=== PATIENT | female | born 1980 | race Caucasian/White ===

== ENCOUNTER 2016-12-26 11:38 | Inpatient (IN) | payer MEDICARE, OTHER, SELFPAY ==
[2016-12-26] MEDS: cefTRIAXone 2 GM Vial IVPUSH SCH (12:26)
--- NOTE | 2016-12-26 12:43 | PCM.HP ---
H&P History of Present Illness - General Date of Service: 12/26/16 Admit Problem/Dx: Admission Diagnosis/Problem Admission Diagnosis/Problem Pyelonephritis Source of Information: Patient History Limitations: Reports: No Limitations - History of Present Illness Initial Comments - Free Text/Narative: Ms. Young is a 36 yo female with PMH of chronic low back pain, hypertension, migraines, type 2 diabetes, seasonal allergies, generalized anxiety disorder, major depression, and obesity who presented to clinic today for new onset fever this morning. Her temperature measured at home was 102 and her temp was down to 101.2 in the clinic after she took Tylenol at 6 AM. Associated symptoms include dysuria, frequency, urgency, and increased back pain. She did trip over a cord and sustained a twisting injury yesterday as well so is unsure whether the back pain is related to her kidneys or to something else. She denies any new or changing lower extremity neurologic symptoms. She does have some chronic weakness and numbness/tingling but these symptoms are unchanged. She does feel generally weak and unwell. She took Tylenol as above but has not done any home cares for her symptoms. She does have a history of UTI's and has previously had to come in and get daily injections of ceftriaxone from the emergency room. She does have an allergy listed to cephalexin but has done fine with ceftriaxone in the past. She otherwise denies any symptoms of infection. - Related Data Allergies/Adverse Reactions: Allergies Allergy/AdvReac Type Severity Reaction Status Date / Time cat dander Allergy Sneezing Verified 12/26/16 12:29 duloxetine [From Cymbalta] Allergy Cannot Verified 12/26/16 12:29 Remember Sulfa (Sulfonamide Allergy Hives Verified 12/26/16 12:29 Antibiotics) celecoxib [From Celebrex] AdvReac Diarrhea Verified 12/26/16 12:29 cephalexin AdvReac Nausea and Verified 12/26/16 12:29 Vomiting topiramate [From Topamax] AdvReac Delusions Verified 12/26/16 12:29 dust mite extract Allergy Cannot Uncoded 12/26/16 12:29 Remember Home Medications: Home Meds Acyclovir [Zovirax] 400 mg PO BID 09/28/13 [History] Amitriptyline [Elavil] 25 mg PO TID 09/28/13 [History] Calcium Carbonate/Vitamin D2 [Oyster Shell Calcium-Vit D Tab] 1 tab PO BIDMEALS 09/28/13 [History] Cholecalciferol (Vitamin D3) [Vitamin D3] 10,000 unit PO DAILY 09/28/13 [History ] Cyanocobalamin (Vitamin B-12) [Vitamin B-12] 100 mcg PO DAILY 09/28/13 [History] Docusate Sodium [Colace] 100 mg PO BID 09/28/13 [History] Ferrous Sulfate 325 mg PO BID 09/28/13 [History] Gabapentin [Neurontin] 600 mg PO TID 09/28/13 [History] Magnesium Oxide 800 mg PO DAILY@1800 09/28/13 [History] Multivitamin [Multivitamins] 1 cap PO DAILY 09/28/13 [History] SUMAtriptan Succinate [Imitrex] 100 mg PO ASDIRECTED PRN MDD 2 tabs in 24 hours 09/28/13 [History] tiZANidine HCl [Zanaflex] 8 mg PO BEDTIME 09/28/13 [History] metFORMIN HCl [Metformin HCl] 500 mg PO BID 03/15/15 [History] traZODone 100 mg PO BEDTIME 03/15/15 [History] Biotin 1 tab PO DAILY 01/24/16 [History] Enalapril/Hydrochlorothiazide [Enalapril-HCTZ 5-12.5 MG] 1 tab PO DAILY [History] Omeprazole Magnesium [Prilosec Otc] 20 mg PO BIDAC 01/24/16 [History] Terbinafine [LamISIL AT 1% Crm] 1 applic TOP BID PRN 01/24/16 [History] Ethinyl Estradiol/Norgestrel [Cryselle 28-Day] 1 tab PO DAILY 12/26/16 [History] Lidocaine 2% [Xylocaine 2% Jelly] 1 applic TOP DAILY PRN 12/26/16 [History] Zonisamide 100 mg PO BID 12/26/16 [History] tiZANidine [Zanaflex] 4 mg PO DAILY PRN 12/26/16 [History] Past Medical History HEENT History: Reports: Allergic Rhinitis Cardiovascular History: Reports: Hypertension Respiratory History: Reports: None Gastrointestinal History: Reports: Other (See Below) Other Gastrointestinal History: abd abscess post hernia surgery Genitourinary History: Reports: UTI, Recurrent Musculoskeletal History: Reports: Back Pain, Chronic Neurological History: Reports: Migraines Psychiatric History: Reports: Anxiety, Depression Endocrine/Metabolic History: Reports: Diabetes, Type II, Obesity/BMI 30+ Hematologic History: Reports: Anemia Immunologic History: Reports: None Oncologic (Cancer) History: Reports: None Dermatologic History: Reports: None - Infectious Disease History Infectious Disease History: Reports: MRSA - Past Surgical History GI Surgical History: Reports: Bariatric Procedure, Cholecystectomy, Hernia Repair/Other Neurological Surgical History: Reports: Lumbar Spine Musculoskeletal Surgical History: Reports: Carpal Tunnel Social & Family History - Family History Cardiac: Reports: CAD, Hypertension : Reports: Renal Disease/Insufficiency Neurological: Reports: CVA Endocrine/Metabolic: Reports: Diabetes, type II Oncologic: Reports: Uterine - Tobacco Use Smoking Status *Q: Never Smoker - Caffeine Use Caffeine Use: Reports: Coffee, Soda - Alcohol Use Alcohol Use History: No Days Per Week of Alcohol Use: 0 Alcohol Use in Last Twelve Months: No - Recreational Drug Use Recreational Drug Use: No - Living Situation & Occupation Living situation: Reports: Single, with Family (sister) Occupation: Disabled H&P Review of Systems - Review of Systems: Review Of Systems: See Below General: Reports: Fever, Malaise, Weakness HEENT: Reports: No Symptoms Pulmonary: Reports: No Symptoms Cardiovascular: Reports: No Symptoms Gastrointestinal: Reports: Abdominal Pain, Anorexia, Diarrhea, Nausea. Denies: Vomiting Genitourinary: Reports: Dysuria, Frequency, Urgency Musculoskeletal: Reports: No Symptoms Skin: Reports: No Symptoms Psychiatric: Reports: No Symptoms Neurological: Reports: No Symptoms Hematologic/Lymphatic: Reports: No Symptoms Exam - Exam Exam: See Below - Vital Signs Vital Signs: Last Vital Signs Temp 37.8 C 12/26/16 11:49 Pulse 123 H 12/26/16 11:49 Resp 18 12/26/16 11:49 BP 117/56 L 12/26/16 11:49 Pulse Ox 97 12/26/16 11:49 Weight: 131.542 kg - Exam General: Alert, Oriented, Cooperative, Mild Distress (secondary to pain) HEENT: Conjunctiva Clear, Mucosa Moist & [place], Posterior Pharynx Clear, Pupils Equal, Pupils Reactive Neck: Supple, Trachea Midline. No: Lymphadenopathy, Thyromegaly Lungs: Clear to Auscultation, Normal Respiratory Effort Cardiovascular: Regular Rhythm, Normal S1, Normal S2, Tachycardia GI/Abdominal Exam: Normal Bowel Sounds, Soft, No Organomegaly, No Distention, No Mass, Tender (LUQ) Back Exam: Normal Inspection, CVA Tenderness (L), CVA Tenderness (R), Paraspinal Tenderness. No: Vertebral Tenderness Extremities: Normal Inspection, No Pedal Edema, Normal Capillary Refill Skin: Warm, Dry, Intact Neurological: Other (Stable lack of sensation in the left inner thigh; otherwise normal sensation. Strength normal in the LE bilaterally; reflexes equal bilaterally. Gait is normal.) *Q Meaningful Use (ADM) - VTE *Q VTE Criteria *Q: - Stroke *Q Stroke Criteria *Q: - AMI *Q AMI Criteria *Q: - Problem List (1) Sepsis SNOMED Code(s): 04221848 ICD Code: A41.9 - SEPSIS, UNSPECIFIED ORGANISM Status: Acute Current Visit: Yes Problem Details: - Patient meets sepsis criteria with tachycardia, fever, and leukocytosis. - Likely secondary to pyelonephritis. The degree of WBC elevation would be atypical for a spinal infection and it would be unlikely for this to occur without a change in her lower extremity neurologic symptoms. She has no symptoms of a pulmonary or GI infection. - Blood cultures drawn before antibiotics given and are pending. - Lactate obtained and elevated. This will need to be repeated in 6 hours. - She will be treated with ceftriaxone for her UTI at a dose of 2 grams q24 hours as recommended by pharmacy. - Will bolus 1 L of normal saline and see if we can get her heart rate down. She will then be maintained on NS @ 100 cc/hr for another liter. Qualifiers: Sepsis type: sepsis due to unspecified organism Qualified Code(s): A41.9 - Sepsis, unspecified organism (2) Pyelonephritis SNOMED Code(s): 09575728 ICD Code: N12 - TUBULO-INTERSTITIAL NEPHRITIS, NOT SPCF ACUTE OR CHRONIC Status: Acute Current Visit: Yes Problem Details: - Symptoms, exam, and labs are consistent with acute pyelonephritis. Lipase negative excluding other most common cause for LUQ pain. - No evidence of a complicated pyelonephritis at this point; therefore, no need for imaging. - If her symptoms and labs do not improve after 24-48 hours of antibiotic therapy, will do u/s if available, otherwise CT abdomen/pelvis. - Ceftriaxone 2 grams q 24 hours per guidelines. - Otherwise, see treatment as under sepsis above. (3) Diabetes SNOMED Code(s): 35579869 ICD Code: E11.9 - TYPE 2 DIABETES MELLITUS WITHOUT COMPLICATIONS Status: Chronic Current Visit: Yes Problem Details: - Hold metformin while hospitalized. - QID glucoses. Will do low dose SSI. Qualifiers: Diabetes mellitus type: type 2 Diabetes mellitus complication status: without complication Diabetes mellitus fdc insulin use: without fdc use Qualified Code(s): E11.9 - Type 2 diabetes mellitus without complications (4) Hypertension SNOMED Code(s): 62108681 ICD Code: I10 - ESSENTIAL (PRIMARY) HYPERTENSION Status: Acute Current Visit: Yes Problem Details: - BP ok on admission. - Will hold antihypertensives until patient no longer meets sepsis criteria. Qualifiers: Hypertension type: essential hypertension Qualified Code(s): I10 - Essential (primary) hypertension (5) Low back pain SNOMED Code(s): 266996040 ICD Code: M54.5 - LOW BACK PAIN Status: Acute Priority: Medium Current Visit: No Problem Details: - No changes to symptoms or exam, making an infection there much less likely. - Will monitor neuro exams and image as indicated. Qualifiers: Chronicity: chronic Back pain laterality: bilateral Sciatica presence: with sciatica Sciatica laterality: bilateral sciatica Qualified Code(s): M54.42 - Lumbago with sciatica, left side; M54.41 - Lumbago with sciatica, right side; G89.29 - Other chronic pain Problem List Initiated/Reviewed/Updated: Yes Orders Last 24hrs: Active Orders 24 hr Category Date Time Status Admission Status [Patient Status] [ADT] Routine ADT 12/26/16 11:40 Active Blood Glucose Check, Bedside [RC] QIDACANDBED Care 12/26/16 11:59 Active Notify Provider Vital Signs [RC] ASDIRECTED Care 12/26/16 11:59 Active Oxygen Therapy [RC] PRN Care 12/26/16 11:59 Active Up With Assistance [RC] ASDIRECTED Care 12/26/16 11:59 Active VTE/DVT Education [RC] PER UNIT ROUTINE Care 12/26/16 11:59 Active Vital Signs [RC] Q4H Care 12/26/16 11:59 Active [employer] Diet [DIET] Diet 12/26/16 Lunch Active BASIC METABOLIC PANEL,BMP [CHEM] AM Lab 12/27/16 05:11 Ordered CBC WITH AUTO DIFF [HEME] AM Lab 12/27/16 05:11 Ordered CULTURE BLOOD [BC] Stat Lab 12/26/16 12:07 Received CULTURE BLOOD [BC] Stat Lab 12/26/16 12:26 Received LACTIC ACID [CHEM] Routine Lab 12/26/16 12:07 Received Acetaminophen [Tylenol] Med 12/26/16 11:59 Active 650 mg PO Q4H PRN Enoxaparin [Lovenox] Med 12/27/16 08:00 Active 40 mg SUBCUT DAILY cefTRIAXone [Rocephin] Med 12/26/16 12:15 Active 2 gm IVPUSH Q24H Resuscitation Status Routine Resus Stat 12/26/16 11:59 Ordered Medication Orders Acetaminophen (Tylenol) 650 mg PO Q4H PRN PRN Reason: Pain (Mild 1-3)/fever Ceftriaxone Sodium (Rocephin) 2 gm IVPUSH Q24H [facility] Last Admin: 12/26/16 12:26 Dose: 2 gm Enoxaparin Sodium (Lovenox) 40 mg SUBCUT DAILY [facility] Assessment/Plan Comment:: 36 yo female admitted with sepsis secondary to pyelonephritis. See details under problems above. Will treat with ceftriaxone. Blood and urine cultures pending. Hold metformin and antihypertensives. Lovenox for VTE prophylaxis. Patient is full code. She is admitted under acute status - anticipate admission for 48-72 hours.
[2016-12-26] MEDS ORDERED: Sodium Chloride 0.9% 500 ML IV ONE (12:51)
[2016-12-26] MEDS ORDERED: Lidocaine 2% Jelly 5 ML Tube TOP PRN (12:52)
[2016-12-26] MEDS ORDERED: tiZANidine 4 MG Tab PO PRN (12:52)
[2016-12-26] MEDS: Gabapentin 300 MG Cap PO SCH ×2 (13:39→19:46)
[2016-12-26] MEDS ORDERED: Sodium Chloride 0.9% 1,000 ML IV SCH ×3 (13:45→19:11)
[2016-12-26] MEDS: Acetaminophen 325 MG Tab PO PRN ×2 (14:22→19:47)
[2016-12-26] MEDS: SUMAtriptan 50 MG Tab PO PRN (15:21)
[2016-12-26] MEDS: Omeprazole 20 MG Cap.CR PO SCH (16:02)
[2016-12-26] MEDS: Insulin Aspart 100 Units/ML 3 ML Pen SUBCUT SCH (17:24)
[2016-12-26] MEDS: Amitriptyline 25 MG Tab PO SCH (19:46)
[2016-12-26] MEDS: Docusate Sodium 100 MG Cap PO SCH (19:46)
[2016-12-26] MEDS: tiZANidine 4 MG Tab PO SCH (19:47)
[2016-12-26] MEDS: traZODone 50 MG Tab PO SCH (19:47)
[2016-12-26] MEDS: Acyclovir 200 MG Cap PO SCH (19:47)
[2016-12-26] MEDS ORDERED: ZONISAMIDE PO SCH (20:00)
[2016-12-27] MEDS: Acetaminophen 325 MG Tab PO PRN (06:03)
[2016-12-27] MEDS: Omeprazole 20 MG Cap.CR PO SCH ×2 (06:03→16:39)
[2016-12-27 07:16] LABS: CHLORIDE,CL 105 mmol/L (98-107); SODIUM,NA 142 mmol/L (136-145)
[2016-12-27] MEDS: Amitriptyline 25 MG Tab PO SCH ×3 (07:54→19:39)
[2016-12-27] MEDS: Gabapentin 300 MG Cap PO SCH ×3 (07:54→19:39)
[2016-12-27] MEDS: Enoxaparin 40 MG/0.4 ML Syringe SUBCUT SCH (07:55)
[2016-12-27] MEDS: Acyclovir 200 MG Cap PO SCH ×2 (07:55→19:39)
[2016-12-27] MEDS: Docusate Sodium 100 MG Cap PO SCH ×2 (07:57→19:38)
[2016-12-27] MEDS: NORGESTREL PO SCH (07:59)
[2016-12-27] MEDS: ETHINYL ESTRADIOL PO SCH (07:59)
[2016-12-27] MEDS: Insulin Aspart 100 Units/ML 3 ML Pen SUBCUT SCH ×3 (08:18→17:12)
[2016-12-27] MEDS ORDERED: Ibuprofen 200 MG Tab PO ONE (08:28)
--- NOTE | 2016-12-27 08:34 | PCM.PN ---
- General Info Date of Service: 12/27/16 Subjective Update: Feeling much better this morning in terms of malaise and weakness. Back pain is improved to baseline. Still having LUQ pain. Appetite is better, no nausea or vomiting. No dysuria. No fever or chills. - Review of Systems General: Reports: No Symptoms HEENT: Reports: No Symptoms Pulmonary: Reports: No Symptoms Cardiovascular: Reports: No Symptoms Gastrointestinal: Reports: Abdominal Pain Genitourinary: Reports: No Symptoms Musculoskeletal: Reports: Back Pain Skin: Reports: No Symptoms - Patient Data Vitals - Most Recent: Last Vital Signs Temp 37.0 C 12/27/16 06:00 Pulse 87 12/27/16 06:00 Resp 18 12/27/16 06:00 BP 112/63 12/27/16 06:00 Pulse Ox 97 12/27/16 06:00 Weight - Most Recent: 131.542 kg I&O - Last 24 Hours: Intake & Output 12/26/16 12/27/16 12/27/16 22:59 06:59 14:59 Intake Total 1387 870 Output Total 900 400 Balance 487 470 Lab Results Last 24 Hours: Laboratory Results - last 24 hr 12/26/16 12/26/16 12/26/16 Range/Units 12:07 12:39 17:10 WBC (4.0-10.0) x10^3/uL RBC (4.00-5.50) x10^6/uL Hgb (12.0-16.0) g/dL Hct (33.0-47.0) % MCV (78.0-93.0) fL MCH (26.0-32.0) pg MCHC (32.0-36.0) g/dL RDW Coeff of Juan R (10.0-15.0) % Plt Count (130-400) x10^3/uL Neut % (Auto) (50.0-80.0) % Lymph % (Auto) (25.0-50.0) % [place] % (Auto) (2.0-11.0) % Eos % (Auto) (0.0-4.0) % Baso % (Auto) (0.2-1.2) % Sodium (136-145) mmol/L Potassium (3.5-5.1) mmol/L Chloride (98-107) mmol/L Carbon Dioxide (21-32) mmol/L BUN (7-18) mg/dL Creatinine (0.55-1.02) mg/dL Est Cr Clr Drug Dosing mL/min Estimated GFR (MDRD) Glucose (74-106) mg/dL POC Glucose 181 H (74-106) mg/dL Lactic Acid 3.1 H 1.4 (0.4-2.0) mmol/L Calcium (8.5-10.1) mg/dL 12/26/16 12/26/16 12/27/16 Range/Units 17:18 19:44 06:01 WBC (4.0-10.0) x10^3/uL RBC (4.00-5.50) x10^6/uL Hgb (12.0-16.0) g/dL Hct (33.0-47.0) % MCV (78.0-93.0) fL MCH (26.0-32.0) pg MCHC (32.0-36.0) g/dL RDW Coeff of Juan R (10.0-15.0) % Plt Count (130-400) x10^3/uL Neut % (Auto) (50.0-80.0) % Lymph % (Auto) (25.0-50.0) % [place] % (Auto) (2.0-11.0) % Eos % (Auto) (0.0-4.0) % Baso % (Auto) (0.2-1.2) % Sodium (136-145) mmol/L Potassium (3.5-5.1) mmol/L Chloride (98-107) mmol/L Carbon Dioxide (21-32) mmol/L BUN (7-18) mg/dL Creatinine (0.55-1.02) mg/dL Est Cr Clr Drug Dosing mL/min Estimated GFR (MDRD) Glucose (74-106) mg/dL POC Glucose 171 H 159 H 136 H (74-106) mg/dL Lactic Acid (0.4-2.0) mmol/L Calcium (8.5-10.1) mg/dL 12/27/16 12/27/16 Range/Units 06:47 06:47 WBC 14.9 H (4.0-10.0) x10^3/uL RBC 3.79 L (4.00-5.50) x10^6/uL Hgb 9.9 L (12.0-16.0) g/dL Hct 30.8 L (33.0-47.0) % MCV 81.3 D (78.0-93.0) fL MCH 26.1 (26.0-32.0) pg MCHC 32.1 (32.0-36.0) g/dL RDW Coeff of Juan R 16.7 H (10.0-15.0) % Plt Count 249 D (130-400) x10^3/uL Neut % (Auto) 78.8 (50.0-80.0) % Lymph % (Auto) 11.1 L (25.0-50.0) % [place] % (Auto) 8.7 (2.0-11.0) % Eos % (Auto) 1.3 (0.0-4.0) % Baso % (Auto) 0.1 L (0.2-1.2) % Sodium 142 (136-145) mmol/L Potassium 3.4 L (3.5-5.1) mmol/L Chloride 105 (98-107) mmol/L Carbon Dioxide 27 (21-32) mmol/L BUN 12 (7-18) mg/dL Creatinine 0.9 (0.55-1.02) mg/dL Est Cr Clr Drug Dosing 82.42 mL/min Estimated GFR (MDRD) > 60 Glucose 136 H (74-106) mg/dL POC Glucose (74-106) mg/dL Lactic Acid (0.4-2.0) mmol/L Calcium 8.0 L (8.5-10.1) mg/dL Med Orders - Current: Current Medications Acetaminophen (Tylenol) 650 mg PO Q4H PRN PRN Reason: Pain (Mild 1-3)/fever Last Admin: 12/27/16 06:03 Dose: 650 mg Acyclovir (Zovirax) 400 mg PO BID [facility] Last Admin: 12/27/16 07:55 Dose: 400 mg Amitriptyline HCl (Elavil) 25 mg PO TID [facility] Last Admin: 12/27/16 07:54 Dose: 25 mg Ceftriaxone Sodium (Rocephin) 2 gm IVPUSH Q24H [facility] Last Admin: 12/26/16 12:26 Dose: 2 gm Docusate Sodium (Colace) 100 mg PO BID [facility] Last Admin: 12/27/16 07:57 Dose: 100 mg Enoxaparin Sodium (Lovenox) 40 mg SUBCUT DAILY [facility] Last Admin: 12/27/16 07:55 Dose: 40 mg Gabapentin (Neurontin) 600 mg PO TID [facility] Last Admin: 12/27/16 07:54 Dose: 600 mg Insulin Aspart (Novolog) 0 unit SUBCUT TIDMEALS [facility] PRN Reason: Protocol Last Admin: 12/27/16 08:18 Dose: Not Given Lidocaine HCl (Xylocaine 2% Jelly) 0 ml TOP DAILY PRN PRN Reason: Pain Ethinyl Estradiol/Norgestrel [Cryselle 28-Day] 1 tab PO DAILY [facility] Last Admin: 12/27/16 07:59 Dose: 1 tab Omeprazole (Omeprazole) 20 mg PO BIDAC [facility] Last Admin: 12/27/16 06:03 Dose: 20 mg Sumatriptan Succinate (Imitrex) 100 mg PO DAILY PRN PRN Reason: Headache Last Admin: 12/26/16 15:21 Dose: 100 mg Tizanidine HCl (Zanaflex) 8 mg PO BEDTIME [facility] Last Admin: 12/26/16 19:47 Dose: 8 mg Tizanidine HCl (Zanaflex) 4 mg PO DAILY PRN PRN Reason: Other Trazodone HCl (Trazodone) 100 mg PO BEDTIME [facility] Last Admin: 12/26/16 19:47 Dose: 100 mg Discontinued Medications Sodium Chloride (Normal Saline) 500 mls @ 1,000 mls/hr IV ONETIME ONE Stop: 12/26/16 13:20 Last Admin: 12/26/16 13:39 Dose: 1,000 mls/hr Sodium Chloride (Normal Saline) 1,000 mls @ 100 mls/hr IV ASDIRECTED [facility] Sodium Chloride (Normal Saline) 1,000 mls @ 100 mls/hr IV ASDIRECTED [facility] Last Admin: 12/26/16 14:20 Dose: 100 mls/hr Sodium Chloride (Normal Saline) 1,000 mls @ 100 mls/hr IV ASDIRECTED [facility] Stop: 12/27/16 01:16 Last Admin: 12/26/16 19:27 Dose: Not Given Zonisamide [ Zonisamide] (Own Supply) 0 mg PO BID [facility] - Exam General: Alert, Oriented, Cooperative, No Acute Distress HEENT: Mucous Membr. Moist/[place] Neck: Supple, Trachea Midline, No Thyromegaly. No: Lymphadenopathy Lungs: Clear to Auscultation, Normal Respiratory Effort Cardiovascular: Regular Rate, Regular Rhythm, No Murmurs GI/Abdominal Exam: Normal Bowel Sounds, Soft, No Organomegaly, No Distention, No Mass, Tender (LUQ without rebound, rigidity, or guarding) Back Exam: Normal Inspection, CVA Tenderness (L), CVA Tenderness (R) Extremities: Normal Inspection, No Pedal Edema, Normal Capillary Refill Skin: Warm, Dry, Intact - Problem List & Annotations (1) Sepsis SNOMED Code(s): 92493039 Code(s): A41.9 - SEPSIS, UNSPECIFIED ORGANISM Status: Resolved Current Visit: Yes Qualifiers: Sepsis type: sepsis due to unspecified organism Qualified Code(s): A41.9 - Sepsis, unspecified organism Annotation/Comment:: - Patient met sepsis criteria on admission with tachycardia , fever, and leukocytosis. This is now resolved as she no longer has any fever or tachycardia. - Secondary to pyelonephritis. - Blood cultures drawn before antibiotics given and are pending. - Lactate elevated initially and then back to normal on recheck. - She will be treated with ceftriaxone for her UTI at a dose of 2 grams q24 hours as recommended by pharmacy. - Can ad junior PO fluids today. Bolus IV PRN. (2) Pyelonephritis SNOMED Code(s): 89553667 Code(s): N12 - TUBULO-INTERSTITIAL NEPHRITIS, NOT SPCF ACUTE OR CHRONIC Status: Acute Current Visit: Yes Annotation/Comment:: - Symptoms, exam, and labs are consistent with acute pyelonephritis. Lipase negative excluding other most common cause for LUQ pain. - No evidence of a complicated pyelonephritis at this point; therefore, no need for imaging. - Symptoms and labs are improving. - Continue ceftriaxone 2 grams q 24 hours per guidelines. - Urine culture pending. Will guide PO antibiotic based on culture and susceptibilities. (3) Diabetes SNOMED Code(s): 78024274 Code(s): E11.9 - TYPE 2 DIABETES MELLITUS WITHOUT COMPLICATIONS Status: Chronic Current Visit: Yes Qualifiers: Diabetes mellitus type: type 2 Diabetes mellitus complication status: without complication Diabetes mellitus terminologist insulin use: without terminologist use Qualified Code(s): E11.9 - Type 2 diabetes mellitus without complications Annotation/Comment:: - Hold metformin while hospitalized. - QID glucoses. Will do low dose SSI. (4) Hypertension SNOMED Code(s): 39027712 Code(s): I10 - ESSENTIAL (PRIMARY) HYPERTENSION Status: Acute Current Visit: Yes Qualifiers: Hypertension type: essential hypertension Qualified Code(s): I10 - Essential (primary) hypertension Annotation/Comment:: - BP low overnight and ok this morning. - Will hold antihypertensives for now and add back as indicated if her BP increases. (5) Low back pain SNOMED Code(s): 672780839 Code(s): M54.5 - LOW BACK PAIN Status: Acute Priority: Medium Current Visit: No Qualifiers: Chronicity: chronic Back pain laterality: bilateral Sciatica presence: with sciatica Sciatica laterality: bilateral sciatica Qualified Code(s): M54.42 - Lumbago with sciatica, left side; M54.41 - Lumbago with sciatica, right side; G89.29 - Other chronic pain Annotation/Comment:: - At baseline today. - Continue to monitor. - Problem List Review Problem List Initiated/Reviewed/Updated: Yes - My Orders Last 24 Hours: My Active Orders 12/26/16 11:40 Admission Status [Patient Status] [ADT] Routine 12/26/16 11:59 Blood Glucose Check, Bedside [RC] ,,,20 Notify Provider Vital Signs [RC] 02,06,10,14,18,22 Oxygen Therapy [RC] .PRN Up With Assistance [RC] VTE/DVT Education [RC] .PRN Vital Signs [RC] 02,06,10,14,18,22 Acetaminophen [Tylenol] 650 mg PO Q4H PRN Resuscitation Status Routine 12/26/16 12:07 CULTURE BLOOD [BC] Stat 12/26/16 12:15 cefTRIAXone [Rocephin] 2 gm IVPUSH Q24H 12/26/16 12:26 CULTURE BLOOD [BC] Stat 12/26/16 12:52 Lidocaine 2% [Xylocaine 2% Jelly] 0 ml TOP DAILY PRN SUMAtriptan [Imitrex] 100 mg PO DAILY PRN tiZANidine [Zanaflex] 4 mg PO DAILY PRN 12/26/16 13:15 Gabapentin [Neurontin] 600 mg PO TID 12/26/16 17:00 Omeprazole 20 mg PO BIDAC 12/26/16 18:00 Insulin Aspart [NovoLOG] See Protocol SUBCUT TIDMEALS 12/26/16 20:00 Acyclovir [Zovirax] 400 mg PO BID Amitriptyline [Elavil] 25 mg PO TID Docusate Sodium [Colace] 100 mg PO BID tiZANidine [Zanaflex] 8 mg PO BEDTIME traZODone 100 mg PO BEDTIME 12/26/16 Lunch [employer] Diet [DIET] 12/27/16 08:00 Enoxaparin [Lovenox] 40 mg SUBCUT DAILY Ethinyl Estradiol/Norgestrel [Cryselle 28-Day] 1 tab PO DAILY 12/27/16 08:28 Ibuprofen [Motrin] 600 mg PO ONETIME PRN 12/28/16 05:11 BASIC METABOLIC PANEL,BMP [CHEM] Routine C-REACTIVE PROTEIN [CHEM] Routine CBC WITH AUTO DIFF [HEME] Routine - Assessment Assessment:: 36 yo female admitted with sepsis secondary to pyelonephritis. Patient is feeling much better this am and sepsis is resolved. - Plan Plan:: See details under problems above. Continue ceftriaxone. Blood and urine cultures pending. Hold metformin and antihypertensives. Lovenox for VTE prophylaxis. Patient is full code. She is admitted under acute status - anticipate dismissal tomorrow unless something changes in her clinical status. Awaiting urine culture and susceptibilities to guide PO therapy.
[2016-12-27] MEDS: cefTRIAXone 2 GM Vial IVPUSH SCH (11:23)
[2016-12-27] MEDS: tiZANidine 4 MG Tab PO SCH (19:38)
[2016-12-27] MEDS: traZODone 50 MG Tab PO SCH (19:39)
[2016-12-28] MEDS: SUMAtriptan 50 MG Tab PO PRN (02:04)
[2016-12-28] MEDS: Omeprazole 20 MG Cap.CR PO SCH (06:06)
[2016-12-28 07:20] LABS: CHLORIDE,CL 106 mmol/L (98-107); SODIUM,NA 142 mmol/L (136-145)
[2016-12-28] MEDS: Acyclovir 200 MG Cap PO SCH (08:02)
[2016-12-28] MEDS: Gabapentin 300 MG Cap PO SCH ×2 (08:02→11:05)
[2016-12-28] MEDS: Docusate Sodium 100 MG Cap PO SCH (08:02)
[2016-12-28] MEDS: Amitriptyline 25 MG Tab PO SCH ×2 (08:02→11:05)
[2016-12-28] MEDS: NORGESTREL PO SCH (08:03)
[2016-12-28] MEDS: ETHINYL ESTRADIOL PO SCH (08:03)
[2016-12-28] MEDS: Enoxaparin 40 MG/0.4 ML Syringe SUBCUT SCH (08:04)
[2016-12-28] MEDS: Insulin Aspart 100 Units/ML 3 ML Pen SUBCUT SCH ×2 (08:04→11:05)
--- NOTE | 2016-12-28 08:35 | PCM.DCSUM1 ---
Discharge Summary - Hospital Course Brief History: Ms. Young is a 36 yo female admitted with acute pyelonephritis after presenting to clinic for <24 hours of increased thoracic back pain, fever , and dysuria. - Discharge Data Discharge Date: 12/28/16 Discharge Disposition: Home, Self-Care 01 Condition: Good - Discharge Diagnosis/Problem(s) (1) Sepsis SNOMED Code(s): 79961471 ICD Code: A41.9 - SEPSIS, UNSPECIFIED ORGANISM Status: Resolved Current Visit: Yes Problem Details: Patient met sepsis criteria on admission with tachycardia, fever, and leukocytosis. This was resolved as of yesterday when she no longer had any fever or tachycardia. Today, her leukocytosis is also resolved. It is felt to be secondary to pyelonephritis. Blood cultures drawn before antibiotics given and show no growth today. Lactate elevated initially and then back to normal on recheck. She was given IV fluids on the day of admission but has not required them since. She has been treated with ceftriaxone. Urine culture is still pending. Discussed the option to transition to cefdinir (some risk of cross reactivity with her allergy to cephalexin) or ciprofloxacin (reviewed cardiac and ligamentous side effects). She prefers to remain on the ceftriaxone at this time, which is reasonable in light of her previous allergies and known tolerance to the ceftriaxone. Will get her set up with infusions in the ER to complete a 7 day course and recheck at that time to determine if further doses are needed. Qualifiers: Sepsis type: sepsis due to unspecified organism Qualified Code(s): A41.9 - Sepsis, unspecified organism (2) Pyelonephritis SNOMED Code(s): 22655696 ICD Code: N12 - TUBULO-INTERSTITIAL NEPHRITIS, NOT SPCF ACUTE OR CHRONIC Status: Acute Current Visit: Yes Problem Details: Symptoms, exam, and labs were consistent with acute pyelonephritis. Lipase negative excluding other most common cause for LUQ pain. No evidence of a complicated pyelonephritis at this point; therefore, no need for imaging. Patients symptoms and labs improved and normalized during the course of her hospitalization. See above for antibiotic plan on dismissal. Urine culture pending but anticipate she will continue to improve given improvement seen thus far with ceftriaxone. (3) Diabetes SNOMED Code(s): 78671204 ICD Code: E11.9 - TYPE 2 DIABETES MELLITUS WITHOUT COMPLICATIONS Status: Chronic Current Visit: Yes Problem Details: Metformin was while hospitalized. Her glucoses were monitored 4 times/day and treated with insulin per sliding scale. 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 Will have her hold her antihypertensives until hospital follow-up. Qualifiers: Hypertension type: essential hypertension Qualified Code(s): I10 - Essential (primary) hypertension (5) Low back pain SNOMED Code(s): 087880228 ICD Code: M54.5 - LOW BACK PAIN Status: Acute Priority: Medium Current Visit: No Problem Details: Remains at baseline. Continue to monitor. Qualifiers: Chronicity: chronic Back pain laterality: bilateral Sciatica presence: with sciatica Sciatica laterality: bilateral sciatica Qualified Code(s): M54.42 - Lumbago with sciatica, left side; M54.41 - Lumbago with sciatica, right side; G89.29 - Other chronic pain - Patient Summary/Data Operative Procedure(s) Performed: none Complications: none Consults: none Labs Pending at D/C: urine culture Recommended Follow-up Testing/Procedures: none Planned Operative Procedure(s) after DC: none Hospital Course: Please see details under problems above. Patient's symptoms and labs quickly improved and she was feeling back to normal today. Therefore, she will be dismissed home and will follow up next week. - Patient Instructions Diet: Usual Diet as Tolerated Activity: As Tolerated Driving: May Drive Today Showering/Bathing: May Shower Notify Provider of: Fever, Increased Pain, Nausea and/or Vomiting - Discharge Plan Home Medications: Home Meds Acyclovir [Zovirax] 400 mg PO BID 09/28/13 [History] Amitriptyline [Elavil] 25 mg PO TID 09/28/13 [History] Calcium Carbonate/Vitamin D2 [Oyster Shell Calcium-Vit D Tab] 1 tab PO BIDMEALS 09/28/13 [History] Cholecalciferol (Vitamin D3) [Vitamin D3] 10,000 unit PO DAILY 09/28/13 [History ] Cyanocobalamin (Vitamin B-12) [Vitamin B-12] 100 mcg PO DAILY 09/28/13 [History] Docusate Sodium [Colace] 100 mg PO BID 09/28/13 [History] Ferrous Sulfate 325 mg PO BID 09/28/13 [History] Gabapentin [Neurontin] 600 mg PO TID 09/28/13 [History] Magnesium Oxide 800 mg PO DAILY@1800 09/28/13 [History] Multivitamin [Multivitamins] 1 cap PO DAILY 09/28/13 [History] SUMAtriptan Succinate [Imitrex] 100 mg PO ASDIRECTED PRN MDD 2 tabs in 24 hours 09/28/13 [History] tiZANidine HCl [Zanaflex] 8 mg PO BEDTIME 09/28/13 [History] metFORMIN HCl [Metformin HCl] 500 mg PO BID 03/15/15 [History] traZODone 100 mg PO BEDTIME 03/15/15 [History] Biotin 1 tab PO DAILY 01/24/16 [History] Omeprazole Magnesium [Prilosec Otc] 20 mg PO BIDAC 01/24/16 [History] Terbinafine [LamISIL AT 1% Crm] 1 applic TOP BID PRN 01/24/16 [History] Ethinyl Estradiol/Norgestrel [Cryselle 28-Day] 1 tab PO DAILY 12/26/16 [History] Lidocaine 2% [Xylocaine 2% Jelly] 1 applic TOP DAILY PRN 12/26/16 [History] tiZANidine [Zanaflex] 4 mg PO DAILY PRN 12/26/16 [History] cefTRIAXone [Rocephin] 2 gm IVPUSH Q24H vial 12/28/16 [Rx] Referrals: Faby Araya MD [Primary Care Provider] - 01/01/17 - Discharge Summary/Plan Comment DC Time >30 min.: No - General Info Date of Service: 12/28/16 Subjective Update: Patient is feeling back to normal this am. No complaints. - Review of Systems General: Reports: No Symptoms HEENT: Reports: No Symptoms Pulmonary: Reports: No Symptoms Cardiovascular: Reports: No Symptoms Gastrointestinal: Reports: No Symptoms Genitourinary: Reports: No Symptoms Musculoskeletal: Reports: No Symptoms Skin: Reports: No Symptoms - Patient Data Vitals - Most Recent: Last Vital Signs Temp 36.9 C 12/28/16 06:00 Pulse 64 12/28/16 06:00 Resp 20 12/28/16 06:00 BP 144/65 H 12/28/16 06:00 Pulse Ox 97 12/28/16 06:00 Weight - Most Recent: 131.542 kg I&O - Last 24 hours: Intake & Output 12/27/16 12/28/16 12/28/16 22:59 06:59 14:59 Intake Total 770 500 Output Total 500 Balance 770 0 Lab Results - Last 24 hrs: Laboratory Results - last 24 hr 12/27/16 12/27/16 12/27/16 Range/Units 11:06 16:37 19:46 WBC (4.0-10.0) x10^3/uL RBC (4.00-5.50) x10^6/uL Hgb (12.0-16.0) g/dL Hct (33.0-47.0) % MCV (78.0-93.0) fL MCH (26.0-32.0) pg MCHC (32.0-36.0) g/dL RDW Coeff of Juan R (10.0-15.0) % Plt Count (130-400) x10^3/uL Neut % (Auto) (50.0-80.0) % Lymph % (Auto) (25.0-50.0) % [place] % (Auto) (2.0-11.0) % Eos % (Auto) (0.0-4.0) % Baso % (Auto) (0.2-1.2) % Sodium (136-145) mmol/L Potassium (3.5-5.1) mmol/L Chloride (98-107) mmol/L Carbon Dioxide (21-32) mmol/L BUN (7-18) mg/dL Creatinine (0.55-1.02) mg/dL Est Cr Clr Drug Dosing mL/min Estimated GFR (MDRD) Glucose (74-106) mg/dL POC Glucose 106 148 H 136 H (74-106) mg/dL Calcium (8.5-10.1) mg/dL C-Reactive Protein (<=0.9) mg/dL 12/28/16 12/28/1617 Range/Units 06:05 06:45 06:45 WBC 8.7 (4.0-10.0) x10^3/uL RBC 4.08 (4.00-5.50) x10^6/uL Hgb 10.5 L (12.0-16.0) g/dL Hct 33.1 (33.0-47.0) % MCV 81.1 (78.0-93.0) fL MCH 25.7 L (26.0-32.0) pg MCHC 31.7 L (32.0-36.0) g/dL RDW Coeff of Juan R 16.4 H (10.0-15.0) % Plt Count 282 (130-400) x10^3/uL Neut % (Auto) 73.0 (50.0-80.0) % Lymph % (Auto) 15.5 L (25.0-50.0) % [place] % (Auto) 8.5 (2.0-11.0) % Eos % (Auto) 2.8 (0.0-4.0) % Baso % (Auto) 0.2 (0.2-1.2) % Sodium 142 (136-145) mmol/L Potassium 3.8 (3.5-5.1) mmol/L Chloride 106 (98-107) mmol/L Carbon Dioxide 27 (21-32) mmol/L BUN 10 (7-18) mg/dL Creatinine 0.8 (0.55-1.02) mg/dL Est Cr Clr Drug Dosing 92.72 mL/min Estimated GFR (MDRD) > 60 Glucose 117 H (74-106) mg/dL POC Glucose 113 H (74-106) mg/dL Calcium 8.2 L (8.5-10.1) mg/dL C-Reactive Protein 26.9 H (<=0.9) mg/dL SOLITARIO Results - Last 24 hrs: Microbiology 12/26/16 12:26 Aerobic Blood Culture - Preliminary Blood - Venous - Lab Draw NO GROWTH AFTER 1 DAY Anaerobic Blood Culture - Preliminary NO GROWTH AFTER 1 DAY 12/26/16 12:07 Aerobic Blood Culture - Preliminary Blood - Venous NO GROWTH AFTER 1 DAY Anaerobic Blood Culture - Preliminary NO GROWTH AFTER 1 DAY Med Orders - Current: Current Medications Acetaminophen (Tylenol) 650 mg PO Q4H PRN PRN Reason: Pain (Mild 1-3)/fever Last Admin: 12/27/16 06:03 Dose: 650 mg Acyclovir (Zovirax) 400 mg PO BID [facility] Last Admin: 12/28/16 08:02 Dose: 400 mg Amitriptyline HCl (Elavil) 25 mg PO TID [facility] Last Admin: 12/28/16 08:02 Dose: 25 mg Ceftriaxone Sodium (Rocephin) 2 gm IVPUSH Q24H [facility] Last Admin: 12/27/16 11:23 Dose: 2 gm Docusate Sodium (Colace) 100 mg PO BID [facility] Last Admin: 12/28/16 08:02 Dose: 100 mg Enoxaparin Sodium (Lovenox) 40 mg SUBCUT DAILY [facility] Last Admin: 12/28/16 08:04 Dose: 40 mg Gabapentin (Neurontin) 600 mg PO TID [facility] Last Admin: 12/28/16 08:02 Dose: 600 mg Insulin Aspart (Novolog) 0 unit SUBCUT TIDMEALS [facility] PRN Reason: Protocol Last Admin: 12/28/16 08:04 Dose: Not Given Lidocaine HCl (Xylocaine 2% Jelly) 0 ml TOP DAILY PRN PRN Reason: Pain Ethinyl Estradiol/Norgestrel [Cryselle 28-Day] 1 tab PO DAILY [facility] Last Admin: 12/28/16 08:03 Dose: 1 tab [facility] Last Admin: 12/28/16 06:06 Dose: 20 mg Sumatriptan Succinate (Imitrex) 100 mg PO DAILY PRN PRN Reason: Headache Last Admin: 12/28/16 02:04 Dose: 100 mg Tizanidine HCl (Zanaflex) 8 mg PO BEDTIME [facility] Last Admin: 12/27/16 19:38 Dose: 8 mg Tizanidine HCl (Zanaflex) 4 mg PO DAILY PRN PRN Reason: Other Trazodone HCl (Trazodone) 100 mg PO BEDTIME [facility] Last Admin: 12/27/16 19:39 Dose: 100 mg Discontinued Medications Sodium Chloride (Normal Saline) 500 mls @ 1,000 mls/hr IV ONETIME ONE Stop: 12/26/16 13:20 Last Admin: 12/26/16 13:39 Dose: 1,000 mls/hr Sodium Chloride (Normal Saline) 1,000 mls @ 100 mls/hr IV ASDIRECTED CAROLINE Sodium Chloride (Normal Saline) 1,000 mls @ 100 mls/hr IV ASDIRECTED CAROLINE Last Admin: 12/26/16 14:20 Dose: 100 mls/hr Sodium Chloride (Normal Saline) 1,000 mls @ 100 mls/hr IV ASDIRECTED CAROLINE Stop: 12/27/16 01:16 Last Admin: 12/26/16 19:27 Dose: Not Given Ibuprofen (Motrin) 600 mg PO ONETIME ONE Stop: 12/27/16 08:29 Last Admin: 12/27/16 09:03 Dose: 600 mg Zonisamide [ Zonisamide] (Own Supply) 0 mg PO BID CAROLINE - Exam General: Reports: Alert, Oriented, Cooperative, No Acute Distress HEENT: Reports: Mucous Membr. Moist/[place] Neck: Reports: Supple, Trachea Midline, No Thyromegaly. Denies: Lymphadenopathy Lungs: Reports: Clear to Auscultation, Normal Respiratory Effort Cardiovascular: Reports: Regular Rate, Regular Rhythm, No Murmurs GI/Abdominal Exam: Normal Bowel Sounds, Soft, Non-Tender, No Organomegaly, No Distention, No Mass Back Exam: Reports: Normal Inspection, CVA Tenderness (L), CVA Tenderness (R) Skin: Reports: Warm, Dry, Intact *Q Meaningful Use (DIS) - VTE *Q VTE Criteria *Q: - Stroke *Q Stroke Criteria *Q: - AMI *Q AMI Criteria *Q:
[2016-12-28] MEDS: cefTRIAXone 2 GM Vial IVPUSH SCH (11:05)
[2016-12-28 11:11] VITALS: BP 119/67
== END 2016-12-28 11:20 | disposition home or self-care (01) | DRG 872 ==
LOC: VM.MS 11:40
PROVIDERS: ADMIT Family Medicine; ATTEND Family Medicine
DX: A41.9 Sepsis, unspecified organism (principal); N10 Acute pyelonephritis; E11.9 Type 2 diabetes mellitus without complications; I10 Essential (primary) hypertension; M54.42 Lumbago with sciatica, left side; M54.41 Lumbago with sciatica, right side; G89.29 Other chronic pain; E66.9 Obesity, unspecified; F41.1 Generalized anxiety disorder; F32.9 Major depressive disorder, single episode, unspecified; W18.41XA Slipping, tripping and stumbling without falling due to stepping on object, initial encounter; D64.9 Anemia, unspecified; Z79.84 Long term (current) use of oral hypoglycemic drugs; Z79.899 Other long term (current) drug therapy; Z88.8 Allergy status to other drugs, medicaments and biological substances
CPT/HCPCS: 36415; 80048; 82962; 83605; 85025; 86140; 87040; A9270-GY; J0696; J1650; J1815-GY; J7030; J7040

== ENCOUNTER 2017-10-20 09:26 | Emergency (ER) | payer MEDICARE ==
[2017-10-20 09:51] VITALS: BP 154/89
[2017-10-20] MEDS ORDERED: Ketorolac 30 MG/ML SDV IM ONE (09:57)
--- NOTE | 2017-10-20 10:03 | EDM.PDOC ---
ED HPI GENERAL MEDICAL PROBLEM - General Chief Complaint: Skin Complaint Stated Complaint: INCISION POPPED OPEN Time Seen by Provider: 10/20/17 09:30 Source of Information: Reports: Patient History Limitations: Reports: No Limitations - History of Present Illness INITIAL COMMENTS - FREE TEXT/NARRATIVE: Patient comes in to the emergency department today with concerns of postoperative pain along with incision separation. Patient contacted her surgeon yesterday who advised her to be seen in the emergency department to evaluate her incision opening. However patient did not come in yesterday due to fallen asleep. Patient comes in today for evaluation of this. Patient states that she does not notice at the incision is open today. However she states that her pain is still significant she does not tolerate pain has gone the past. She states that she was given 30 tablets of oxycodone 5 mg and those have been completed as of this morning. She is still experiencing discomfort. Especially when moving and she is resting it's not as prevalent. She denies any nausea/ vomiting, fever, diarrhea, any bloating, redness, swelling, or increased tenderness other than what has been present since her surgery. Pt has been eating and drinking her normal amount. Urinating as usual and having daily bowel movements. Onset: Sudden Abdomen Pain Score (Numeric/FACES): 10 - Related Data Allergies Allergy/AdvReac Type Severity Reaction Status Date / Time amoxicillin [From Augmentin] Allergy Nausea and Verified 10/05/17 08:49 Vomiting aspirin Allergy Bleeding Verified 10/05/17 08:49 cat dander Allergy Sneezing Verified 10/05/17 08:49 clavulanic acid Allergy Nausea and Verified 10/05/17 08:49 [From Augmentin] Vomiting duloxetine [From Cymbalta] Allergy Cannot Verified 10/05/17 08:49 Remember Sulfa (Sulfonamide Allergy Hives Verified 10/05/17 08:49 Antibiotics) celecoxib [From Celebrex] AdvReac Diarrhea Verified 10/05/17 08:49 cephalexin AdvReac Nausea and Verified 10/05/17 08:49 Vomiting topiramate [From Topamax] AdvReac Delusions Verified 10/05/17 08:49 dust mite extract Allergy Cannot Uncoded 10/05/17 08:49 Remember Home Meds: Home Meds Acyclovir [Zovirax] 400 mg PO BID 09/28/13 [History] Calcium Carbonate/Vitamin D2 [Oyster Shell Calcium-Vit D Tab] 1 tab PO BIDMEALS 09/28/13 [History] Cholecalciferol (Vitamin D3) [Vitamin D3] 10,000 unit PO DAILY 09/28/13 [History ] Cyanocobalamin (Vitamin B-12) [Vitamin B-12] 100 mcg PO DAILY 09/28/13 [History] Docusate Sodium [Colace] 100 mg PO BID 09/28/13 [History] Ferrous Sulfate 325 mg PO BID 09/28/13 [History] Magnesium Oxide 800 mg PO DAILY@1800 09/28/13 [History] Multivitamin [Multivitamins] 1 cap PO DAILY 09/28/13 [History] metFORMIN HCl [Metformin HCl] 750 mg PO BID 03/15/15 [History] traZODone 100 mg PO BEDTIME 03/15/15 [History] Biotin 1 tab PO DAILY 01/24/16 [History] Omeprazole Magnesium [Prilosec Otc] 20 mg PO BIDAC 01/24/16 [History] Terbinafine [LamISIL AT 1% Crm] 1 applic TOP BID PRN 01/24/16 [History] Norethindrone [Amanda] 0.35 mg PO DAILY 02/21/17 [History] Enalapril/Hydrochlorothiazide [Enalapril-HCTZ 10-25 MG] 1 tab PO DAILY 04/27/17 [History] Baclofen 10 mg PO TID 90 Days #270 tablet 05/08/17 [Rx] Gabapentin [Neurontin] 1,200 mg PO QID 08/29/17 [History] Meclizine [Antivert] 25 mg PO Q4H 08/29/17 [History] Naratriptan [Amerge] 2.5 mg PO ASDIRECTED 08/29/17 [History] Zonisamide 50 mg PO BID 08/29/17 [History] traMADol [Ultram] 100 mg PO TID 08/29/17 [History] Diazepam [Valium] 2 mg PO BID PRN 30 Days #45 tablet 10/05/17 [Rx] Past Medical History HEENT History: Reports: Allergic Rhinitis Cardiovascular History: Reports: Hypertension Respiratory History: Reports: None Gastrointestinal History: Reports: Other (See Below) Other Gastrointestinal History: abd abscess post hernia surgery Genitourinary History: Reports: UTI, Recurrent 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 left hip pain Neurological History: Reports: Migraines Other Neuro History: sciatica Psychiatric History: Reports: Anxiety, Depression Endocrine/Metabolic History: Reports: Diabetes, Type II, Obesity/BMI 30+ Hematologic History: Reports: Anemia Immunologic History: Reports: None Oncologic (Cancer) History: Reports: None Dermatologic History: Reports: None Other Dermatologic History: intertrigo. onychodystrophy. tinea pedis - Infectious Disease History Infectious Disease History: Reports: MRSA - Past Surgical History GI Surgical History: Reports: Bariatric Procedure, Cholecystectomy, Hernia Repair/Other Neurological Surgical History: Reports: Lumbar Spine Musculoskeletal Surgical History: Reports: Carpal Tunnel Social & Family History - Family History Family Medical History: Noncontributory Cardiac: Reports: CAD, Hypertension Respiratory: Reports: Other (See Below) : Reports: Renal Disease/Insufficiency Neurological: Reports: CVA Endocrine/Metabolic: Reports: Diabetes, type II Oncologic: Reports: Uterine - Caffeine Use Caffeine Use: Reports: None - Living Situation & Occupation Living situation: Reports: Single, with Family (sister) Occupation: Disabled ED ROS GENERAL - Review of Systems Review Of Systems: See Below Constitutional: Reports: No Symptoms. Denies: Fever, Chills, Malaise, Weakness , Fatigue, Night Sweats, Diaphoresis, Decreased Appetite HEENT: Reports: No Symptoms Respiratory: Reports: No Symptoms Cardiovascular: Reports: No Symptoms Endocrine: Reports: No Symptoms GI/Abdominal: Reports: No Symptoms : Reports: No Symptoms Musculoskeletal: Reports: No Symptoms Skin: Reports: No Symptoms Neurological: Reports: No Symptoms Psychiatric: Reports: No Symptoms Hematologic/Lymphatic: Reports: No Symptoms Immunologic: Reports: No Symptoms ED EXAM, SKIN/RASH Exam: See Below Exam Limited By: No Limitations General Appearance: Alert, WD/WN, No Apparent Distress Head: Atraumatic, Normocephalic Neck: Normal Inspection, Supple, Non-Tender Respiratory/Chest: No Respiratory Distress, Lungs Clear, No Accessory Muscle Use Cardiovascular: Normal Peripheral Pulses, Regular Rate, Rhythm GI/Abdominal: Normal Bowel Sounds, Soft, Tender, Other (3 surgical incisions noted. well approximated, normal healing stages, no redness or warmth. No seperation or openings noted on any of the incisions). No: Distended, Rigid, Rebound, Abnormal Bowel Sounds, Hernia, Hepatomegaly Back Exam: Normal Inspection, Full Range of Motion Extremities: Normal Inspection, Normal Range of Motion, Non-Tender, Normal Capillary Refill Neurological: Alert, Oriented, CN II-XII Intact Psychiatric: Normal Affect, Normal Mood Skin: Warm, Dry, Intact, Normal Color, No Rash Location, Skin: Abdomen Characteristics: Linear Associated features: Tenderness. No: Warmth, Swelling, Induration, Scaling, Lymphangitis, Inflammation, Weeping Course - Vital Signs Last Recorded V/S: Last Vital Signs Temp 36.5 C 10/20/17 09:35 Pulse 82 10/20/17 09:35 Resp 18 10/20/17 09:35 BP 154/89 H 10/20/17 09:35 Pulse Ox 97 10/20/17 09:35 - Orders/Labs/Meds Orders: Active Orders 24 hr Category Date Time Status Ketorolac [Toradol] Med 10/20/17 09:57 Once 30 mg IM ONETIME ONE Departure - Departure Time of Disposition: 10:05 Disposition: Home, Self-Care 01 Condition: Good Clinical Impression: Post-operative pain - Discharge Information Instructions: Pain Relief Preoperatively and Postoperatively Referrals: Faby Araya MD [Primary Care Provider] - Additional Instructions: 1. rest 2. Increase water intake 3. Eat foods that are soft 4. Ensure your bowel movements are soft if they become more firm take a stool softener to keep the discomfort down. 5. Follow up with surgeon with further concerns 6. Incisions appear to be healing well and no concerns. Continue to keep them clean and dry. 7. If high fever nausea or vomiting otherwise please follow up with PCP - My Orders Last 24 Hours: My Active Orders 10/20/17 09:57 Ketorolac [Toradol] 30 mg IM ONETIME ONE - Assessment/Plan Last 24 Hours: My Active Orders 10/20/17 09:57 Ketorolac [Toradol] 30 mg IM ONETIME ONE Assessment:: 1. post operative pain 2. incision concerns Plan: 1. Education provided regarding incision care. 2. Incisions are well intact no concerns noted 3. Did look the patient up in the [facility] patient was given 30 tablets of oxycodone on 10/16. She also got 180 tablets of tramadol 09/20. And also has Valium at home. Did discuss with the patient that narcotics will not be provided in the emergency department especially since she has medications at home. Patient is advised to take Tylenol and ibuprofen as necessary if she has even further outbreak pain above her tramadol and Valium and she normally takes. 4. Patient educated on keeping the wound clean and dry also educated on signs of infection and to seek emergency care regarding them 5. Patient given Toradol emergency department to help with the discomfort. Also did discuss with the patient about some pain is expected postsurgical interventions. Discussed with her abnormal or irrational pain and when to seek treatment regarding
== END 2017-10-20 10:17 | disposition home or self-care (01) ==
LOC: VM.ED 09:26
DX: G89.29 Other chronic pain (principal); I10 Essential (primary) hypertension; F32.9 Major depressive disorder, single episode, unspecified; E66.9 Obesity, unspecified; F41.9 Anxiety disorder, unspecified; E11.9 Type 2 diabetes mellitus without complications; D64.9 Anemia, unspecified; Z88.1 Allergy status to other antibiotic agents; Z88.6 Allergy status to analgesic agent; Z88.2 Allergy status to sulfonamides; Z79.899 Other long term (current) drug therapy; Z87.440 Personal history of urinary (tract) infections; Z98.84 Bariatric surgery status; Z98.890 Other specified postprocedural states; Z79.84 Long term (current) use of oral hypoglycemic drugs
CPT/HCPCS: 99283; J1885

== ENCOUNTER 2018-01-29 09:52 | Emergency (ER) | payer MEDICARE ==
--- NOTE | 2018-01-29 10:27 | EDM.PDOC ---
ED HPI GENERAL MEDICAL PROBLEM - General Chief Complaint: General Stated Complaint: Left upper buttocks swelling Time Seen by Provider: 01/29/18 10:05 Source of Information: Reports: Patient, Provider, RN, RN Notes Reviewed History Limitations: Reports: No Limitations - History of Present Illness INITIAL COMMENTS - FREE TEXT/NARRATIVE: Patient presents to the ED at [facility] with complaints of left upper buttocks swelling. Unclear when the patient noticed the swelling. She states it is tender to palpation. No evidence of recent infections. She is currently on abx therapy. No fever or chills. She has chronic pain, but states this patient is worse than her chronic pain. No UTI symptoms. No abdominal pain. No nausea vomiting or diarrhea. Onset: Unknown/Unsure L upper buttocks Pain Score (Numeric/FACES): 8 - Related Data Allergies Allergy/AdvReac Type Severity Reaction Status Date / Time cat dander Allergy Sneezing Verified 01/29/18 10:09 duloxetine [From Cymbalta] Allergy Cannot Verified 01/29/18 10:09 Remember Sulfa (Sulfonamide Allergy Hives Verified 01/29/18 10:09 Antibiotics) amoxicillin [From Augmentin] AdvReac Nausea and Verified 01/29/18 10:09 Vomiting aspirin AdvReac Bleeding Verified 01/29/18 10:09 celecoxib [From Celebrex] AdvReac Diarrhea Verified 01/29/18 10:09 cephalexin AdvReac Nausea and Verified 01/29/18 10:09 Vomiting clavulanic acid AdvReac Nausea and Verified 01/29/18 10:09 [From Augmentin] Vomiting topiramate [From Topamax] AdvReac Delusions Verified 01/29/18 10:09 dust mite extract Allergy Cannot Uncoded 01/29/18 10:09 Remember Home Meds: Home Meds Acyclovir [Zovirax] 400 mg PO BID 09/28/13 [History] Calcium Carbonate/Vitamin D2 [Oyster Shell Calcium-Vit D Tab] 1 tab PO BIDMEALS 09/28/13 [History] Cholecalciferol (Vitamin D3) [Vitamin D3] 10,000 unit PO DAILY 09/28/13 [History ] Cyanocobalamin (Vitamin B-12) [Vitamin B-12] 100 mcg PO DAILY 09/28/13 [History] Docusate Sodium [Colace] 100 mg PO BID 09/28/13 [History] Ferrous Sulfate 325 mg PO BID 09/28/13 [History] Magnesium Oxide 800 mg PO DAILY@1800 09/28/13 [History] Multivitamin [Multivitamins] 1 cap PO DAILY 09/28/13 [History] metFORMIN HCl [Metformin HCl] 750 mg PO BID 03/15/15 [History] traZODone 100 mg PO BEDTIME 03/15/15 [History] Biotin 1 tab PO DAILY 01/24/16 [History] Omeprazole Magnesium [Prilosec Otc] 20 mg PO BIDAC 01/24/16 [History] Terbinafine [LamISIL AT 1% Crm] 1 applic TOP BID PRN 01/24/16 [History] Enalapril/Hydrochlorothiazide [Enalapril-HCTZ 10-25 MG] 1 tab PO DAILY 04/27/17 [History] Naratriptan [Amerge] 2.5 mg PO ASDIRECTED 08/29/17 [History] Zonisamide 50 mg PO BID 08/29/17 [History] diazePAM [Valium] 2 mg PO BID PRN 30 Days #45 tablet 10/29/17 [Rx] traMADol [Ultram] 50 mg PO TID PRN 30 Days #180 tablet 12/18/17 [Rx] Gabapentin [Neurontin] 1,200 mg PO QID 90 Days #720 tablet 12/26/17 [Rx] Baclofen 10 mg PO TID 90 Days #270 tablet 01/29/18 [Rx] Ondansetron HCl [Zofran] 4 mg PO Q6H PRN 01/29/18 [History] Past Medical History HEENT History: Reports: Allergic Rhinitis Cardiovascular History: Reports: Hypertension Gastrointestinal History: Reports: Other (See Below) Other Gastrointestinal History: abd abscess post hernia surgery Genitourinary History: Reports: UTI, Recurrent 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 left hip pain Neurological History: Reports: Migraines Other Neuro History: sciatica Psychiatric History: Reports: Anxiety, Depression Endocrine/Metabolic History: Reports: Diabetes, Type II, Obesity/BMI 30+ Hematologic History: Reports: Anemia Other Dermatologic History: intertrigo. onychodystrophy. tinea pedis - Infectious Disease History Infectious Disease History: Reports: MRSA - Past Surgical History GI Surgical History: Reports: Bariatric Procedure, Cholecystectomy, Hernia Repair/Other Neurological Surgical History: Reports: Lumbar Spine Musculoskeletal Surgical History: Reports: Carpal Tunnel Social & Family History - Family History Cardiac: Reports: CAD, Hypertension Respiratory: Reports: Other (See Below) : Reports: Renal Disease/Insufficiency Neurological: Reports: CVA Endocrine/Metabolic: Reports: Diabetes, type II Oncologic: Reports: Uterine - Tobacco Use Smoking Status *Q: Never Smoker Tobacco Use Within Last Twelve Months: No - Caffeine Use Caffeine Use: Reports: None - Alcohol Use Alcohol Use History: No Alcohol Use in Last Twelve Months: No - Living Situation & Occupation Living situation: Reports: Single, with Family (sister) Occupation: Disabled ED ROS GENERAL - Review of Systems Review Of Systems: See Below Constitutional: Denies: Fever, Chills, Weakness Respiratory: Denies: Shortness of Breath, Cough Cardiovascular: Denies: Chest Pain, Palpitations GI/Abdominal: Denies: Abdominal Pain, Nausea, Vomiting Skin: Reports: Other (soft tissue swelling, left upper buttocks) Neurological: Reports: No Symptoms ED EXAM, GENERAL - Physical Exam Exam: See Below Exam Limited By: No Limitations General Appearance: Alert, No Apparent Distress Respiratory/Chest: No Respiratory Distress, Lungs Clear, Normal Breath Sounds Cardiovascular: Normal Peripheral Pulses, Regular Rate, Rhythm Peripheral Pulses: 2+: Radial (L), Radial (R) GI/Abdominal: Normal Bowel Sounds, Soft, Non-Tender Neurological: Alert, Oriented Skin Exam: Warm, Dry, Intact, Normal Color, Other (11 x 13 swollen area, left upper buttocks. No evidence of acute infection. No erythema or redness. Only symptoms is tenderness to palpation) Course - Vital Signs Last Recorded V/S: Last Vital Signs Temp 36.6 C 01/29/18 09:52 Pulse 66 01/29/18 09:52 Resp 18 01/29/18 09:52 BP 125/81 01/29/18 09:52 Pulse Ox 97 01/29/18 09:52 - Orders/Labs/Meds Orders: Active Orders 24 hr Category Date Time Status Pelvis w Cont [CT] Stat Exams 01/29/18 10:12 Taken Labs: Laboratory Tests 01/29/18 01/29/18 01/29/18 Range/Units 10:20 10:20 10:20 WBC 6.2 (4.0-10.0) x10^3/uL RBC 4.63 (4.00-5.50) x10^6/uL Hgb 13.2 (12.0-16.0) g/dL Hct 40.6 (33.0-47.0) % MCV 87.7 D (78.0-93.0) fL MCH 28.5 (26.0-32.0) pg MCHC 32.5 (32.0-36.0) g/dL RDW Coeff of Juan R 15.7 H (10.0-15.0) % Plt Count 247 D (130-400) x10^3/uL Neut % (Auto) 60.5 (50.0-80.0) % Lymph % (Auto) 30.4 (25.0-50.0) % [place] % (Auto) 7.0 (2.0-11.0) % Eos % (Auto) 1.9 (0.0-4.0) % Baso % (Auto) 0.2 (0.2-1.2) % ESR 17 (0-21) mm/hr Sodium 139 (136-145) mmol/L Potassium 4.3 (3.5-5.1) mmol/L Chloride 108 H (98-107) mmol/L Carbon Dioxide 25 (21-32) mmol/L Anion Gap 10.3 (10-20) mmol/L BUN 11 (7-18) mg/dL Creatinine 0.8 (0.55-1.02) mg/dL Est Cr Clr Drug Dosing 88.38 mL/min Estimated GFR (MDRD) > 60 Glucose 119 H (74-106) mg/dL Lactic Acid 0.8 (0.4-2.0) mmol/L Calcium 8.8 (8.5-10.1) mg/dL C-Reactive Protein 0.5 (<=0.9) mg/dL Meds: Medications Discontinued Medications Generic Name Dose Route Start Last Admin Trade Name Freq PRN Reason Stop Dose Admin Iopamidol 100 ml 01/29/18 10:52 01/29/18 11:18 Isovue-300 (61%) IVPUSH 01/29/18 10:53 100 ml ONETIME ONE Administration - Radiology Interpretation Free Text/Narrative:: CT Pelvis: Mild persistent inflammation/edema in the subcutaneous tissues of the gluteal regions bilaterally, left great than right. No abscess, soft tissue gas or other new findings. See scanned report in EMR CT Results Date: 01/29/18 CT Results Time: 11:59 Departure - Departure Time of Disposition: 12:16 Disposition: Home, Self-Care 01 Condition: Good Clinical Impression: Soft tissue swelling - Discharge Information *PRESCRIPTION DRUG MONITORING PROGRAM REVIEWED*: Not Applicable *COPY OF PRESCRIPTION DRUG MONITORING REPORT IN PATIENT ELIZA: Not Applicable Referrals: Faby Araya MD [Primary Care Provider] - Forms: ED Department Discharge Additional Instructions: 1. CT today is relatively unchanged from previous 2. See Dr. Araya as scheduled for tomorrow - Problem List Review Problem List Initiated/Reviewed/Updated: Yes - My Orders Last 24 Hours: My Active Orders 01/29/18 10:12 Pelvis w Cont [CT] Stat - Assessment/Plan Last 24 Hours: My Active Orders 01/29/18 10:12 Pelvis w Cont [CT] Stat Assessment:: Soft tissue inflammation/edema Plan: Reviewed CT with patient. No emergency found. No intervention warranted as this is a chronic problem and CT is relatively unchanged from previous. Will recommend f/u with PCP.
[2018-01-29 10:41] VITALS: BP 125/81
[2018-01-29 10:52] LABS: CHLORIDE,CL 108 mmol/L (98-107); SODIUM,NA 139 mmol/L (136-145)
[2018-01-29 10:57] LABS: ANION GAP 10.3 mmol/L (10-20)
[2018-01-29] MEDS: Iopamidol 612 MG/ML 100 ML Bottle IVPUSH ONE (11:18)
== END 2018-01-29 12:20 | disposition home or self-care (01) ==
LOC: VM.ED 09:52
DX: R22.2 Localized swelling, mass and lump, trunk (principal); I10 Essential (primary) hypertension; E11.9 Type 2 diabetes mellitus without complications; E66.9 Obesity, unspecified; Z88.2 Allergy status to sulfonamides; Z88.1 Allergy status to other antibiotic agents; Z88.8 Allergy status to other drugs, medicaments and biological substances; Z91.09 Other allergy status, other than to drugs and biological substances; Z79.899 Other long term (current) drug therapy
CPT/HCPCS: 36415; 72193; 80048; 83605; 85025; 85652; 86140; 99283; Q9967

== ENCOUNTER 2018-08-01 07:40 | Emergency (ER) | payer MEDICARE ==
[2018-08-01] MEDS ORDERED: Sodium Chloride 0.9% 10 ML Syringe FLUSH PRN (08:00)
[2018-08-01] MEDS ORDERED: diazePAM 5 MG/ML MDV IVPUSH ONE (08:02)
[2018-08-01] MEDS ORDERED: HYDROmorphone 1 MG/ML Syringe IVPUSH ONE (08:02)
--- NOTE | 2018-08-01 08:16 | EDM.PDOC ---
ED HPI GENERAL MEDICAL PROBLEM - General Chief Complaint: Back Pain or Injury Stated Complaint: PAIN, UNABLE TO WALK Time Seen by Provider: 08/01/18 07:59 Source of Information: Reports: Patient History Limitations: Reports: No Limitations - History of Present Illness INITIAL COMMENTS - FREE TEXT/NARRATIVE: Pt. presents to ER with complaints of acute on chronic low back pain. Pt. states that the symptoms were present when she woke this AM. She denies any recent trauma. 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 She had a revision of her fusion in April. She has a nerve stimulator that is not of any benefit. She is currently receiving Ketamine infusions at our facility for the discomfort (started on Sunday). She states that she had gotten out of bed to come for her infusion and was unable to get out of bed and called 911. Onset: Today Onset Date: 08/01/18 Onset Time: 07:30 Location: Reports: Back Quality: Reports: Ache, Sharp, Stabbing Severity: Severe Left Hip Pain Score (Numeric/FACES): 10 - Related Data Allergies Allergy/AdvReac Type Severity Reaction Status Date / Time cat dander Allergy Sneezing Verified 08/01/18 08:01 duloxetine [From Cymbalta] Allergy Cannot Verified 08/01/18 08:01 Remember Sulfa (Sulfonamide Allergy Hives Verified 08/01/18 08:01 Antibiotics) amoxicillin [From Augmentin] AdvReac Nausea and Verified 08/01/18 08:01 Vomiting aspirin AdvReac Bleeding Verified 08/01/18 08:01 celecoxib [From Celebrex] AdvReac Diarrhea Verified 08/01/18 08:01 cephalexin AdvReac Nausea and Verified 08/01/18 08:01 Vomiting clavulanic acid AdvReac Nausea and Verified 08/01/18 08:01 [From Augmentin] Vomiting topiramate [From Topamax] AdvReac Delusions Verified 08/01/18 08:01 dust mite extract Allergy Cannot Uncoded 08/01/18 08:01 Remember Home Meds: Home Meds Acyclovir [Zovirax] 400 mg PO BID 09/28/13 [History] Calcium Carbonate/Vitamin D2 [Oyster Shell Calcium-Vit D Tab] 1 tab PO BIDMEALS 09/28/13 [History] Cholecalciferol (Vitamin D3) [Vitamin D3] 10,000 unit PO DAILY 09/28/13 [History ] Cyanocobalamin (Vitamin B-12) [Vitamin B-12] 100 mcg PO DAILY 09/28/13 [History] Docusate Sodium [Colace] 100 mg PO BEDTIME 09/28/13 [History] Ferrous Sulfate 325 mg PO BID 09/28/13 [History] Magnesium Oxide 800 mg PO DAILY@1800 09/28/13 [History] Multivitamin [Multivitamins] 1 cap PO DAILY 09/28/13 [History] metFORMIN HCl [Metformin HCl] 750 mg PO BID 03/15/15 [History] traZODone 100 mg PO BEDTIME 03/15/15 [History] Biotin 1 tab PO DAILY 01/24/16 [History] Omeprazole Magnesium [Prilosec Otc] 20 mg PO BIDAC 01/24/16 [History] Terbinafine [LamISIL AT 1% Crm] 1 applic TOP BID PRN 01/24/16 [History] Naratriptan [Amerge] 2.5 mg PO ASDIRECTED 08/29/17 [History] Zonisamide 50 mg PO BID 08/29/17 [History] Baclofen 10 mg PO TID 90 Days #270 tablet 01/29/18 [Rx] Gabapentin [Neurontin] 1,200 mg PO QID 90 Days #720 tablet 07/23/18 [Rx] Promethazine [Phenergan] 25 mg PO Q4H PRN 5 Days #20 tab 07/23/18 [Rx] oxyCODONE HCl [Oxycodone HCl] 10 mg PO Q4HR PRN 30 Days #180 tablet 07/23/18 [Rx ] Past Medical History HEENT History: Reports: Allergic Rhinitis Cardiovascular History: Reports: Hypertension Respiratory History: Reports: None Gastrointestinal History: Reports: Other (See Below) Other Gastrointestinal History: abd abscess post hernia surgery Genitourinary History: Reports: UTI, Recurrent NPS History: Reports: Other (See Below) Other NPS History: metorrhagia Musculoskeletal History: Reports: Back Pain, Chronic Other Musculoskeletal History: tenosynovitis. left hip pain Neurological History: Reports: Migraines Other Neuro History: sciatica Psychiatric History: Reports: Anxiety, Depression Endocrine/Metabolic History: Reports: Diabetes, Type II, Obesity/BMI 30+ Hematologic History: Reports: Anemia Immunologic History: Reports: None Oncologic (Cancer) History: Reports: None Dermatologic History: Reports: None Other Dermatologic History: intertrigo. onychodystrophy. tinea pedis - Infectious Disease History Infectious Disease History: Reports: MRSA - Past Surgical History GI Surgical History: Reports: Bariatric Procedure, Cholecystectomy, Hernia Repair/Other Neurological Surgical History: Reports: Lumbar Spine Musculoskeletal Surgical History: Reports: Carpal Tunnel Other Musculoskeletal Surgeries/Procedures:: back surgery 05/17/19 Social & Family History - Family History Family Medical History: Noncontributory Cardiac: Reports: CAD, Hypertension Respiratory: Reports: Other (See Below) : Reports: Renal Disease/Insufficiency Neurological: Reports: CVA Endocrine/Metabolic: Reports: Diabetes, type II Oncologic: Reports: Uterine - Caffeine Use Caffeine Use: Reports: None - Living Situation & Occupation Living situation: Reports: Single, with Family (sister) Occupation: Disabled ED ROS GENERAL - Review of Systems Review Of Systems: See Below Constitutional: Reports: No Symptoms HEENT: Reports: No Symptoms Respiratory: Reports: No Symptoms Cardiovascular: Reports: No Symptoms Endocrine: Reports: No Symptoms GI/Abdominal: Reports: No Symptoms : Reports: No Symptoms Musculoskeletal: Reports: Back Pain Skin: Reports: No Symptoms Neurological: Denies: Paresthesia, Weakness Psychiatric: Reports: No Symptoms Hematologic/Lymphatic: Reports: No Symptoms Immunologic: Reports: No Symptoms ED EXAM, GENERAL - Physical Exam Exam: See Below Course - Vital Signs Last Recorded V/S: Last Vital Signs Temp 36.6 C 08/01/18 07:40 Pulse 98 08/01/18 07:40 Resp 20 08/01/18 07:40 BP 126/76 08/01/18 07:40 Pulse Ox 99 08/01/18 07:40 - Orders/Labs/Meds Orders: Active Orders 24 hr Category Date Time Status Sodium Chloride 0.9% [Saline Flush] Med 08/01/18 08:00 Active 10 ml FLUSH ASDIRECTED PRN Peripheral IV Insertion Adult [OM.PC] Routine Oth 08/01/18 08:01 Ordered Medication Orders Sodium Chloride (Saline Flush) 10 ml FLUSH ASDIRECTED PRN PRN Reason: Keep Vein Open Labs: Laboratory Tests 08/01/18 08/01/18 Range/Units 08:20 08:20 WBC 5.1 (4.0-10.0) x10^3/uL RBC 4.51 (4.00-5.50) x10^6/uL Hgb 12.3 (12.0-16.0) g/dL Hct 40.1 (33.0-47.0) % MCV 88.9 (78.0-93.0) fL MCH 27.3 (26.0-32.0) pg MCHC 30.7 L (32.0-36.0) g/dL RDW Coeff of Juan R 15.3 H (10.0-15.0) % Plt Count 255 (130-400) x10^3/uL Neut % (Auto) 59.7 (50.0-80.0) % Lymph % (Auto) 26.3 (25.0-50.0) % [place] % (Auto) 11.3 H (2.0-11.0) % Eos % (Auto) 2.5 (0.0-4.0) % Baso % (Auto) 0.2 (0.2-1.2) % Sodium 143 (136-145) mmol/L Potassium 3.9 (3.5-5.1) mmol/L Chloride 105 (98-107) mmol/L Carbon Dioxide 29 (21-32) mmol/L Anion Gap 12.9 (10-20) mmol/L BUN 13 (7-18) mg/dL Creatinine 0.8 (0.55-1.02) mg/dL Est Cr Clr Drug Dosing 87.51 mL/min Estimated GFR (MDRD) > 60 Glucose 134 H (74-106) mg/dL Calcium 8.9 (8.5-10.1) mg/dL Corrected Calcium 9.62 (8.5-10.1) mg/dL Total Bilirubin 0.3 (0.2-1.0) mg/dL AST 26 (15-37) U/L ALT 45 (14-59) U/L Alkaline Phosphatase 86 (46-116) U/L C-Reactive Protein 3.1 H (<=0.9) mg/dL Total Protein 6.1 L (6.4-8.2) g/dL Albumin 3.1 L (3.4-5.0) g/dL Globulin 3.0 Albumin/Globulin Ratio 1.03 Meds: Medications Generic Name Dose Route Start Last Admin Trade Name Freq PRN Reason Stop Dose Admin Sodium Chloride 10 ml 08/01/18 08:00 Saline Flush FLUSH ASDIRECTED PRN Keep Vein Open Discontinued Medications Generic Name Dose Route Start Last Admin Trade Name Shirley PRN Reason Stop Dose Admin Diazepam 5 mg 08/01/18 08:02 08/01/18 08:17 Valium IVPUSH 08/01/18 08:03 5 mg STAT ONE Administration Hydromorphone HCl 1 mg 08/01/18 08:02 08/01/18 08:12 Dilaudid IVPUSH 08/01/18 08:03 1 mg ONETIME ONE Administration Departure - Departure Time of Disposition: 09:30 Disposition: Home, Self-Care 01 Condition: Good Clinical Impression: Low back pain Qualifiers: Chronicity: chronic Back pain laterality: left Sciatica presence: with sciatica Sciatica laterality: sciatica of left side Qualified Code(s): M54.42 - Lumbago with sciatica, left side - Discharge Information Instructions: Back Pain, Adult, [id number] Referrals: Faby Araya MD [Primary Care Provider] - Forms: ED Department Discharge Additional Instructions: Continue with current medications and pain management as prescribed. Follow-up in clinic in 7-10 days. - My Orders Last 24 Hours: My Active Orders 08/01/18 08:00 Sodium Chloride 0.9% [Saline Flush] 10 ml FLUSH ASDIRECTED PRN 08/01/18 08:01 Peripheral IV Insertion Adult [OM.PC] Routine - Assessment/Plan Last 24 Hours: My Active Orders 08/01/18 08:00 Sodium Chloride 0.9% [Saline Flush] 10 ml FLUSH ASDIRECTED PRN 08/01/18 08:01 Peripheral IV Insertion Adult [OM.PC] Routine Plan: Continue with current medications and pain management as prescribed. Follow-up in clinic in 7-10 days.
[2018-08-01 08:48] LABS: ANION GAP 12.9 mmol/L (10-20); CHLORIDE,CL 105 mmol/L (98-107); SODIUM,NA 143 mmol/L (136-145)
[2018-08-01 10:54] VITALS: BP 113/65
== END 2018-08-01 09:40 | disposition home or self-care (01) ==
LOC: VM.ED 07:40
DX: M54.42 Lumbago with sciatica, left side (principal); I10 Essential (primary) hypertension; F41.9 Anxiety disorder, unspecified; F32.9 Major depressive disorder, single episode, unspecified; E11.9 Type 2 diabetes mellitus without complications; Z79.84 Long term (current) use of oral hypoglycemic drugs; Z79.899 Other long term (current) drug therapy; Z88.2 Allergy status to sulfonamides; Z88.1 Allergy status to other antibiotic agents; Z88.6 Allergy status to analgesic agent; Z91.09 Other allergy status, other than to drugs and biological substances; Z88.8 Allergy status to other drugs, medicaments and biological substances
CPT/HCPCS: 36415; 80053; 85025; 86140; 96374; 96375; 99284-25; J1170; J3360

== ENCOUNTER 2018-12-21 12:41 | Emergency (ER) | payer MEDICARE, SELFPAY ==
[2018-12-21 14:01] VITALS: BP 122/72; PULSE 98
--- NOTE | 2018-12-21 15:46 | EDM.PDOC ---
ED HPI GENERAL MEDICAL PROBLEM - General Chief Complaint: Genitourinary Problem Time Seen by Provider: 12/21/18 12:55 Source of Information: Reports: Patient History Limitations: Reports: No Limitations - History of Present Illness INITIAL COMMENTS - FREE TEXT/NARRATIVE: Pt. presents to ER with complaints of urinary retention and painful urination. Pt. had a surgical procedure under general anesthetic last week (pain stimulator placement) and states that she was able to void immediately after the procedure, but now feels as though her bladder is full and cannot void. She denies any fever or chills. No chest pain or shortness of breath. Pt. states that she has been "drinking a lot" of water and other fluids to stay hydrated. Denies any discoloration of the urine. Onset: Today Onset Date: 12/21/18 Location: Reports: Abdomen, Other (dysuria) Quality: Reports: Burning Severity: Moderate Perineal Area Pain Score (Numeric/FACES): 6 - Related Data Allergies Allergy/AdvReac Type Severity Reaction Status Date / Time cat dander Allergy Sneezing Verified 12/20/18 10:50 duloxetine [From Cymbalta] Allergy Cannot Verified 12/20/18 10:50 Remember Sulfa (Sulfonamide Allergy Hives Verified 12/20/18 10:50 Antibiotics) amoxicillin [From Augmentin] AdvReac Nausea and Verified 12/20/18 10:50 Vomiting aspirin AdvReac Bleeding Verified 12/20/18 10:50 celecoxib [From Celebrex] AdvReac Diarrhea Verified 12/20/18 10:50 cephalexin AdvReac Nausea and Verified 12/20/18 10:50 Vomiting clavulanic acid AdvReac Nausea and Verified 12/20/18 10:50 [From Augmentin] Vomiting topiramate [From Topamax] AdvReac Delusions Verified 12/20/18 10:50 dust mite extract Allergy Cannot Uncoded 12/20/18 10:50 Remember Home Meds: Home Meds Acyclovir [Zovirax] 400 mg PO BID 09/28/13 [History] Calcium Carbonate/Vitamin D2 [Oyster Shell Calcium-Vit D Tab] 1 tab PO BIDMEALS 09/28/13 [History] Cholecalciferol (Vitamin D3) [Vitamin D3] 10,000 unit PO DAILY 09/28/13 [History ] Cyanocobalamin (Vitamin B-12) [Vitamin B-12] 100 mcg PO DAILY 09/28/13 [History] Docusate Sodium [Colace] 100 mg PO BEDTIME 09/28/13 [History] Ferrous Sulfate 325 mg PO BID 09/28/13 [History] Magnesium Oxide 800 mg PO DAILY@1800 09/28/13 [History] Multivitamin [Multivitamins] 1 cap PO DAILY 09/28/13 [History] metFORMIN HCl [Metformin HCl] 750 mg PO BID 03/15/15 [History] traZODone 100 mg PO BEDTIME 03/15/15 [History] Biotin 1 tab PO DAILY 01/24/16 [History] Omeprazole Magnesium [Prilosec Otc] 20 mg PO BIDAC 01/24/16 [History] Terbinafine [LamISIL AT 1% Crm] 1 applic TOP BID PRN 01/24/16 [History] Naratriptan [Amerge] 2.5 mg PO ASDIRECTED 08/29/17 [History] Zonisamide 50 mg PO BID 08/29/17 [History] Baclofen 10 mg PO TID 90 Days #270 tablet 01/29/18 [Rx] Gabapentin [Neurontin] 1,200 mg PO QID 90 Days #720 tablet 07/23/18 [Rx] Promethazine HCl 25 mg PO Q4H PRN 10/23/18 [History] Promethazine [Phenergan] 25 mg PO Q4H PRN 5 Days #20 tab 11/19/18 [Rx] oxyCODONE 15 mg PO Q6H PRN 30 Days #120 tab 12/13/18 [Rx] diazePAM [Valium] 10 mg PO Q4H 3 Days #18 tab 12/20/18 [Rx] oxyCODONE HCl [Oxycodone HCl] 20 mg PO Q4H 3 Days #18 tablet 12/20/18 [Rx] Past Medical History HEENT History: Reports: Allergic Rhinitis Cardiovascular History: Reports: Hypertension Respiratory History: Reports: None Gastrointestinal History: Reports: Other (See Below) Other Gastrointestinal History: abd abscess post hernia surgery Genitourinary History: Reports: UTI, Recurrent 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 left hip pain Neurological History: Reports: Migraines Other Neuro History: sciatica Psychiatric History: Reports: Anxiety, Depression Endocrine/Metabolic History: Reports: Diabetes, Type II, Obesity/BMI 30+ Hematologic History: Reports: Anemia Immunologic History: Reports: None Oncologic (Cancer) History: Reports: None Dermatologic History: Reports: None Other Dermatologic History: intertrigo. onychodystrophy. tinea pedis - Infectious Disease History Infectious Disease History: Reports: MRSA - Past Surgical History GI Surgical History: Reports: Bariatric Procedure, Cholecystectomy, Hernia Repair/Other Female Surgical History: Reports: Hysterectomy Neurological Surgical History: Reports: Lumbar Spine Musculoskeletal Surgical History: Reports: Carpal Tunnel Other Musculoskeletal Surgeries/Procedures:: spinal cord stimulater removed 11/06, spinal cord stimulater implant 12/18/18. back surgery 05/17/19 Social & Family History - Family History Family Medical History: Noncontributory Cardiac: Reports: CAD, Hypertension Respiratory: Reports: Other (See Below) : Reports: Renal Disease/Insufficiency Neurological: Reports: CVA Endocrine/Metabolic: Reports: Diabetes, type II Oncologic: Reports: Uterine - Tobacco Use Smoking Status *Q: Never Smoker - Caffeine Use Caffeine Use: Reports: None - Recreational Drug Use Recreational Drug Use: No - Living Situation & Occupation Living situation: Reports: Single, with Family (sister) Occupation: Disabled ED ROS GENERAL - Review of Systems Review Of Systems: See Below Constitutional: Reports: No Symptoms. Denies: Fever, Chills, Malaise, Weakness , Fatigue HEENT: Reports: No Symptoms Respiratory: Reports: No Symptoms Cardiovascular: Reports: No Symptoms Endocrine: Reports: No Symptoms GI/Abdominal: Reports: No Symptoms : Reports: Dysuria, Urinary Retention Musculoskeletal: Reports: No Symptoms Skin: Reports: No Symptoms Neurological: Reports: No Symptoms Psychiatric: Reports: No Symptoms Hematologic/Lymphatic: Reports: No Symptoms Immunologic: Reports: No Symptoms ED EXAM, GENERAL - Physical Exam Exam: See Below Exam Limited By: No Limitations General Appearance: Alert, WD/WN, No Apparent Distress GI/Abdominal: Normal Bowel Sounds, Soft, Non-Tender, No Organomegaly, No Distention (Female) Exam: Deferred Rectal (Female) Exam: Deferred Back Exam: Normal Inspection. No: CVA Tenderness (L), CVA Tenderness (R) Course - Vital Signs Last Recorded V/S: Last Vital Signs Temp 36.5 C 12/21/18 12:45 Pulse 98 12/21/18 12:45 Resp 16 12/21/18 12:45 BP 122/72 12/21/18 12:45 Pulse Ox 92 L 12/21/18 12:45 - Orders/Labs/Meds Orders: Active Orders 24 hr Category Date Time Status Bladder Scan [RC] ASDIRECTED Care 12/21/18 13:05 Active Labs: Laboratory Tests 12/21/18 Range/Units 12:57 Urine Color Yellow (YELLOW) Urine Appearance Slightly cloudy H (CLEAR) Urine pH 5.5 (5.0-8.0) Ur Specific [place] >=1.030 Urine Protein 30 H (NEGATIVE) mg/dL Urine Glucose (UA) Negative (NEGATIVE) mg/dL Urine Ketones Negative (NEGATIVE) mg/dL Urine Occult Blood Trace-lysed H (NEGATIVE) Urine Nitrite Negative (NEGATIVE) Urine Bilirubin Small H (NEGATIVE) Urine Urobilinogen 0.2 (0.2) EU/dL Ur Leukocyte Esterase Negative (NEGATIVE) Urine RBC 5-10 H (NOT SEEN) /HPF Urine WBC 0-5 (NOT SEEN) /HPF Ur Squamous Epith Cells Moderate H (NEGATIVE) /HPF Calcium Oxalate Crystal Few H (NEGATIVE) /HPF Urine Bacteria Occasional H (NEGATIVE) /HPF Urine Mucus Few H (NEGATIVE) /LPF Departure - Departure Time of Disposition: 13:50 Disposition: Home, Self-Care 01 Clinical Impression: Dehydration - Discharge Information Instructions: Dehydration, Adult, [id number] Referrals: Faby Araya MD [Primary Care Provider] - Forms: ED Department Discharge Additional Instructions: No evidence of UTI or urinary retention. You are quite dehydrated, however. Advise increasing intake of water. Follow-up in clinic as needed. - My Orders Last 24 Hours: My Active Orders 12/21/18 13:05 Bladder Scan [RC] ASDIRECTED - Assessment/Plan Last 24 Hours: My Active Orders 12/21/18 13:05 Bladder Scan [RC] ASDIRECTED Plan: No evidence of UTI. Pt. bladder was scanned and was empty. Pt. urine spec. gravity is quite elevated. Advised to push fluids. If she is still having discomfort she should return to ER. She did have a small amount of bacteria in the specimen, but no nitrates or leukocytes. No antibiotics were started.
== END 2018-12-21 13:35 | disposition home or self-care (01) ==
LOC: VM.ED 12:41
DX: E86.0 Dehydration (principal); I10 Essential (primary) hypertension; Z88.8 Allergy status to other drugs, medicaments and biological substances; Z88.2 Allergy status to sulfonamides; Z79.899 Other long term (current) drug therapy
CPT/HCPCS: 51798; 81001; 99283; 99284-GF

== ENCOUNTER 2019-01-09 15:48 | Emergency (ER) | payer MEDICARE, OTHER ==
[2019-01-09] MEDS ORDERED: HYDROmorphone 1 MG/ML Syringe IVPUSH ONE ×2 (16:15→18:57)
[2019-01-09] MEDS ORDERED: Sodium Chloride 0.9% 1,000 ML IV ONE (16:15)
[2019-01-09] MEDS ORDERED: Sodium Chloride 0.9% 10 ML Syringe FLUSH PRN (16:15)
[2019-01-09] MEDS ORDERED: Ondansetron 4 MG/2 ML SDV IVPUSH ONE (16:15)
[2019-01-09 16:57] LABS: CHLORIDE,CL 106 mmol/L (98-107); SODIUM,NA 141 mmol/L (136-145)
[2019-01-09 16:58] LABS: ANION GAP 15.3 mmol/L (10-20)
--- NOTE | 2019-01-09 17:00 | EDM.PDOC ---
ED HPI GENERAL MEDICAL PROBLEM - General Chief Complaint: Back Pain or Injury Stated Complaint: BACK PAIN Time Seen by Provider: 01/09/19 15:51 Source of Information: Reports: Patient History Limitations: Reports: Physical Impairment - History of Present Illness INITIAL COMMENTS - FREE TEXT/NARRATIVE: Patient presents to the ED with complaints of lower lumbar back pain radiating down to her feet. She had a spinal cord pain stimulator placed December 18 in [facility] by Dr. Mejia. Was seen again for [place] to be removed on December 30. Stimulator at that time the device was started. She states she slipped and caught herself 01/02/19, then had another appointment on 05/15 where the settings were changed in the stimulator. She has had constant pain since that time. She reports that the last couple of days she has had loss of urinary control and today she additionally was incontinent of bowel. She reports that her pain is circumferential around her legs on both sides. This is worse on the left side. She is also complaining of spasms. She would prefer to go to [facility] if transfer is needed. Onset: Gradual Duration: Getting Worse Location: Reports: Back, Lower Extremity, Left, Lower Extremity, Right Quality: Reports: Other (squeezing around spinal cord) Severity: Severe Worsens with: Reports: Movement Associated Symptoms: Reports: No Other Symptoms Back Pain Score (Numeric/FACES): 10 - Related Data Allergies Allergy/AdvReac Type Severity Reaction Status Date / Time cat dander Allergy Sneezing Verified 12/24/18 09:35 duloxetine [From Cymbalta] Allergy Cannot Verified 12/24/18 09:35 Remember Sulfa (Sulfonamide Allergy Hives Verified 12/24/18 09:35 Antibiotics) amoxicillin [From Augmentin] AdvReac Nausea and Verified 12/24/18 09:35 Vomiting aspirin AdvReac Bleeding Verified 12/24/18 09:35 celecoxib [From Celebrex] AdvReac Diarrhea Verified 12/24/18 09:35 cephalexin AdvReac Nausea and Verified 12/24/18 09:35 Vomiting clavulanic acid AdvReac Nausea and Verified 12/24/18 09:35 [From Augmentin] Vomiting topiramate [From Topamax] AdvReac Delusions Verified 12/24/18 09:35 dust mite extract Allergy Cannot Uncoded 12/24/18 09:35 Remember Home Meds: Home Meds Acyclovir [Zovirax] 400 mg PO BID 09/28/13 [History] Calcium Carbonate/Vitamin D2 [Oyster Shell Calcium-Vit D Tab] 1 tab PO BIDMEALS 09/28/13 [History] Cholecalciferol (Vitamin D3) [Vitamin D3] 10,000 unit PO DAILY 09/28/13 [History ] Cyanocobalamin (Vitamin B-12) [Vitamin B-12] 100 mcg PO DAILY 09/28/13 [History] Docusate Sodium [Colace] 100 mg PO BEDTIME 09/28/13 [History] Ferrous Sulfate 325 mg PO BID 09/28/13 [History] Magnesium Oxide 800 mg PO DAILY@1800 09/28/13 [History] Multivitamin [Multivitamins] 1 cap PO DAILY 09/28/13 [History] metFORMIN HCl [Metformin HCl] 750 mg PO BID 03/15/15 [History] traZODone 100 mg PO BEDTIME 03/15/15 [History] Biotin 1 tab PO DAILY 01/24/16 [History] Omeprazole Magnesium [Prilosec Otc] 20 mg PO BIDAC 01/24/16 [History] Terbinafine [LamISIL AT 1% Crm] 1 applic TOP BID PRN 01/24/16 [History] Naratriptan [Amerge] 2.5 mg PO ASDIRECTED 08/29/17 [History] Zonisamide 50 mg PO BID 08/29/17 [History] Baclofen 10 mg PO TID 90 Days #270 tablet 01/29/18 [Rx] Gabapentin [Neurontin] 1,200 mg PO QID 90 Days #720 tablet 07/23/18 [Rx] Promethazine HCl 25 mg PO Q4H PRN 10/23/18 [History] Promethazine [Phenergan] 25 mg PO Q4H PRN 5 Days #20 tab 11/19/18 [Rx] oxyCODONE 15 mg PO Q6H PRN 30 Days #120 tab 12/13/18 [Rx] diazePAM [Valium] 10 mg PO Q4H 3 Days #18 tab 12/20/18 [Rx] oxyCODONE HCl [Oxycodone HCl] 20 mg PO Q4H 3 Days #18 tablet 12/20/18 [Rx] Baclofen 20 mg PO TID 6 Days #18 tablet 12/24/18 [Rx] Past Medical History HEENT History: Reports: Allergic Rhinitis Cardiovascular History: Reports: Hypertension Respiratory History: Reports: None Gastrointestinal History: Reports: Other (See Below) Other Gastrointestinal History: abd abscess post hernia surgery Genitourinary History: Reports: UTI, Recurrent 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 left hip pain Neurological History: Reports: Migraines Other Neuro History: sciatica Psychiatric History: Reports: Anxiety, Depression Endocrine/Metabolic History: Reports: Diabetes, Type II, Obesity/BMI 30+ Hematologic History: Reports: Anemia Immunologic History: Reports: None Oncologic (Cancer) History: Reports: None Dermatologic History: Reports: None Other Dermatologic History: intertrigo. onychodystrophy. tinea pedis - Infectious Disease History Infectious Disease History: Reports: MRSA - Past Surgical History GI Surgical History: Reports: Bariatric Procedure, Cholecystectomy, Hernia Repair/Other Female Surgical History: Reports: Hysterectomy Neurological Surgical History: Reports: Lumbar Spine Musculoskeletal Surgical History: Reports: Carpal Tunnel Other Musculoskeletal Surgeries/Procedures:: spinal cord stimulater removed 11/06, spinal cord stimulater implant 12/18/18. back surgery 05/17/19 Social & Family History - Family History Family Medical History: Noncontributory Cardiac: Reports: CAD, Hypertension Respiratory: Reports: Other (See Below) : Reports: Renal Disease/Insufficiency Neurological: Reports: CVA Endocrine/Metabolic: Reports: Diabetes, type II Oncologic: Reports: Uterine - Caffeine Use Caffeine Use: Reports: None - Living Situation & Occupation Living situation: Reports: Single, with Family (sister) Occupation: Disabled ED ROS GENERAL - Review of Systems Review Of Systems: See Below Constitutional: Reports: No Symptoms HEENT: Reports: No Symptoms Respiratory: Reports: No Symptoms Cardiovascular: Reports: No Symptoms Endocrine: Reports: No Symptoms GI/Abdominal: Reports: Stool Incontinence : Reports: Incontinence Musculoskeletal: Reports: Back Pain, Leg Pain (bilateral left > right) Skin: Reports: No Symptoms Neurological: Reports: Other (back and leg pain from lumbar spine/pain stimulator) Psychiatric: Reports: Anxiety Hematologic/Lymphatic: Reports: No Symptoms ED EXAM,LOWER BACK PAIN/INJURY - Physical Exam Exam: See Below Exam Limited By: No Limitations General Appearance: Alert, WD/WN, Moderate Distress Eye Exam: Bilateral Eye: EOMI, Normal Inspection, PERRL Ears: Normal TMs Nose: Normal Inspection, Normal Mucosa, No Blood Throat/Mouth: Normal Inspection, Normal Lips, Normal Teeth, Normal Gums, Normal Oropharynx, Normal Voice, No Airway Compromise Head: Atraumatic, Normocephalic Neck: Normal Inspection, Supple, Non-Tender, Full Range of Motion Respiratory/Chest: No Respiratory Distress, Lungs Clear, Normal Breath Sounds, No Accessory Muscle Use, Chest Non-Tender Cardiovascular: Normal Peripheral Pulses, Regular Rate, Rhythm, No Edema, No Gallop, No JVD, No Murmur, No Rub GI/Abdominal: Normal Bowel Sounds, Soft, Non-Tender, No Organomegaly, No Distention, No Abnormal Bruit, No Mass Rectal (Female) Exam: Normal Rectal Tone Back Exam: Decreased Range of Motion, Muscle Spasm, Paraspinal Tenderness Extremities: Normal Capillary Refill, Limited Range of Motion (patient is able to ambulate but is very painful) Neurological: Alert, Normal Dorsiflexion, CN II-XII Intact, Normal Plantar Flexion, Oriented x 3, Straight Leg Raise (L), Straight Leg Raise (R) DTR - Lower Extremities: 2+: Knee (R), Knee (L), Ankle (R), Ankle (L) Psychiatric: Anxious Skin Exam: Warm, Dry, Intact Lymphatic: No Adenopathy Course - Vital Signs Last Recorded V/S: Last Vital Signs Temp 35.8 C 01/09/19 18:57 Pulse 88 01/09/19 18:57 Resp 16 01/09/19 18:57 BP 141/91 H 01/09/19 18:57 Pulse Ox 98 01/09/19 18:57 - Orders/Labs/Meds Orders: Active Orders 24 hr Category Date Time Status Sodium Chloride 0.9% [Saline Flush] Med 01/09/19 16:15 Ordered 10 ml FLUSH ASDIRECTED PRN Saline Lock Insert [OM.PC] Routine Oth 01/09/19 16:15 Ordered Medication Orders Sodium Chloride (Saline Flush) 10 ml FLUSH ASDIRECTED PRN PRN Reason: Keep Vein Open Labs: Laboratory Tests 01/09/19 01/09/19 01/09/19 Range/Units 16:27 16:27 16:27 WBC 10.4 H (4.0-10.0) x10^3/uL RBC 5.07 (4.00-5.50) x10^6/uL Hgb 14.6 D (12.0-16.0) g/dL Hct 45.0 (33.0-47.0) % MCV 88.8 (78.0-93.0) fL MCH 28.8 (26.0-32.0) pg MCHC 32.4 (32.0-36.0) g/dL RDW Coeff of Juan R 14.6 (10.0-15.0) % Plt Count 273 (130-400) x10^3/uL Neut % (Auto) 57.4 (50.0-80.0) % Lymph % (Auto) 30.8 (25.0-50.0) % [place] % (Auto) 7.7 (2.0-11.0) % Eos % (Auto) 3.7 (0.0-4.0) % Baso % (Auto) 0.4 (0.2-1.2) % Sodium 141 (136-145) mmol/L Potassium 4.3 (3.5-5.1) mmol/L Chloride 106 (98-107) mmol/L Carbon Dioxide 24 (21-32) mmol/L Anion Gap 15.3 (10-20) mmol/L BUN 15 (7-18) mg/dL Creatinine 0.9 (0.55-1.02) mg/dL Est Cr Clr Drug Dosing 79.29 mL/min Estimated GFR (MDRD) > 60 Glucose 130 H (74-106) mg/dL Calcium 8.8 (8.5-10.1) mg/dL Corrected Calcium 9.12 (8.5-10.1) mg/dL Total Bilirubin 0.2 (0.2-1.0) mg/dL AST 16 (15-37) U/L ALT 27 (14-59) U/L Alkaline Phosphatase 83 (46-116) U/L C-Reactive Protein < 0.2 (<=0.9) mg/dL Total Protein 7.1 (6.4-8.2) g/dL Albumin 3.6 (3.4-5.0) g/dL Globulin 3.5 Albumin/Globulin Ratio 1.03 Urine Color (YELLOW) Urine Appearance (CLEAR) Urine pH (5.0-8.0) Ur Specific [place] Urine Protein (NEGATIVE) mg/dL Urine Glucose (UA) (NEGATIVE) mg/dL Urine Ketones (NEGATIVE) mg/dL Urine Occult Blood (NEGATIVE) Urine Nitrite (NEGATIVE) Urine Bilirubin (NEGATIVE) Urine Urobilinogen (0.2) EU/dL Ur Leukocyte Esterase (NEGATIVE) Urine RBC (NOT SEEN) /HPF Urine WBC (NOT SEEN) /HPF Ur Squamous Epith Cells (NEGATIVE) /HPF Urine Bacteria (NEGATIVE) /HPF Urine Mucus (NEGATIVE) /LPF 01/09/19 Range/Units 18:39 WBC (4.0-10.0) x10^3/uL RBC (4.00-5.50) x10^6/uL Hgb (12.0-16.0) g/dL Hct (33.0-47.0) % MCV (78.0-93.0) fL MCH (26.0-32.0) pg MCHC (32.0-36.0) g/dL RDW Coeff of Juan R (10.0-15.0) % Plt Count (130-400) x10^3/uL Neut % (Auto) (50.0-80.0) % Lymph % (Auto) (25.0-50.0) % [place] % (Auto) (2.0-11.0) % Eos % (Auto) (0.0-4.0) % Baso % (Auto) (0.2-1.2) % Sodium (136-145) mmol/L Potassium (3.5-5.1) mmol/L Chloride (98-107) mmol/L Carbon Dioxide (21-32) mmol/L Anion Gap (10-20) mmol/L BUN (7-18) mg/dL Creatinine (0.55-1.02) mg/dL Est Cr Clr Drug Dosing mL/min Estimated GFR (MDRD) Glucose (74-106) mg/dL Calcium (8.5-10.1) mg/dL Corrected Calcium (8.5-10.1) mg/dL Total Bilirubin (0.2-1.0) mg/dL AST (15-37) U/L ALT (14-59) U/L Alkaline Phosphatase (46-116) U/L C-Reactive Protein (<=0.9) mg/dL Total Protein (6.4-8.2) g/dL Albumin (3.4-5.0) g/dL Globulin Albumin/Globulin Ratio Urine Color Yellow (YELLOW) Urine Appearance Clear (CLEAR) Urine pH 5.5 (5.0-8.0) Ur Specific [place] 1.015 Urine Protein Negative (NEGATIVE) mg/dL Urine Glucose (UA) Negative (NEGATIVE) mg/dL Urine Ketones Negative (NEGATIVE) mg/dL Urine Occult Blood Negative (NEGATIVE) Urine Nitrite Negative (NEGATIVE) Urine Bilirubin Negative (NEGATIVE) Urine Urobilinogen 0.2 (0.2) EU/dL Ur Leukocyte Esterase Negative (NEGATIVE) Urine RBC Not seen (NOT SEEN) /HPF Urine WBC Not seen (NOT SEEN) /HPF Ur Squamous Epith Cells Rare (NEGATIVE) /HPF Urine Bacteria Not seen (NEGATIVE) /HPF Urine Mucus Rare H (NEGATIVE) /LPF Meds: Medications Generic Name Dose Route Start Last Admin Trade Name Freq PRN Reason Stop Dose Admin Sodium Chloride 10 ml 01/09/19 16:15 Saline Flush FLUSH ASDIRECTED PRN Keep Vein Open Discontinued Medications Generic Name Dose Route Start Last Admin Trade Name Freq PRN Reason Stop Dose Admin Diazepam 2.5 mg 01/09/19 16:16 01/09/19 16:56 Valium IVPUSH 01/09/19 16:17 2.5 mg STAT ONE Administration Hydromorphone HCl 1 mg 01/09/19 16:15 01/09/19 16:55 Dilaudid IVPUSH 01/09/19 16:16 1 mg ONETIME ONE Administration Hydromorphone HCl 1 mg 01/09/19 18:57 01/09/19 19:10 Dilaudid IVPUSH 01/09/19 18:58 1 mg ONETIME ONE Administration Sodium Chloride 1,000 mls @ 999 mls/hr 01/09/19 16:15 01/09/19 16:55 Normal Saline IV 01/09/19 17:15 999 mls/hr ONETIME ONE Administration Ondansetron HCl 4 mg 01/09/19 16:15 01/09/19 16:55 Zofran IVPUSH 01/09/19 16:16 4 mg ONETIME ONE Administration - Radiology Interpretation Free Text/Narrative:: CT negative for acute fractures or hardware unseating - Re-Assessments/Exams Free Text/Narrative Re-Assessment/Exam: 01/09/19 18:[address] [facility] in [place] to discuss possible transfer there. Initially patient wanted to go there instead. I did spend approximately 30 minutes on [address] phone with [facility] talking with Dr. Mejia in neurosurgery and Dr. Moralez in the ED. I was able to convince the patient to instead go to [place] do the the possible emergent nature of her back. Departure - Departure Time of Disposition: 19:32 Disposition: DC/Tfer to [facility] 02 Condition: Fair Clinical Impression: Back spasm, Back pain - Discharge Information *PRESCRIPTION DRUG MONITORING PROGRAM REVIEWED*: No *COPY OF PRESCRIPTION DRUG MONITORING REPORT IN PATIENT ELIZA: No Referrals: Faby Araya MD [Primary Care Provider] - Forms: ED Department Discharge, Interfacility Transfer [facility] ED Communication - ED Communication Date/Time Date: 01/09/19 Time Called: 18:49 - Discussed Case With (1) Discussed Case With (1): Admitting Provider (Dr. Gonzalez called and given report at [facility].) - Problem List & Annotations (1) Back spasm SNOMED Code(s): 508072929 Code(s): M62.830 - MUSCLE SPASM OF BACK Status: Acute Priority: Medium Current Visit: Yes (2) Back pain SNOMED Code(s): 484384897 Code(s): M54.9 - DORSALGIA, UNSPECIFIED Status: Chronic Priority: Medium Current Visit: Yes Qualifiers: Back pain location: low back pain Chronicity: chronic Back pain laterality: bilateral Sciatica laterality: bilateral sciatica - Problem List Review Problem List Initiated/Reviewed/Updated: Yes - My Orders Last 24 Hours: My Active Orders 01/09/19 16:15 Sodium Chloride 0.9% [Saline Flush] 10 ml FLUSH ASDIRECTED PRN Saline Lock Insert [OM.PC] Routine - Assessment/Plan Last 24 Hours: My Active Orders 01/09/19 16:15 Sodium Chloride 0.9% [Saline Flush] 10 ml FLUSH ASDIRECTED PRN Saline Lock Insert [OM.PC] Routine Plan: Patient will be transferred to [place] for MRI. I do not highly suspect cord compression, however this should be ruled out. Normal reflexes, normal rectal tone.
--- NOTE | 2019-01-09 17:40 | CT ---
[id number] CT/CT Lumbar Spine WO IV EXAM: LUMBAR SPINE CT WITHOUT CONTRAST INDICATION: BACK PAIN, LOSS OF CONTROL OF BOWEL AND BLADDER. COMPARISON: 12/17/2017. DISCUSSION: Interval removal of transpedicular screw and kristy from L3 to L4. There is still a disc spacer is seen at the L3-L4 disc space. Transpedicular screw and kristy fixation of L5-S1. No evidence of hardware failure or loosening. Posterior decompression L3-L4, L4-L5 and L5-S1. The vertebral bodies are normal in height and alignment without a fracture or suspicious osseous lesion identified. T11-T12: Disc osteophyte complex on the left results in moderate spinal and left neuroforaminal stenosis. Additionally there is mild right neuroforaminal stenosis. T12-L1: Disc osteophyte complex in conjunction with facet arthropathy results in mild neuroforaminal stenosis bilaterally. L1-L2: Facet arthropathy results in mild neuroforaminal stenosis bilaterally. No significant spinal canal stenosis. L2-L3: Diffuse annular bulging conjunction with facet arthropathy results in partial spinal canal, severe neuroforaminal stenosis on the right and moderate neuroforaminal stenosis on the left. L3-L4: Disc osteophyte complex results in moderate bilateral neuroforaminal stenosis. There is significant effacement of the spinal cord secondary to posterior osteophytes, these are not significantly changed. L4-L5: Posterior bridging osteophytes resulting moderate bilateral neuroforaminal stenosis. There has been posterior decompression. L5-S1: Posterior bridging osteophytes results in severe neuroforaminal stenosis on the right and moderate neuroforaminal stenosis on the left. IMPRESSION: 1. Interval removal of hardware from L3 and L4. Stable postsurgical changes of L5-S1. 2. Degenerative changes of the lumbar spine as described above with multilevel spinal Canal and neural foraminal stenosis as described above. A few of these areas appear slightly more prominent when compared to the prior study. There is severe neuroforaminal stenosis at L2-L3 and L5-S1 on the right. Brandon Briones DO 01/09/19 1739 Thank you for allowing us to participate in the care of your patient.
[2019-01-09 17:52] VITALS: PULSE 88
[2019-01-09 18:58] VITALS: BP 141/91
== END 2019-01-09 17:31 | disposition short-term general hospital (02) ==
LOC: VM.ED 15:48
DX: M54.5 Low back pain (principal); M62.830 Muscle spasm of back; I10 Essential (primary) hypertension; E11.9 Type 2 diabetes mellitus without complications; F41.9 Anxiety disorder, unspecified; F32.9 Major depressive disorder, single episode, unspecified; D64.9 Anemia, unspecified; E66.9 Obesity, unspecified; Z68.41 Body mass index [BMI] 40.0-44.9, adult; Z88.0 Allergy status to penicillin; Z88.1 Allergy status to other antibiotic agents; Z88.8 Allergy status to other drugs, medicaments and biological substances; Z79.84 Long term (current) use of oral hypoglycemic drugs; Z79.899 Other long term (current) drug therapy
CPT/HCPCS: 36415; 72131; 80053; 81001; 85025; 86140; 96361; 96374; 96375; 96376; 99284; J1170; J2405; J3360; J7030

== ENCOUNTER 2019-01-31 14:57 | Emergency (ER) | payer MEDICARE ==
[2019-01-31] MEDS ORDERED: Ketorolac 60 MG/2 ML SDV IM ONE (15:42)
--- NOTE | 2019-01-31 16:09 | EDM.PDOC ---
ED HPI GENERAL MEDICAL PROBLEM - General Chief Complaint: Back Pain or Injury Stated Complaint: BACK PAIN Time Seen by Provider: 01/31/19 15:32 Source of Information: Reports: Patient History Limitations: Reports: No Limitations - History of Present Illness INITIAL COMMENTS - FREE TEXT/NARRATIVE: Patient comes in with complaints of right lower back and hip pain. States the pain is cramping and runs up to the left side of her upper back. She is a chronic back pain patient, does have a stimulator implanted. No weakness, no radiculopathy, no recent falls or injuries. She has no complaints of abdominal pain, chest pain, SOB, blood in urine or stools, no loss of bowel or bladder function today. Onset: Gradual Onset Date: 01/29/19 Duration: Getting Worse Location: Reports: Back, Lower Extremity, Right Quality: Reports: Sharp Severity: Moderate - Related Data Allergies Allergy/AdvReac Type Severity Reaction Status Date / Time cat dander Allergy Sneezing Verified 01/20/19 11:13 duloxetine [From Cymbalta] Allergy Cannot Verified 01/20/19 11:13 Remember Sulfa (Sulfonamide Allergy Hives Verified 01/20/19 11:13 Antibiotics) amoxicillin [From Augmentin] AdvReac Nausea and Verified 01/20/19 11:13 Vomiting aspirin AdvReac Bleeding Verified 01/20/19 11:13 celecoxib [From Celebrex] AdvReac Diarrhea Verified 01/20/19 11:13 cephalexin AdvReac Nausea and Verified 01/20/19 11:13 Vomiting clavulanic acid AdvReac Nausea and Verified 01/20/19 11:13 [From Augmentin] Vomiting topiramate [From Topamax] AdvReac Delusions Verified 01/20/19 11:13 dust mite extract Allergy Cannot Uncoded 01/20/19 11:13 Remember Home Meds: Home Meds Acyclovir [Zovirax] 400 mg PO BID 09/28/13 [History] Calcium Carbonate/Vitamin D2 [Oyster Shell Calcium-Vit D Tab] 1 tab PO BIDMEALS 09/28/13 [History] Cholecalciferol (Vitamin D3) [Vitamin D3] 10,000 unit PO DAILY 09/28/13 [History ] Cyanocobalamin (Vitamin B-12) [Vitamin B-12] 100 mcg PO DAILY 09/28/13 [History] Docusate Sodium [Colace] 100 mg PO BEDTIME 09/28/13 [History] Ferrous Sulfate 325 mg PO BID 09/28/13 [History] Magnesium Oxide 800 mg PO DAILY@1800 09/28/13 [History] Multivitamin [Multivitamins] 1 cap PO DAILY 09/28/13 [History] metFORMIN HCl [Metformin HCl] 750 mg PO BID 03/15/15 [History] traZODone 100 mg PO BEDTIME 03/15/15 [History] Biotin 1 tab PO DAILY 01/24/16 [History] Omeprazole Magnesium [Prilosec Otc] 20 mg PO BIDAC 01/24/16 [History] Terbinafine [LamISIL AT 1% Crm] 1 applic TOP BID PRN 01/24/16 [History] Naratriptan [Amerge] 2.5 mg PO ASDIRECTED 08/29/17 [History] Zonisamide 50 mg PO BID 08/29/17 [History] Baclofen 10 mg PO TID 90 Days #270 tablet 01/29/18 [Rx] Gabapentin [Neurontin] 1,200 mg PO QID 90 Days #720 tablet 07/23/18 [Rx] Promethazine [Phenergan] 25 mg PO Q4H PRN 5 Days #20 tab 11/19/18 [Rx] Acetaminophen/Caffeine [Excedrin Tension Headache Cplt] 2 each PO DAILY PRN [History] Ibuprofen 800 mg PO BID PRN 01/20/19 [History] oxyCODONE HCl [Oxycodone HCl] 10 mg PO 5XDAY PRN 14 Days #70 tablet 01/24/19 [Rx ] Past Medical History HEENT History: Reports: Allergic Rhinitis Cardiovascular History: Reports: Hypertension Respiratory History: Reports: None Gastrointestinal History: Reports: Other (See Below) Other Gastrointestinal History: abd abscess post hernia surgery Genitourinary History: Reports: UTI, Recurrent 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 left hip pain Neurological History: Reports: Migraines Other Neuro History: sciatica Psychiatric History: Reports: Anxiety, Depression Endocrine/Metabolic History: Reports: Diabetes, Type II, Obesity/BMI 30+ Hematologic History: Reports: Anemia Immunologic History: Reports: None Oncologic (Cancer) History: Reports: None Dermatologic History: Reports: None Other Dermatologic History: intertrigo. onychodystrophy. tinea pedis - Infectious Disease History Infectious Disease History: Reports: MRSA - Past Surgical History Other Musculoskeletal Surgeries/Procedures:: spinal cord stimulater removed 11/06, spinal cord stimulater implant 12/18/18. back surgery 05/17/19 Social & Family History - Family History Family Medical History: Noncontributory Cardiac: Reports: CAD, Hypertension Respiratory: Reports: Other (See Below) : Reports: Renal Disease/Insufficiency Neurological: Reports: CVA Endocrine/Metabolic: Reports: Diabetes, type II Oncologic: Reports: Uterine - Caffeine Use Caffeine Use: Reports: None - Living Situation & Occupation Living situation: Reports: Single, with Family (sister) Occupation: Disabled ED ROS GENERAL - Review of Systems Review Of Systems: See Below Constitutional: Reports: No Symptoms HEENT: Reports: No Symptoms Respiratory: Reports: No Symptoms Cardiovascular: Reports: No Symptoms Endocrine: Reports: No Symptoms GI/Abdominal: Reports: No Symptoms : Reports: No Symptoms Musculoskeletal: Reports: Back Pain, Joint Pain (right hip pain) Skin: Reports: No Symptoms Neurological: Reports: Headache Psychiatric: Reports: No Symptoms Hematologic/Lymphatic: Reports: No Symptoms ED EXAM,LOWER BACK PAIN/INJURY - Physical Exam Exam: See Below Exam Limited By: No Limitations General Appearance: Alert, WD/WN, No Apparent Distress Eye Exam: Bilateral Eye: EOMI Ears: Normal External Exam, Normal Canal, Hearing Grossly Normal, Normal TMs Nose: Normal Inspection, Normal Mucosa, No Blood Throat/Mouth: Normal Inspection, Normal Lips, Normal Teeth, Normal Gums, Normal Oropharynx, Normal Voice, No Airway Compromise Head: Atraumatic, Normocephalic Neck: Normal Inspection, Supple, Non-Tender, Full Range of Motion Respiratory/Chest: No Respiratory Distress, Lungs Clear, Normal Breath Sounds, No Accessory Muscle Use, Chest Non-Tender Cardiovascular: Normal Peripheral Pulses, Regular Rate, Rhythm, No Edema, No Gallop, No JVD, No Murmur, No Rub GI/Abdominal: Normal Bowel Sounds, Soft, Non-Tender, No Organomegaly, No Distention, No Abnormal Bruit, No Mass Back Exam: Muscle Spasm Extremities: Normal Inspection, Other (right hip and buttock area extremely tight with muscle cramping/spasms on palpation) Neurological: Alert, Normal Mood/Affect, Normal Dorsiflexion, Normal Plantar Flexion, Straight Leg Raise (L), Straight Leg Raise (R), Difficulty Walking Psychiatric: Normal Affect, Normal Mood Skin Exam: Warm, Dry, Intact, Normal Color, No Rash Lymphatic: No Adenopathy Course - Orders/Labs/Meds Meds: Medications Discontinued Medications Generic Name Dose Route Start Last Admin Trade Name Shirley PRN Reason Stop Dose Admin Diazepam 10 mg 01/31/19 15:42 01/31/19 15:55 Valium IM 01/31/19 15:43 10 mg ONETIME ONE Administration Ketorolac Tromethamine 60 mg 01/31/19 15:42 01/31/19 15:55 Toradol IM 01/31/19 15:43 60 mg ONETIME ONE Administration Departure - Departure Time of Disposition: 16:17 Disposition: Home, Self-Care 01 Condition: Fair Clinical Impression: Muscle spasm of right lower extremity - Discharge Information *PRESCRIPTION DRUG MONITORING PROGRAM REVIEWED*: No *COPY OF PRESCRIPTION DRUG MONITORING REPORT IN PATIENT ELIZA: No Instructions: Muscle Cramps and Spasms, [id number] Referrals: Faby Araya MD [Primary Care Provider] - Additional Instructions: Plan Keep your follow up with your scheduled appointments Follow up with your primary provider and pain clinic for additional management Stay well hydrated You can also try heat, additional massage, ice packs, warm bath - Problem List & Annotations (1) Muscle spasm of right lower extremity SNOMED Code(s): 53766558, [id number] Code(s): M62.838 - OTHER MUSCLE SPASM Status: Acute Priority: Medium Current Visit: Yes - Problem List Review Problem List Initiated/Reviewed/Updated: Yes - Assessment/Plan Assessment:: right lower back/extremity cramps Plan: Plan Keep your follow up with your scheduled appointments Follow up with your primary provider and pain clinic for additional management Stay well hydrated You can also try heat, additional massage, ice packs, warm bath
[2019-01-31 16:36] VITALS: BP 140/83
== END 2019-01-31 16:19 | disposition home or self-care (01) ==
LOC: VM.ED 14:57
DX: M62.830 Muscle spasm of back (principal); F41.9 Anxiety disorder, unspecified; F32.9 Major depressive disorder, single episode, unspecified; E11.9 Type 2 diabetes mellitus without complications; I10 Essential (primary) hypertension; Z79.899 Other long term (current) drug therapy; Z88.1 Allergy status to other antibiotic agents; Z91.09 Other allergy status, other than to drugs and biological substances; Z88.8 Allergy status to other drugs, medicaments and biological substances; Z88.6 Allergy status to analgesic agent
CPT/HCPCS: 96372; 99283; J1885; J3360

== ENCOUNTER 2019-05-10 15:49 | Emergency (ER) | payer MEDICARE, OTHER ==
[2019-05-10] MEDS ORDERED: Ketorolac 60 MG/2 ML SDV IM ONE (16:09)
--- NOTE | 2019-05-10 16:29 | EDM.PDOC ---
ED HPI GENERAL MEDICAL PROBLEM - General Chief Complaint: Back Pain or Injury Stated Complaint: PAIN IN SPINE;TINGLING DOWN ARMS Time Seen by Provider: 05/10/19 16:10 Source of Information: Reports: Patient, Old Records History Limitations: Reports: No Limitations - History of Present Illness INITIAL COMMENTS - FREE TEXT/NARRATIVE: Patient presents to ER with complaints of mid/upper back pain. States typically has low back pain and muscle spasms in her shoulders. Gets trigger point injections in her trapezius muscles and they do help her well. Those seem to be in fairly good control at the moment but the pain is intense between her shoulder blades more near the bra line. Feels a deep sharp burning like pain. She states it is hard for her to raise her arms at times. Sister states she is very tender as she typically rubs icy hot in this area and that helps. Patient contacted her primary care provider yesterday and was advised to try heat to the area and that is not helping. She has chronic back issues, degenerative disease. Has a complete lumbar fusion, stimulator in back. Denies any injury or changes in routine. Onset: Gradual Duration: Day(s):, Getting Worse Location: Reports: Back Quality: Reports: Ache, Burning Severity: Severe Improves with: Reports: None Associated Symptoms: Denies: Confusion, Chest Pain, Cough, Fever/Chills, Loss of Appetite, Nausea/Vomiting, Shortness of Breath, Weakness Back Pain Score (Numeric/FACES): 10 - Related Data Allergies Allergy/AdvReac Type Severity Reaction Status Date / Time cat dander Allergy Sneezing Verified 05/10/19 15:56 duloxetine [From Cymbalta] Allergy Cannot Verified 05/10/19 15:56 Remember Sulfa (Sulfonamide Allergy Hives Verified 05/10/19 15:56 Antibiotics) amoxicillin [From Augmentin] AdvReac Nausea and Verified 05/10/19 15:56 Vomiting aspirin AdvReac Bleeding Verified 05/10/19 15:56 celecoxib [From Celebrex] AdvReac Diarrhea Verified 05/10/19 15:56 cephalexin AdvReac Nausea and Verified 05/10/19 15:56 Vomiting clavulanic acid AdvReac Nausea and Verified 05/10/19 15:56 [From Augmentin] Vomiting topiramate [From Topamax] AdvReac Delusions Verified 05/10/19 15:56 dust mite extract Allergy Cannot Uncoded 04/21/19 08:19 Remember Home Meds: Home Meds Acyclovir [Zovirax] 400 mg PO BID 09/28/13 [History] Calcium Carbonate/Vitamin D2 [Oyster Shell Calcium-Vit D Tab] 1 tab PO BIDMEALS 09/28/13 [History] Cholecalciferol (Vitamin D3) [Vitamin D3] 10,000 unit PO DAILY 09/28/13 [History ] Cyanocobalamin (Vitamin B-12) [Vitamin B-12] 100 mcg PO DAILY 09/28/13 [History] Docusate Sodium [Colace] 100 mg PO BEDTIME 09/28/13 [History] Ferrous Sulfate 325 mg PO BID 09/28/13 [History] Magnesium Oxide 800 mg PO DAILY@1800 09/28/13 [History] Multivitamin [Multivitamins] 1 cap PO DAILY 09/28/13 [History] metFORMIN HCl [Metformin HCl] 750 mg PO BID 03/15/15 [History] traZODone 100 mg PO BEDTIME 03/15/15 [History] Biotin 1 tab PO DAILY 01/24/16 [History] Omeprazole Magnesium [Prilosec Otc] 20 mg PO BIDAC 01/24/16 [History] Terbinafine [LamISIL AT 1% Crm] 1 applic TOP BID PRN 01/24/16 [History] Naratriptan [Amerge] 2.5 mg PO ASDIRECTED 08/29/17 [History] Zonisamide 50 mg PO BID 08/29/17 [History] Acetaminophen/Caffeine [Excedrin Tension Headache Cplt] 2 each PO DAILY PRN [History] Ibuprofen 800 mg PO BID PRN 01/20/19 [History] Baclofen 20 mg PO TID 90 Days #270 tablet 02/04/19 [Rx] Gabapentin [Neurontin] 1,200 mg PO QID 90 Days #720 tablet 02/04/19 [Rx] Promethazine [Phenergan] 25 mg PO Q4H PRN 5 Days #20 tab 03/10/19 [Rx] traMADol [Ultram] 50 - 100 mg PO TID PRN 30 Days #120 tablet 04/21/19 [Rx] Past Medical History HEENT History: Reports: Allergic Rhinitis Cardiovascular History: Reports: Hypertension Respiratory History: Reports: None Gastrointestinal History: Reports: Other (See Below) Other Gastrointestinal History: abd abscess post hernia surgery Genitourinary History: Reports: UTI, Recurrent 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 left hip pain Neurological History: Reports: Migraines Other Neuro History: sciatica Psychiatric History: Reports: Anxiety, Depression Endocrine/Metabolic History: Reports: Diabetes, Type II, Obesity/BMI 30+ Hematologic History: Reports: Anemia Immunologic History: Reports: None Oncologic (Cancer) History: Reports: None Dermatologic History: Reports: None Other Dermatologic History: intertrigo. onychodystrophy. tinea pedis - Infectious Disease History Infectious Disease History: Reports: MRSA - Past Surgical History HEENT Surgical History: Reports: None Cardiovascular Surgical History: Reports: None GI Surgical History: Reports: None Female Surgical History: Reports: None Endocrine Surgical History: Reports: None Neurological Surgical History: Reports: None Other Musculoskeletal Surgeries/Procedures:: spinal cord stimulater removed 11/06, spinal cord stimulater implant 12/18/18. back surgery 05/17/19 Social & Family History - Family History Family Medical History: Noncontributory Cardiac: Reports: CAD, Hypertension Respiratory: Reports: Other (See Below) : Reports: Renal Disease/Insufficiency Neurological: Reports: CVA Endocrine/Metabolic: Reports: Diabetes, type II Oncologic: Reports: Uterine - Tobacco Use Smoking Status *Q: Never Smoker - Caffeine Use Caffeine Use: Reports: Soda - Recreational Drug Use Recreational Drug Use: No - Living Situation & Occupation Living situation: Reports: Single, with Family (sister) Occupation: Disabled ED ROS GENERAL - Review of Systems Review Of Systems: See Below Constitutional: Reports: Fatigue. Denies: Fever, Chills, Malaise, Weakness, Decreased Appetite HEENT: Reports: No Symptoms Respiratory: Denies: Shortness of Breath, Cough Cardiovascular: Denies: Chest Pain, Edema, Lightheadedness Endocrine: Reports: Fatigue GI/Abdominal: Denies: Abdominal Pain, Nausea, Vomiting : Reports: No Symptoms Musculoskeletal: Reports: Back Pain Skin: Reports: No Symptoms ED EXAM, UPPER BACK/NECK PAIN - Physical Exam Exam: See Below Exam Limited By: No Limitations General Appearance: Alert, WD/WN, No Apparent Distress Head Exam: Normocephalic Neck Exam: Non-Tender, Full Range of Motion, Normal Alignment Cardiovascular/Respiratory: Regular Rate, Rhythm Back Exam: Decreased Range of Motion, Muscle Spasm, Paraspinal Tenderness, Vertebral Tenderness (patient tender from trapezius area to bra line. No swelling or bruising. Does have good range of motion with her arms. Tender to both the paraspinal and spinal region.) Neurologic: No Motor/Sensory Deficits Skin Exam: Normal Color, Warm/Dry Course - Vital Signs Last Recorded V/S: Last Vital Signs Temp 96.7 F 05/10/19 15:57 Pulse 107 H 05/10/19 15:57 Resp 16 05/10/19 15:57 BP 170/84 H 05/10/19 15:57 Pulse Ox 96 05/10/19 15:57 - Orders/Labs/Meds Meds: Medications Discontinued Medications Generic Name Dose Route Start Last Admin Trade Name Freq PRN Reason Stop Dose Admin Diazepam 10 mg 05/10/19 16:09 05/10/19 16:17 Valium IM 05/10/19 16:10 10 mg ONETIME ONE Administration Ketorolac Tromethamine 60 mg 05/10/19 16:09 05/10/19 16:20 Toradol IM 05/10/19 16:10 60 mg ONETIME ONE Administration - Re-Assessments/Exams Free Text/Narrative Re-Assessment/Exam: 05/10/19 16:56 Patient not yet getting much relief of the pain. Advised she may increase her tramadol to 6 per day over the weekend and follow up with Dr. Galloway on Sunday. Continue to use ice/heat alternating to help with pain as well as other usual meds, ie. Neurontin. Departure - Departure Time of Disposition: 16:58 Disposition: Home, Self-Care 01 Condition: Fair Clinical Impression: Back spasm - Discharge Information *PRESCRIPTION DRUG MONITORING PROGRAM REVIEWED*: No *COPY OF PRESCRIPTION DRUG MONITORING REPORT IN PATIENT ELIZA: No Referrals: Faby Araya MD [Primary Care Provider] - Forms: ED Department Discharge Additional Instructions: 1. Rest 2. Alternate ice and heat for discomfort 3. May increase tramadol to 6 per day for the weekend, readdress with Dr. Galloway on Sunday. 4. Follow up if ongoing pain or concern. Sepsis Event Note - Evaluation Sepsis Screening Result: No Definite Risk - Focused Exam Vital Signs: Vital Signs Temp Pulse Resp BP Pulse Ox 05/10/19 15:57 96.7 F 107 H 16 170/84 H 96 Date Exam was Performed: 05/10/19 Time Exam was Performed: 16:56
[2019-05-10 17:13] VITALS: BP 125/90; PULSE 87
== END 2019-05-10 17:11 | disposition home or self-care (01) ==
LOC: VM.ED 15:49
DX: M62.838 Other muscle spasm (principal); I10 Essential (primary) hypertension; E11.9 Type 2 diabetes mellitus without complications; F41.9 Anxiety disorder, unspecified; F32.9 Major depressive disorder, single episode, unspecified; E66.9 Obesity, unspecified; Z68.41 Body mass index [BMI] 40.0-44.9, adult; Z88.8 Allergy status to other drugs, medicaments and biological substances; Z88.1 Allergy status to other antibiotic agents; Z88.2 Allergy status to sulfonamides; Z91.048 Other nonmedicinal substance allergy status; Z79.84 Long term (current) use of oral hypoglycemic drugs; Z79.899 Other long term (current) drug therapy
CPT/HCPCS: 96372; 99283; J1885; J3360; 99284-GF

== ENCOUNTER 2019-08-23 22:43 | Emergency (ER) | payer MEDICARE, OTHER ==
[2019-08-23] MEDS ORDERED: Ketorolac 60 MG/2 ML SDV IM ONE (23:01)
--- NOTE | 2019-08-23 23:29 | EDM.PDOC ---
ED HPI GENERAL MEDICAL PROBLEM - General Chief Complaint: Back Pain or Injury Stated Complaint: SEVERE BACK PAIN Time Seen by Provider: 08/23/19 22:50 Source of Information: Reports: Patient History Limitations: Reports: No Limitations - History of Present Illness INITIAL COMMENTS - FREE TEXT/NARRATIVE: Patient presents per EMS with complaints of back pain. Has history of chronic back pain, multiple surgeries. Patient states she had a pain stimulator put in many years ago, had it replaced in 2018. Had to move the battery in 2019 as it "was rubbing on her pant line". She was doing well after they moved it until recently. Does see Dr. Heredia for pain management here as well as she got 3 hydrocodone to take one tab each night for better pain control on Sunday from Dr. Conde. States has taken all 3 of those tablets as she just hasn't gotten any pain control. Also admits to taking extra Gabapentin today to try to control the pain. Has no bowel or bladder incontinence. Is still ambulating/ bearing weight with a walker. States it is very tender to her back with any touch. Questions if she needs to go to [place] to get an MRI done. Onset: Gradual Duration: Day(s):, Constant Location: Reports: Back Quality: Reports: Sharp, Throbbing Severity: Severe Improves with: Reports: Rest Worsens with: Reports: Movement Associated Symptoms: Reports: Weakness. Denies: Confusion, Chest Pain, Cough, Fever/Chills, Headaches, Loss of Appetite, Nausea/Vomiting, Shortness of Breath , Syncope Treatments AGILE SCRUM MASTER: Reports: Other Medication(s) Other Treatments AGILE SCRUM MASTER: hydrocodone, gabapentin, tramadol - Related Data Allergies Allergy/AdvReac Type Severity Reaction Status Date / Time cat dander Allergy Sneezing Verified 08/18/19 13:22 duloxetine [From Cymbalta] Allergy Cannot Verified 08/18/19 13:22 Remember Sulfa (Sulfonamide Allergy Hives Verified 08/18/19 13:22 Antibiotics) amoxicillin [From Augmentin] AdvReac Nausea and Verified 08/18/19 13:22 Vomiting aspirin AdvReac Bleeding Verified 08/18/19 13:22 celecoxib [From Celebrex] AdvReac Diarrhea Verified 08/18/19 13:22 cephalexin AdvReac Nausea and Verified 08/18/19 13:22 Vomiting clavulanic acid AdvReac Nausea and Verified 08/18/19 13:22 [From Augmentin] Vomiting topiramate [From Topamax] AdvReac Delusions Verified 08/18/19 13:22 dust mite extract Allergy Cannot Uncoded 08/18/19 13:22 Remember Home Meds: Home Meds Acyclovir [Zovirax] 400 mg PO BID 09/28/13 [History] Calcium Carbonate/Vitamin D2 [Oyster Shell Calcium-Vit D Tab] 1 tab PO BIDMEALS 09/28/13 [History] Cholecalciferol (Vitamin D3) [Vitamin D3] 10,000 unit PO DAILY 09/28/13 [History ] Cyanocobalamin (Vitamin B-12) [Vitamin B-12] 100 mcg PO DAILY 09/28/13 [History] Docusate Sodium [Colace] 100 mg PO BEDTIME 09/28/13 [History] Ferrous Sulfate 325 mg PO BID 09/28/13 [History] Magnesium Oxide 800 mg PO DAILY@1800 09/28/13 [History] Multivitamin [Multivitamins] 1 cap PO DAILY 09/28/13 [History] metFORMIN HCl [Metformin HCl] 750 mg PO BID 03/15/15 [History] traZODone 100 mg PO BEDTIME 03/15/15 [History] Biotin 1 tab PO DAILY 01/24/16 [History] Omeprazole Magnesium [Prilosec Otc] 20 mg PO BIDAC 01/24/16 [History] Terbinafine [LamISIL AT 1% Crm] 1 applic TOP BID PRN 01/24/16 [History] Zonisamide 50 mg PO BID 08/29/17 [History] Acetaminophen/Caffeine [Excedrin Tension Headache Cplt] 2 each PO DAILY PRN [History] Ibuprofen 800 mg PO BID PRN 01/20/19 [History] Naratriptan HCl 2.5 mg PO ASDIRECTED PRN 25 Days #9 tablet 05/27/19 [Rx] Baclofen 20 mg PO TID PRN 90 Days #270 tablet 06/13/19 [Rx] Gabapentin [Neurontin] 1,200 mg PO QID 90 Days #720 tablet 06/13/19 [Rx] Promethazine [Phenergan] 25 mg PO Q4H PRN 10 Days #60 tab 06/13/19 [Rx] traMADol [Ultram] 50 - 100 mg PO Q6H PRN 30 Days #180 tablet 06/13/19 [Rx] Past Medical History HEENT History: Reports: Allergic Rhinitis Cardiovascular History: Reports: Hypertension Respiratory History: Reports: None Gastrointestinal History: Reports: Other (See Below) Other Gastrointestinal History: abd abscess post hernia surgery Genitourinary History: Reports: UTI, Recurrent DIRECTOR OF CONTRACTS History: Reports: Other (See Below) Other DIRECTOR OF CONTRACTS History: metorrhagia Musculoskeletal History: Reports: Back Pain, Chronic Other Musculoskeletal History: tenosynovitis. left hip pain Neurological History: Reports: Migraines Other Neuro History: sciatica Psychiatric History: Reports: Anxiety, Depression Endocrine/Metabolic History: Reports: Diabetes, Type II, Obesity/BMI 30+ Hematologic History: Reports: Anemia Immunologic History: Reports: None Oncologic (Cancer) History: Reports: None Dermatologic History: Reports: None Other Dermatologic History: intertrigo. onychodystrophy. tinea pedis - Infectious Disease History Infectious Disease History: Reports: MRSA - Past Surgical History HEENT Surgical History: Reports: None Cardiovascular Surgical History: Reports: None GI Surgical History: Reports: None Female Surgical History: Reports: None Endocrine Surgical History: Reports: None Neurological Surgical History: Reports: None Other Musculoskeletal Surgeries/Procedures:: spinal cord stimulater removed 11/06, spinal cord stimulater implant 12/18/18. back surgery 05/17/19 Social & Family History - Family History Family Medical History: Noncontributory Cardiac: Reports: CAD, Hypertension Respiratory: Reports: Other (See Below) : Reports: Renal Disease/Insufficiency Neurological: Reports: CVA Endocrine/Metabolic: Reports: Diabetes, type II Oncologic: Reports: Uterine - Caffeine Use Caffeine Use: Reports: Soda - Living Situation & Occupation Living situation: Reports: Single, with Family (sister) Occupation: Disabled ED ROS GENERAL - Review of Systems Review Of Systems: See Below Constitutional: Reports: Weakness. Denies: Fever, Chills, Malaise, Fatigue, Decreased Appetite HEENT: Reports: No Symptoms Respiratory: Denies: Shortness of Breath, Cough Cardiovascular: Denies: Chest Pain, Edema, Lightheadedness Endocrine: Denies: Fatigue GI/Abdominal: Denies: Abdominal Pain, Constipation, Diarrhea, Nausea, Vomiting : Reports: No Symptoms Musculoskeletal: Reports: Back Pain Skin: Reports: No Symptoms Neurological: Reports: Pre-Existing Deficit, Difficulty Walking, Weakness ED EXAM,LOWER BACK PAIN/INJURY - Physical Exam Exam: See Below Exam Limited By: No Limitations General Appearance: Alert, WD/WN, Mild Distress Head: Normocephalic Neck: Normal Inspection, Supple, Non-Tender Respiratory/Chest: No Respiratory Distress, Lungs Clear, Normal Breath Sounds Cardiovascular: Regular Rate, Rhythm GI/Abdominal: Normal Bowel Sounds, Soft, Non-Tender Back Exam: Decreased Range of Motion, Muscle Spasm, Paraspinal Tenderness, Vertebral Tenderness, Other (patient cries out in pain with light touch on her back) Extremities: Normal Inspection, No Pedal Edema Skin Exam: Warm, Dry Course - Orders/Labs/Meds Meds: Medications Discontinued Medications Generic Name Dose Route Start Last Admin Trade Name Shirley PRN Reason Stop Dose Admin Diazepam 10 mg 08/23/19 23:01 08/23/19 23:05 Valium IM 08/23/19 23:02 10 mg ONETIME ONE Administration Ketorolac Tromethamine 60 mg 08/23/19 23:01 08/23/19 23:11 Toradol IM 08/23/19 23:02 60 mg ONETIME ONE Administration - Re-Assessments/Exams Free Text/Narrative Re-Assessment/Exam: 08/23/19 23:43 Patient more relaxed, still complains of pain but willing to try pain meds at home. Has talked with [employer], the company that manages her stimulator. They advised her to adjust her stimulator but she felt that intensified the pain so she called them again this afternoon. Was told to stop adjusting and follow up with them tomorrow. Departure - Departure Time of Disposition: 23:45 Disposition: Home, Self-Care 01 Condition: Fair Clinical Impression: Back spasm Low back pain Qualifiers: Chronicity: chronic Back pain laterality: bilateral Sciatica presence: with sciatica Sciatica laterality: bilateral sciatica Qualified Code(s): M54.42 - Lumbago with sciatica, left side; M54.41 - Lumbago with sciatica, right side; G89.29 - Other chronic pain - Discharge Information *PRESCRIPTION DRUG MONITORING PROGRAM REVIEWED*: No *COPY OF PRESCRIPTION DRUG MONITORING REPORT IN PATIENT ELIZA: No Referrals: Faby Araya MD [Primary Care Provider] - Forms: ED Department Discharge Additional Instructions: 1. Rest 2. Heating pad to back 3. Continue tramadol and gabapentin as per routine 4. Hydrocodone- one tab every 6 hours as needed for pain 5. Follow up if any ongoing concerns. Sepsis Event Note - Focused Exam Date Exam was Performed: 08/23/19 Time Exam was Performed: 23:29
[2019-08-23] MEDS ORDERED: Take Home: Acetaminophen/HYDROcodone 325-5 MG, 5 Tab Pack PO ONE (23:49)
[2019-08-24 00:47] VITALS: BP 119/59; PULSE 95
== END 2019-08-24 00:03 | disposition home or self-care (01) ==
LOC: VM.ED 22:43
DX: M54.42 Lumbago with sciatica, left side (principal); M62.830 Muscle spasm of back; G89.29 Other chronic pain; I10 Essential (primary) hypertension; E11.9 Type 2 diabetes mellitus without complications; F41.9 Anxiety disorder, unspecified; F32.9 Major depressive disorder, single episode, unspecified; E66.9 Obesity, unspecified; Z68.41 Body mass index [BMI] 40.0-44.9, adult; Z79.84 Long term (current) use of oral hypoglycemic drugs; Z79.899 Other long term (current) drug therapy; Z88.1 Allergy status to other antibiotic agents; Z88.6 Allergy status to analgesic agent; Z88.2 Allergy status to sulfonamides; Z91.09 Other allergy status, other than to drugs and biological substances; Z88.8 Allergy status to other drugs, medicaments and biological substances
CPT/HCPCS: 96372; 99284; A9270; J1885; J3360

== ENCOUNTER 2019-10-05 21:28 | Emergency (ER) | payer MEDICARE, OTHER ==
--- NOTE | 2019-10-05 22:18 | EDM.PDOC ---
ED HPI GENERAL MEDICAL PROBLEM - General Stated Complaint: low back pain, nausea Time Seen by Provider: 10/05/19 22:00 Source of Information: Reports: Patient History Limitations: Reports: No Limitations - History of Present Illness INITIAL COMMENTS - FREE TEXT/NARRATIVE: Patient comes emergency department today with complaints of chronic low back pain and bilateral thigh pain. This patient has had a very longstanding history of chronic back pain she reports. She has had a total back surgeries. She has had no recent falls trauma or injury. Since Sunday she has had worsening back pain that radiates down the anterior aspect of bilateral thighs. This is a very similar pattern of her pain that she has had for many years. She has had no recent falls trauma or injury. No change in her bowel or bladder habits. Nicholas pain nausea or vomiting. She is able to ambulate but she is somewhat unsteady due to her pain she reports. She try to get into her primary care provider in the clinic but was unable to. She denies receiving any chronic pain management therapies or interventions. She does take tramadol 4 times a day and has for years. She also took Ibuprofen earlier in the day as well. - Related Data Allergies Allergy/AdvReac Type Severity Reaction Status Date / Time cat dander Allergy Sneezing Verified 10/01/19 10:44 duloxetine [From Cymbalta] Allergy Cannot Verified 10/01/19 10:44 Remember Sulfa (Sulfonamide Allergy Hives Verified 10/01/19 10:44 Antibiotics) amoxicillin [From Augmentin] AdvReac Nausea and Verified 10/01/19 10:44 Vomiting aspirin AdvReac Bleeding Verified 10/01/19 10:44 celecoxib [From Celebrex] AdvReac Diarrhea Verified 10/01/19 10:44 cephalexin AdvReac Nausea and Verified 10/01/19 10:44 Vomiting clavulanic acid AdvReac Nausea and Verified 10/01/19 10:44 [From Augmentin] Vomiting topiramate [From Topamax] AdvReac Delusions Verified 10/01/19 10:44 dust mite extract Allergy Cannot Uncoded 10/01/19 10:44 Remember Home Meds: Home Meds Acyclovir [Zovirax] 400 mg PO BID 09/28/13 [History] Calcium Carbonate/Vitamin D2 [Oyster Shell Calcium-Vit D Tab] 1 tab PO BIDMEALS 09/28/13 [History] Cholecalciferol (Vitamin D3) [Vitamin D3] 10,000 unit PO DAILY 09/28/13 [History ] Cyanocobalamin (Vitamin B-12) [Vitamin B-12] 100 mcg PO DAILY 09/28/13 [History] Docusate Sodium [Colace] 100 mg PO BEDTIME 09/28/13 [History] Ferrous Sulfate 325 mg PO BID 09/28/13 [History] Magnesium Oxide 800 mg PO DAILY@1800 09/28/13 [History] Multivitamin [Multivitamins] 1 cap PO DAILY 09/28/13 [History] metFORMIN HCl [Metformin HCl] 750 mg PO BID 03/15/15 [History] traZODone 100 mg PO BEDTIME 03/15/15 [History] Biotin 1 tab PO DAILY 01/24/16 [History] Omeprazole Magnesium [Prilosec Otc] 20 mg PO BIDAC 01/24/16 [History] Terbinafine [LamISIL AT 1% Crm] 1 applic TOP BID PRN 01/24/16 [History] Zonisamide 50 mg PO BID 08/29/17 [History] Acetaminophen/Caffeine [Excedrin Tension Headache Cplt] 2 each PO DAILY PRN [History] Ibuprofen 800 mg PO BID PRN 01/20/19 [History] Naratriptan HCl 2.5 mg PO ASDIRECTED PRN 25 Days #9 tablet 05/27/19 [Rx] Baclofen 20 mg PO TID PRN 90 Days #270 tablet 06/13/19 [Rx] traMADol [Ultram] 50 - 100 mg PO Q6H PRN 30 Days #180 tablet 06/13/19 [Rx] Gabapentin [Neurontin] 1,200 mg PO QID 90 Days #720 tablet 10/01/19 [Rx] Promethazine [Phenergan] 25 mg PO Q4H PRN 90 Days #60 tab 10/01/19 [Rx] Venlafaxine [Effexor XR 24 Hr] 37.5 mg PO DAILY 10/01/19 [History] predniSONE 40 mg PO DAILY #8 tab 10/05/19 [Rx] Past Medical History HEENT History: Reports: Allergic Rhinitis Cardiovascular History: Reports: Hypertension Respiratory History: Reports: None Gastrointestinal History: Reports: Other (See Below) Other Gastrointestinal History: abd abscess post hernia surgery Genitourinary History: Reports: UTI, Recurrent 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 left hip pain Neurological History: Reports: Migraines Other Neuro History: sciatica Psychiatric History: Reports: Anxiety, Depression Endocrine/Metabolic History: Reports: Diabetes, Type II, Obesity/BMI 30+ Hematologic History: Reports: Anemia Immunologic History: Reports: None Oncologic (Cancer) History: Reports: None Dermatologic History: Reports: None Other Dermatologic History: intertrigo. onychodystrophy. tinea pedis - Infectious Disease History Infectious Disease History: Reports: MRSA - Past Surgical History HEENT Surgical History: Reports: None Cardiovascular Surgical History: Reports: None GI Surgical History: Reports: None Female Surgical History: Reports: None Endocrine Surgical History: Reports: None Neurological Surgical History: Reports: None Other Musculoskeletal Surgeries/Procedures:: spinal cord stimulater removed 11/06, spinal cord stimulater implant 12/18/18. back surgery 05/17/19 Social & Family History - Family History Family Medical History: Noncontributory Cardiac: Reports: CAD, Hypertension Respiratory: Reports: Other (See Below) : Reports: Renal Disease/Insufficiency Neurological: Reports: CVA Endocrine/Metabolic: Reports: Diabetes, type II Oncologic: Reports: Uterine - Caffeine Use Caffeine Use: Reports: Soda - Living Situation & Occupation Living situation: Reports: Single, with Family (sister) Occupation: Disabled ED ROS GENERAL - Review of Systems Review Of Systems: Comprehensive ROS is negative, except as noted in HPI. ED EXAM,LOWER BACK PAIN/INJURY - Physical Exam Exam: See Below Exam Limited By: No Limitations General Appearance: Alert, WD/WN, No Apparent Distress Eye Exam: Bilateral Eye: EOMI Respiratory/Chest: No Respiratory Distress, Lungs Clear, No Accessory Muscle Use Cardiovascular: Normal Peripheral Pulses, Regular Rate, Rhythm GI/Abdominal: Normal Bowel Sounds, Soft (Female) Exam: Deferred Rectal (Female) Exam: Deferred Back Exam: Normal Inspection (other than old well healed surgical scars. ) Extremities: Normal Inspection, Normal Range of Motion, No Pedal Edema, Normal Capillary Refill Neurological: Alert, Normal Mood/Affect, Normal Dorsiflexion, CN II-XII Intact, Normal Plantar Flexion, Normal Gait, Normal Reflexes, No Motor/Sensory Deficits , Oriented x 3 DTR - Lower Extremities: 2+: Knee (R), Knee (L), Ankle (R), Ankle (L) Psychiatric: Anxious Skin Exam: Warm, Dry, Intact, Normal Color Course - Orders/Labs/Meds Orders: Active Orders 24 hr Category Date Time Status Lumbar Spine 2 or 3V [CR] Stat Exams 10/05/19 22:03 Taken DRUG SCREEN, URINE [URCHEM] Stat Lab 10/05/19 21:55 Ordered UA RFX SOLITARIO AND CULT IF INDIC [URIN] Stat Lab 10/05/19 21:55 Ordered Meds: Medications Discontinued Medications Generic Name Dose Route Start Last Admin Trade Name Freq PRN Reason Stop Dose Admin Hydromorphone HCl 1 mg 10/05/19 23:41 10/06/19 00:01 Dilaudid IM 10/05/19 23:42 1 mg ONETIME ONE Administration Ketorolac Tromethamine 30 mg 10/05/19 22:03 Toradol IM 10/05/19 22:04 ONETIME ONE Orphenadrine Citrate 60 mg 10/05/19 22:03 Norflex IM 10/05/19 22:04 NOW STA Prednisone 40 mg 10/05/19 23:48 10/06/19 00:01 Prednisone PO 10/05/19 23:49 40 mg NOW STA Administration Promethazine HCl 25 mg 10/05/19 23:41 10/06/19 00:00 Phenergan IM 10/05/19 23:42 25 mg ONETIME ONE Administration Promethazine HCl Confirm 10/06/19 00:07 Phenergan Administered 10/06/19 00:08 Dose 25 mg .ROUTE .STK-MED ONE - Re-Assessments/Exams Free Text/Narrative Re-Assessment/Exam: 10/06/19 00:04 Ketorolac 30mg IM Norflex 60mg IM Urinalysis is negative for blood or infection. UDS positive for TCAs. Plain film x-rays of the lumbar spine shows extensive postoperative changes within the mid and lower lumbar spine. No hardware complications. Per radiology. I did review her [place] PDMP and it is quite clear that she is receiving tramadol on a monthly basis from the THROUGH OPERATOR here at [facility]. Her last fill of her tramadol was on 09/10/2019. She has received 53 total controlled prescriptions with a total of 7 prescribers and 4 pharmacies since 10/16/17. I then further reviewed her chart and noticed that she is seen the THROUGH OPERATOR Nilesh here at [facility] for a rather long extended period of time. Noted in her chart that she has an MRI set up for tomorrow. When I asked about the MRI the patient then suddenly remembered that she had an MRI tomorrow. She does tell me that she has seen Nilesh the THROUGH OPERATOR about 5-7 times. When reviewing the chart there is aprox 85 notes from the THROUGH OPERATOR here at [facility]. The patient had no relief with the above therapy. She was then given Dilaudid 1mg IM and phenergan 25mg IM I do not feel comfortable with giving the patient any prescriptions for pain management especially controlled substances after discharge as she has been less than truthful to say the least. Is clearly on a chronic pain management plan with the THROUGH OPERATOR here at [facility]. This is a chronic problem that needs to be managed in the primary care setting. I am restricted with the current concern over the opioid crisis of prescribing any controlled substances to a person who is been less than truthful with her history as well as clearly on her [place]MP is under a pain contract in my review. There is no new complaints of her chronic pain other than some worsening of chronic symptoms. I will start her on a short course of prednisone and she needs to follow up with her PCP or Chronic pain management provider Departure - Departure Time of Disposition: 23:48 Disposition: Home, Self-Care 01 Clinical Impression: Lumbosacral radiculopathy Chronic pain Qualifiers: Chronic pain type: chronic pain syndrome Qualified Code(s): G89.4 - Chronic pain syndrome - Discharge Information *PRESCRIPTION DRUG MONITORING PROGRAM REVIEWED*: Yes *COPY OF PRESCRIPTION DRUG MONITORING REPORT IN PATIENT ELIZA: Not Applicable Prescriptions: predniSONE 40 mg PO DAILY #8 tab Instructions: Chronic Pain, Adult, Pain Medicine Instructions, [id number], Lumbosacral Radiculopathy Referrals: Faby Araya MD [Primary Care Provider] - Additional Instructions: Continue with previous therapies. Make sure and get your MRI tomorrow. As you are currently under chronic pain management I am limited what I am prescribe for your chronic back pain out the acute/emergency center. Prednisone 40mg a day for the next 5 days. First dose given in the ED and RX to [facility]. See your chronic pain management provider Nilesh MACDONALD for follow up next available. Return to the ED if new or worsening symptoms. Sepsis Event Note - Focused Exam Date Exam was Performed: 10/06/19 Time Exam was Performed: 00:09 - My Orders Last 24 Hours: My Active Orders 10/05/19 21:55 DRUG SCREEN, URINE [URCHEM] Stat UA RFX SOLITARIO AND CULT IF INDIC [URIN] Stat 10/05/19 22:03 Lumbar Spine 2 or 3V [CR] Stat - Assessment/Plan Last 24 Hours: My Active Orders 10/05/19 21:55 DRUG SCREEN, URINE [URCHEM] Stat UA RFX SOLITARIO AND CULT IF INDIC [URIN] Stat 10/05/19 22:03 Lumbar Spine 2 or 3V [CR] Stat Assessment:: Chronic lumbosacral radiculopathy pain. Chronic pain syndrome. Chronic pain management patient. Plan: Continue with previous therapies. Make sure and get your MRI tomorrow. As you are currently under chronic pain management I am limited what I am prescribe for your chronic back pain out the acute/emergency center. Prednisone 40mg a day for the next 5 days. First dose given in the ED and RX to [facility]. See your chronic pain management provider Nilesh MACDONALD for follow up next available. Return to the ED if new or worsening symptoms.
[2019-10-05] MEDS: Ketorolac 30 MG/ML SDV IM ONE (23:02)
[2019-10-06] MEDS: Promethazine 25 MG/ML SDV IM ONE
[2019-10-06] MEDS: predniSONE 20 MG Tab PO STA (00:01)
[2019-10-06] MEDS: HYDROmorphone 1 MG/ML Syringe IM ONE (00:01)
[2019-10-06 03:29] VITALS: BP 153/92; PULSE 87
[2019-10-06] MEDS: Promethazine 25 MG/ML SDV ONE (03:46)
[2019-10-06 04:37] LABS: BUPRENORPHINE,URINE NEGATIVE (NEGATIVE); MARIJUANA,URINE NEGATIVE (NEGATIVE); METHYLENEDIOXYMETHAMP,UR NEGATIVE (NEGATIVE); PHENCYCLIDINE,URINE NEGATIVE (NEGATIVE)
--- NOTE | 2019-10-06 08:40 | CR ---
[id number] RAD/RAD Lumbar Spine 2-3V Exam: RAD Lumbar Spine 2-3V Indication:LOWER BACK PAIN DOWN BOTH LEGS Comparison: No prior imaging for comparison. Discussion: Postsurgical change at L3-4 through L5-S1, including discectomy and posterior decompression. Posterior fusion at L5-S1. Spinal similar device in place. No evidence of hardware complication. No acute fracture or compression deformity. Mild to moderate spondylosis throughout the lumbar and lower thoracic spine. Impression: No acute findings. Chronic findings are described above. Nishant Alvarado MD 10/06/19 0839 Thank you for allowing us to participate in the care of your patient.
== END 2019-10-06 01:15 | disposition home or self-care (01) ==
LOC: VM.ED 21:28
DX: M54.17 Radiculopathy, lumbosacral region (principal); G89.4 Chronic pain syndrome; I10 Essential (primary) hypertension; G43.909 Migraine, unspecified, not intractable, without status migrainosus; F41.9 Anxiety disorder, unspecified; F32.9 Major depressive disorder, single episode, unspecified; E11.9 Type 2 diabetes mellitus without complications; E66.9 Obesity, unspecified; Z68.41 Body mass index [BMI] 40.0-44.9, adult; Z88.0 Allergy status to penicillin; Z88.2 Allergy status to sulfonamides; Z88.6 Allergy status to analgesic agent; Z88.8 Allergy status to other drugs, medicaments and biological substances; Z79.899 Other long term (current) drug therapy; Z79.84 Long term (current) use of oral hypoglycemic drugs
CPT/HCPCS: 72100; 80305-QW; 81002; 96372; 99284-25; 99284-GF; J1170; J1885; J2360; J2550; J7512

== ENCOUNTER 2019-10-10 16:57 | Emergency (ER) | payer MEDICARE, OTHER, SELFPAY ==
[2019-10-10] MEDS ORDERED: Ketorolac 30 MG/ML SDV IM ONE (17:19)
--- NOTE | 2019-10-10 17:26 | EDM.PDOC ---
ED HPI GENERAL MEDICAL PROBLEM - General Chief Complaint: General Stated Complaint: FALL Time Seen by Provider: 10/10/19 17:15 Source of Information: Reports: Patient History Limitations: Reports: No Limitations - History of Present Illness INITIAL COMMENTS - FREE TEXT/NARRATIVE: Patient comes into the emergency department with complaint of back pain post fall. Patient states that she was ambulating at home and tripped over her dog' s toy and ended up falling on her left side and onto her back. She denies hitting her head or losing consciousness. Patient states that she does have a significant back history including multiple surgeries and hardware placement in her lower back. She is currently doctoring with bulged disks diagnosed by an MRI within the last 2 weeks. Patient states after she fell she had extreme discomfort has been unable to find a position of comfort. It hurts more when she is sitting upright to bend over. States that if she is sitting back the pain is less severe however it is still present and discomforting. She states that she has chronic numbness and tingling in both lower extremities and she does not notice any difference currently. Denies any range of motion or CMS concerns at the present time. She denies any loss of consciousness, nausea, vomiting, blurred vision, headache, chest pain, or peripheral edema. Onset: Sudden, Gradual Location: Reports: Back Quality: Reports: Stabbing, Throbbing Severity: Severe Improves with: Reports: Immobilization Worsens with: Reports: Movement Associated Symptoms: Reports: No Other Symptoms Back Pain Score (Numeric/FACES): 10 - Related Data Allergies Allergy/AdvReac Type Severity Reaction Status Date / Time adhesive tape Allergy Rash Verified 10/10/19 17:04 cat dander Allergy Sneezing Verified 10/10/19 17:04 duloxetine [From Cymbalta] Allergy Cannot Verified 10/10/19 17:04 Remember Sulfa (Sulfonamide Allergy Hives Verified 10/10/19 17:04 Antibiotics) amoxicillin [From Augmentin] AdvReac Nausea and Verified 10/10/19 17:04 Vomiting aspirin AdvReac Bleeding Verified 10/10/19 17:04 celecoxib [From Celebrex] AdvReac Diarrhea Verified 10/10/19 17:04 cephalexin AdvReac Nausea and Verified 10/10/19 17:04 Vomiting clavulanic acid AdvReac Nausea and Verified 10/10/19 17:04 [From Augmentin] Vomiting topiramate [From Topamax] AdvReac Delusions Verified 10/10/19 17:04 dust mite extract Allergy Cannot Uncoded 10/09/19 10:36 Remember Home Meds: Home Meds Acyclovir [Zovirax] 400 mg PO BID 09/28/13 [History] Calcium Carbonate/Vitamin D2 [Oyster Shell Calcium-Vit D Tab] 1 tab PO BIDMEALS 09/28/13 [History] Cholecalciferol (Vitamin D3) [Vitamin D3] 10,000 unit PO DAILY 09/28/13 [History ] Cyanocobalamin (Vitamin B-12) [Vitamin B-12] 100 mcg PO DAILY 09/28/13 [History] Docusate Sodium [Colace] 100 mg PO BEDTIME 09/28/13 [History] Ferrous Sulfate 325 mg PO BID 09/28/13 [History] Magnesium Oxide 800 mg PO DAILY@1800 09/28/13 [History] Multivitamin [Multivitamins] 1 cap PO DAILY 09/28/13 [History] metFORMIN HCl [Metformin HCl] 750 mg PO BID 03/15/15 [History] traZODone 100 mg PO BEDTIME 03/15/15 [History] Biotin 1 tab PO DAILY 01/24/16 [History] Omeprazole Magnesium [Prilosec Otc] 20 mg PO BIDAC 01/24/16 [History] Terbinafine [LamISIL AT 1% Crm] 1 applic TOP BID PRN 01/24/16 [History] Zonisamide 50 mg PO BID 08/29/17 [History] Acetaminophen/Caffeine [Excedrin Tension Headache Cplt] 2 each PO DAILY PRN [History] Ibuprofen 800 mg PO BID PRN 01/20/19 [History] Naratriptan HCl 2.5 mg PO ASDIRECTED PRN 25 Days #9 tablet 05/27/19 [Rx] Baclofen 20 mg PO TID PRN 90 Days #270 tablet 06/13/19 [Rx] traMADol [Ultram] 50 - 100 mg PO Q6H PRN 30 Days #180 tablet 06/13/19 [Rx] Gabapentin [Neurontin] 1,200 mg PO QID 90 Days #720 tablet 10/01/19 [Rx] Promethazine [Phenergan] 25 mg PO Q4H PRN 90 Days #60 tab 10/01/19 [Rx] Venlafaxine [Effexor XR 24 Hr] 37.5 mg PO DAILY 10/01/19 [History] traMADol HCl [Tramadol HCl] 1 tab PO ASDIRECTED PRN 10/06/19 [History] Cyclobenzaprine [Flexeril] 10 mg PO TID PRN #15 tab 10/10/19 [Rx] Past Medical History HEENT History: Reports: Allergic Rhinitis Cardiovascular History: Reports: Hypertension Respiratory History: Reports: None Gastrointestinal History: Reports: Other (See Below) Other Gastrointestinal History: abd abscess post hernia surgery Genitourinary History: Reports: UTI, Recurrent TRANSFUSION NURSE History: Reports: Other (See Below) Other TRANSFUSION NURSE History: metorrhagia Musculoskeletal History: Reports: Back Pain, Chronic Other Musculoskeletal History: tenosynovitis. left hip pain Neurological History: Reports: Migraines Other Neuro History: sciatica Psychiatric History: Reports: Anxiety, Depression Endocrine/Metabolic History: Reports: Diabetes, Type II, Obesity/BMI 30+ Hematologic History: Reports: Anemia Immunologic History: Reports: None Oncologic (Cancer) History: Reports: None Dermatologic History: Reports: None Other Dermatologic History: intertrigo. onychodystrophy. tinea pedis - Infectious Disease History Infectious Disease History: Reports: MRSA - Past Surgical History HEENT Surgical History: Reports: None Cardiovascular Surgical History: Reports: None GI Surgical History: Reports: None Female Surgical History: Reports: None Endocrine Surgical History: Reports: None Neurological Surgical History: Reports: None Other Musculoskeletal Surgeries/Procedures:: spinal cord stimulater removed 11/06, spinal cord stimulater implant 12/18/18. back surgery 05/17/19 Social & Family History - Family History Family Medical History: Noncontributory Cardiac: Reports: CAD, Hypertension Respiratory: Reports: Other (See Below) : Reports: Renal Disease/Insufficiency Neurological: Reports: CVA Endocrine/Metabolic: Reports: Diabetes, type II Oncologic: Reports: Uterine - Tobacco Use Smoking Status *Q: Never Smoker - Caffeine Use Caffeine Use: Reports: Soda - Recreational Drug Use Recreational Drug Use: No - Living Situation & Occupation Living situation: Reports: Single, with Family (sister) Occupation: Disabled ED ROS GENERAL - Review of Systems Review Of Systems: See Below Constitutional: Reports: No Symptoms HEENT: Reports: No Symptoms Respiratory: Reports: No Symptoms Cardiovascular: Reports: No Symptoms Endocrine: Reports: No Symptoms GI/Abdominal: Reports: No Symptoms : Reports: No Symptoms Skin: Reports: No Symptoms Neurological: Reports: No Symptoms Psychiatric: Reports: No Symptoms Hematologic/Lymphatic: Reports: No Symptoms Immunologic: Reports: No Symptoms ED EXAM, GENERAL - Physical Exam Exam: See Below Exam Limited By: No Limitations General Appearance: Alert, WD/WN, No Apparent Distress Head: Atraumatic, Normocephalic Neck: Normal Inspection, Supple, Non-Tender, Full Range of Motion Respiratory/Chest: No Respiratory Distress, Lungs Clear, Normal Breath Sounds, No Accessory Muscle Use, Chest Non-Tender Cardiovascular: Normal Peripheral Pulses, Regular Rate, Rhythm, No Edema Back Exam: Normal Inspection, Full Range of Motion Extremities: Normal Inspection, Normal Range of Motion, Non-Tender, No Pedal Edema, Normal Capillary Refill, Other (back lumbar region-midline tenderness upon palpation. NO hematoma, bruising, redness or swelling noted. Scarring present ) Neurological: Alert, Oriented Psychiatric: Normal Affect, Normal Mood Skin Exam: Warm, Dry, Intact, Normal Color Course - Vital Signs Last Recorded V/S: Last Vital Signs Temp 36.7 C 10/10/19 17:08 Pulse 95 10/10/19 17:08 Resp 18 10/10/19 17:08 BP 132/81 10/10/19 17:08 Pulse Ox 97 10/10/19 17:08 - Orders/Labs/Meds Meds: Medications Discontinued Medications Generic Name Dose Route Start Last Admin Trade Name Freq PRN Reason Stop Dose Admin Ketorolac Tromethamine 30 mg 10/10/19 17:19 Toradol IM 10/10/19 17:20 ONETIME ONE Orphenadrine Citrate 60 mg 10/10/19 17:19 Norflex IM 10/10/19 17:20 ONETIME ONE Departure - Departure Time of Disposition: 18:30 Disposition: Home, Self-Care 01 Condition: Good Clinical Impression: Strain, back Qualifiers: Encounter type: initial encounter Qualified Code(s): S39.012A - Strain of muscle, fascia and tendon of lower back, initial encounter Low back pain Qualifiers: Chronicity: chronic Back pain laterality: bilateral Sciatica presence: with sciatica Sciatica laterality: bilateral sciatica Qualified Code(s): M54.42 - Lumbago with sciatica, left side - Discharge Information *PRESCRIPTION DRUG MONITORING PROGRAM REVIEWED*: Not Applicable *COPY OF PRESCRIPTION DRUG MONITORING REPORT IN PATIENT ELIZA: Not Applicable Instructions: Lumbar Strain, Ketorolac injection, Orphenadrine injection, Cyclobenzaprine tablets Forms: ED Department Discharge Additional Instructions: 1. Rest 2. take home pack of Flexeril given to the patient. D/C pharmacy script 3. Can use tylenol and ibuprofen as needed for pain and discomfort 4. Diet as tolerated 5. Activity as tolerated 6. Rest in a recliner to help relieve pressure. 7. Use ice 3-4 times a day at 20-minute intervals to help with any swelling and discomfort 8. Follow-up with your primary care provider symptoms continue or to progress 9. Follow with any questions or concerns 10. Discharge information has been provided regarding your injury Sepsis Event Note - Evaluation Sepsis Screening Result: No Definite Risk - Focused Exam Vital Signs: Vital Signs Temp Pulse Resp BP Pulse Ox 10/10/19 17:08 36.7 C 95 18 132/81 97 Date Exam was Performed: 10/10/19 Time Exam was Performed: 18:18 - Assessment/Plan Assessment:: 1. fall 2. back pain 3. back strain Plan: 1. X-ray completed in the emergency department results reviewed with the patient 2. Ice Applied to the affected area 3. Medication offered to the patient. Toradol 30mg IM and Norflex 60mg IM provided for pain relief 4. Education regarding splinting, activity, [id number] medications, and follow-up care provided. 5. All questions and concerns addressed with the patient prior to discharge 6. Pack of Flexeril was provided to the patient. Did a prescription of Flexeril however discontinued and ripped the prescription up the patient did not take the prescription with her
--- NOTE | 2019-10-10 18:06 | CR ---
[id number] RAD/RAD Lumbar Spine 2-3V EXAM: RAD Lumbar Spine 2-3V INDICATION: FALL, PAIN, HARDWARE PRESENT IN AREA. COMPARISON: October 05, 2019. DISCUSSION: Discectomy with interbody graft placement L3-L4, L4-L5 and L5-S1. Bilateral posterior fusion with transpedicular screws and interconnecting rods at L5-S1. Posterior decompression L2-L3 and L3-L4. Partially imaged thoracic spinal canal stimulator leads. Mild to moderate spondylosis throughout the lumbar spine including disc degeneration and facet arthropathy. Stable mild chronic T11 and T12 ventral wedging. IMPRESSION: 1. Multilevel surgical changes in the lumbar spine are unchanged. 2. Stable mild to moderate lumbar spondylosis. Ovidio Watters MD 10/10/19 [id number] Thank you for allowing us to participate in the care of your patient.
[2019-10-10] MEDS ORDERED: Take Home: Cyclobenzaprine 10 MG Tab, 4 Tab Pack PO ONE (18:21)
[2019-10-10 18:55] VITALS: BP 143/91; PULSE 100
== END 2019-10-10 19:00 | disposition home or self-care (01) ==
LOC: VM.ED 16:57
DX: S39.012A Strain of muscle, fascia and tendon of lower back, initial encounter (principal); M54.42 Lumbago with sciatica, left side; M54.41 Lumbago with sciatica, right side; I10 Essential (primary) hypertension; F41.9 Anxiety disorder, unspecified; F32.9 Major depressive disorder, single episode, unspecified; E11.9 Type 2 diabetes mellitus without complications; E66.9 Obesity, unspecified; Z68.42 Body mass index [BMI] 45.0-49.9, adult; Z91.048 Other nonmedicinal substance allergy status; Z88.2 Allergy status to sulfonamides; Z88.1 Allergy status to other antibiotic agents; Z88.8 Allergy status to other drugs, medicaments and biological substances; Z79.899 Other long term (current) drug therapy; Z79.84 Long term (current) use of oral hypoglycemic drugs; W18.09XA Striking against other object with subsequent fall, initial encounter
CPT/HCPCS: 72100; 96372; 99283; 99284; A9270; J1885; J2360

== ENCOUNTER 2019-12-18 16:18 | Emergency (ER) | payer MEDICARE, OTHER, SELFPAY ==
[2019-12-18] MEDS ORDERED: cefTRIAXone 2 GM, Lidocaine 1% 2.1 ML IM ONE ×2 (16:28)
--- NOTE | 2019-12-18 16:34 | EDM.PDOC ---
ED HPI GENERAL MEDICAL PROBLEM - General Chief Complaint: Skin Complaint Stated Complaint: skin infection Time Seen by Provider: 12/18/19 16:20 Source of Information: Reports: Patient History Limitations: Reports: No Limitations - History of Present Illness INITIAL COMMENTS - FREE TEXT/NARRATIVE: Patient comes into the emergency department with complaints of a right breast skin infection. Patient states that she was in the clinic yesterday for approximately 1 week long sweat pimple that was on her breast that began to get warm and hot to the touch as well as produce drainage. In the yesterday cultures were obtained as well as labs. Patient was started on clindamycin for she does have used to both sulfa drugs and Augmentin. And called the clinic today stating that the redness had spread approximately 2 inches above the line that was drawn yesterday. The clinic provider instructed the patient to return to the emergency department for further evaluation. Patient denies any fever, nausea, vomiting, lightheadedness, chest pain, shortness of breath, GI upset. Patient states that her symptoms are exactly the same as they were yesterday however the redness as described above has extended approximately 2 inches above the area line that was drawn yesterday. Patient states that it has remained the same and she is cleaning it with triple antibiotic cream and placing a Band-Aid over the area. Patient also describes the area as tender to touch however she does not notice any pain or discomfort if she leaves the area alone. Denies any other symptoms or concerns today and states she has been relatively healthy. Did state that she has had a similar incident produce on her leg approximately 2 years ago and it did grow out MRSA she describes the wound characteristics to be very similar of that. Onset: Gradual Duration: Getting Worse Location: Reports: Chest Quality: Reports: Ache Severity: Mild Improves with: Reports: Rest Worsens with: Reports: Movement Associated Symptoms: Reports: No Other Symptoms. Denies: Fever/Chills, Headaches, Loss of Appetite, Malaise, Nausea/Vomiting, Shortness of Breath, Weakness Treatments DIGITAL MARKETING APPRENTICE: Reports: Acetaminophen, Other (see below) (clindamycin ) - Related Data Allergies Allergy/AdvReac Type Severity Reaction Status Date / Time adhesive tape Allergy Rash Verified 12/18/19 16:36 cat dander Allergy Sneezing Verified 12/18/19 16:36 duloxetine [From Cymbalta] Allergy Cannot Verified 12/18/19 16:36 Remember Sulfa (Sulfonamide Allergy Hives Verified 12/18/19 16:36 Antibiotics) amoxicillin [From Augmentin] AdvReac Nausea and Verified 12/18/19 16:36 Vomiting aspirin AdvReac Bleeding Verified 12/18/19 16:36 celecoxib [From Celebrex] AdvReac Diarrhea Verified 12/18/19 16:36 cephalexin AdvReac Nausea and Verified 12/18/19 16:36 Vomiting clavulanic acid AdvReac Nausea and Verified 12/18/19 16:36 [From Augmentin] Vomiting topiramate [From Topamax] AdvReac Delusions Verified 12/18/19 16:36 dust mite extract Allergy Cannot Uncoded 12/18/19 16:36 Remember Home Meds: Home Meds Acyclovir [Zovirax] 400 mg PO BID 09/28/13 [History] Calcium Carbonate/Vitamin D2 [Oyster Shell Calcium-Vit D Tab] 1 tab PO BIDMEALS 09/28/13 [History] Cholecalciferol (Vitamin D3) [Vitamin D3] 10,000 unit PO DAILY 09/28/13 [History] Cyanocobalamin (Vitamin B-12) [Vitamin B-12] 100 mcg PO DAILY 09/28/13 [History] Docusate Sodium [Colace] 100 mg PO BEDTIME 09/28/13 [History] Ferrous Sulfate 325 mg PO BID 09/28/13 [History] Magnesium Oxide 800 mg PO DAILY@1800 09/28/13 [History] Multivitamin [Multivitamins] 1 cap PO DAILY 09/28/13 [History] metFORMIN HCl [Metformin HCl] 750 mg PO BID 03/15/15 [History] traZODone 100 mg PO BEDTIME 03/15/15 [History] Biotin 1 tab PO DAILY 01/24/16 [History] Omeprazole Magnesium [Prilosec Otc] 20 mg PO BIDAC 01/24/16 [History] Terbinafine [LamISIL AT 1% Crm] 1 applic TOP BID PRN 01/24/16 [History] Zonisamide 50 mg PO BID 08/29/17 [History] Acetaminophen/Caffeine [Excedrin Tension Headache Cplt] 2 each PO DAILY PRN 01/20/19 [History] Ibuprofen 800 mg PO BID PRN 01/20/19 [History] Baclofen 20 mg PO TID PRN 90 Days #270 tablet 06/13/19 [Rx] Gabapentin [Neurontin] 1,200 mg PO QID 90 Days #720 tablet 10/01/19 [Rx] Promethazine [Phenergan] 25 mg PO Q4H PRN 90 Days #60 tab 10/01/19 [Rx] Venlafaxine [Effexor XR 24 Hr] 37.5 mg PO DAILY 10/01/19 [History] Naratriptan HCl 2.5 mg PO ASDIRECTED PRN 25 Days #9 tablet 12/02/19 [Rx] oxyCODONE 5 mg PO Q6HR PRN 30 Days #120 tab 12/02/19 [Rx] traMADol [Ultram] 50 - 100 mg PO Q6H PRN 30 Days #180 tablet 12/02/19 [Rx] Past Medical History HEENT History: Reports: Allergic Rhinitis Cardiovascular History: Reports: Hypertension Respiratory History: Reports: None Gastrointestinal History: Reports: Other (See Below) Other Gastrointestinal History: abd abscess post hernia surgery Genitourinary History: Reports: UTI, Recurrent 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 left hip pain. Recent fall 10/12/19 Neurological History: Reports: Migraines Other Neuro History: sciatica Psychiatric History: Reports: Anxiety, Depression Endocrine/Metabolic History: Reports: Diabetes, Type II, Obesity/BMI 30+ Hematologic History: Reports: Anemia Immunologic History: Reports: None Oncologic (Cancer) History: Reports: None Dermatologic History: Reports: None Other Dermatologic History: intertrigo. onychodystrophy. tinea pedis - Infectious Disease History Infectious Disease History: Reports: MRSA - Past Surgical History HEENT Surgical History: Reports: None Cardiovascular Surgical History: Reports: None GI Surgical History: Reports: None Female Surgical History: Reports: None Endocrine Surgical History: Reports: None Neurological Surgical History: Reports: None Other Musculoskeletal Surgeries/Procedures:: spinal cord stimulater removed 11/06/17, spinal cord stimulater implant 12/18/18. back surgery 05/17/19 Social & Family History - Family History Family Medical History: Noncontributory Cardiac: Reports: CAD, Hypertension Respiratory: Reports: Other (See Below) : Reports: Renal Disease/Insufficiency Neurological: Reports: CVA Endocrine/Metabolic: Reports: Diabetes, type II Oncologic: Reports: Uterine - Caffeine Use Caffeine Use: Reports: Soda - Living Situation & Occupation Living situation: Reports: Single, with Family (sister) Occupation: Disabled ED ROS GENERAL - Review of Systems Review Of Systems: Comprehensive ROS is negative, except as noted in HPI. Constitutional: Reports: No Symptoms HEENT: Reports: No Symptoms Respiratory: Reports: No Symptoms Cardiovascular: Reports: No Symptoms Endocrine: Reports: No Symptoms GI/Abdominal: Reports: No Symptoms Musculoskeletal: Reports: No Symptoms Neurological: Reports: No Symptoms Psychiatric: Reports: No Symptoms Hematologic/Lymphatic: Reports: No Symptoms Immunologic: Reports: No Symptoms ED EXAM, GENERAL - Physical Exam Exam: See Below Exam Limited By: No Limitations General Appearance: Alert, WD/WN, No Apparent Distress Head: Atraumatic, Normocephalic Neck: Normal Inspection, Supple, Non-Tender, Full Range of Motion Respiratory/Chest: No Respiratory Distress, No Accessory Muscle Use, Chest Non- Tender Cardiovascular: Normal Peripheral Pulses, Regular Rate, Rhythm, No Edema, No JVD GI/Abdominal: Normal Bowel Sounds, Soft, Non-Tender Back Exam: Normal Inspection, Full Range of Motion Extremities: Normal Inspection, Normal Range of Motion, Non-Tender, No Pedal Edema, Normal Capillary Refill Neurological: Alert, Oriented, Normal Gait Psychiatric: Normal Affect, Normal Mood Skin Exam: Other (right breast left of the nipple- uma size hard papule with mild amount of drainage. Redness about 2.5inch diameter with warmth noted ) Course - Orders/Labs/Meds Orders: Active Orders 24 hr Category Date Time Status cefTRIAXone [Rocephin] 2 gm Med 12/18/19 16:28 Ordered Lidocaine 1% [Xylocaine-MPF 1%] 2.1 ml IM ONETIME Departure - Departure Time of Disposition: 16:45 Disposition: Home, Self-Care 01 Condition: Good Clinical Impression: Cellulitis of right breast - Discharge Information *PRESCRIPTION DRUG MONITORING PROGRAM REVIEWED*: Not Applicable *COPY OF PRESCRIPTION DRUG MONITORING REPORT IN PATIENT ELIZA: Not Applicable Instructions: Cellulitis, Adult, Ceftriaxone injection, Probiotics Referrals: Faby Araya MD [Primary Care Provider] - Forms: ED Department Discharge Additional Instructions: 1. rest 2. increase your water intake 3. Take all antibiotics as prescribed even if feeling better 4. Take a probiotic while on antibiotics to help promote healthy GI motility 5. Activity and diet as tolerated 6. Can use Ibuprofen and tylenol for any fever or discomfort 7. Follow up with your PCP or return if symptoms progress or worsen 8. Education provided to you regarding your illness, probiotics, antibiotic prescribed 9. Call with any questions or concerns 10. Culture Sensitivity report should be back tomorrow. Call the clinic to ensure you are on the right antibiotic. - My Orders Last 24 Hours: My Active Orders 12/18/19 16:28 cefTRIAXone [Rocephin] 2 gm Lidocaine 1% [Xylocaine-MPF 1%] 2.1 ml IM ONETIME - Assessment/Plan Last 24 Hours: My Active Orders 12/18/19 16:28 cefTRIAXone [Rocephin] 2 gm Lidocaine 1% [Xylocaine-MPF 1%] 2.1 ml IM ONETIME Assessment:: 1. right breast cellulitis Plan: 1. Labs completed in ER yesterday-pending culture results 2. Rocephin 2gm IM to help reduce the worsening infection 3. Patient is encouraged to continue with Clindamycin until cultures return hopefully tomorrow with sensitivity results 4. Pain medication given for severe pain and discomfort-declined pt states she took some OTC medication at home 5. Patient and nursing staff was updated regarding the plan of care 6. Education provided the patient regarding activity, diet, rest, [id number] medication modalities, and follow-up care was provided 7. Patient and family are agreeable to the above plan of care 8. All questions and concerns were addressed with the patient and family prior to discharge
[2019-12-18] MEDS ORDERED: cefTRIAXone 1 GM Vial ONE (16:47)
[2019-12-18 17:06] VITALS: BP 146/83; PULSE 91
== END 2019-12-18 17:15 | disposition home or self-care (01) ==
LOC: VM.ED 16:18
DX: N61.0 Mastitis without abscess (principal); I10 Essential (primary) hypertension; E11.9 Type 2 diabetes mellitus without complications; E66.9 Obesity, unspecified; F41.9 Anxiety disorder, unspecified; F32.9 Major depressive disorder, single episode, unspecified; G43.909 Migraine, unspecified, not intractable, without status migrainosus; Z88.1 Allergy status to other antibiotic agents; Z88.2 Allergy status to sulfonamides; Z88.6 Allergy status to analgesic agent; Z91.09 Other allergy status, other than to drugs and biological substances; Z91.048 Other nonmedicinal substance allergy status; Z79.899 Other long term (current) drug therapy
CPT/HCPCS: 96372; 99283; J0696; J2001

== ENCOUNTER 2020-03-27 06:15 | Emergency (ER) | payer MEDICARE, MEDICAID ==
[2020-03-27] MEDS: Naloxone 0.4 MG/ML SDV IVPUSH ONE (06:37)
--- NOTE | 2020-03-27 06:51 | EDM.PDOC ---
<Suni Koch - Last Filed: 03/27/20 06:45> ED HPI GENERAL MEDICAL PROBLEM - General Chief Complaint: General Stated Complaint: Altered level of consciousness Time Seen by Provider: 03/27/20 06:40 History Limitations: Reports: No Limitations - History of Present Illness INITIAL COMMENTS - FREE TEXT/NARRATIVE: Patient comes into the emergency department via EMS with concerns/complaints of unresponsiveness. EMS was contacted regarding unresponsive individual. Upon arrival on scene the patient was unresponsive with minimal responsiveness. EMS did start an IV, Blood sugar was in the 30s they did give an amp of D50 with minimal responsiveness. They did get report from family that it does appear that the patient does have a oxycodone tablets missing from her bottle. The f phillip that was with the patient states that the last time that they had seen her awake and talking was at midnight. Patient was seen at the clinic yesterday for chronic back pain in the pain clinic and was administered a pain injection. Onset: Unknown/Unsure Quality: Reports: Other Severity: Moderate Improves with: Reports: None Worsens with: Reports: None Context: Reports: Other Treatments HEMATOLOGY TECHNICIAN: Reports: See EMS Report - Related Data Allergies Allergy/AdvReac Type Severity Reaction Status Date / Time adhesive tape Allergy Rash Verified 03/27/20 07:17 cat dander Allergy Sneezing Verified 03/27/20 07:17 clindamycin Allergy Hives Verified 03/27/20 07:17 duloxetine [From Cymbalta] Allergy Cannot Verified 03/27/20 07:17 Remember Sulfa (Sulfonamide Allergy Hives Verified 03/27/20 07:17 Antibiotics) amoxicillin [From Augmentin] AdvReac Nausea and Verified 03/27/20 07:17 Vomiting aspirin AdvReac Bleeding Verified 03/27/20 07:17 celecoxib [From Celebrex] AdvReac Diarrhea Verified 03/27/20 07:17 cephalexin AdvReac Nausea and Verified 03/27/20 07:17 Vomiting clavulanic acid AdvReac Nausea and Verified 03/27/20 07:17 [From Augmentin] Vomiting topiramate [From Topamax] AdvReac Delusions Verified 03/27/20 07:17 dust mite extract Allergy Cannot Uncoded 03/27/20 07:17 Remember Home Meds: Home Meds Acyclovir [Zovirax] 400 mg PO BID 09/28/13 [History] Calcium Carbonate/Vitamin D2 [Oyster Shell Calcium-Vit D Tab] 1 tab PO BIDMEALS 09/28/13 [History] Cholecalciferol (Vitamin D3) [Vitamin D3] 10,000 unit PO DAILY 09/28/13 [History] Cyanocobalamin (Vitamin B-12) [Vitamin B-12] 100 mcg PO DAILY 09/28/13 [History] Docusate Sodium [Colace] 100 mg PO BEDTIME 09/28/13 [History] Ferrous Sulfate 325 mg PO BID 09/28/13 [History] Magnesium Oxide 800 mg PO DAILY@1800 09/28/13 [History] Multivitamin [Multivitamins] 1 cap PO DAILY 09/28/13 [History] metFORMIN HCl [Metformin HCl] 750 mg PO BID 03/15/15 [History] traZODone 100 mg PO BEDTIME 03/15/15 [History] Biotin 1 tab PO DAILY 01/24/16 [History] Omeprazole Magnesium [Prilosec Otc] 20 mg PO BIDAC 01/24/16 [History] Terbinafine [LamISIL AT 1% Crm] 1 applic TOP BID PRN 01/24/16 [History] Zonisamide 50 mg PO BID 08/29/17 [History] Acetaminophen/Caffeine [Excedrin Tension Headache Cplt] 2 each PO DAILY PRN 01/20/19 [History] Ibuprofen 800 mg PO BID PRN 01/20/19 [History] Baclofen 20 mg PO TID PRN 90 Days #270 tablet 06/13/19 [Rx] Venlafaxine [Effexor XR 24 Hr] 37.5 mg PO DAILY 10/01/19 [History] Naratriptan HCl 2.5 mg PO ASDIRECTED PRN 25 Days #9 tablet 12/02/19 [Rx] traMADol [Ultram] 50 - 100 mg PO Q6H PRN 30 Days #180 tablet 12/02/19 [Rx] atorvaSTATin [Lipitor] 10 mg PO DAILY 12/26/19 [History] Erenumab-Aooe [Aimovig Autoinjector] 70 mg SQ ASDIRECTED 90 Days #3 auto.injct 02/03/20 [Rx] Gabapentin [Neurontin] 1,200 mg PO QID 90 Days #720 tablet 03/01/20 [Rx] Promethazine [Phenergan] 25 mg PO Q4H PRN 90 Days #60 tab 03/22/20 [Rx] oxyCODONE HCl [Oxycodone HCL] 10 mg PO QID PRN 30 Days #120 tablet 03/26/20 [Rx] Past Medical History HEENT History: Reports: Allergic Rhinitis Cardiovascular History: Reports: Hypertension Respiratory History: Reports: None Gastrointestinal History: Reports: Other (See Below) Other Gastrointestinal History: abd abscess post hernia surgery Genitourinary History: Reports: UTI, Recurrent 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 left hip pain. Recent fall 10/12/19 Neurological History: Reports: Migraines Other Neuro History: sciatica Psychiatric History: Reports: Anxiety, Depression Endocrine/Metabolic History: Reports: Diabetes, Type II, Obesity/BMI 30+ Hematologic History: Reports: Anemia Immunologic History: Reports: None Oncologic (Cancer) History: Reports: None Dermatologic History: Reports: None Other Dermatologic History: intertrigo. onychodystrophy. tinea pedis - Infectious Disease History Infectious Disease History: Reports: MRSA - Past Surgical History HEENT Surgical History: Reports: None Cardiovascular Surgical History: Reports: None GI Surgical History: Reports: None Female Surgical History: Reports: None Endocrine Surgical History: Reports: None Neurological Surgical History: Reports: None Other Musculoskeletal Surgeries/Procedures:: spinal cord stimulater removed 11/06/17, spinal cord stimulater implant 12/18/18. back surgery 05/17/19 Social & Family History - Family History Family Medical History: Noncontributory Cardiac: Reports: CAD, Hypertension Respiratory: Reports: Other (See Below) : Reports: Renal Disease/Insufficiency Neurological: Reports: CVA Endocrine/Metabolic: Reports: Diabetes, type II Oncologic: Reports: Uterine - Caffeine Use Caffeine Use: Reports: Soda - Living Situation & Occupation Living situation: Reports: Single, with Family (sister) Occupation: Disabled ED ROS GENERAL - Review of Systems Review Of Systems: Comprehensive ROS is negative, except as noted in HPI. Constitutional: Reports: No Symptoms HEENT: Reports: No Symptoms Respiratory: Reports: No Symptoms Cardiovascular: Reports: No Symptoms Endocrine: Reports: No Symptoms GI/Abdominal: Reports: No Symptoms : Reports: No Symptoms Musculoskeletal: Reports: Back Pain Skin: Reports: No Symptoms Neurological: Reports: No Symptoms Psychiatric: Reports: No Symptoms Hematologic/Lymphatic: Reports: No Symptoms Immunologic: Reports: No Symptoms ED EXAM, GENERAL - Physical Exam Exam: See Below General Appearance: Lethargic, Other (hypoventilation ) Eye Exam: Bilateral Eye: Other (pinpoint pupils) Ears: Normal External Exam, Normal Canal, Hearing Grossly Normal Ear Exam: Bilateral Ear: Auricle Normal, Canal Normal, TM normal Nose: Normal Inspection, Normal Mucosa Throat/Mouth: Normal Inspection, Normal Lips, Normal Teeth, Normal Voice, No Airway Compromise Head: Atraumatic, Normocephalic Neck: Normal Inspection, Supple, Non-Tender, Full Range of Motion Respiratory/Chest: Lungs Clear, Normal Breath Sounds, No Accessory Muscle Use, Chest Non-Tender Cardiovascular: Normal Peripheral Pulses, No Edema, Tachycardia Peripheral Pulses: 4+: Brachial (L), Brachial (R) GI/Abdominal: Normal Bowel Sounds, Soft, Non-Tender, No Organomegaly, No Distention, No Mass, Pelvis Stable (Female) Exam: Deferred Rectal (Female) Exam: Deferred Back Exam: Normal Inspection Extremities: Normal Inspection, Normal Range of Motion, Non-Tender, No Pedal Edema, Normal Capillary Refill Neurological: Unresponsive (initially. After Narcan 1 dose. Alert/oriented. ) Psychiatric: Flat Affect Skin Exam: Warm, Dry, Intact, Normal Color Departure - Departure Disposition: Home, Self-Care 01 Clinical Impression: Opiate or related narcotic overdose - Discharge Information Instructions: Accidental Drug Poisoning, Adult Referrals: Faby Araya MD [Primary Care Provider] - Forms: ED Department Discharge Additional Instructions: Do not take any more pain medication until after 6 PM this evening. Then, take your medications as prescribed. Follow-up in clinic in 7-10 days. - Assessment/Plan Assessment:: 1. unintentional overdose 2. hypoventilation 3. lethargic Plan: 1. Narcan given- results noted. Pt awake and alert stated she did not intentionally take any extra medications. Does not believe she took more than she should have. 1. Labs completed in the ER. 2. x-ray completed in the ER. <Greg Irvin - Last Filed: 03/27/20 09:35> Course - Vital Signs Last Recorded V/S: Last Vital Signs Temp 36.3 C 03/27/20 06:15 Pulse 116 H 03/27/20 06:15 Resp 16 03/27/20 06:42 BP 139/75 03/27/20 06:15 Pulse Ox 100 03/27/20 06:42 - Orders/Labs/Meds Orders: Active Orders 24 hr Category Date Time Status EKG Documentation Completion [RC] STAT Care 03/27/20 06:44 Active Labs: Laboratory Tests 03/27/20 03/27/20 Range/Units 07:05 07:05 WBC 11.1 H (4.0-10.0) x10^3/uL RBC 4.42 (4.00-5.50) x10^6/uL Hgb 13.0 D (12.0-16.0) g/dL Hct 42.1 (33.0-47.0) % MCV 95.2 H D (78.0-93.0) fL MCH 29.4 (26.0-32.0) pg MCHC 30.9 L (32.0-36.0) g/dL RDW Coeff of Juan R 15.0 (10.0-15.0) % Plt Count 217 (130-400) x10^3/uL Neut % (Auto) 80.2 H (50.0-80.0) % Lymph % (Auto) 11.5 L (25.0-50.0) % [place] % (Auto) 7.8 (2.0-11.0) % Eos % (Auto) 0.3 (0.0-4.0) % Baso % (Auto) 0.2 (0.2-1.2) % Sodium 138 (136-145) mmol/L Potassium 4.7 (3.5-5.1) mmol/L Chloride 105 (98-107) mmol/L Carbon Dioxide 24 (21-32) mmol/L Anion Gap 13.7 (10-20) mmol/L BUN 15 (7-18) mg/dL Creatinine 1.2 H (0.55-1.02) mg/dL Est Cr Clr Drug Dosing 57.17 mL/min Estimated GFR (MDRD) 49 Glucose 321 H (74-106) mg/dL Calcium 8.0 L (8.5-10.1) mg/dL Corrected Calcium 8.56 (8.5-10.1) mg/dL Total Bilirubin 0.2 (0.2-1.0) mg/dL AST 54 H (15-37) U/L ALT 58 (14-59) U/L Alkaline Phosphatase 88 (46-116) U/L NT-Pro-B Natriuret Pep 78 (<=125) pg/mL Total Protein 6.8 (6.4-8.2) g/dL Albumin 3.3 L (3.4-5.0) g/dL Globulin 3.5 Albumin/Globulin Ratio 0.94 Meds: Medications Discontinued Medications Generic Name Dose Route Start Last Admin Trade Name Arturoq PRN Reason Stop Dose Admin Naloxone HCl 0.4 mg 03/27/20 06:45 03/27/20 06:37 Narcan IVPUSH 03/27/20 06:46 0.4 mg ONETIME ONE Administration - Re-Assessments/Exams Free Text/Narrative Re-Assessment/Exam: Pt. was observed in ER. She required only one dose of IV Narcan. She was alert and interactive throughout her stay in the ER. She was able to ambulate and use the bathroom. She denies any suicidal ideation/intent, and thinks she accidentally took too much oxycodone. Departure - Departure Time of Disposition: 09:32 Sepsis Event Note (ED) - Focused Exam Vital Signs: Vital Signs Temp Pulse Resp BP Pulse Ox Pulse Ox 03/27/20 06:42 16 100 03/27/20 06:35 82 L 03/27/20 06:34 10 L 82 L 03/27/20 06:15 36.3 C 116 H 12 139/75 94 L - Problem List Review Problem List Initiated/Reviewed/Updated: Yes - Assessment/Plan Plan: Pt. was discharged after lengthy observation in ER. Advised to only take her med ication as prescribed. Advised not to take any more oxycodone until this evening. Return to ER or call 911 if there is any decreased LOC, confusion, or trouble breathing.
[2020-03-27 07:40] LABS: ANION GAP 13.7 mmol/L (10-20)
--- NOTE | 2020-03-27 08:32 | CR ---
[id number] RAD/RAD Chest Portable EXAM: RAD Chest Portable INDICATION: UNRESPONSIVE EPISODE COMPARISON: None. DISCUSSION: Cardiomediastinal silhouette is normal in size and contour. Low lung volumes. Subtle patchy airspace opacifications primarily overlying the right lung. No pneumothorax or pleural effusion. IMPRESSION: Low lung volumes with subtle patchy infiltrates primarily overlying the right lung. Brandon Briones DO 03/27/20 0831 Thank you for allowing us to participate in the care of your patient.
[2020-03-27 11:04] VITALS: BP 100/55; PULSE 98
== END 2020-03-27 09:31 | disposition home or self-care (01) ==
LOC: VM.ED 06:15
DX: T40.2X1A Poisoning by other opioids, accidental (unintentional), initial encounter (principal); I10 Essential (primary) hypertension; F41.9 Anxiety disorder, unspecified; F32.9 Major depressive disorder, single episode, unspecified; R06.89 Other abnormalities of breathing; E11.9 Type 2 diabetes mellitus without complications; E66.9 Obesity, unspecified; Z68.42 Body mass index [BMI] 45.0-49.9, adult; Z91.048 Other nonmedicinal substance allergy status; Z88.1 Allergy status to other antibiotic agents; Z88.2 Allergy status to sulfonamides; Z88.6 Allergy status to analgesic agent; Z88.8 Allergy status to other drugs, medicaments and biological substances; Z79.84 Long term (current) use of oral hypoglycemic drugs; Z79.899 Other long term (current) drug therapy
CPT/HCPCS: 36415; 71045; 80053; 83880; 85025; 93005; 94760; 96374; 99284; 99285-25; J2310

== ENCOUNTER 2020-04-02 11:04 | Emergency (ER) | payer MEDICARE, MEDICAID ==
[2020-04-02 11:53] VITALS: BP 149/88; PULSE 81
--- NOTE | 2020-04-02 12:03 | EDM.PDOC ---
ED HPI GENERAL MEDICAL PROBLEM - General Chief Complaint: General Stated Complaint: BACK PAIN Time Seen by Provider: 04/02/20 11:45 Source of Information: Reports: Patient History Limitations: Reports: No Limitations - History of Present Illness INITIAL COMMENTS - FREE TEXT/NARRATIVE: Patient comes into the emergency department with complaints of urinary incontinence and lower back pain. Patient was at the pain clinic and did state that she has had 4 episodes of incontinence in the last week. Patient states that she does not know that she is urinating and will just start noticing her underwear is wet. Patient states that she does have increased worsening of discomfort and pain in her right lower extremity she has been told that she should follow-up with her neurosurgeon who is based on the worsening symptoms. Patient denies any numbness or tingling denies any gait disturbance, CMS concerns, or change in range of motion. She has noticed some increase in frequency but denies Burning or hesitancy. Patient also states that she has not had any loss of bowel contents. She denies any recent trauma or injuries, fever, chest pain, sob, abdominal pain, or Peripheral edema. Onset: Gradual Quality: Reports: Other Severity: Mild Improves with: Reports: None Worsens with: Reports: None Associated Symptoms: Reports: No Other Symptoms - Related Data Allergies Allergy/AdvReac Type Severity Reaction Status Date / Time adhesive tape Allergy Rash Verified 04/02/20 12:09 cat dander Allergy Sneezing Verified 04/02/20 12:09 clindamycin Allergy Hives Verified 04/02/20 12:09 duloxetine [From Cymbalta] Allergy Cannot Verified 04/02/20 12:09 Remember Sulfa (Sulfonamide Allergy Hives Verified 04/02/20 12:09 Antibiotics) amoxicillin [From Augmentin] AdvReac Nausea and Verified 04/02/20 12:09 Vomiting aspirin AdvReac Bleeding Verified 04/02/20 12:09 celecoxib [From Celebrex] AdvReac Diarrhea Verified 04/02/20 12:09 cephalexin AdvReac Nausea and Verified 04/02/20 12:09 Vomiting clavulanic acid AdvReac Nausea and Verified 04/02/20 12:09 [From Augmentin] Vomiting topiramate [From Topamax] AdvReac Delusions Verified 04/02/20 12:09 dust mite extract Allergy Cannot Uncoded 04/02/20 12:09 Remember Home Meds: Home Meds Acyclovir [Zovirax] 400 mg PO BID 09/28/13 [History] Calcium Carbonate/Vitamin D2 [Oyster Shell Calcium-Vit D Tab] 1 tab PO BIDMEALS 09/28/13 [History] Cholecalciferol (Vitamin D3) [Vitamin D3] 10,000 unit PO DAILY 09/28/13 [History] Cyanocobalamin (Vitamin B-12) [Vitamin B-12] 100 mcg PO DAILY 09/28/13 [History] Docusate Sodium [Colace] 100 mg PO BEDTIME 09/28/13 [History] Ferrous Sulfate 325 mg PO BID 09/28/13 [History] Magnesium Oxide 800 mg PO DAILY@1800 09/28/13 [History] Multivitamin [Multivitamins] 1 cap PO DAILY 09/28/13 [History] metFORMIN HCl [Metformin HCl] 750 mg PO BID 03/15/15 [History] traZODone 100 mg PO BEDTIME 03/15/15 [History] Biotin 1 tab PO DAILY 01/24/16 [History] Omeprazole Magnesium [Prilosec Otc] 20 mg PO BIDAC 01/24/16 [History] Terbinafine [LamISIL AT 1% Crm] 1 applic TOP BID PRN 01/24/16 [History] Zonisamide 50 mg PO BID 08/29/17 [History] Acetaminophen/Caffeine [Excedrin Tension Headache Cplt] 2 each PO DAILY PRN 01/20/19 [History] Ibuprofen 800 mg PO BID PRN 01/20/19 [History] Baclofen 20 mg PO TID PRN 90 Days #270 tablet 06/13/19 [Rx] Venlafaxine [Effexor XR 24 Hr] 37.5 mg PO DAILY 10/01/19 [History] Naratriptan HCl 2.5 mg PO ASDIRECTED PRN 25 Days #9 tablet 12/02/19 [Rx] traMADol [Ultram] 50 - 100 mg PO Q6H PRN 30 Days #180 tablet 12/02/19 [Rx] atorvaSTATin [Lipitor] 10 mg PO DAILY 12/26/19 [History] Erenumab-Aooe [Aimovig Autoinjector] 70 mg SQ ASDIRECTED 90 Days #3 auto.injct 02/03/20 [Rx] Gabapentin [Neurontin] 1,200 mg PO QID 90 Days #720 tablet 03/01/20 [Rx] Promethazine [Phenergan] 25 mg PO Q4H PRN 90 Days #60 tab 03/22/20 [Rx] oxyCODONE HCl [Oxycodone HCL] 10 mg PO QID PRN 30 Days #120 tablet 03/26/20 [Rx] Past Medical History HEENT History: Reports: Allergic Rhinitis Cardiovascular History: Reports: Hypertension Respiratory History: Reports: None Gastrointestinal History: Reports: Other (See Below) Other Gastrointestinal History: abd abscess post hernia surgery Genitourinary History: Reports: UTI, Recurrent WIRE TINNER History: Reports: Other (See Below) Other WIRE TINNER History: metorrhagia Musculoskeletal History: Reports: Back Pain, Chronic Other Musculoskeletal History: tenosynovitis. left hip pain. Recent fall Neurological History: Reports: Migraines Other Neuro History: sciatica Psychiatric History: Reports: Anxiety, Depression Endocrine/Metabolic History: Reports: Diabetes, Type II, Obesity/BMI 30+ Hematologic History: Reports: Anemia Immunologic History: Reports: None Oncologic (Cancer) History: Reports: None Dermatologic History: Reports: None Other Dermatologic History: intertrigo. onychodystrophy. tinea pedis - Infectious Disease History Infectious Disease History: Reports: MRSA - Past Surgical History HEENT Surgical History: Reports: None Cardiovascular Surgical History: Reports: None GI Surgical History: Reports: None Female Surgical History: Reports: None Endocrine Surgical History: Reports: None Neurological Surgical History: Reports: None Other Musculoskeletal Surgeries/Procedures:: spinal cord stimulater removed 11/06/17, spinal cord stimulater implant 12/18/18. back surgery 05/17/19 Social & Family History - Family History Family Medical History: Noncontributory Cardiac: Reports: CAD, Hypertension Respiratory: Reports: Other (See Below) : Reports: Renal Disease/Insufficiency Neurological: Reports: CVA Endocrine/Metabolic: Reports: Diabetes, type II Oncologic: Reports: Uterine - Caffeine Use Caffeine Use: Reports: Soda - Living Situation & Occupation Living situation: Reports: Single, with Family (sister) Occupation: Disabled ED ROS GENERAL - Review of Systems Review Of Systems: Comprehensive ROS is negative, except as noted in HPI. Constitutional: Reports: No Symptoms HEENT: Reports: No Symptoms Respiratory: Reports: No Symptoms Cardiovascular: Reports: No Symptoms Endocrine: Reports: No Symptoms GI/Abdominal: Reports: No Symptoms : Reports: Frequency, Incontinence Musculoskeletal: Reports: No Symptoms Skin: Reports: No Symptoms Neurological: Reports: No Symptoms Psychiatric: Reports: No Symptoms Hematologic/Lymphatic: Reports: No Symptoms Immunologic: Reports: No Symptoms ED EXAM, GENERAL - Physical Exam Exam: See Below Exam Limited By: No Limitations General Appearance: Alert, WD/WN, No Apparent Distress Throat/Mouth: Normal Inspection, Normal Lips, No Airway Compromise Head: Atraumatic, Normocephalic Neck: Normal Inspection, Supple, Non-Tender, Full Range of Motion Respiratory/Chest: No Respiratory Distress, Lungs Clear, Normal Breath Sounds, No Accessory Muscle Use, Chest Non-Tender Cardiovascular: Normal Peripheral Pulses, Regular Rate, Rhythm, No Edema GI/Abdominal: Normal Bowel Sounds, Soft, Non-Tender, No Abnormal Bruit Back Exam: Normal Inspection, Full Range of Motion Extremities: Normal Inspection, Normal Range of Motion, Non-Tender, Normal Capillary Refill Neurological: Alert, Oriented, CN II-XII Intact, Normal Gait Psychiatric: Normal Affect, Normal Mood Skin Exam: Warm, Dry, Intact, Normal Color, No Rash Course - Vital Signs Last Recorded V/S: Last Vital Signs Temp 36.3 C 04/02/20 11:25 Pulse 81 04/02/20 11:25 Resp 16 04/02/20 11:25 BP 149/88 H 04/02/20 11:25 Pulse Ox 99 04/02/20 11:25 - Orders/Labs/Meds Orders: Active Orders 24 hr Category Date Time Status CULTURE URINE [RM] Stat Lab 04/02/20 11:50 Received Labs: Laboratory Tests 04/02/20 Range/Units 11:50 Urine Color Yellow (YELLOW) Urine Appearance Slightly cloudy H (CLEAR) Urine pH 5.5 (5.0-8.0) Ur Specific [place] 1.025 Urine Protein Negative (NEGATIVE) mg/dL Urine Glucose (UA) Negative (NEGATIVE) mg/dL Urine Ketones Negative (NEGATIVE) mg/dL Urine Occult Blood Small H (NEGATIVE) Urine Nitrite Negative (NEGATIVE) Urine Bilirubin Negative (NEGATIVE) Urine Urobilinogen 0.2 (0.2) EU/dL Ur Leukocyte Esterase Trace H (NEGATIVE) U Hyaline Cast (Auto) Occasional Urine RBC 5-10 H (NOT SEEN) /HPF Urine WBC 5-10 H (NOT SEEN) /HPF Ur Squamous Epith Cells Few H (NEGATIVE) /HPF Urine Bacteria Rare (NEGATIVE) /HPF Urine Mucus Occasional H (NEGATIVE) /LPF Departure - Departure Time of Disposition: 12:35 Disposition: Home, Self-Care 01 Condition: Good Clinical Impression: UTI (urinary tract infection) Qualifiers: Urinary tract infection type: site unspecified Hematuria presence: with hematuria Qualified Code(s): N39.0 - Urinary tract infection, site not specified - Discharge Information *PRESCRIPTION DRUG MONITORING PROGRAM REVIEWED*: Not Applicable *COPY OF PRESCRIPTION DRUG MONITORING REPORT IN PATIENT ELIZA: Not Applicable Instructions: Urinary Tract Infection, Adult, Sulfamethoxazole; Trimethoprim, SMX-TMP tablets, Probiotics Forms: ED Department Discharge Additional Instructions: 1. rest 2. increase your water intake 3. Take all antibiotics as prescribed even if feeling better 4. Take a probiotic while on antibiotics to help promote healthy GI motility 5. Activity and diet as tolerated 6. Can use Ibuprofen and tylenol for any fever or discomfort 7. Follow up with your PCP or return if symptoms progress or worsen 8. Education provided to you regarding your illness, probiotics, antibiotic prescribed 9. Call with any questions or concerns Sepsis Event Note (ED) - Focused Exam Vital Signs: Vital Signs Temp Pulse Resp BP Pulse Ox 04/02/20 11:25 36.3 C 81 16 149/88 H 99 - My Orders Last 24 Hours: My Active Orders 04/02/20 11:50 CULTURE URINE [RM] Stat - Assessment/Plan Last 24 Hours: My Active Orders 04/02/20 11:50 CULTURE URINE [RM] Stat Assessment:: 1. UTI Plan: 1. UA/UC completed in ER 2. Macrobid sent script after patient states she is allergic to sulfa medications 3. Patient is advised to follow up with Neurologist regarding worsening symptoms 4. Patient and nursing staff was updated regarding the plan of care 5. Education provided the patient regarding activity, diet, rest, [id number] medication modalities, and follow-up care was provided 6. Patient and family are agreeable to the above plan of care 7. All questions and concerns were addressed with the patient and family prior to discharge
== END 2020-04-02 12:45 | disposition home or self-care (01) ==
LOC: VM.ED 11:04
DX: N39.0 Urinary tract infection, site not specified (principal); R31.9 Hematuria, unspecified; I10 Essential (primary) hypertension; E11.9 Type 2 diabetes mellitus without complications; E66.9 Obesity, unspecified; F41.9 Anxiety disorder, unspecified; F32.9 Major depressive disorder, single episode, unspecified; G43.909 Migraine, unspecified, not intractable, without status migrainosus; Z88.1 Allergy status to other antibiotic agents; Z88.2 Allergy status to sulfonamides; Z88.8 Allergy status to other drugs, medicaments and biological substances; Z91.09 Other allergy status, other than to drugs and biological substances; Z79.84 Long term (current) use of oral hypoglycemic drugs; Z79.899 Other long term (current) drug therapy
CPT/HCPCS: 81001; 87086; 99283; 99284

== ENCOUNTER 2020-09-06 14:32 | Inpatient (IN) | payer MEDICARE, MEDICAID ==
[2020-09-06] MEDS ORDERED: PHENIRAMINE EYEBOTH PRN (16:33)
[2020-09-06] MEDS ORDERED: Promethazine 25 MG Tab PO PRN (16:33)
[2020-09-06] MEDS ORDERED: NAPHAZOLINE EYEBOTH PRN (16:33)
[2020-09-06] MEDS ORDERED: HYDROmorphone 2 MG Tab PO SCH (16:45)
[2020-09-06] MEDS ORDERED: Magnesium Oxide 400 MG Tab PO SCH (18:00)
--- NOTE | 2020-09-06 18:51 | PCM.SN.2 ---
- Free Text/Narrative Note: Called patient for follow-up on arrival time. She is just getting to [place]. Anticipated arrival time is, therefore, around 8 pm. Patient will be seen tomorrow am since she is otherwise stable and is admitted to swing bed. Orders are in per hospital d/c list. She states they have stopped a few times on the way and she has been able to get up and ambulate without issue. She has some tingling in her right foot but her numbness and tingling have actually improved after the surgery. No new weakness. No fever or chills. Has not had a BM since 08/31 but does not feel bloated. Is passing gas and voiding without any issue. Appetite is ok. No nausea or vomiting. No chest pain or shortness of breath. Her Aimovig dose will be due 09/16. All questions answered and she voiced understanding and agreement to be seen in the am.
[2020-09-06] MEDS: Baclofen 10 MG Tab PO SCH (21:12)
[2020-09-06] MEDS: Ferrous Sulfate 325 MG Tab PO SCH (21:13)
[2020-09-06] MEDS: HYDROmorphone 2 MG Tab PO PRN (21:13)
[2020-09-06] MEDS: traZODone 50 MG Tab PO SCH (21:13)
[2020-09-07] MEDS: Zonisamide 100 MG Cap PO SCH ×3 (01:22→20:06)
[2020-09-07] MEDS: HYDROmorphone 2 MG Tab PO PRN ×5 (02:47→21:34)
[2020-09-07] MEDS: Omeprazole 20 MG Cap.CR PO SCH ×2 (06:11→16:37)
[2020-09-07] MEDS ORDERED: CHOLECALCIFEROL 5000 UNIT PO SCH (08:00)
[2020-09-07] MEDS: Venlafaxine 37.5 MG Cap.ER PO SCH (09:10)
[2020-09-07] MEDS: Ferrous Sulfate 325 MG Tab PO SCH ×2 (09:10→19:55)
[2020-09-07] MEDS: atorvaSTATin 10 MG Tab PO SCH (09:10)
[2020-09-07] MEDS: Baclofen 10 MG Tab PO SCH ×3 (09:11→19:56)
[2020-09-07] MEDS ORDERED: Glucagon,Human Recombinant 1 MG Vial IM PRN (09:18)
[2020-09-07] MEDS ORDERED: 50% Dextrose in Water 50 ML Syringe IV PRN (09:18)
--- NOTE | 2020-09-07 09:18 | PCM.HP.2 ---
H&P History of Present Illness - General Date of Service: 09/07/20 Admit Problem/Dx: Admission Diagnosis/Problem Admission Diagnosis/Problem Fusion of lumbar spine Source of Information: Patient History Limitations: Reports: No Limitations - History of Present Illness Initial Comments - Free Text/Narative: Ms. Young is a 40 yo female admitted to swing bed for strengthening after repeat back surgery. She underwent anterior spine fusion T10-L1, posterior spine fusion with instrumentation T10-L1, and bone marrow aspiration on 09/01/20. The surgery and her postoperative course were uncomplicated. She states the drive yesterday went well. She has not had any increase in pain with the drive but did get out multiple times to stretch and walk around. She has had no weakness, numbness, or tingling in the legs. She has been able to void without any issues. She has not had a bowel movement yet but is passing gas. No abdominal pain. Appetite is ok; no nausea or vomiting. She states they were not giving her any lovenox or other subq anticoagulation after her surgery. She denies any leg swelling or redness; no chest pain or shortness of breath. She was requiring insulin in the hospital in [place], which she states is not unusual for her when she has been hospitalized after surgery. - Related Data Allergies/Adverse Reactions: Allergies Allergy/AdvReac Type Severity Reaction Status Date / Time adhesive tape Allergy Rash Verified 09/06/20 15:09 cat dander Allergy Sneezing Verified 09/06/20 15:09 citalopram Allergy Nausea and Verified 09/06/20 15:09 Vomiting clindamycin Allergy Hives Verified 09/06/20 15:09 duloxetine [From Cymbalta] Allergy Cannot Verified 09/06/20 15:09 Remember Sulfa (Sulfonamide Allergy Hives Verified 09/06/20 15:09 Antibiotics) amoxicillin [From Augmentin] AdvReac Nausea and Verified 09/06/20 15:09 Vomiting aspirin AdvReac Bleeding Verified 09/06/20 15:09 celecoxib [From Celebrex] AdvReac Diarrhea Verified 09/06/20 15:09 cephalexin AdvReac Nausea and Verified 09/06/20 15:09 Vomiting clavulanic acid AdvReac Nausea and Verified 09/06/20 15:09 [From Augmentin] Vomiting topiramate [From Topamax] AdvReac Delusions Verified 09/06/20 15:09 dust mite extract Allergy Cannot Uncoded 09/06/20 15:09 Remember Home Medications: Home Meds Acyclovir [Zovirax] 400 mg PO BID 09/28/13 [History] Calcium Carbonate/Vitamin D2 [Oyster Shell Calcium-Vit D Tab] 1 tab PO BIDMEALS 09/28/13 [History] Cholecalciferol (Vitamin D3) [Vitamin D3] 10,000 unit PO DAILY 09/28/13 [History] Cyanocobalamin (Vitamin B-12) [Vitamin B-12] 100 mcg PO DAILY 09/28/13 [History] Ferrous Sulfate 325 mg PO BID 09/28/13 [History] Magnesium Oxide 400 mg PO DAILY@1800 09/28/13 [History] Multivitamin [Multivitamins] 1 tab PO DAILY 09/28/13 [History] metFORMIN HCl [Metformin HCl] 750 mg PO BID 03/15/15 [History] traZODone 150 mg PO BEDTIME 03/15/15 [History] Biotin 1 tab PO DAILY 01/24/16 [History] Omeprazole Magnesium [Prilosec Otc] 20 mg PO BIDAC 01/24/16 [History] Zonisamide 100 mg PO BID 08/29/17 [History] Venlafaxine [Effexor XR 24 Hr] 37.5 mg PO DAILY 10/01/19 [History] atorvaSTATin [Lipitor] 10 mg PO DAILY 12/26/19 [History] Erenumab-Aooe [Aimovig Autoinjector] 70 mg SQ ASDIRECTED 90 Days #3 auto.injct 02/03/20 [Rx] Gabapentin [Neurontin] 1,200 mg PO QID 90 Days #720 tablet 03/01/20 [Rx] Promethazine [Phenergan] 25 mg PO Q4H PRN 90 Days #90 tab 08/18/20 [Rx] Acetaminophen [Pain Relief Extra Strength] 500 mg PO Q6H PRN 09/06/20 [History] Baclofen 20 mg PO TID 09/06/20 [History] HYDROmorphone HCl [Hydromorphone HCl] 2 - 4 mg PO Q4H PRN 09/06/20 [History] Naphazoline/Pheniramine [Naphcon A Ophth Soln] 2 drop EYEBOTH DAILY PRN 09/06/20 [History] Naratriptan HCl 2.5 mg PO BID PRN 09/06/20 [History] Sennosides/Docusate Sodium [Sennosides-Docusate Sodium] 2 tab PO BID PRN 09/06/20 [History] traMADol [Ultram] 100 mg PO BID PRN 09/06/20 [History] Past Medical History HEENT History: Reports: Allergic Rhinitis Cardiovascular History: Reports: Hypertension Respiratory History: Reports: None Gastrointestinal History: Reports: Other (See Below) Other Gastrointestinal History: abd abscess post hernia surgery Genitourinary History: Reports: UTI, Recurrent HEAD SCORER History: Reports: Other (See Below) Other OB/BYN History: metorrhagia Musculoskeletal History: Reports: Back Pain, Chronic Other Musculoskeletal History: tenosynovitis. left hip pain. Recent fall 10/12/19 Neurological History: Reports: Migraines Other Neuro History: sciatica Psychiatric History: Reports: Anxiety, Depression Endocrine/Metabolic History: Reports: Diabetes, Type II, Obesity/BMI 30+ Insulin Pump Model and Respiratory Scientist: none Patient Able to Demonstrate: Other (see below) Other Pump Activity Patient Able to Demonstrate: na Hematologic History: Reports: Anemia Immunologic History: Reports: None Oncologic (Cancer) History: Reports: None Dermatologic History: Reports: None Other Dermatologic History: intertrigo. onychodystrophy. tinea pedis - Infectious Disease History Infectious Disease History: Reports: MRSA - Past Surgical History HEENT Surgical History: Reports: None Cardiovascular Surgical History: Reports: None GI Surgical History: Reports: Bariatric Procedure, Cholecystectomy, Hernia Repair/Other Female Surgical History: Reports: Hysterectomy Endocrine Surgical History: Reports: None Neurological Surgical History: Reports: Discectomy, Laminectomy, Lumbar Spine, Spinal Fusion, Thoracic Spine Musculoskeletal Surgical History: Reports: Carpal Tunnel Other Musculoskeletal Surgeries/Procedures:: spinal cord stimulater removed 11/06/17, spinal cord stimulater implant 12/18/18. back surgery 05/17/19 Social & Family History - Family History Cardiac: Reports: CAD, Hypertension Respiratory: Reports: Other (See Below) : Reports: Renal Disease/Insufficiency Neurological: Reports: CVA Endocrine/Metabolic: Reports: Diabetes, type II Oncologic: Reports: Uterine - Tobacco Use Tobacco Use Status *Q: Never Tobacco User Second Hand Smoke Exposure: No - Caffeine Use Caffeine Use: Reports: Soda - Alcohol Use Alcohol Use History: No Alcohol Use in Last Twelve Months: No - Recreational Drug Use Recreational Drug Use: No - Living Situation & Occupation Living situation: Reports: Single, with Family (sister) Occupation: Disabled H&P Review of Systems - Review of Systems: Review Of Systems: See Below General: Reports: No Symptoms HEENT: Reports: No Symptoms Pulmonary: Reports: No Symptoms Cardiovascular: Reports: No Symptoms Gastrointestinal: Reports: Constipation. Denies: Abdominal Pain, Decreased Appetite, Nausea, Vomiting Genitourinary: Reports: No Symptoms Musculoskeletal: Reports: Back Pain Skin: Reports: No Symptoms Psychiatric: Reports: No Symptoms Neurological: Reports: No Symptoms Hematologic/Lymphatic: Reports: No Symptoms Exam - Exam Exam: See Below - Vital Signs Vital Signs: Last Vital Signs Temp 36.2 C 09/07/20 06:00 Pulse 97 09/07/20 06:00 Resp 17 09/07/20 06:00 BP 102/46 L 09/07/20 06:00 Pulse Ox 96 09/07/20 06:00 Weight: 122.47 kg - Exam General: Alert, Oriented, Cooperative HEENT: Conjunctiva Clear, Mucosa Moist & [place], Posterior Pharynx Clear Neck: Supple, Trachea Midline. No: Lymphadenopathy, Thyromegaly Lungs: Clear to Auscultation, Normal Respiratory Effort Cardiovascular: Regular Rate, Regular Rhythm, Normal S1, Normal S2 GI/Abdominal Exam: Normal Bowel Sounds, Soft, Non-Tender, No Organomegaly, No Distention, No Mass Back Exam: Other (dressings are clean/dry/intact) Extremities: Normal Inspection, Non-Tender, No Pedal Edema, Normal Capillary Refill Peripheral Pulses: 2+: Radial (L), Radial (R) Skin: Warm, Dry, Intact Neurological: Reflexes Equal Bilateral, Strength Equal Bilateral, Sensation Intact - Patient Data Lab Results Last 24 hrs: Laboratory Results - last 24 hr 09/07/20 Range/Units 06:26 SARS CoV-2 RNA Rapid YARELY Negative (NEGATIVE) Sepsis Event Note - Evaluation Sepsis Screening Result: No Definite Risk - Focused Exam Vital Signs: Vital Signs Temp Pulse Resp BP Pulse Ox 09/07/20 06:00 36.2 C 97 17 102/46 L 96 - Problem List (1) S/P fusion of thoracic spine SNOMED Code(s): 73786009516024 ICD Code: Z98.1 - ARTHRODESIS STATUS Status: Acute Current Visit: Yes (2) S/P lumbar fusion SNOMED Code(s): 05145837002088, 31732259, 45999248983826 ICD Code: Z98.1 - ARTHRODESIS STATUS Status: Acute Current Visit: Yes (3) Constipation SNOMED Code(s): 45273971 ICD Code: K59.00 - CONSTIPATION, UNSPECIFIED Status: Acute Current Visit: Yes Qualifiers: Constipation type: drug induced constipation Qualified Code(s): K59.03 - Drug induced constipation (4) Obesity SNOMED Code(s): 197069278, 531646152 ICD Code: E66.9 - OBESITY, UNSPECIFIED Status: Chronic Current Visit: Yes Qualifiers: Obesity classification: adult class 3 (BMI >= 40) (5) Depression with anxiety SNOMED Code(s): 503709782 ICD Code: F41.8 - OTHER SPECIFIED ANXIETY DISORDERS Status: Chronic Current Visit: Yes (6) Hypertension SNOMED Code(s): 70823671 ICD Code: I10 - ESSENTIAL (PRIMARY) HYPERTENSION Status: Chronic Current Visit: No Problem Details: BP low again overnight and ok this morning. Will have her hold her antihypertensives until hospital follow-up. Qualifiers: Hypertension type: essential hypertension Qualified Code(s): I10 - Essential (primary) hypertension (7) Diabetes mellitus type 2 in obese SNOMED Code(s): 62053963 ICD Code: E11.9 - TYPE 2 DIABETES MELLITUS WITHOUT COMPLICATIONS; E66.9 - OBESITY, UNSPECIFIED Status: Chronic Current Visit: No (8) Migraine without aura and with status migrainosus, not intractable SNOMED Code(s): 888164861, 470322672 ICD Code: G43.001 - MIGRAINE W/O AURA, NOT INTRACTABLE, WITH STATUS MIGRAINOSUS Status: Chronic Priority: Medium Current Visit: No Problem List Initiated/Reviewed/Updated: Yes Orders Last 24hrs: Active Orders 24 hr Category Date Time Status Admission Status [Patient Status] [ADT] Routine ADT 09/06/20 15:06 Active Communication Order [RC] 08,20 Care 09/06/20 15:05 Active Notify Provider Vital Signs [RC] 06,18 Care 09/06/20 16:32 Active Oxygen Therapy [RC] .PRN Care 09/06/20 16:32 Active Up With Assistance [RC] 08,20 Care 09/06/20 16:32 Active VTE/DVT Education [RC] .PRN Care 09/06/20 16:32 Active Vital Signs [RC] 06,18 Care 09/06/20 16:32 Active OT Evaluation and Treatment [CONS] Routine Cons 09/06/20 16:32 Active PT Evaluation and Treatment [CONS] Routine Cons 09/06/20 16:32 Active [employer] Diet [DIET] Diet 09/06/20 Dinner Active Acetaminophen [Tylenol Extra Strength] Med 09/06/20 16:33 Active 500 mg PO Q6H PRN Acyclovir [Zovirax] Med 09/06/20 20:00 Pending 400 mg PO BID Baclofen [Lioresal] Med 09/06/20 20:00 Active 20 mg PO TID Calcium Carbonate/Vitamin D2 [Oyster Shell Calcium-Vit Med 09/06/20 18:00 Pending D Tab] 1 tab PO BIDMEALS Cholecalciferol (Vitamin D3) [Vitamin D3] Med 09/07/20 08:00 Pending 10,000 unit PO DAILY Docusate Sodium/Sennosides [Senna Plus] Med 09/06/20 16:33 Active 2 tab PO BID PRN Ferrous Sulfate Med 09/06/20 20:00 Active 325 mg PO BID Gabapentin Med 09/06/20 20:00 Pending 1,200 mg PO QID HYDROmorphone [Dilaudid] Med 09/06/20 17:23 Active 2 - 4 mg PO Q4H PRN Magnesium Oxide Med 09/07/20 17:00 Active 400 mg PO DAILY@1700 Naphazoline/Pheniramine [Naphcon A Ophth Soln] Med 09/06/20 16:33 Active 0 ml EYEBOTH DAILY PRN Omeprazole Med 09/07/20 07:00 Active 20 mg PO BIDAC Promethazine [Phenergan] Med 09/06/20 16:33 Active 25 mg PO Q4H PRN Venlafaxine [Effexor XR] Med 09/07/20 08:00 Active 37.5 mg PO DAILY Zonisamide [Zonegran] Med 09/06/20 20:00 Active 100 mg PO BID atorvaSTATin [Lipitor] Med 09/07/20 08:00 Active 10 mg PO DAILY metFORMIN [Glucophage] Med 09/06/20 20:00 Pending 750 mg PO BID traMADol [Ultram] Med 09/06/20 16:33 Active 100 mg PO BID PRN traZODone Med 09/06/20 20:00 Active 150 mg PO BEDTIME Resuscitation Status Routine Resus Stat 09/06/20 16:32 Ordered Medication Orders Acetaminophen (Acetaminophen 500 Mg Tab) 500 mg PO Q6H PRN PRN Reason: Pain Atorvastatin Calcium (Atorvastatin 10 Mg Tab) 10 mg PO DAILY [facility] Last Admin: 09/07/20 09:10 Dose: 10 mg Documented by: CHERYL Baclofen (Baclofen 10 Mg Tab) 20 mg PO TID [facility] Last Admin: 09/07/20 09:11 Dose: 20 mg Documented by: Admin: 09/06/20 21:12 Dose: 20 mg Documented by: ADDISON Ferrous Sulfate (Ferrous Sulfate 325 Mg Tab) 325 mg PO BID [facility] Last Admin: 09/07/20 09:10 Dose: 325 mg Documented by: Admin: 09/06/20 21:13 Dose: 325 mg Documented by: ADDISON Hydromorphone HCl (Hydromorphone 2 Mg Tab) 2 - 4 mg PO Q4H PRN PRN Reason: Pain Last Admin: 09/07/20 09:11 Dose: 4 mg Documented by: Admin: 09/07/20 02:47 Dose: 4 mg Documented by: Admin: 09/06/20 21:13 Dose: 4 mg Documented by: ADDISON Magnesium Oxide (Magnesium Oxide 400 Mg Tab) 400 mg PO DAILY@1700 [facility] Metformin HCl (Metformin 500 Mg Tab) 750 mg PO BID [facility] Naphazoline HCl/Pheniramine Maleate (Naphazoline/Pheniramine 0.025%-0.3% Ophth Soln 15 Ml Bottle) 0 ml EYEBOTH DAILY PRN PRN Reason: Dry Eyes Non-Formulary Medication (Acyclovir [Zovirax]) 400 mg PO BID [facility] Non-Formulary Medication (Calcium Carbonate/Vitamin D2 [Oyster Shell Calcium-Vit D Tab]) 1 tab PO BIDMEALS [facility] Non-Formulary Medication (Cholecalciferol (Vitamin D3) [Vitamin D3]) 10,000 unit PO DAILY [facility] Non-Formulary Medication (Gabapentin) 1,200 mg PO QID [facility] Omeprazole (Omeprazole 20 Mg Cap.Cr) 20 mg PO BIDAC [facility] Last Admin: 09/07/20 06:11 Dose: 20 mg Documented by: ADDISON Promethazine HCl (Promethazine 25 Mg Tab) 25 mg PO Q4H PRN PRN Reason: Nausea Senna/Docusate Sodium (Docusate Sodium/Sennosides 50-8.6 Mg Tab) 2 tab PO BID PRN PRN Reason: Constipation Tramadol HCl (Tramadol 50 Mg Tab) 100 mg PO BID PRN PRN Reason: Pain Trazodone HCl (Trazodone 50 Mg Tab) 150 mg PO BEDTIME [facility] Last Admin: 09/06/20 21:13 Dose: 150 mg Documented by: ADDISON Venlafaxine HCl (Venlafaxine 37.5 Mg Cap.Er) 37.5 mg PO DAILY [facility] Last Admin: 09/07/20 09:10 Dose: 37.5 mg Documented by: SODEHEA Zonisamide (Zonisamide 100 Mg Cap) 100 mg PO BID [facility] Last Admin: 09/07/20 01:22 Dose: Not Given Documented by: ADDISON Assessment/Plan Comment:: #1 s/p fusion of thoracic spine #2 s/p fusion of lumbar spine - Doing well post-op. - PT/OT consults ordered. - Anticipate her swing bed stay will only be 2-3 weeks but this is up to PT and the patient. - Will wean narcotics as able. #3 Constipation - Will schedule more of a bowel regimen for her. #4 Obesity #5 Depression and anxiety #6 HTN #7 DM #8 Migraine - Continue home medications. - Aimovig due 09/16. Will work on getting this for her if she is still going to be here at that time. - QID glucoses with low dose SSI. Patient is admitted to swing bed - anticipate 2-3 weeks. Medications continued as per hospital d/c list. Code status is full. Patient is not on any pharmacologic VTE prophylaxis per her surgical team. Will continue to have her ambulating as much as she is able.
[2020-09-07] MEDS: Calcium Carbonate/Vitamin D3 1250 MG-200 Unit Tab PO SCH ×2 (09:58→17:30)
[2020-09-07] MEDS: Gabapentin 400 MG Cap PO SCH ×4 (09:59→19:59)
[2020-09-07] MEDS: Acetaminophen 500 MG Tab PO PRN ×2 (09:59→17:31)
[2020-09-07] MEDS: metFORMIN 500 MG Tab PO SCH ×2 (10:06→19:55)
[2020-09-07] MEDS: traMADol 50 MG Tab PO PRN (11:50)
[2020-09-07] MEDS: Insulin Lispro 100 Units/ML 3 ML Vial SUBCUT SCH ×2 (12:21→17:01)
[2020-09-07] MEDS: ZONISAMIDE 50 MG PO SCH ×2 (13:19→20:01)
[2020-09-07] MEDS: Polyethylene Glycol 3350 Powder 17 GM Packet PO SCH ×2 (16:37→19:57)
[2020-09-07] MEDS: Magnesium Oxide 400 MG Tab PO SCH (16:39)
[2020-09-07] MEDS: Nitrofurantoin Monohydrate/Macrocrystalline 100 MG Cap PO SCH (19:56)
[2020-09-07] MEDS: traZODone 50 MG Tab PO SCH (20:00)
[2020-09-08] MEDS: HYDROmorphone 2 MG Tab PO PRN ×5 (01:33→21:19)
[2020-09-08] MEDS: traMADol 50 MG Tab PO PRN ×2 (05:18→19:27)
[2020-09-08] MEDS: Omeprazole 20 MG Cap.CR PO SCH ×2 (06:23→16:44)
[2020-09-08] MEDS: Polyethylene Glycol 3350 Powder 17 GM Packet PO SCH ×2 (07:38→19:30)
[2020-09-08] MEDS: atorvaSTATin 10 MG Tab PO SCH (07:39)
[2020-09-08] MEDS: ZONISAMIDE 50 MG PO SCH ×2 (07:39→19:31)
[2020-09-08] MEDS: Cholecalciferol (Vitamin D3) 5,000 UNIT Tab PO SCH (07:39)
[2020-09-08] MEDS: Venlafaxine 37.5 MG Cap.ER PO SCH (07:40)
[2020-09-08] MEDS: Calcium Carbonate/Vitamin D3 1250 MG-200 Unit Tab PO SCH ×2 (07:42→17:45)
[2020-09-08] MEDS: metFORMIN 500 MG Tab PO SCH ×2 (07:42→19:29)
[2020-09-08] MEDS: Gabapentin 400 MG Cap PO SCH ×4 (07:42→19:30)
[2020-09-08] MEDS: Nitrofurantoin Monohydrate/Macrocrystalline 100 MG Cap PO SCH ×2 (07:43→19:30)
[2020-09-08] MEDS: Ferrous Sulfate 325 MG Tab PO SCH ×2 (07:43→19:30)
[2020-09-08] MEDS: Baclofen 10 MG Tab PO SCH ×3 (07:43→19:29)
[2020-09-08] MEDS: Insulin Lispro 100 Units/ML 3 ML Vial SUBCUT SCH ×3 (07:45→17:27)
[2020-09-08] MEDS: Zonisamide 100 MG Cap PO SCH ×2 (07:47→19:32)
[2020-09-08] MEDS: Acetaminophen 500 MG Tab PO PRN ×2 (12:05→16:44)
[2020-09-08] MEDS: Magnesium Oxide 400 MG Tab PO SCH (16:44)
[2020-09-08] MEDS: traZODone 50 MG Tab PO SCH (19:29)
[2020-09-09] MEDS: HYDROmorphone 2 MG Tab PO PRN ×6 (02:33→23:14)
[2020-09-09] MEDS: Omeprazole 20 MG Cap.CR PO SCH ×2 (06:24→16:43)
[2020-09-09] MEDS: Polyethylene Glycol 3350 Powder 17 GM Packet PO SCH ×2 (07:41→20:19)
[2020-09-09] MEDS: ZONISAMIDE 50 MG PO SCH ×2 (07:41→20:20)
[2020-09-09] MEDS: Cholecalciferol (Vitamin D3) 5,000 UNIT Tab PO SCH (07:41)
[2020-09-09] MEDS: Ferrous Sulfate 325 MG Tab PO SCH ×2 (07:42→20:21)
[2020-09-09] MEDS: Gabapentin 400 MG Cap PO SCH ×4 (07:42→21:33)
[2020-09-09] MEDS: metFORMIN 500 MG Tab PO SCH ×2 (07:43→20:17)
[2020-09-09] MEDS: Baclofen 10 MG Tab PO SCH ×3 (07:44→20:18)
[2020-09-09] MEDS: Venlafaxine 37.5 MG Cap.ER PO SCH (07:44)
[2020-09-09] MEDS: Nitrofurantoin Monohydrate/Macrocrystalline 100 MG Cap PO SCH ×2 (07:44→20:19)
[2020-09-09] MEDS: traMADol 50 MG Tab PO PRN ×2 (07:45→21:40)
[2020-09-09] MEDS: Calcium Carbonate/Vitamin D3 1250 MG-200 Unit Tab PO SCH ×2 (07:46→17:23)
[2020-09-09] MEDS: atorvaSTATin 10 MG Tab PO SCH (07:46)
[2020-09-09] MEDS: Insulin Lispro 100 Units/ML 3 ML Vial SUBCUT SCH ×3 (07:47→17:23)
[2020-09-09] MEDS: Zonisamide 100 MG Cap PO SCH (07:47)
[2020-09-09] MEDS: Acetaminophen 500 MG Tab PO PRN ×2 (09:00→16:44)
--- NOTE | 2020-09-09 10:43 | PCM.SN.2 ---
- Free Text/Narrative Note: Called by nurse last night and this morning for bloody drainage from her incision. Incision is well approximated without any surrounding erythema or edema. Dressing soaked with serosanguinous drainage; no visible bleeding from the incision site. Aquacel over most of it remains intact. Will reapply aquacel over the bottom portion and also do a pressure type of dressing today. She is advised to take it easier today in terms of her activity level. Will continue to monitor. If this is an ongoing issue, [place]es or his team.
--- NOTE | 2020-09-09 15:26 | PCM.SN.2 ---
- Free Text/Narrative Note: Per nurse, no drainage since dressing was changed late morning. Pain is controlled. Patient has had no extremity weakness, numbness, or tingling. No fever. Will check CBC tomorrow am and continue to monitor for recurrence of bleeding.
[2020-09-09] MEDS: Magnesium Oxide 400 MG Tab PO SCH (16:43)
[2020-09-09] MEDS: traZODone 50 MG Tab PO SCH (20:20)
[2020-09-10] MEDS: HYDROmorphone 2 MG Tab PO PRN ×5 (05:15→22:13)
[2020-09-10] MEDS: Omeprazole 20 MG Cap.CR PO SCH ×2 (06:10→17:10)
[2020-09-10] MEDS: Acetaminophen 500 MG Tab PO PRN ×2 (06:14→17:10)
[2020-09-10] MEDS ORDERED: Bisacodyl 10 MG Supp RECTAL PRN (07:42)
[2020-09-10] MEDS: metFORMIN 500 MG Tab PO SCH ×2 (08:02→19:50)
[2020-09-10] MEDS: Cholecalciferol (Vitamin D3) 5,000 UNIT Tab PO SCH (08:02)
[2020-09-10] MEDS: atorvaSTATin 10 MG Tab PO SCH (08:03)
[2020-09-10] MEDS: Nitrofurantoin Monohydrate/Macrocrystalline 100 MG Cap PO SCH ×2 (08:03→19:51)
[2020-09-10] MEDS: Calcium Carbonate/Vitamin D3 1250 MG-200 Unit Tab PO SCH ×2 (08:04→17:11)
[2020-09-10] MEDS: Venlafaxine 37.5 MG Cap.ER PO SCH (08:04)
[2020-09-10] MEDS: Polyethylene Glycol 3350 Powder 17 GM Packet PO SCH ×2 (08:04→19:52)
[2020-09-10] MEDS: Gabapentin 400 MG Cap PO SCH ×4 (08:04→19:52)
[2020-09-10] MEDS: Baclofen 10 MG Tab PO SCH ×3 (08:04→19:51)
[2020-09-10] MEDS: Insulin Lispro 100 Units/ML 3 ML Vial SUBCUT SCH ×3 (08:04→17:11)
[2020-09-10] MEDS: Ferrous Sulfate 325 MG Tab PO SCH ×2 (08:04→19:50)
[2020-09-10] MEDS: ZONISAMIDE 50 MG PO SCH ×2 (08:05→19:53)
[2020-09-10] MEDS: traMADol 50 MG Tab PO PRN (08:12)
--- NOTE | 2020-09-10 13:08 | PCM.SN.2 ---
- Free Text/Narrative Note: Dressing has not changed overnight. I did speak with her surgical team to update them and they agreed with the plan. If her aquacel does become soaked, they stated it was ok to change out the full dressing at this point out from surgery. Hgb was appropriate in the context of her recent surgery. If there are any issue s, the line for her surgical team is .
[2020-09-10] MEDS: Magnesium Oxide 400 MG Tab PO SCH (17:10)
[2020-09-10] MEDS: traZODone 50 MG Tab PO SCH (19:52)
[2020-09-11] MEDS: HYDROmorphone 2 MG Tab PO PRN ×5 (03:39→22:40)
[2020-09-11] MEDS: Omeprazole 20 MG Cap.CR PO SCH ×2 (06:22→17:12)
[2020-09-11] MEDS: Polyethylene Glycol 3350 Powder 17 GM Packet PO SCH ×2 (09:05→19:43)
[2020-09-11] MEDS: Gabapentin 400 MG Cap PO SCH ×4 (09:05→19:43)
[2020-09-11] MEDS: Nitrofurantoin Monohydrate/Macrocrystalline 100 MG Cap PO SCH ×2 (09:05→19:42)
[2020-09-11] MEDS: Cholecalciferol (Vitamin D3) 5,000 UNIT Tab PO SCH (09:06)
[2020-09-11] MEDS: Calcium Carbonate/Vitamin D3 1250 MG-200 Unit Tab PO SCH ×2 (09:06→17:12)
[2020-09-11] MEDS: metFORMIN 500 MG Tab PO SCH ×2 (09:06→19:42)
[2020-09-11] MEDS: atorvaSTATin 10 MG Tab PO SCH (09:06)
[2020-09-11] MEDS: Insulin Lispro 100 Units/ML 3 ML Vial SUBCUT SCH ×3 (09:07→18:05)
[2020-09-11] MEDS: Baclofen 10 MG Tab PO SCH ×3 (09:07→19:42)
[2020-09-11] MEDS: Venlafaxine 37.5 MG Cap.ER PO SCH (09:07)
[2020-09-11] MEDS: Ferrous Sulfate 325 MG Tab PO SCH ×2 (09:07→19:41)
[2020-09-11] MEDS: ZONISAMIDE 50 MG PO SCH ×2 (09:08→19:44)
[2020-09-11] MEDS: traMADol 50 MG Tab PO PRN (12:12)
--- NOTE | 2020-09-11 13:39 | PN ---
Progress Note for JOON BERNAL Date: 09/11/2020 Room #: VM.201 SUBJECTIVE: This is a 40-year-old postoperative day 10 from an extensive T3 through L1 spinal fusion. Yesterday, she was noted to have more drainage on her lower part of her incision. Today, it is more painful in the spot where it is oozing. Dressing was changed already this morning, and an hour later, it was already saturated with darker blood. She has not had any fever or chills. Otherwise, she has been feeling okay. She is on Macrobid for UTI. White count yesterday was normal. Hemoglobin was 10. It was decreased since her surgery; however, her surgery was quite extensive. OBJECTIVE: VITAL SIGNS: Today, her temperature is 96.7, pulse 98, blood pressure 124/65, respiratory rate 18, and O2 of 95% on room air. Pulse has been between 90 and 110 during her stay. MENTAL STATUS: She is alert. She is orientated x3. EXTREMITIES: No significant edema. BACK: Examined. The incision is intact with [place]. There is just one area around T11 and T12 where there is some oozing, especially when you press on that area, and it is tender, but there is no redness, no warmth, no purulent drainage. The pressure dressing is in place, and the dressing is saturated to the underlying dressing with dark blood. ASSESSMENT: 1. Postoperative from extensive back surgery T3 through L1 fusion on 09/01. She had a Hemovac in place, but this was removed prior to transfer. 2. Postoperative anemia. 3. Ongoing wound drainage, does not appear purulent. 4. Morbid obesity, BMI of 43. 5. Chronic pain, on pain management. 6. Recent urinary tract infection, started on Macrobid on 09/12. PLAN: The patient will get lab work again today. If it has any concerning inflammatory markers, may need transfer to an ER where there is a spine surgeon available. Did discuss with the on-call in [place]. Did not recommend any CT or other imaging to be done locally. If the patient has any fevers, also would transfer for further evaluation. For now, continue the pressure dressing in place, and change the wound dressings as needed. The patient is not on any blood thinners or DVT prophylaxis that is worsening the bleeding. MKA: 09/11/2020 13:18:59 MODL: 09/11/2020 13:29:52 /[id number]
[2020-09-11 15:12] LABS: CHLORIDE,CL 105 mmol/L (98-107); SODIUM,NA 142 mmol/L (136-145)
[2020-09-11 15:14] LABS: ANION GAP 13.2 mmol/L (5-15)
[2020-09-11] MEDS: Magnesium Oxide 400 MG Tab PO SCH (17:12)
[2020-09-11] MEDS: traZODone 50 MG Tab PO SCH (19:43)
[2020-09-12] MEDS: traMADol 50 MG Tab PO PRN (01:38)
[2020-09-12] MEDS: Acetaminophen 500 MG Tab PO PRN ×2 (01:38→14:55)
[2020-09-12] MEDS: HYDROmorphone 2 MG Tab PO PRN ×4 (06:10→19:22)
[2020-09-12] MEDS: Omeprazole 20 MG Cap.CR PO SCH ×2 (06:10→17:22)
[2020-09-12] MEDS: Venlafaxine 37.5 MG Cap.ER PO SCH (07:44)
[2020-09-12] MEDS: metFORMIN 500 MG Tab PO SCH (07:44)
[2020-09-12] MEDS: Cholecalciferol (Vitamin D3) 5,000 UNIT Tab PO SCH (07:44)
[2020-09-12] MEDS: Polyethylene Glycol 3350 Powder 17 GM Packet PO SCH ×2 (07:45→19:40)
[2020-09-12] MEDS: Gabapentin 400 MG Cap PO SCH ×4 (07:45→19:41)
[2020-09-12] MEDS: Calcium Carbonate/Vitamin D3 1250 MG-200 Unit Tab PO SCH ×2 (07:45→17:22)
[2020-09-12] MEDS: atorvaSTATin 10 MG Tab PO SCH (07:45)
[2020-09-12] MEDS: Insulin Lispro 100 Units/ML 3 ML Vial SUBCUT SCH ×3 (07:45→17:23)
[2020-09-12] MEDS: Baclofen 10 MG Tab PO SCH ×3 (07:45→19:40)
[2020-09-12] MEDS: Nitrofurantoin Monohydrate/Macrocrystalline 100 MG Cap PO SCH ×2 (07:45→19:40)
[2020-09-12] MEDS: Ferrous Sulfate 325 MG Tab PO SCH ×2 (07:45→19:39)
[2020-09-12] MEDS: ZONISAMIDE 50 MG PO SCH ×2 (07:54→19:42)
[2020-09-12 16:40] VITALS: BP 112/54; PULSE 87
[2020-09-12] MEDS: Magnesium Oxide 400 MG Tab PO SCH (17:22)
[2020-09-12 17:31] LABS: CHLORIDE,CL 105 mmol/L (98-107); SODIUM,NA 141 mmol/L (136-145)
[2020-09-12 17:34] LABS: ANION GAP 12.1 mmol/L (5-15)
[2020-09-12 17:35] LABS: PTT,PARTIAL THROMBOPLSTIN TIME 23.5 SEC (25.6-32.8)
[2020-09-12] MEDS ORDERED: Sodium Chloride 0.9% 10 ML Syringe FLUSH PRN (19:17)
[2020-09-12] MEDS: traZODone 50 MG Tab PO SCH (19:41)
--- NOTE | 2020-09-12 20:11 | DISCH ---
PRIMARY DISCHARGE DIAGNOSES: 1. Postoperative from 09/01/2020 complex spine surgery, T3 through L1 fusion at [facility] in [place]. 2. Concern for hematoma causing ongoing bleeding and bilateral leg numbness, acute onset, around 4 p.m. 3. Left foot drop. The patient reports present on admission. 4. Anemia, postoperative hemoglobin remained stable around 10. 5. Diabetes, well controlled blood sugars on metformin, last dose this morning. 6. Morbid obesity. BMI of 43. Her weight is around 122.4 kg. 7. Chronic pain, on pain management. 8. Recent urinary tract infection. She completed Macrobid today. 9. Depression and anxiety. 10.Essential hypertension. 11.History of migraines. REASON FOR ADMISSION: On the date of admission, this 40-year-old female who had underwent spine surgery with Dr. Mendes at [place] was hospitalized at [facility] and discharged on 09/06/2020. She had drains in place and even a chest tube. These were all removed prior to transfer. She actually had anterior spine T10 through L1 and posterior spine fusion and instrumentation T10 through L1 listed in her PCP's admitting progress note. She had more drainage noted on the which progressed on the . We have been talking with the [facility] on-call each day. She had a pressure dressing in place. Then today, she felt a "whoosh" and had a large amount of drainage, dark red blood, and tenderness was always present since yesterday on that left side of her spine around the T11 area, but this was different as she immediately felt like she was going to pee herself and had numbness up and down the legs and they felt weak. The patient did not get out of bed and tried to walk, but was able to move her legs on exam. The weakness was noted in the left foot, however, she has a known foot drop. She had not had any chest pain. No cough. No shortness of breath. No fevers. No chills. CRP had been checked yesterday due to these symptoms and she had a mildly elevated at 3.9, it was 2.9 today. All the rest of her lab work looked okay. Her PT and PTT were not elevated. Discussion was had with [facility]. A decision was made to send her down to the [facility] where she actually had surgery unless she became critical. At this point, her neurologic symptoms have not progressed, and due to the neurosurgeon declining to evaluate her due to suspicion of a more complex problem, arrangements were made after talking with partner, Dr. Colon to transfer her down to the [facility]. No imaging was performed here. I talked to the ER physician at [facility] who graciously accepted the patient in transfer. PHYSICAL EXAMINATION: Vital Signs: On transfer, temperature 98.5, pulse 87, blood pressure 112/54, respiratory rate 16, O2 of 97% on room air. General: She is in no acute distress. Heart: Regular rate and rhythm. S1, S2 without murmur. Lungs: Lung sounds are clear to auscultation bilaterally without crackles or wheezes. Abdomen: Nondistended. Extremities: Warm and dry. No edema. The back incision had been inspected with just some slight oozing noted. There was already drainage again on her new incision. When I palpated the left side of the lower thoracic area, it was tender, actually had a little bit more substance I could feel even with her obesity. Again, I am quite concerned she has a hematoma. Mental Status: Alert and orientated x3. DISCHARGE PLANS/INSTRUCTIONS: To [facility] by S. The patient can have her regularly scheduled pain medication, oral Dilaudid. The nursing will put IV in place, but I do not anticipate she will need it en route, but if able, they will send along her oral Dilaudid to take at 4-hour time interval since I anticipate the transfer will take longer than that. Greater than 30 minutes spent on this transfer process. MKA: 09/12/2020 19:17:29 MODL: 09/12/2020 20:06:33 /[id number]
== END 2020-09-12 20:15 | disposition short-term general hospital (02) | DRG 920 ==
LOC: VM.MS 20:06
PROVIDERS: ADMIT Family Medicine; ATTEND Family Medicine
DX: G97.61 Postprocedural hematoma of a nervous system organ or structure following a nervous system procedure (principal); Z68.41 Body mass index [BMI] 40.0-44.9, adult; N39.0 Urinary tract infection, site not specified; Z98.1 Arthrodesis status; K59.03 Drug induced constipation; F41.8 Other specified anxiety disorders; I10 Essential (primary) hypertension; E11.9 Type 2 diabetes mellitus without complications; D64.9 Anemia, unspecified; Z20.822 Contact with and (suspected) exposure to COVID-19; M21.372 Foot drop, left foot; R20.0 Anesthesia of skin; E66.01 Morbid (severe) obesity due to excess calories; M54.9 Dorsalgia, unspecified; G89.29 Other chronic pain; G43.001 Migraine without aura, not intractable, with status migrainosus; Z91.09 Other allergy status, other than to drugs and biological substances; Z88.1 Allergy status to other antibiotic agents; Z88.2 Allergy status to sulfonamides; Z88.6 Allergy status to analgesic agent; Z79.899 Other long term (current) drug therapy; Z90.49 Acquired absence of other specified parts of digestive tract; Z90.710 Acquired absence of both cervix and uterus
CPT/HCPCS: 36415; 80048; 81001; 82947; 82962; 85025; 85610; 85652; 85730; 86140; 97110-GO; 97110-GP; 97116-GP; 97163-GP; 97165-GO; 97530-GP; 97763-GO; A9270-GY; U0002

== ENCOUNTER 2020-10-07 16:48 | Emergency (ER) | payer MEDICARE, MEDICAID ==
[2020-10-07 17:02] VITALS: BP 108/48; PULSE 94
[2020-10-07] MEDS ORDERED: Diazepam 5 MG Tab PO ONE (17:02)
[2020-10-07] MEDS ORDERED: HYDROmorphone 1 MG/ML Syringe IVPUSH ONE ×2 (17:02→19:21)
[2020-10-07] MEDS ORDERED: HYDROmorphone 1 MG/ML Syringe ONE (17:27)
[2020-10-07] MEDS ORDERED: Diazepam 5 MG Tab ONE (17:27)
--- NOTE | 2020-10-07 19:26 | EDM.PDOC ---
ED HPI GENERAL MEDICAL PROBLEM - General Chief Complaint: Back Pain or Injury Time Seen by Provider: 10/07/20 16:51 Source of Information: Reports: Patient - History of Present Illness INITIAL COMMENTS - FREE TEXT/NARRATIVE: Jewell is a 40 y/o female who is brought to the ER by EMS after she started to have increased back pain. She has a long history of chronic back pain and radiculopathy and had a fusion of some thoracic and lumbar vertebrae on 09-01-2020 in [facility]. She has been recovering at home from the recent surgery and also seeing Pain management for Ketamine infusions for the pain. She has been recovering at home and taking meds as prescribed when today around 3 pm she went to use the bathroom and has she sat down on the toilet, she got a back spasm and then could not move her legs or get up off the toilet. She did not have her phone with her and she sat there for about 20 minutes until she could call for help. When EMS arrived thy assisted her to the cart and then gave her Dilaudid 1mg IVP enroute. The patient reports little pain relief from the EMS meds and on arrival to the ER still rates her pain 9-10/10 and sharp going down her entire back. She last took her oral Dilaudid about 1330 and a Baclofen around 1500. She does complain of some pressure in her pelvic region. She was able to void when on the toilet around 3 pm prior to EMS bring her to the ER. Lower Back Pain Score (Numeric/FACES): 9 - Related Data Allergies Allergy/AdvReac Type Severity Reaction Status Date / Time adhesive tape Allergy Rash Verified 10/04/20 09:27 cat dander Allergy Sneezing Verified 10/04/20 09:27 citalopram Allergy Nausea and Verified 10/04/20 09:27 Vomiting clindamycin Allergy Hives Verified 10/04/20 09:27 duloxetine [From Cymbalta] Allergy Cannot Verified 10/04/20 09:27 Remember Sulfa (Sulfonamide Allergy Hives Verified 10/04/20 09:27 Antibiotics) amoxicillin [From Augmentin] AdvReac Nausea and Verified 10/04/20 09:27 Vomiting aspirin AdvReac Bleeding Verified 10/04/20 09:27 celecoxib [From Celebrex] AdvReac Diarrhea Verified 10/04/20 09:27 cephalexin AdvReac Nausea and Verified 10/04/20 09:27 Vomiting clavulanic acid AdvReac Nausea and Verified 10/04/20 09:27 [From Augmentin] Vomiting topiramate [From Topamax] AdvReac Delusions Verified 10/04/20 09:27 dust mite extract Allergy Cannot Uncoded 10/04/20 09:27 Remember Home Meds: Home Meds Calcium Carbonate/Vitamin D2 [Oyster Shell Calcium-Vit D Tab] 1 tab PO BIDMEALS 09/28/13 [History] Cholecalciferol (Vitamin D3) [Vitamin D3] 10,000 unit PO DAILY 09/28/13 [History] Cyanocobalamin (Vitamin B-12) [Vitamin B-12] 100 mcg PO DAILY 09/28/13 [History] Ferrous Sulfate 325 mg PO BIDMEALS 09/28/13 [History] Magnesium Oxide 400 mg PO DAILY@1800 09/28/13 [History] Multivitamin [Multivitamins] 1 tab PO DAILY 09/28/13 [History] traZODone 150 mg PO BEDTIME 03/15/15 [History] Biotin 1 tab PO DAILY 01/24/16 [History] Omeprazole Magnesium [Prilosec Otc] 20 mg PO BIDAC 01/24/16 [History] Zonisamide 100 mg PO BID 08/29/17 [History] Venlafaxine [Effexor XR 24 Hr] 37.5 mg PO DAILY 10/01/19 [History] atorvaSTATin [Lipitor] 10 mg PO DAILY 12/26/19 [History] Gabapentin [Neurontin] 1,200 mg PO QID 90 Days #720 tablet 03/01/20 [Rx] Promethazine [Phenergan] 25 mg PO Q4H PRN 90 Days #90 tab 08/18/20 [Rx] Acetaminophen [Pain Relief Extra Strength] 500 mg PO Q6H PRN MDD 4000 mg in 24 hours 09/06/20 [History] Baclofen 20 mg PO TID 09/06/20 [History] Naphazoline/Pheniramine [Naphcon A Ophth Soln] 2 drop EYEBOTH DAILY PRN 09/06/20 [History] Naratriptan HCl 2.5 mg PO BID PRN MDD 5 mg in 24 hours 09/06/20 [History] Sennosides/Docusate Sodium [Sennosides-Docusate Sodium] 2 tab PO BID PRN 09/06/20 [History] traMADol [Ultram] 100 mg PO BID PRN 09/06/20 [History] Erenumab-Aooe [Aimovig Autoinjector] 70 mg SQ Q28D 09/07/20 [History] metFORMIN HCl [Metformin HCl ER] 750 mg PO BID 09/07/20 [History] Naratriptan HCl 2.5 mg PO BID PRN 25 Days #9 tab MDD 5 mg in 24 hours 09/15/20 [Rx] HYDROmorphone [Dilaudid] 4 mg PO Q4H PRN 18 Days #90 tab 09/27/20 [Rx] Past Medical History HEENT History: Reports: Allergic Rhinitis Cardiovascular History: Reports: Hypertension Respiratory History: Reports: None Gastrointestinal History: Reports: Other (See Below) Other Gastrointestinal History: abd abscess post hernia surgery Genitourinary History: Reports: UTI, Recurrent 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 left hip pain. 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 onychodystrophy. tinea pedis - Infectious Disease History Infectious Disease History: Reports: MRSA - Past Surgical History HEENT Surgical History: Reports: None Cardiovascular Surgical History: Reports: None GI Surgical History: Reports: Bariatric Procedure, Cholecystectomy, Hernia Repair/Other Female Surgical History: Reports: Hysterectomy Endocrine Surgical History: Reports: None Neurological Surgical History: Reports: Discectomy, Laminectomy, Lumbar Spine, Spinal Fusion, Thoracic Spine Musculoskeletal Surgical History: Reports: Carpal Tunnel Other Musculoskeletal Surgeries/Procedures:: spinal cord stimulater removed 11/06/17, spinal cord stimulater implant 12/18/18. back surgery 05/17/19. Spine surgery 09/01/3020 Social & Family History - Family History Family Medical History: No Pertinent Family History Cardiac: Reports: CAD, Hypertension Respiratory: Reports: Other (See Below) : Reports: Renal Disease/Insufficiency Neurological: Reports: CVA Endocrine/Metabolic: Reports: Diabetes, type II Oncologic: Reports: Uterine - Tobacco Use Tobacco Use Status *Q: Unknown Ever Used Tobacco - Caffeine Use Caffeine Use: Reports: Soda - Living Situation & Occupation Living situation: Reports: Single, with Family (sister) Occupation: Disabled Review of Systems - Review of Systems Review Of Systems: See Below Constitutional: Reports: No Symptoms Eyes: Reports: No Symptoms Ears: Reports: No Symptoms Nose: Reports: No Symptoms Mouth/Throat: Reports: No Symptoms Respiratory: Reports: No Symptoms Cardiovascular: Reports: No Symptoms GI/Abdominal: Reports: No Symptoms Genitourinary: Reports: No Symptoms Musculoskeletal: Reports: Back Pain Skin: Reports: No Symptoms Neurological: Reports: Tingling, Difficulty Walking, Weakness Psychiatric: Reports: No Symptoms ED EXAM, GENERAL - Physical Exam Exam: See Below General Appearance: Alert, WD/WN (Adult female lying on her right side on the ER in a position of comfort. Pleasant and answers questions.) Ears: Hearing Grossly Normal Nose: Normal Inspection Throat/Mouth: Normal Inspection, Normal Lips, Normal Voice Head: Atraumatic, Normocephalic Respiratory/Chest: No Respiratory Distress, Lungs Clear Cardiovascular: Normal Peripheral Pulses, Regular Rate, Rhythm GI/Abdominal: Normal Bowel Sounds, Soft (Female) Exam: Deferred Rectal (Female) Exam: Deferred Back Exam: Vertebral Tenderness, Other (+tenderness along thoracic spine and mid back region, light gauze dressing is in place, incision is healing, no sx of redness or drainage. ) Extremities: Normal Inspection Neurological: Alert, Oriented, CN II-XII Intact Course - Vital Signs Text/Narrative:: 1734 The patient was seen by the LABORATORY ANIMAL CARETAKER. Rates pain 9/10. Dilaudid 2mg IVP and Valium 10mg po. 1819 The patient reported minimal pain relief from the meds given. She still rates her pain 8/10 and now feels more tingling and pelvic pressure. 1914 Patient reports her pain is now 10/10 and she feels alot of "pressure in her bladder". Last void was about 3 pm when the pain started. She felt numbness in her legs, but she is able to move them. Dilaudid 4mg IVP given. 1999 Patient reports feeling much better and thinks she can go home and rest. JESUS advised her that no diagnostic testing available her for her condition available in ER at this time. We discussed the fact that she is just about 4 1/2 weeks out from her recent Thoracic Fusion and she may have just over did it or moved wrong. She is feeling better now after the IV pain meds and the oral Valium and feels ready to go home to rest. Encouraged patient to resume her pain meds that she has at home and use as instructed. JESUS cautioned patient about high dose opioid use and respiratory depression, she verbalized understanding. She was given discharge instructions and she left the ER in stable condition with her sister. Last Recorded V/S: Last Vital Signs Temp 36.9 C 10/07/20 16:48 Pulse 94 10/07/20 16:48 Resp 18 10/07/20 16:48 BP 108/48 L 10/07/20 16:48 Pulse Ox 96 10/07/20 16:48 - Orders/Labs/Meds Meds: Medications Discontinued Medications Generic Name Dose Route Start Last Admin Trade Name Shirley PRAdali Reason Stop Dose Admin Diazepam 10 mg 10/07/20 17:02 10/07/20 17:20 Diazepam 5 Mg Tab PO 10/07/20 17:03 10 mg ONETIME ONE Administration Hydromorphone HCl 2 mg 10/07/20 17:02 10/07/20 17:20 Hydromorphone 1 Mg/Ml Syringe IVPUSH 10/07/20 17:03 2 mg ONETIME ONE Administration Hydromorphone HCl 4 mg 10/07/20 19:21 10/07/20 19:42 Hydromorphone 1 Mg/Ml Syringe IVPUSH 10/07/20 19:22 4 mg ONETIME ONE Administration Departure - Departure Time of Disposition: 20:27 Disposition: Home, Self-Care 01 Preliminary Cause of *Q: Cardiac Arrest Condition: Good Clinical Impression: Lumbosacral radiculopathy, S/P fusion of thoracic spine Chronic pain Qualifiers: Chronic pain type: other chronic pain Qualified Code(s): G89.29 - Other chronic pain - Discharge Information Instructions: Pinched Nerve, What You Need to Know About Chronic Back Pain, Lumbosacral Radiculopathy Referrals: Faby Araya MD [Primary Care Provider] - Forms: ED Department Discharge Sepsis Event Note (ED) - Evaluation Sepsis Screening Result: No Definite Risk - Focused Exam Vital Signs: Vital Signs Temp Pulse Resp BP Pulse Ox 10/07/20 16:48 36.9 C 94 18 108/48 L 96 - Assessment/Plan Assessment:: 1)Chronic Back Pain 2)S/P Thoracic Fusion Plan: -Resume your pain meds and all other medications as prescribed at home -Rest as needed -Get yourself comfortable and apply ice/heat as needed -Keep your follow up appts as needed -Return to the ER for any concerns
== END 2020-10-07 20:40 | disposition home or self-care (01) ==
LOC: VM.ED 16:48
DX: M54.16 Radiculopathy, lumbar region (principal); E11.9 Type 2 diabetes mellitus without complications; E66.9 Obesity, unspecified; Z88.2 Allergy status to sulfonamides; Z91.048 Other nonmedicinal substance allergy status; Z91.018 Allergy to other foods; Z88.1 Allergy status to other antibiotic agents; Z88.0 Allergy status to penicillin; Z91.09 Other allergy status, other than to drugs and biological substances; Z88.8 Allergy status to other drugs, medicaments and biological substances; Z68.30 Body mass index [BMI] 30.0-30.9, adult; Z98.1 Arthrodesis status
CPT/HCPCS: 96374; 96376; 99284; A9270; J1170

== ENCOUNTER 2020-11-18 17:21 | Emergency (ER) | payer MEDICARE, MEDICAID ==
[2020-11-18] MEDS ORDERED: Sodium Chloride 0.9% 10 ML Syringe FLUSH PRN (17:37)
--- NOTE | 2020-11-18 17:48 | EDM.PDOC ---
ED HPI GENERAL MEDICAL PROBLEM - General Chief Complaint: Back Pain or Injury Stated Complaint: FALL Time Seen by Provider: 11/18/20 17:30 Source of Information: Reports: Patient, EMS History Limitations: Reports: No Limitations - History of Present Illness INITIAL COMMENTS - FREE TEXT/NARRATIVE: Patient presents via ems for episode of numbness in her legs that caused her to fall onto her buttocks. She was carrying a box when she had sudden onset of numbness in her legs, a pressure sensation in her back and fell backward onto her buttocks. Unable to get up., Laid on the floor until EMS arrived Numbness has improved but reports hearing a " crunch" sound in the coccyx area when she fell and has new pain there. She has a complicated recent history with an extensive fusion from T3 down in August that was complicated by seroma, paraesthesias in the lower extremities and subsequent drain placement. This alleviated her symptoms and after decreased output, First set of drains were removed. She unfortunately redeveloped same symptoms and on 11/12 she had drain placement and hospitalization again. Discharged home on 11/14. Has been stable, in significant pain, but no paresthesia, taking large doses of hydromorphone on schedule and continued with a baseline pain score of 6/10. She was seen by pain management 2 days ago. Patient states today her pain is 10/10 " at least" . states laying on her side is better and does not have numbness in her legs now, but has not attempted to stand. Has not been incontinent of stool or urine. Fell and struck her left elbow and the left clavicle is sore also. DRain output has been >100 daily still Onset: Today Duration: Constant Location: Reports: Back Quality: Reports: Sharp, Stabbing Severity: Severe Improves with: Reports: None Worsens with: Reports: None Associated Symptoms: Reports: Other (left shoulder pain) Treatments METAL OR WOOD BLOCKER: Reports: Other (see below) (took her regular dose of hydromorp juventino about an hour ago) Back Pain Score (Numeric/FACES): 10 - Related Data Allergies Allergy/AdvReac Type Severity Reaction Status Date / Time adhesive tape Allergy Rash Verified 11/18/20 18:48 cat dander Allergy Sneezing Verified 11/18/20 18:48 citalopram Allergy Nausea and Verified 11/18/20 18:48 Vomiting clindamycin Allergy Hives Verified 11/18/20 18:48 duloxetine [From Cymbalta] Allergy Cannot Verified 11/18/20 18:48 Remember Sulfa (Sulfonamide Allergy Hives Verified 11/18/20 18:48 Antibiotics) amoxicillin [From Augmentin] AdvReac Nausea and Verified 11/18/20 18:48 Vomiting aspirin AdvReac Bleeding Verified 11/18/20 18:48 celecoxib [From Celebrex] AdvReac Diarrhea Verified 11/18/20 18:48 cephalexin AdvReac Nausea and Verified 11/18/20 18:48 Vomiting clavulanic acid AdvReac Nausea and Verified 11/18/20 18:48 [From Augmentin] Vomiting topiramate [From Topamax] AdvReac Delusions Verified 11/18/20 18:48 dust mite extract Allergy Cannot Uncoded 11/18/20 18:48 Remember Home Meds: Home Meds Calcium Carbonate/Vitamin D2 [Oyster Shell Calcium-Vit D Tab] 1 tab PO BIDMEALS 09/28/13 [History] Cholecalciferol (Vitamin D3) [Vitamin D3] 10,000 unit PO DAILY 09/28/13 [History] Cyanocobalamin (Vitamin B-12) [Vitamin B-12] 100 mcg PO DAILY 09/28/13 [History] Ferrous Sulfate 325 mg PO BIDMEALS 09/28/13 [History] Magnesium Oxide 400 mg PO DAILY@1800 09/28/13 [History] Multivitamin [Multivitamins] 1 tab PO DAILY 09/28/13 [History] traZODone 150 mg PO BEDTIME 03/15/15 [History] Biotin 1 tab PO DAILY 01/24/16 [History] Omeprazole Magnesium [Prilosec Otc] 20 mg PO BIDAC 01/24/16 [History] Zonisamide 100 mg PO BID 08/29/17 [History] Venlafaxine [Effexor XR 24 Hr] 37.5 mg PO DAILY 10/01/19 [History] atorvaSTATin [Lipitor] 10 mg PO DAILY 12/26/19 [History] Gabapentin [Neurontin] 1,200 mg PO QID 90 Days #720 tablet 03/01/20 [Rx] Promethazine [Phenergan] 25 mg PO Q4H PRN 90 Days #90 tab 08/18/20 [Rx] Acetaminophen [Pain Relief Extra Strength] 1,000 mg PO Q6H PRN MDD 4000 mg in 24 hours 09/06/20 [History] Baclofen 20 mg PO TID 09/06/20 [History] Naphazoline/Pheniramine [Naphcon A Ophth Soln] 2 drop EYEBOTH DAILY PRN 09/06/20 [History] Naratriptan HCl 2.5 mg PO BID PRN MDD 5 mg in 24 hours 09/06/20 [History] Sennosides/Docusate Sodium [Sennosides-Docusate Sodium] 2 tab PO BID PRN 09/06/20 [History] traMADol [Ultram] 100 mg PO BID PRN 09/06/20 [History] Erenumab-Aooe [Aimovig Autoinjector] 70 mg SQ Q28D 09/07/20 [History] metFORMIN HCl [Metformin HCl ER] 750 mg PO BID 09/07/20 [History] Naratriptan HCl 2.5 mg PO BID PRN 25 Days #9 tab MDD 5 mg in 24 hours 09/15/20 [Rx] methocarbamoL [Methocarbamol] 750 mg PO QID PRN 30 Days #120 tablet 10/26/20 [Rx] Acyclovir 400 mg PO BID 10/27/20 [History] HYDROmorphone HCl [Dilaudid] 8 mg PO Q4HR PRN 30 Days #120 tablet 11/16/20 [Rx] Past Medical History HEENT History: Reports: Allergic Rhinitis Cardiovascular History: Reports: Hypertension Respiratory History: Reports: None Gastrointestinal History: Reports: Other (See Below) Other Gastrointestinal History: abd abscess post hernia surgery Genitourinary History: Reports: UTI, Recurrent IMPLEMENT MECHANIC History: Reports: Other (See Below) Other IMPLEMENT MECHANIC History: metorrhagia Musculoskeletal History: Reports: Back Pain, Chronic Other Musculoskeletal History: tenosynovitis. left hip pain. Recent fall 10/12/19 Neurological History: Reports: Migraines Other Neuro History: sciatica Psychiatric History: Reports: Anxiety, Depression Endocrine/Metabolic History: Reports: Diabetes, Type II, Obesity/BMI 30+ Insulin Pump Model and Body Cleaner: none Hematologic History: Reports: Anemia Immunologic History: Reports: None Oncologic (Cancer) History: Reports: None Dermatologic History: Reports: None Other Dermatologic History: intertrigo. onychodystrophy. tinea pedis - Infectious Disease History Infectious Disease History: Reports: MRSA - Past Surgical History HEENT Surgical History: Reports: None Cardiovascular Surgical History: Reports: None GI Surgical History: Reports: Bariatric Procedure, Cholecystectomy, Hernia Repair/Other Female Surgical History: Reports: Hysterectomy Endocrine Surgical History: Reports: None Neurological Surgical History: Reports: Discectomy, Laminectomy, Lumbar Spine, Spinal Fusion, Thoracic Spine Musculoskeletal Surgical History: Reports: Carpal Tunnel Other Musculoskeletal Surgeries/Procedures:: spinal cord stimulater removed 11/06/17, spinal cord stimulater implant 12/18/18. back surgery 05/17/19. Spine surgery 09/01/3020 Social & Family History - Family History Family Medical History: No Pertinent Family History Cardiac: Reports: CAD, Hypertension Respiratory: Reports: Other (See Below) : Reports: Renal Disease/Insufficiency Neurological: Reports: CVA Endocrine/Metabolic: Reports: Diabetes, type II Oncologic: Reports: Uterine - Caffeine Use Caffeine Use: Reports: Soda - Living Situation & Occupation Living situation: Reports: Single, with Family (sister) Occupation: Disabled ED ROS GENERAL - Review of Systems Review Of Systems: See Below Constitutional: Reports: Weakness HEENT: Reports: No Symptoms. Denies: Eye Pain, Nose Pain, Throat Swelling Respiratory: Reports: No Symptoms. Denies: Shortness of Breath, Cough Cardiovascular: Reports: No Symptoms. Denies: Chest Pain Endocrine: Reports: No Symptoms GI/Abdominal: Reports: Other (states has abdominal pressure, normal stool and urine) : Reports: No Symptoms. Denies: Urinary Retention Musculoskeletal: Reports: Back Pain (entire spine since surgery, new onset coccyx pain today), Joint Pain (left shoulder. ) Skin: Reports: Wound (left elbow, normal rom of the elbow without pain) Neurological: Reports: Paresthesia (lower extremities, earlier, better now) Psychiatric: Reports: Other (tearful ) ED EXAM,LOWER BACK PAIN/INJURY - Physical Exam Exam: See Below Exam Limited By: No Limitations General Appearance: Alert, Anxious, Mild Distress Eye Exam: Bilateral Eye: EOMI, PERRL (with contricted pupils consistent with narcotic use) Nose: Normal Inspection Throat/Mouth: Normal Inspection, Normal Lips, Normal Teeth, Normal Oropharynx, Normal Voice Head: Atraumatic Neck: Normal Inspection Respiratory/Chest: No Respiratory Distress, Lungs Clear, Normal Breath Sounds Cardiovascular: Normal Peripheral Pulses, Regular Rate, Rhythm, No Edema, No Murmur GI/Abdominal: Normal Bowel Sounds, Tender (minimally diffusely, no rebound) (Female) Exam: Deferred Back Exam: Paraspinal Tenderness, Other (surgical incsion without dehiscence, pain to light touch entire pain, no bruising, drain in place with serious fluid.) Extremities: Arm Pain (left clavicle to touch, can move left shoulder, left elbow with abrasion, full rom and supination and pronation, no joint effusion) Neurological: Alert, Other (normal sensation to light touch in lower extremiti es, can move lower extremities without deficit. displays capacity. answers questions well) Psychiatric: Tearful Skin Exam: Warm, Wound/Incision (surgical wound without dehiscence, left elbow abrasion without joint swelling. no active bleeding) Course - Vital Signs Last Recorded V/S: Last Vital Signs Temp 36.8 C 11/18/20 18:00 Pulse 113 H 11/18/20 18:00 Resp 16 11/18/20 18:00 BP 116/69 11/18/20 18:00 Pulse Ox 94 L 11/18/20 18:00 - Orders/Labs/Meds Orders: Active Orders 24 hr Category Date Time Status Oxygen Therapy [RC] ASDIRECTED Care 11/18/20 18:02 Active Lumbar Spine w Cont [CT] Stat Exams 11/18/20 17:39 Taken Thoracic Spine wo Cont [CT] Stat Exams 11/18/20 18:07 Taken Sodium Chloride 0.9% [Saline Flush] Med 11/18/20 17:37 Active 10 ml FLUSH ASDIRECTED PRN Peripheral IV Insertion Adult [OM.PC] Routine Oth 11/18/20 17:37 Ordered Medication Orders Sodium Chloride (Sodium Chloride 0.9% 10 Ml Syringe) 10 ml FLUSH ASDIRECTED PRN PRN Reason: Keep Vein Open Labs: Laboratory Tests 11/18/20 11/18/20 11/18/20 Range/Units 18:00 18:00 18:00 WBC 7.4 (4.0-10.0) x10^3/uL RBC 4.47 (4.00-5.50) x10^6/uL Hgb 12.4 D (12.0-16.0) g/dL Hct 39.6 (33.0-47.0) % MCV 88.6 D (78.0-93.0) fL MCH 27.7 (26.0-32.0) pg MCHC 31.3 L (32.0-36.0) g/dL RDW Coeff of Juan R 14.2 (10.0-15.0) % Plt Count 224 D (130-400) x10^3/uL Neut % (Auto) 50.3 (50.0-80.0) % Lymph % (Auto) 30.5 (25.0-50.0) % Milam % (Auto) 11.5 H (2.0-11.0) % Eos % (Auto) 7.0 H (0.0-4.0) % Baso % (Auto) 0.7 (0.2-1.2) % ESR 23 H (0-20) mm/hr Sodium 140 (136-145) mmol/L Potassium 4.0 (3.5-5.1) mmol/L Chloride 105 (98-107) mmol/L Carbon Dioxide 24 (21-32) mmol/L Anion Gap 15.0 (5-15) mmol/L BUN 14 (7-18) mg/dL Creatinine 0.9 (0.55-1.02) mg/dL Est Cr Clr Drug Dosing TNP Estimated GFR (MDRD) > 60 Glucose 123 H (70-99) mg/dL Calcium 7.4 L (8.5-10.1) mg/dL Corrected Calcium 8.2 L (8.5-10.1) mg/dL Total Bilirubin 0.1 L (0.2-1.0) mg/dL AST 25 (15-37) U/L ALT 46 (14-59) U/L Alkaline Phosphatase 130 H (46-116) U/L C-Reactive Protein 1.4 H (<=0.9) mg/dL Total Protein 6.4 (6.4-8.2) g/dL Albumin 3.0 L (3.4-5.0) g/dL Globulin 3.4 Albumin/Globulin Ratio 0.88 Meds: Medications Generic Name Dose Route Start Last Admin Trade Name Freq PRN Reason Stop Dose Admin Sodium Chloride 10 ml 11/18/20 17:37 Sodium Chloride 0.9% 10 Ml Syringe FLUSH ASDIRECTED PRN Keep Vein Open Discontinued Medications Generic Name Dose Route Start Last Admin Trade Name Shirley PRN Reason Stop Dose Admin Diazepam 10 mg 11/18/20 17:38 11/18/20 17:53 Diazepam 10 Mg/2 Ml Syringe IVPUSH 11/18/20 17:39 10 mg STAT ONE Administration Hydromorphone HCl 1 mg 11/18/20 17:37 11/18/20 17:52 Hydromorphone 1 Mg/Ml Syringe IVPUSH 11/18/20 17:38 1 mg ONETIME ONE Administration Iopamidol 100 ml 11/18/20 18:24 11/18/20 19:43 Iopamidol 612 Mg/Ml 100 Ml Bottle IVPUSH 11/18/20 18:25 100 ml ONETIME ONE Administration - Radiology Interpretation Free Text/Narrative:: left clavicle x-ray is negative interpreted by radiology See full CT reports however, extensive postsurgical change in the thoracic and lumbar spine since last imaging, acute fracture anterior superior corner of L2 vertebral body. No other acute findings. interpreted by radiology - Re-Assessments/Exams Free Text/Narrative Re-Assessment/Exam: 11/18/20 18:00 Patient has a complicated recent back history. Concern with the paresthesia returning that she is getting reaccumulation of her seroma , will need to reevauate with ct thorax ad lumbar spine with contrast. Due to patient limitation for x-ray will get ct of pelvis to reul out fracture. will check labs, place IV and give valium 10 mg IVP and dilaudid 1 mg IVP. This did help her pain, but did decrease her oxygen sats. O2 via NC placed to keep levels > 92% 11/18/20 20:[address] findings with patient. She was able to get up and ambulate, but is sore. Has pain medication and muscle relaxers at home. Has a pain contract. Discussed the fracture with patient. She is already fused at this level and it is anterior. Can follow with pain management Departure - Departure Time of Disposition: 20:32 Disposition: Home, Self-Care 01 Condition: Fair Clinical Impression: Fall, Vertebral fracture, Back pain - Discharge Information *PRESCRIPTION DRUG MONITORING PROGRAM REVIEWED*: Not Applicable *COPY OF PRESCRIPTION DRUG MONITORING REPORT IN PATIENT ELIZA: Not Applicable Instructions: Lumbar Spine Fracture Referrals: Faby Araya MD [Primary Care Provider] - Forms: ED Department Discharge Additional Instructions: You have a fracture of the anterior part of the L2 vertebral body. This should not need intervention. You have pain medication and muscle relaxers at home. Use these and follow up with your neurosurgeon and pain management Sepsis Event Note (ED) - Focused Exam Vital Signs: Vital Signs Temp Pulse Resp BP Pulse Ox 11/18/20 18:00 36.8 C 113 H 16 116/69 94 L - My Orders Last 24 Hours: My Active Orders 11/18/20 17:37 Sodium Chloride 0.9% [Saline Flush] 10 ml FLUSH ASDIRECTED PRN Peripheral IV Insertion Adult [OM.PC] Routine 11/18/20 17:39 Lumbar Spine w Cont [CT] Stat 11/18/20 18:02 Oxygen Therapy [RC] ASDIRECTED 11/18/20 18:07 Thoracic Spine wo Cont [CT] Stat - Assessment/Plan Last 24 Hours: My Active Orders 11/18/20 17:37 Sodium Chloride 0.9% [Saline Flush] 10 ml FLUSH ASDIRECTED PRN Peripheral IV Insertion Adult [OM.PC] Routine 11/18/20 17:39 Lumbar Spine w Cont [CT] Stat 11/18/20 18:02 Oxygen Therapy [RC] ASDIRECTED 11/18/20 18:07 Thoracic Spine wo Cont [CT] Stat
[2020-11-18] MEDS: HYDROmorphone 1 MG/ML Syringe IVPUSH ONE ×2 (17:52→20:50)
[2020-11-18 18:23] LABS: CHLORIDE,CL 105 mmol/L (98-107); SODIUM,NA 140 mmol/L (136-145)
[2020-11-18 18:59] VITALS: BP 116/69; PULSE 113
[2020-11-18] MEDS: Iopamidol 612 MG/ML 100 ML Bottle IVPUSH ONE (19:43)
--- NOTE | 2020-11-18 20:07 | CR ---
[id number] RAD/RAD Clavicle Left Exam: RAD Clavicle Left Indication:FALL, PAIN Comparison: No prior imaging for comparison. Discussion/Impression: No acute clavicle fracture. No evidence of acromioclavicular separation injury. Nishant Alvarado MD 11/18/202005 Thank you for allowing us to participate in the care of your patient.
--- NOTE | 2020-11-18 20:23 | CT ---
[id number] CT/CT Thoracic Spine W IV; CT/CT Pelvis WO IV; CT/CT Lumbar Spine W IV Exam: CT Thoracic Spine W IV, CT Lumbar Spine W IV, CT Pelvis WO IV Indication:POST OP, FLUID COLLECTION, FALL Comparison: Preoperative imaging including thoracic spine CT from December 15, 2019. Discussion: Thoracic and lumbar spine: Extensive changes of posterior fusion since the prior examination. Fusion hardware extends from approximately T3-L1 as well as L5-S1. Disc spacers placed at T10-11, T11-12, T12-L1, and and L3-4 through L5-S1. There has been posterior decompression at L4-5 and L5-S1 as well. Hyperdense material within the posterior soft tissues throughout the thoracic spine. This is nonspecific. No other postoperative imaging is available for comparison or correlation. Streak artifact from the hardware obscures osseous and soft tissue structures throughout the spine, including the spinal canal. No evidence of an acute fracture in the thoracic spine. Within limitations of CT, no evidence of hardware fracture no radiographic evidence of osteomyelitis or discitis. Linear lucency along the anterior superior corner of the L2 vertebral body consistent with an acute fracture. No evidence of involvement of the posterior elements. Facet joints are in normal alignment. No other fractures are identified. Spinal stimulator device remains in place. Pelvis: Bilateral femoroacetabular and sacroiliac osteoarthritis. No fracture. Right adnexal mass demonstrating density similar to that of water and possibly a cyst measuring approximately 29 x 20 mm. This was seen in 2019 measuring 22 x 12 mm previously. Impression: Extensive postsurgical change throughout the thoracic and lumbar spine since prior imaging. Acute appearing anterior superior corner fracture of the L2 vertebral body. No acute fracture identified in the thoracic spine or pelvis. Hyperdense material within the soft tissues along the posterior aspect of the thoracic spine. This is nonspecific. No other postoperative imaging is available for comparison or correlation at time of interpretation. Other findings are described above. Nishant Alvarado MD 11/18/202021 Thank you for allowing us to participate in the care of your patient.
== END 2020-11-18 20:57 | disposition home or self-care (01) ==
LOC: VM.ED 17:21
DX: S32.028A Other fracture of second lumbar vertebra, initial encounter for closed fracture (principal); E11.9 Type 2 diabetes mellitus without complications; E66.9 Obesity, unspecified; Z68.30 Body mass index [BMI] 30.0-30.9, adult; Z79.899 Other long term (current) drug therapy; Z79.84 Long term (current) use of oral hypoglycemic drugs; Z88.0 Allergy status to penicillin; Z88.1 Allergy status to other antibiotic agents; Z88.2 Allergy status to sulfonamides; Z91.048 Other nonmedicinal substance allergy status; Z91.09 Other allergy status, other than to drugs and biological substances; W18.39XA Other fall on same level, initial encounter
CPT/HCPCS: 36415; 72128; 72132; 72192; 73000-LT; 80053; 85025; 85652; 86140; 94760; 96374; 96375; 99284; 99284-25; J1170; J3360; Q9967

== ENCOUNTER 2020-11-28 16:06 | Emergency (ER) | payer MEDICARE, MEDICAID ==
--- NOTE | 2020-11-28 16:50 | EDM.PDOC ---
ED HPI GENERAL MEDICAL PROBLEM - General Stated Complaint: LOWER EXTREMITY PAIN Time Seen by Provider: 11/28/20 16:15 Source of Information: Reports: Patient History Limitations: Reports: No Limitations - History of Present Illness INITIAL COMMENTS - FREE TEXT/NARRATIVE: Patient presents to the ED for continuing back pain. She is on a pain contract, has had recent trauma and seen and evaluated by myself for new non operative fractures in the back. She has tried to contact her regular physician, her neurosurgeon, and her pain management physician. She states she has not heard back from anyone and has been calling them everyday. She would like an injection of pain medication to get her to [place] to possibly get an MRI. She arrives at the ED after being given a ride by her sister whom does not have a drivers license. She does not have a ride to [place]. She states that her pain is not being managed with her oral dilaudid . She has not new injury since last evaluation, no new neurological problems, no loss of control of bowel and bladder, no perineal numbness. ambulated into the department Location: Reports: Back Quality: Reports: Ache Severity: Moderate Improves with: Reports: None Worsens with: Reports: None Back Pain Score (Numeric/FACES): 10 - Related Data Allergies Allergy/AdvReac Type Severity Reaction Status Date / Time adhesive tape Allergy Rash Verified 11/28/20 17:26 cat dander Allergy Sneezing Verified 11/28/20 17:26 citalopram Allergy Nausea and Verified 11/28/20 17:26 Vomiting clindamycin Allergy Hives Verified 11/28/20 17:26 duloxetine [From Cymbalta] Allergy Cannot Verified 11/28/20 17:26 Remember Sulfa (Sulfonamide Allergy Hives Verified 11/28/20 17:26 Antibiotics) amoxicillin [From Augmentin] AdvReac Nausea and Verified 11/28/20 17:26 Vomiting aspirin AdvReac Bleeding Verified 11/28/20 17:26 celecoxib [From Celebrex] AdvReac Diarrhea Verified 11/28/20 17:26 cephalexin AdvReac Nausea and Verified 11/28/20 17:26 Vomiting clavulanic acid AdvReac Nausea and Verified 11/28/20 17:26 [From Augmentin] Vomiting topiramate [From Topamax] AdvReac Delusions Verified 11/28/20 17:26 dust mite extract Allergy Cannot Uncoded 11/28/20 17:26 Remember Home Meds: Home Meds Calcium Carbonate/Vitamin D2 [Oyster Shell Calcium-Vit D Tab] 1 tab PO BIDMEALS 09/28/13 [History] Cholecalciferol (Vitamin D3) [Vitamin D3] 10,000 unit PO DAILY 09/28/13 [History] Cyanocobalamin (Vitamin B-12) [Vitamin B-12] 100 mcg PO DAILY 09/28/13 [History] Ferrous Sulfate 325 mg PO BIDMEALS 09/28/13 [History] Magnesium Oxide 400 mg PO DAILY@1800 09/28/13 [History] Multivitamin [Multivitamins] 1 tab PO DAILY 09/28/13 [History] traZODone 150 mg PO BEDTIME 03/15/15 [History] Biotin 1 tab PO DAILY 01/24/16 [History] Omeprazole Magnesium [Prilosec Otc] 20 mg PO BIDAC 01/24/16 [History] Zonisamide 100 mg PO BID 08/29/17 [History] Venlafaxine [Effexor XR 24 Hr] 37.5 mg PO DAILY 10/01/19 [History] atorvaSTATin [Lipitor] 10 mg PO DAILY 12/26/19 [History] Gabapentin [Neurontin] 1,200 mg PO QID 90 Days #720 tablet 03/01/20 [Rx] Promethazine [Phenergan] 25 mg PO Q4H PRN 90 Days #90 tab 08/18/20 [Rx] Acetaminophen [Pain Relief Extra Strength] 1,000 mg PO Q6H PRN MDD 4000 mg in 24 hours 09/06/20 [History] Baclofen 20 mg PO TID 09/06/20 [History] Naphazoline/Pheniramine [Naphcon A Ophth Soln] 2 drop EYEBOTH DAILY PRN 09/06/20 [History] Naratriptan HCl 2.5 mg PO BID PRN MDD 5 mg in 24 hours 09/06/20 [History] Sennosides/Docusate Sodium [Sennosides-Docusate Sodium] 2 tab PO BID PRN 09/06/20 [History] traMADol [Ultram] 100 mg PO BID PRN 09/06/20 [History] Erenumab-Aooe [Aimovig Autoinjector] 70 mg SQ Q28D 09/07/20 [History] metFORMIN HCl [Metformin HCl ER] 750 mg PO BID 09/07/20 [History] Naratriptan HCl 2.5 mg PO BID PRN 25 Days #9 tab MDD 5 mg in 24 hours 09/15/20 [Rx] methocarbamoL [Methocarbamol] 750 mg PO QID PRN 30 Days #120 tablet 10/26/20 [Rx] Acyclovir 400 mg PO BID 10/27/20 [History] HYDROmorphone HCl [Dilaudid] 8 mg PO Q4HR PRN 30 Days #120 tablet 11/16/20 [Rx] Past Medical History HEENT History: Reports: Allergic Rhinitis Cardiovascular History: Reports: Hypertension Respiratory History: Reports: None Gastrointestinal History: Reports: Other (See Below) Other Gastrointestinal History: abd abscess post hernia surgery Genitourinary History: Reports: UTI, Recurrent 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 left hip pain. Recent fall 10/12/19 Neurological History: Reports: Migraines Other Neuro History: sciatica Psychiatric History: Reports: Anxiety, Depression Endocrine/Metabolic History: Reports: Diabetes, Type II, Obesity/BMI 30+ Insulin Pump Model and Felt Cementer: none Hematologic History: Reports: Anemia Immunologic History: Reports: None Oncologic (Cancer) History: Reports: None Dermatologic History: Reports: None Other Dermatologic History: intertrigo. onychodystrophy. tinea pedis - Infectious Disease History Infectious Disease History: Reports: MRSA - Past Surgical History HEENT Surgical History: Reports: None Cardiovascular Surgical History: Reports: None GI Surgical History: Reports: Bariatric Procedure, Cholecystectomy, Hernia Repair/Other Female Surgical History: Reports: Hysterectomy Endocrine Surgical History: Reports: None Neurological Surgical History: Reports: Discectomy, Laminectomy, Lumbar Spine, Spinal Fusion, Thoracic Spine Musculoskeletal Surgical History: Reports: Carpal Tunnel Other Musculoskeletal Surgeries/Procedures:: spinal cord stimulater removed 11/06/17, spinal cord stimulater implant 12/18/18. back surgery 05/17/19. Spine surgery 09/01/3020 Social & Family History - Family History Family Medical History: No Pertinent Family History Cardiac: Reports: CAD, Hypertension Respiratory: Reports: Other (See Below) : Reports: Renal Disease/Insufficiency Neurological: Reports: CVA Endocrine/Metabolic: Reports: Diabetes, type II Oncologic: Reports: Uterine - Caffeine Use Caffeine Use: Reports: Soda - Living Situation & Occupation Living situation: Reports: Single, with Family (sister) Occupation: Disabled ED ROS GENERAL - Review of Systems Review Of Systems: See Below Constitutional: Reports: No Symptoms HEENT: Reports: No Symptoms Respiratory: Reports: No Symptoms Cardiovascular: Reports: No Symptoms Endocrine: Reports: No Symptoms GI/Abdominal: Reports: No Symptoms : Reports: No Symptoms Musculoskeletal: Reports: Back Pain (like previous with radiation to both sides) Skin: Reports: No Symptoms Neurological: Reports: No Symptoms. Denies: Paresthesia Psychiatric: Reports: No Symptoms ED EXAM,LOWER BACK PAIN/INJURY - Physical Exam Exam: See Below Exam Limited By: No Limitations General Appearance: Alert, WD/WN, No Apparent Distress, Anxious Eye Exam: Bilateral Eye: EOMI, PERRL Nose: Normal Inspection, Normal Mucosa Throat/Mouth: Normal Inspection, Normal Lips Head: Atraumatic Neck: Normal Inspection, Supple Respiratory/Chest: No Respiratory Distress, Lungs Clear, Normal Breath Sounds Cardiovascular: Normal Peripheral Pulses, Regular Rate, Rhythm GI/Abdominal: Normal Bowel Sounds Back Exam: Normal Inspection, Full Range of Motion, Paraspinal Tenderness, Other (tenderness to palpation of the si joints bilaterally. normal sterngth in the lower extremities bilaterally to knee extension, knee flexion, dorsi and plantar flexion). No: CVA Tenderness (L), CVA Tenderness (R), Vertebral Tenderness Neurological: Alert Psychiatric: Anxious Course - Vital Signs Last Recorded V/S: Last Vital Signs Temp 36.8 C 11/28/20 16:16 Pulse 80 11/28/20 16:16 Resp 17 11/28/20 16:16 BP 138/94 H 11/28/20 16:16 Pulse Ox 97 11/28/20 16:16 - Re-Assessments/Exams Free Text/Narrative Re-Assessment/Exam: 11/28/20 offered pain medication IM if she could find a ride to [place] and would give it when the ride appeared, thirty minutes later she ambulated out of the room and informed me that she did not have a ride and would continue to work on this. No medication given. Has pain medication at home. understands red flag concerns for her back pain. None present today. Departure - Departure Time of Disposition: 16:49 Disposition: Home, Self-Care 01 Condition: Fair Clinical Impression: Radiculitis with lower extremity symptoms, Back pain - Discharge Information *PRESCRIPTION DRUG MONITORING PROGRAM REVIEWED*: Not Applicable *COPY OF PRESCRIPTION DRUG MONITORING REPORT IN PATIENT ELIZA: Not Applicable Referrals: Faby Araya MD [Primary Care Provider] - Forms: ED Department Discharge Additional Instructions: Call your physician for referral and cares Sepsis Event Note (ED) - Focused Exam Vital Signs: Vital Signs Temp Pulse Resp BP Pulse Ox 11/28/20 16:16 36.8 C 80 17 138/94 H 97
[2020-11-28 17:35] VITALS: BP 138/94; PULSE 80
== END 2020-11-28 16:51 | disposition home or self-care (01) ==
LOC: VM.ED 16:06
DX: M54.16 Radiculopathy, lumbar region (principal); I10 Essential (primary) hypertension; E11.9 Type 2 diabetes mellitus without complications; E66.9 Obesity, unspecified; Z68.30 Body mass index [BMI] 30.0-30.9, adult; Z79.84 Long term (current) use of oral hypoglycemic drugs; Z79.899 Other long term (current) drug therapy; Z88.0 Allergy status to penicillin; Z88.1 Allergy status to other antibiotic agents; Z88.8 Allergy status to other drugs, medicaments and biological substances; Z91.09 Other allergy status, other than to drugs and biological substances; Z91.048 Other nonmedicinal substance allergy status
CPT/HCPCS: 99283; 99284

== ENCOUNTER 2021-01-04 14:08 | Emergency (ER) | payer MEDICARE, MEDICAID ==
[2021-01-04 14:45] VITALS: BP 118/61; PULSE 109
[2021-01-04] MEDS ORDERED: HYDROmorphone 1 MG/ML Syringe IM ONE (14:55)
--- NOTE | 2021-01-04 15:18 | EDM.PDOC ---
ED HPI GENERAL MEDICAL PROBLEM - General Chief Complaint: General Stated Complaint: PAIN WHERE DRAIN TUBE IS Time Seen by Provider: 01/04/21 15:00 Source of Information: Reports: Patient History Limitations: Reports: No Limitations - History of Present Illness INITIAL COMMENTS - FREE TEXT/NARRATIVE: Patient has a complicated health history with a back surgery complicated by ins x multiple due to recurring seroma. She is on pain management. Taking her gabapentin, hydromorphone and tramadol. She last had a ketamine infusion on 12/15. [place] with decompression of a large pocket of fluid near the left scapula. They were tired at the end of the day and drove just [place] outside of the cities. They finished driving home today but patient had to drive some and this aggravated the left scapular area where the drain is. Patient has been home an hour, pain is unbearable and her oral pain medications are not helping.SHe called the surgeons officve [place] she heard a "scraping" sound and was worried the drain was not working. She dumped 50 cc of blood tinged serous fluid out of it this morning and about 10 cc are present now. The surgeon office told her if she was concerned that a CT could tell her if the drain was in place. Per the friend, patient had a close to football sized swelling in the area previously. no fevers. tearful with pain and concern Onset: Today Location: Reports: Back Associated Symptoms: Reports: No Other Symptoms Left Shoulder Pain Score (Numeric/FACES): 10 - Related Data Allergies Allergy/AdvReac Type Severity Reaction Status Date / Time adhesive tape Allergy Rash Verified 01/04/21 14:48 cat dander Allergy Sneezing Verified 01/04/21 14:48 citalopram Allergy Nausea and Verified 01/04/21 14:48 Vomiting clindamycin Allergy Hives Verified 01/04/21 14:48 duloxetine [From Cymbalta] Allergy Cannot Verified 01/04/21 14:48 Remember Sulfa (Sulfonamide Allergy Hives Verified 01/04/21 14:48 Antibiotics) amoxicillin [From Augmentin] AdvReac Nausea and Verified 01/04/21 14:48 Vomiting aspirin AdvReac Bleeding Verified 01/04/21 14:48 celecoxib [From Celebrex] AdvReac Diarrhea Verified 01/04/21 14:48 cephalexin AdvReac Nausea and Verified 01/04/21 14:48 Vomiting clavulanic acid AdvReac Nausea and Verified 01/04/21 14:48 [From Augmentin] Vomiting topiramate [From Topamax] AdvReac Delusions Verified 01/04/21 14:48 dust mite extract Allergy Cannot Uncoded 01/04/21 14:48 Remember Home Meds: Home Meds Calcium Carbonate/Vitamin D2 [Oyster Shell Calcium-Vit D Tab] 1 tab PO BIDMEALS 09/28/13 [History] Cholecalciferol (Vitamin D3) [Vitamin D3] 10,000 unit PO DAILY 09/28/13 [History] Cyanocobalamin (Vitamin B-12) [Vitamin B-12] 100 mcg PO DAILY 09/28/13 [History] Ferrous Sulfate 325 mg PO BIDMEALS 09/28/13 [History] Magnesium Oxide 400 mg PO DAILY@1800 09/28/13 [History] Multivitamin [Multivitamins] 1 tab PO DAILY 09/28/13 [History] traZODone 150 mg PO BEDTIME 03/15/15 [History] Biotin 1 tab PO DAILY 01/24/16 [History] Omeprazole Magnesium [Prilosec Otc] 20 mg PO BIDAC 01/24/16 [History] Zonisamide 100 mg PO BID 08/29/17 [History] Venlafaxine [Effexor XR 24 Hr] 37.5 mg PO DAILY 10/01/19 [History] atorvaSTATin [Lipitor] 10 mg PO DAILY 12/26/19 [History] Gabapentin [Neurontin] 1,200 mg PO QID 90 Days #720 tablet 03/01/20 [Rx] Promethazine [Phenergan] 25 mg PO Q4H PRN 90 Days #90 tab 08/18/20 [Rx] Acetaminophen [Pain Relief Extra Strength] 1,000 mg PO Q6H PRN MDD 4000 mg in 24 hours 09/06/20 [History] Baclofen 20 mg PO TID 09/06/20 [History] Naphazoline/Pheniramine [Naphcon A Ophth Soln] 2 drop EYEBOTH DAILY PRN 09/06/20 [History] Naratriptan HCl 2.5 mg PO BID PRN MDD 5 mg in 24 hours 09/06/20 [History] Sennosides/Docusate Sodium [Sennosides-Docusate Sodium] 2 tab PO BID PRN 09/06/20 [History] Erenumab-Aooe [Aimovig Autoinjector] 70 mg SQ Q28D 09/07/20 [History] metFORMIN HCl [Metformin HCl ER] 750 mg PO BID 09/07/20 [History] Naratriptan HCl 2.5 mg PO BID PRN 25 Days #9 tab MDD 5 mg in 24 hours 09/15/20 [Rx] methocarbamoL [Methocarbamol] 750 mg PO QID PRN 30 Days #120 tablet 10/26/20 [Rx] Acyclovir 400 mg PO BID 10/27/20 [History] HYDROmorphone HCl [Dilaudid] 8 mg PO Q4HR PRN 30 Days #120 tablet 12/15/20 [Rx] traMADol [Ultram] 100 mg PO BID PRN 30 Days #120 tab 12/15/20 [Rx] Past Medical History HEENT History: Reports: Allergic Rhinitis Cardiovascular History: Reports: Hypertension Respiratory History: Reports: None Gastrointestinal History: Reports: Other (See Below) Other Gastrointestinal History: abd abscess post hernia surgery Genitourinary History: Reports: UTI, Recurrent ADVERTISING AGENT History: Reports: Other (See Below) Other ADVERTISING AGENT History: metorrhagia Musculoskeletal History: Reports: Back Pain, Chronic Other Musculoskeletal History: tenosynovitis. left hip pain. Recent fall 10/12/19 Neurological History: Reports: Migraines Other Neuro History: sciatica Psychiatric History: Reports: Anxiety, Depression Endocrine/Metabolic History: Reports: Diabetes, Type II, Obesity/BMI 30+ Insulin Pump Model and Registered Safety Engineer: none Hematologic History: Reports: Anemia Immunologic History: Reports: None Oncologic (Cancer) History: Reports: None Dermatologic History: Reports: None Other Dermatologic History: intertrigo. onychodystrophy. tinea pedis - Infectious Disease History Infectious Disease History: Reports: MRSA - Past Surgical History GI Surgical History: Reports: Bariatric Procedure, Cholecystectomy, Hernia Repair/Other Female Surgical History: Reports: Hysterectomy Endocrine Surgical History: Reports: None Neurological Surgical History: Reports: Discectomy, Laminectomy, Lumbar Spine, Spinal Fusion, Thoracic Spine Musculoskeletal Surgical History: Reports: Carpal Tunnel Other Musculoskeletal Surgeries/Procedures:: spinal cord stimulater removed 11/06/17, spinal cord stimulater implant 12/18/18. back surgery 05/17/19. Spine surgery 09/01/3020. drain placed for chronic seroma 01/03/21 Social & Family History - Family History Family Medical History: No Pertinent Family History Cardiac: Reports: CAD, Hypertension Respiratory: Reports: Other (See Below) : Reports: Renal Disease/Insufficiency Neurological: Reports: CVA Endocrine/Metabolic: Reports: Diabetes, type II Oncologic: Reports: Uterine - Tobacco Use Tobacco Use Status *Q: Unknown Ever Used Tobacco - Caffeine Use Caffeine Use: Reports: Soda - Living Situation & Occupation Living situation: Reports: Single, with Family (sister) Occupation: Disabled ED ROS GENERAL - Review of Systems Review Of Systems: See Below Constitutional: Reports: No Symptoms. Denies: Fever, Chills HEENT: Reports: No Symptoms. Denies: Rhinitis, Sinus Problem, Throat Pain, Throat Swelling Respiratory: Reports: No Symptoms. Denies: Shortness of Breath, Cough Cardiovascular: Reports: No Symptoms. Denies: Chest Pain, Blood Pressure Problem Endocrine: Reports: No Symptoms GI/Abdominal: Reports: No Symptoms. Denies: Abdominal Pain, Anorexia, Nausea, Vomiting Musculoskeletal: Reports: Back Pain (left upper back where drain is in place) Neurological: Reports: No Symptoms Psychiatric: Reports: No Symptoms ED EXAM, GENERAL - Physical Exam Exam: See Below Exam Limited By: No Limitations General Appearance: Alert, Anxious, Mild Distress, Other (crying) Eye Exam: Bilateral Eye: EOMI, PERRL Ears: Normal External Exam Nose: Normal Inspection Throat/Mouth: Normal Inspection, Normal Lips, Normal Voice Head: Atraumatic Neck: Normal Inspection Respiratory/Chest: No Respiratory Distress, Lungs Clear, No Accessory Muscle Use Cardiovascular: No Murmur, Tachycardia (but crying) Back Exam: Other (drain in place in the left scapular area. Good suction on the bulb with about 10 cc of blood tinged serous fluid. Pocket is flat, iminimal tenderness) Neurological: Alert, Oriented, CN II-XII Intact, Normal Cognition, No Motor/Sensory Deficits Course - Vital Signs Last Recorded V/S: Last Vital Signs Temp 37.1 C 01/04/21 14:20 Pulse 109 H 01/04/21 14:20 Resp 20 01/04/21 14:20 BP 118/61 01/04/21 14:20 Pulse Ox 96 01/04/21 14:20 - Orders/Labs/Meds Meds: Medications Discontinued Medications Generic Name Dose Route Start Last Admin Trade Name Shirley PRN Reason Stop Dose Admin Hydromorphone HCl 2 mg 01/04/21 14:55 Hydromorphone 1 Mg/Ml Syringe IM 01/04/21 14:56 ONETIME ONE - Re-Assessments/Exams Free Text/Narrative Re-Assessment/Exam: 01/04/21 15:22 Discussed with patient that the drain is functioning as it should. Pocket is flat, bulb is collapsed with suction. drainage looks good. Discussed that with the size of the pocket, there is probable movement of the drain in there and this is what she is feeling. Offered to do the CT as suggested over the phone by her PCP, declined. Discussed that she is probably feel movement and it will cause some discomfort, but Im injections of pain medication are not the answer on a routine basis. Asks for pain injection today and will start to learn how to manage it and follow up with PCP and pain management Departure - Departure Time of Disposition: 15:09 Disposition: Home, Self-Care 01 Clinical Impression: Back pain - Discharge Information *PRESCRIPTION DRUG MONITORING PROGRAM REVIEWED*: Yes *COPY OF PRESCRIPTION DRUG MONITORING REPORT IN PATIENT ELIZA: Not Applicable Referrals: Faby Araya MD [Primary Care Provider] - Additional Instructions: Drain is in place, pocket is flat, bulb is maintaining suction. You were given an injection of dilaudid in the ED, continue planned follow up but plan on the drain moving some in the pocket and causing some discomfort. Continue current pain management plan. minimize use of the left arm for a few days and this may help with the discomfort. vital signs were stable Sepsis Event Note (ED) - Focused Exam Vital Signs: Vital Signs Temp Pulse Resp BP Pulse Ox 01/04/21 14:20 37.1 C 109 H 20 118/61 96
== END 2021-01-04 15:26 | disposition home or self-care (01) ==
LOC: VM.ED 14:08
DX: M54.9 Dorsalgia, unspecified (principal); M25.512 Pain in left shoulder; I10 Essential (primary) hypertension; E11.9 Type 2 diabetes mellitus without complications; E66.9 Obesity, unspecified; Z91.048 Other nonmedicinal substance allergy status; Z88.8 Allergy status to other drugs, medicaments and biological substances; Z88.1 Allergy status to other antibiotic agents; Z88.2 Allergy status to sulfonamides; Z88.0 Allergy status to penicillin; Z88.6 Allergy status to analgesic agent; Z79.899 Other long term (current) drug therapy; Z79.84 Long term (current) use of oral hypoglycemic drugs
CPT/HCPCS: 96372; 99283; 99284; J1170

== ENCOUNTER 2021-01-12 18:51 | Emergency (ER) | payer MEDICARE, MEDICAID ==
[2021-01-12] MEDS ORDERED: methylPREDNISolone Sodium Succinate 125 MG/2 ML SDV IM ONE (19:43)
--- NOTE | 2021-01-12 19:50 | EDM.PDOC ---
ED HPI GENERAL MEDICAL PROBLEM - General Chief Complaint: Skin Complaint Stated Complaint: RASH Time Seen by Provider: 01/12/21 19:30 Source of Information: Reports: Patient History Limitations: Reports: No Limitations - History of Present Illness INITIAL COMMENTS - FREE TEXT/NARRATIVE: Jewell is a 40 year old female who presents to ER with a rash. States noted rash starting last night. Has been very pruritic. Unsure of any new foods, lotions, soaps or products. Denies any difficulty swallowing. Does feel mild chest heaviness. No shortness of breath. Did take Benadryl today but has not helped with the itch. Has been using hydrocortisone cream to help control that. Onset: Gradual Duration: Hour(s):, Constant Location: Reports: Generalized Quality: Reports: Other (itching) Severity: Mild Associated Symptoms: Denies: Confusion, Cough, Fever/Chills, Loss of Appetite, Nausea/Vomiting, Shortness of Breath Treatments STEWARD/STEWARDESS WINE: Reports: Other Medication(s) (benadryl, hydrocortisone cream) - Related Data Allergies Allergy/AdvReac Type Severity Reaction Status Date / Time adhesive tape Allergy Rash Verified 01/07/21 10:24 cat dander Allergy Sneezing Verified 01/07/21 10:24 citalopram Allergy Nausea and Verified 01/07/21 10:24 Vomiting clindamycin Allergy Hives Verified 01/07/21 10:24 duloxetine [From Cymbalta] Allergy Cannot Verified 01/07/21 10:24 Remember Sulfa (Sulfonamide Allergy Hives Verified 01/07/21 10:24 Antibiotics) amoxicillin [From Augmentin] AdvReac Nausea and Verified 01/07/21 10:24 Vomiting aspirin AdvReac Bleeding Verified 01/07/21 10:24 celecoxib [From Celebrex] AdvReac Diarrhea Verified 01/04/21 14:48 cephalexin AdvReac Nausea and Verified 01/07/21 10:24 Vomiting clavulanic acid AdvReac Nausea and Verified 01/04/21 14:48 [From Augmentin] Vomiting topiramate [From Topamax] AdvReac Delusions Verified 01/04/21 14:48 dust mite extract Allergy Cannot Uncoded 01/04/21 14:48 Remember Home Meds: Home Meds Calcium Carbonate/Vitamin D2 [Oyster Shell Calcium-Vit D Tab] 1 tab PO BIDMEALS 09/28/13 [History] Cholecalciferol (Vitamin D3) [Vitamin D3] 10,000 unit PO DAILY 09/28/13 [History] Cyanocobalamin (Vitamin B-12) [Vitamin B-12] 100 mcg PO DAILY 09/28/13 [History] Ferrous Sulfate 325 mg PO BIDMEALS 09/28/13 [History] Magnesium Oxide 400 mg PO DAILY@1800 09/28/13 [History] Multivitamin [Multivitamins] 1 tab PO DAILY 09/28/13 [History] traZODone 150 mg PO BEDTIME 03/15/15 [History] Biotin 1 tab PO DAILY 01/24/16 [History] Omeprazole Magnesium [Prilosec Otc] 20 mg PO BIDAC 01/24/16 [History] Zonisamide 100 mg PO BID 08/29/17 [History] Venlafaxine [Effexor XR 24 Hr] 37.5 mg PO DAILY 10/01/19 [History] atorvaSTATin [Lipitor] 10 mg PO DAILY 12/26/19 [History] Gabapentin [Neurontin] 1,200 mg PO QID 90 Days #720 tablet 03/01/20 [Rx] Promethazine [Phenergan] 25 mg PO Q4H PRN 90 Days #90 tab 08/18/20 [Rx] Acetaminophen [Pain Relief Extra Strength] 1,000 mg PO Q6H PRN MDD 4000 mg in 24 hours 09/06/20 [History] Baclofen 20 mg PO TID 09/06/20 [History] Naphazoline/Pheniramine [Naphcon A Ophth Soln] 2 drop EYEBOTH DAILY PRN 09/06/20 [History] Naratriptan HCl 2.5 mg PO BID PRN MDD 5 mg in 24 hours 09/06/20 [History] Sennosides/Docusate Sodium [Sennosides-Docusate Sodium] 2 tab PO BID PRN 09/06/20 [History] Erenumab-Aooe [Aimovig Autoinjector] 70 mg SQ Q28D 09/07/20 [History] metFORMIN HCl [Metformin HCl ER] 750 mg PO BID 09/07/20 [History] Naratriptan HCl 2.5 mg PO BID PRN 25 Days #9 tab MDD 5 mg in 24 hours 09/15/20 [Rx] methocarbamoL [Methocarbamol] 750 mg PO QID PRN 30 Days #120 tablet 10/26/20 [Rx] Acyclovir 400 mg PO BID 10/27/20 [History] traMADol [Ultram] 100 mg PO BID PRN 30 Days #120 tab 12/15/20 [Rx] HYDROmorphone HCl [Dilaudid] 8 mg PO Q4HR PRN 20 Days #80 tablet 01/07/21 [Rx] HYDROmorphone HCl [Dilaudid] 8 mg PO Q4HR PRN 6 Days #36 tablet 01/07/21 [Rx] Past Medical History HEENT History: Reports: Allergic Rhinitis Cardiovascular History: Reports: Hypertension Respiratory History: Reports: None Gastrointestinal History: Reports: Other (See Below) Other Gastrointestinal History: abd abscess post hernia surgery Genitourinary History: Reports: UTI, Recurrent REHAB AIDE History: Reports: Other (See Below) Other REHAB AIDE History: metorrhagia Musculoskeletal History: Reports: Back Pain, Chronic Other Musculoskeletal History: tenosynovitis. left hip pain. Recent fall 10/12/19 Neurological History: Reports: Migraines Other Neuro History: sciatica Psychiatric History: Reports: Anxiety, Depression Endocrine/Metabolic History: Reports: Diabetes, Type II, Obesity/BMI 30+ Insulin Pump Model and Larry Car Operator: none Hematologic History: Reports: Anemia Immunologic History: Reports: None Oncologic (Cancer) History: Reports: None Dermatologic History: Reports: None Other Dermatologic History: intertrigo. onychodystrophy. tinea pedis - Infectious Disease History Infectious Disease History: Reports: MRSA - Past Surgical History HEENT Surgical History: Reports: None Cardiovascular Surgical History: Reports: None GI Surgical History: Reports: Bariatric Procedure, Cholecystectomy, Hernia Repair/Other Female Surgical History: Reports: Hysterectomy Endocrine Surgical History: Reports: None Neurological Surgical History: Reports: Discectomy, Laminectomy, Lumbar Spine, Spinal Fusion, Thoracic Spine Musculoskeletal Surgical History: Reports: Carpal Tunnel Other Musculoskeletal Surgeries/Procedures:: spinal cord stimulater removed 11/06/17, spinal cord stimulater implant 12/18/18. back surgery 05/17/19. Spine surgery 09/01/3020. drain placed for chronic seroma 01/03/21 Social & Family History - Family History Family Medical History: No Pertinent Family History Cardiac: Reports: CAD, Hypertension Respiratory: Reports: Other (See Below) : Reports: Renal Disease/Insufficiency Neurological: Reports: CVA Endocrine/Metabolic: Reports: Diabetes, type II Oncologic: Reports: Uterine - Tobacco Use Tobacco Use Status *Q: Never Tobacco User - Caffeine Use Caffeine Use: Reports: Soda - Living Situation & Occupation Living situation: Reports: Single, with Family (sister) Occupation: Disabled ED ROS GENERAL - Review of Systems Review Of Systems: See Below Constitutional: Denies: Fever, Chills, Malaise, Weakness, Fatigue, Decreased Appetite HEENT: Denies: Ear Pain, Sinus Problem, Throat Pain, Throat Swelling, Vertigo Respiratory: Reports: Other (chest heaviness). Denies: Shortness of Breath, Cough Cardiovascular: Denies: Chest Pain Endocrine: Denies: Fatigue GI/Abdominal: Denies: Nausea, Vomiting Skin: Reports: Rash Neurological: Reports: No Symptoms ED EXAM, SKIN/RASH Exam: See Below Exam Limited By: No Limitations General Appearance: Alert, WD/WN, No Apparent Distress Ears: Normal External Exam, Normal TMs Nose: Normal Inspection, Normal Mucosa, No Blood Throat/Mouth: Normal Inspection, Normal Oropharynx Head: Normocephalic Neck: Normal Inspection, Supple, Non-Tender Respiratory/Chest: No Respiratory Distress, Lungs Clear, Normal Breath Sounds Cardiovascular: Regular Rate, Rhythm Skin: Warm, Dry, Rash (has scattered hives on abdomen/back and legs. ) Location, Skin: Generalized Characteristics: Urticarial Course - Orders/Labs/Meds Meds: Medications Discontinued Medications Generic Name Dose Route Start Last Admin Trade Name Freq PRN Reason Stop Dose Admin Methylprednisolone Sodium Succinate 125 mg 01/12/21 19:43 Methylprednisolone Sodium Succinate 125 Mg/2 Ml Sdv IM 01/12/21 19:44 ONETIME ONE Departure - Departure Time of Disposition: 19:52 Disposition: Home, Self-Care 01 Condition: Good Clinical Impression: Urticaria - Discharge Information *PRESCRIPTION DRUG MONITORING PROGRAM REVIEWED*: No *COPY OF PRESCRIPTION DRUG MONITORING REPORT IN PATIENT ELIZA: No Instructions: Hives Referrals: Faby Araya MD [Primary Care Provider] - Additional Instructions: 1. Benadryl 50 mg every 6 hours through tomorrow 2. May use hydrocortisone cream as needed 3. Start prednisone 20 mg~ 2 tabs daily for 3 days 4. Monitor blood sugars, if become major concern, contact your primary care provider 5. Call with any questions or concerns.
[2021-01-12 20:12] VITALS: BP 143/95; PULSE 104
== END 2021-01-12 20:05 | disposition home or self-care (01) ==
LOC: VM.ED 18:51
DX: L50.9 Urticaria, unspecified (principal); I10 Essential (primary) hypertension; E11.9 Type 2 diabetes mellitus without complications; E66.9 Obesity, unspecified; Z68.41 Body mass index [BMI] 40.0-44.9, adult; Z79.84 Long term (current) use of oral hypoglycemic drugs; Z91.09 Other allergy status, other than to drugs and biological substances; Z91.048 Other nonmedicinal substance allergy status; Z88.8 Allergy status to other drugs, medicaments and biological substances; Z88.2 Allergy status to sulfonamides; Z88.1 Allergy status to other antibiotic agents; Z88.0 Allergy status to penicillin
CPT/HCPCS: 96372; 99282; 99283; J2930

== ENCOUNTER 2021-01-16 18:07 | Emergency (ER) | payer MEDICARE, MEDICAID ==
[2021-01-16 18:33] VITALS: BP 107/49; PULSE 83
--- NOTE | 2021-01-16 18:40 | EDM.PDOC ---
ED HPI GENERAL MEDICAL PROBLEM - General Chief Complaint: Back Pain or Injury Stated Complaint: BACK PAIN Time Seen by Provider: 01/16/21 18:15 Source of Information: Reports: Patient, Family History Limitations: Reports: No Limitations - History of Present Illness INITIAL COMMENTS - FREE TEXT/NARRATIVE: Patient presents here today with ongoing chronic back pain for the last 3 days that she rates at 30 out of 10. She states she lives in chronic back pain and has for years she currently sees Nilesh for pain management. But states she has had to spread her Dilaudid out over the last several days secondary to not getting enough at the pharmacy. She did take 4 mg at noon today and it did not help she normally takes 8 mg every 4-6 hours as needed. She also takes her muscle relaxers baclofen mostly. But states it is just not working for the last couple of days. She denies any new injuries or trauma no new description of pain. She states her normal manageable pain is a 7 or 8 on a daily basis. She also is currently being treated for a seroma over the last 3 to 4 months but that is not related to the back pain. She denies any increased numbness and tingling or loss of sensation in the lower extremities. She does states that this back pain hurts. She has no other complaints at this time she denies any loss of bowel or bladder or incontinence has been eating and drinking normally as well. Duration: Day(s): Location: Reports: Back Quality: Reports: Ache, Burning, Dull, Pressure, Same as Previous Episode, Stabbing, Throbbing Improves with: Reports: None, Medication Worsens with: Reports: None Associated Symptoms: Reports: No Other Symptoms. Denies: Nausea/Vomiting, Shortness of Breath Lower Back Pain Score (Numeric/FACES): 10 - Related Data Allergies Allergy/AdvReac Type Severity Reaction Status Date / Time adhesive tape Allergy Rash Verified 01/07/21 10:24 cat dander Allergy Sneezing Verified 01/07/21 10:24 citalopram Allergy Nausea and Verified 01/07/21 10:24 Vomiting clindamycin Allergy Hives Verified 01/07/21 10:24 duloxetine [From Cymbalta] Allergy Cannot Verified 01/07/21 10:24 Remember Sulfa (Sulfonamide Allergy Hives Verified 01/07/21 10:24 Antibiotics) amoxicillin [From Augmentin] AdvReac Nausea and Verified 01/07/21 10:24 Vomiting aspirin AdvReac Bleeding Verified 01/07/21 10:24 celecoxib [From Celebrex] AdvReac Diarrhea Verified 01/04/21 14:48 cephalexin AdvReac Nausea and Verified 01/07/21 10:24 Vomiting clavulanic acid AdvReac Nausea and Verified 01/04/21 14:48 [From Augmentin] Vomiting topiramate [From Topamax] AdvReac Delusions Verified 01/04/21 14:48 dust mite extract Allergy Cannot Uncoded 01/04/21 14:48 Remember Home Meds: Home Meds Calcium Carbonate/Vitamin D2 [Oyster Shell Calcium-Vit D Tab] 1 tab PO BIDMEALS 09/28/13 [History] Cholecalciferol (Vitamin D3) [Vitamin D3] 10,000 unit PO DAILY 09/28/13 [History] Cyanocobalamin (Vitamin B-12) [Vitamin B-12] 100 mcg PO DAILY 09/28/13 [History] Ferrous Sulfate 325 mg PO BIDMEALS 09/28/13 [History] Magnesium Oxide 400 mg PO DAILY@1800 09/28/13 [History] Multivitamin [Multivitamins] 1 tab PO DAILY 09/28/13 [History] traZODone 150 mg PO BEDTIME 03/15/15 [History] Biotin 1 tab PO DAILY 01/24/16 [History] Omeprazole Magnesium [Prilosec Otc] 20 mg PO BIDAC 01/24/16 [History] Zonisamide 100 mg PO BID 08/29/17 [History] Venlafaxine [Effexor XR 24 Hr] 37.5 mg PO DAILY 10/01/19 [History] atorvaSTATin [Lipitor] 10 mg PO DAILY 12/26/19 [History] Gabapentin [Neurontin] 1,200 mg PO QID 90 Days #720 tablet 03/01/20 [Rx] Promethazine [Phenergan] 25 mg PO Q4H PRN 90 Days #90 tab 08/18/20 [Rx] Acetaminophen [Pain Relief Extra Strength] 1,000 mg PO Q6H PRN MDD 4000 mg in 24 hours 09/06/20 [History] Baclofen 20 mg PO TID 09/06/20 [History] Naphazoline/Pheniramine [Naphcon A Ophth Soln] 2 drop EYEBOTH DAILY PRN 09/06/20 [History] Naratriptan HCl 2.5 mg PO BID PRN MDD 5 mg in 24 hours 09/06/20 [History] Sennosides/Docusate Sodium [Sennosides-Docusate Sodium] 2 tab PO BID PRN 09/06/20 [History] Erenumab-Aooe [Aimovig Autoinjector] 70 mg SQ Q28D 09/07/20 [History] metFORMIN HCl [Metformin HCl ER] 750 mg PO BID 09/07/20 [History] Naratriptan HCl 2.5 mg PO BID PRN 25 Days #9 tab MDD 5 mg in 24 hours 09/15/20 [Rx] methocarbamoL [Methocarbamol] 750 mg PO QID PRN 30 Days #120 tablet 10/26/20 [Rx] Acyclovir 400 mg PO BID 10/27/20 [History] traMADol [Ultram] 100 mg PO BID PRN 30 Days #120 tab 12/15/20 [Rx] HYDROmorphone HCl [Dilaudid] 8 mg PO Q4HR PRN 20 Days #80 tablet 01/07/21 [Rx] HYDROmorphone HCl [Dilaudid] 8 mg PO Q4HR PRN 6 Days #36 tablet 01/07/21 [Rx] Past Medical History HEENT History: Reports: Allergic Rhinitis Cardiovascular History: Reports: Hypertension Respiratory History: Reports: None Gastrointestinal History: Reports: Other (See Below) Other Gastrointestinal History: abd abscess post hernia surgery Genitourinary History: Reports: UTI, Recurrent 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 left hip pain. Recent fall 10/12/19 Neurological History: Reports: Migraines Other Neuro History: sciatica Psychiatric History: Reports: Anxiety, Depression Endocrine/Metabolic History: Reports: Diabetes, Type II, Obesity/BMI 30+ Insulin Pump Model and Collection Development Librarian: none Hematologic History: Reports: Anemia Immunologic History: Reports: None Oncologic (Cancer) History: Reports: None Dermatologic History: Reports: None Other Dermatologic History: intertrigo. onychodystrophy. tinea pedis - Infectious Disease History Infectious Disease History: Reports: MRSA - Past Surgical History HEENT Surgical History: Reports: None Cardiovascular Surgical History: Reports: None GI Surgical History: Reports: Bariatric Procedure, Cholecystectomy, Hernia Repair/Other Female Surgical History: Reports: Hysterectomy Endocrine Surgical History: Reports: None Neurological Surgical History: Reports: Discectomy, Laminectomy, Lumbar Spine, Spinal Fusion, Thoracic Spine Musculoskeletal Surgical History: Reports: Carpal Tunnel Other Musculoskeletal Surgeries/Procedures:: spinal cord stimulater removed 11/06/17, spinal cord stimulater implant 12/18/18. back surgery 05/17/19. Spine surgery 09/01/3020. drain placed for chronic seroma 01/03/21 Social & Family History - Family History Family Medical History: No Pertinent Family History Cardiac: Reports: CAD, Hypertension Respiratory: Reports: Other (See Below) : Reports: Renal Disease/Insufficiency Neurological: Reports: CVA Endocrine/Metabolic: Reports: Diabetes, type II Oncologic: Reports: Uterine - Caffeine Use Caffeine Use: Reports: Soda - Living Situation & Occupation Living situation: Reports: Single, with Family (sister) Occupation: Disabled ED ROS GENERAL - Review of Systems Review Of Systems: See Below Constitutional: Reports: No Symptoms. Denies: Fever, Chills, Malaise, Weakness HEENT: Reports: No Symptoms Respiratory: Reports: No Symptoms Cardiovascular: Reports: No Symptoms Endocrine: Reports: No Symptoms GI/Abdominal: Reports: No Symptoms : Denies: Discharge, Dysuria, Flank Pain, Frequency, Hematuria, Incontinence, Pain, Urgency, Urinary Retention Musculoskeletal: Reports: Back Pain, Muscle Pain. Denies: Neck Pain, Leg Pain, Muscle Stiffness Skin: Reports: No Symptoms Neurological: Reports: No Symptoms Psychiatric: Reports: No Symptoms Hematologic/Lymphatic: Reports: No Symptoms Immunologic: Reports: No Symptoms ED EXAM,LOWER BACK PAIN/INJURY - Physical Exam Exam: See Below Exam Limited By: No Limitations General Appearance: Alert, WD/WN, No Apparent Distress, Other (pt with normal gait no noted discomfort but upon entering room pt noted crying ) Throat/Mouth: Normal Inspection, Normal Lips, Normal Teeth, Normal Gums, Normal Oropharynx, Normal Voice, No Airway Compromise Head: Atraumatic, Normocephalic Neck: Normal Inspection, Supple, Non-Tender, Full Range of Motion Respiratory/Chest: No Respiratory Distress GI/Abdominal: Soft, Non-Tender, No Distention Back Exam: Normal Inspection, Full Range of Motion, Other (neg CVA TTP BLAT no noted erythema or calor positive midline tenderness palpation from the upper thoracic down through the lumbar there is no sign secondary infection around the seroma the drain is intact patient has normal dorsiflexion plantar flexion neurovascular intact equal soft touch sensation) Extremities: Normal Inspection, Normal Range of Motion, Non-Tender, No Pedal Edema Neurological: Alert, Normal Mood/Affect, Normal Dorsiflexion, CN II-XII Intact, Normal Plantar Flexion, Normal Gait, Normal Reflexes, No Motor/Sensory Deficits, Oriented x 3 Psychiatric: Normal Affect, Normal Mood Skin Exam: Warm, Dry, Intact, Normal Color, No Rash Course - Vital Signs Text/Narrative:: Reviewed the CT of thoracic spine and lumbar spine from 07 January only thoracic no acute findings noted on the lumbar interval compression of the anterior superior corner L2 fracture no other changes since October of this year Spoke with Nilesh in regards to pain management he is okay with treating patient with milligram of Dilaudid discharge home have her follow-up in clinic or with the neurosurgeon she sees in [facility] Discussed the findings with the patient from the CT scans Last Recorded V/S: Last Vital Signs Temp 37.1 C 01/16/21 18:20 Pulse 83 01/16/21 18:20 Resp 18 01/16/21 18:20 BP 107/49 L 01/16/21 18:20 Pulse Ox 98 01/16/21 18:20 Departure - Departure Time of Disposition: 19:00 Disposition: Home, Self-Care 01 Condition: Good Clinical Impression: Back pain - Discharge Information Referrals: Faby Araya MD [Primary Care Provider] - Sepsis Event Note (ED) - Focused Exam Vital Signs: Vital Signs Temp Pulse Resp BP Pulse Ox 01/16/21 18:20 37.1 C 83 18 107/49 L 98 - Problem List & Annotations (1) Back pain SNOMED Code(s): 332128511 Code(s): M54.9 - DORSALGIA, UNSPECIFIED Status: Chronic Priority: Medium Current Visit: Yes Annotation/Comment:: - Problem List Review Problem List Initiated/Reviewed/Updated: No
[2021-01-16] MEDS ORDERED: HYDROmorphone 1 MG/ML Syringe SUBCUT ONE (19:09)
== END 2021-01-16 20:40 | disposition home or self-care (01) ==
LOC: VM.ED 18:07
DX: M54.5 Low back pain (principal); M54.6 Pain in thoracic spine; E11.9 Type 2 diabetes mellitus without complications; I10 Essential (primary) hypertension; E66.9 Obesity, unspecified; Z68.30 Body mass index [BMI] 30.0-30.9, adult; Z79.84 Long term (current) use of oral hypoglycemic drugs; Z88.0 Allergy status to penicillin; Z88.1 Allergy status to other antibiotic agents; Z91.048 Other nonmedicinal substance allergy status; Z88.2 Allergy status to sulfonamides; Z91.09 Other allergy status, other than to drugs and biological substances; Z88.8 Allergy status to other drugs, medicaments and biological substances; Z79.899 Other long term (current) drug therapy
CPT/HCPCS: 96372; 99283; 99283-25; J1170

== ENCOUNTER 2021-01-31 22:44 | Emergency (ER) | payer MEDICARE, MEDICAID ==
--- NOTE | 2021-02-01 00:36 | EDM.PDOC ---
ED HPI GENERAL MEDICAL PROBLEM - General Chief Complaint: General Stated Complaint: TUBE IN BACK CAME OUT Time Seen by Provider: 01/31/21 22:44 Source of Information: Reports: Patient History Limitations: Reports: No Limitations - History of Present Illness INITIAL COMMENTS - FREE TEXT/NARRATIVE: Pt. presents to ER with complaints that her drain placed for a seroma in her back got pulled almost all the way out. They have been attempting to fully remove the drain but were unable to do so. She had called the ER earlier looking for guidance on what to do. She was advised to keep it in place to keep a tract open to allow for drainage and to contact her surgeon, but she pulled it out further and now only the tip in under the skin and she requests it be removed fully. Pt. states that the drain has been in since October. She states that she has had 2 surgical site infections and she has been on antibiotics (Cipro) twice. She she states that the discharge from the site has not been purulent. Denies any fever or chills. Onset: Today Onset Date: 02/01/21 Location: Reports: Back Quality: Reports: Sharp - Related Data Allergies Allergy/AdvReac Type Severity Reaction Status Date / Time adhesive tape Allergy Rash Verified 01/26/21 08:49 cat dander Allergy Sneezing Verified 01/26/21 08:49 citalopram Allergy Nausea and Verified 01/26/21 08:49 Vomiting clindamycin Allergy Hives Verified 01/26/21 08:49 duloxetine [From Cymbalta] Allergy Cannot Verified 01/26/21 08:49 Remember Sulfa (Sulfonamide Allergy Hives Verified 01/26/21 08:49 Antibiotics) amoxicillin [From Augmentin] AdvReac Nausea and Verified 01/26/21 08:49 Vomiting aspirin AdvReac Bleeding Verified 01/26/21 08:49 celecoxib [From Celebrex] AdvReac Diarrhea Verified 01/26/21 08:49 cephalexin AdvReac Nausea and Verified 01/26/21 08:49 Vomiting clavulanic acid AdvReac Nausea and Verified 01/26/21 08:49 [From Augmentin] Vomiting topiramate [From Topamax] AdvReac Delusions Verified 01/26/21 08:49 dust mite extract Allergy Cannot Uncoded 01/26/21 08:49 Remember Home Meds: Home Meds Calcium Carbonate/Vitamin D2 [Oyster Shell Calcium-Vit D Tab] 1 tab PO BIDMEALS 09/28/13 [History] Cholecalciferol (Vitamin D3) [Vitamin D3] 10,000 unit PO DAILY 09/28/13 [History] Cyanocobalamin (Vitamin B-12) [Vitamin B-12] 100 mcg PO DAILY 09/28/13 [History] Ferrous Sulfate 325 mg PO BIDMEALS 09/28/13 [History] Magnesium Oxide 400 mg PO DAILY@1800 09/28/13 [History] Multivitamin [Multivitamins] 1 tab PO DAILY 09/28/13 [History] traZODone 150 mg PO BEDTIME 03/15/15 [History] Biotin 1 tab PO DAILY 01/24/16 [History] Omeprazole Magnesium [Prilosec Otc] 20 mg PO BIDAC 01/24/16 [History] Zonisamide 100 mg PO BID 08/29/17 [History] atorvaSTATin [Lipitor] 10 mg PO DAILY 12/26/19 [History] Gabapentin [Neurontin] 1,200 mg PO QID 90 Days #720 tablet 03/01/20 [Rx] Promethazine [Phenergan] 25 mg PO Q4H PRN 90 Days #90 tab 08/18/20 [Rx] Acetaminophen [Pain Relief Extra Strength] 1,000 mg PO Q6H PRN MDD 4000 mg in 24 hours 09/06/20 [History] Baclofen 20 mg PO TID 09/06/20 [History] Naphazoline/Pheniramine [Naphcon A Ophth Soln] 2 drop EYEBOTH DAILY PRN 09/06/20 [History] Naratriptan HCl 2.5 mg PO BID PRN MDD 5 mg in 24 hours 09/06/20 [History] Sennosides/Docusate Sodium [Sennosides-Docusate Sodium] 2 tab PO BID PRN 09/06/20 [History] Erenumab-Aooe [Aimovig Autoinjector] 70 mg SQ Q28D 09/07/20 [History] metFORMIN HCl [Metformin HCl ER] 750 mg PO BID 09/07/20 [History] Naratriptan HCl 2.5 mg PO BID PRN 25 Days #9 tab MDD 5 mg in 24 hours 09/15/20 [Rx] methocarbamoL [Methocarbamol] 750 mg PO QID PRN 30 Days #120 tablet 10/26/20 [Rx] Acyclovir 400 mg PO BID 10/27/20 [History] traMADol [Ultram] 100 mg PO BID PRN 30 Days #120 tab 12/15/20 [Rx] FLUoxetine [PROzac] 10 mg PO DAILY 01/26/21 [History] HYDROmorphone HCl [Dilaudid] 8 mg PO Q4HR PRN 30 Days #120 tablet 01/26/21 [Rx] Past Medical History HEENT History: Reports: Allergic Rhinitis Cardiovascular History: Reports: Hypertension Respiratory History: Reports: None Gastrointestinal History: Reports: Other (See Below) Other Gastrointestinal History: abd abscess post hernia surgery Genitourinary History: Reports: UTI, Recurrent 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 left hip pain. 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 onychodystrophy. tinea pedis - Infectious Disease History Infectious Disease History: Reports: MRSA - Past Surgical History HEENT Surgical History: Reports: None Cardiovascular Surgical History: Reports: None GI Surgical History: Reports: Bariatric Procedure, Cholecystectomy, Hernia Repair/Other Female Surgical History: Reports: Hysterectomy Endocrine Surgical History: Reports: None Neurological Surgical History: Reports: Discectomy, Laminectomy, Lumbar Spine, Spinal Fusion, Thoracic Spine Musculoskeletal Surgical History: Reports: Carpal Tunnel Other Musculoskeletal Surgeries/Procedures:: spinal cord stimulater removed 11/06/17, spinal cord stimulater implant 12/18/18. back surgery 05/17/19. Spine surgery 09/01/3020. drain placed for chronic seroma 01/03/21 Social & Family History - Family History Family Medical History: No Pertinent Family History Cardiac: Reports: CAD, Hypertension Respiratory: Reports: Other (See Below) : Reports: Renal Disease/Insufficiency Neurological: Reports: CVA Endocrine/Metabolic: Reports: Diabetes, type II Oncologic: Reports: Uterine - Caffeine Use Caffeine Use: Reports: Soda - Living Situation & Occupation Living situation: Reports: Single, with Family (sister) Occupation: Disabled ED ROS GENERAL - Review of Systems Review Of Systems: See Below Constitutional: Reports: No Symptoms HEENT: Reports: No Symptoms Respiratory: Reports: No Symptoms Cardiovascular: Reports: No Symptoms Endocrine: Reports: No Symptoms GI/Abdominal: Reports: No Symptoms : Reports: No Symptoms Musculoskeletal: Reports: Back Pain Skin: Reports: No Symptoms Neurological: Reports: No Symptoms Psychiatric: Reports: No Symptoms Hematologic/Lymphatic: Reports: No Symptoms Immunologic: Reports: No Symptoms ED EXAM, GENERAL - Physical Exam Exam: See Below Exam Limited By: No Limitations General Appearance: Alert, WD/WN, No Apparent Distress Head: Atraumatic, Normocephalic Neck: Normal Inspection, Supple, Non-Tender, Full Range of Motion Back Exam: Other (EL drain attached to a Cook Mac Lock pigtail catheter inserted into upper back. Skin surrounding insertion is normal. Small clear discharge in LE. The distal portion of the pigtail was partially ripped off from attempts to remove the catheter.) Course - Re-Assessments/Exams Free Text/Narrative Re-Assessment/Exam: Internet and youtube was utilized to determine best approach for removal. Pt. stated that there was a "balloon" holding it in place but no luer lock port was observed. An internal pigtail release suture/string was visualized from the partially removed proximal catheter head. We were able to get ahold of this and release the pigtail and remove the catheter with minimal effort. Skin was cleansed and occlusive, clear dressing was applied. Departure - Departure Time of Disposition: 23:30 Disposition: Home, Self-Care 01 Clinical Impression: EL drain, broken - Discharge Information Referrals: Faby Araya MD [Primary Care Provider] - Forms: ED Department Discharge Additional Instructions: Contact surgeon tomorrow. Follow-up in clinic in 7-10 days, or sooner if you notice redness, swelling, or discharge from the area. - Problem List Review Problem List Initiated/Reviewed/Updated: Yes - Assessment/Plan Plan: Advised to contact surgeon COLIN. At time of ER visit, there did not appear to be any active infectious process. Return to ER if she notices redness, swelling, or discharge from he area. Return if she has any fever or chills.
[2021-02-01 01:58] VITALS: BP 128/85; PULSE 88
== END 2021-01-31 23:50 | disposition home or self-care (01) ==
LOC: VM.ED 22:44
DX: M96.843 Postprocedural seroma of a musculoskeletal structure following other procedure (principal); E11.9 Type 2 diabetes mellitus without complications; E66.9 Obesity, unspecified; I10 Essential (primary) hypertension; Z91.048 Other nonmedicinal substance allergy status; Z91.09 Other allergy status, other than to drugs and biological substances; Z79.899 Other long term (current) drug therapy; Z88.1 Allergy status to other antibiotic agents; Z88.8 Allergy status to other drugs, medicaments and biological substances; Z88.2 Allergy status to sulfonamides; Z68.41 Body mass index [BMI] 40.0-44.9, adult
CPT/HCPCS: 99282; 99283

== ENCOUNTER 2021-03-03 15:03 | Emergency (ER) | payer MEDICARE, MEDICAID ==
--- NOTE | 2021-03-03 15:23 | EDM.PDOC ---
ED HPI GENERAL MEDICAL PROBLEM - General Chief Complaint: Chest Pain Stated Complaint: CHEST PAIN Time Seen by Provider: 03/03/21 15:05 Source of Information: Reports: Patient History Limitations: Reports: No Limitations - History of Present Illness INITIAL COMMENTS - FREE TEXT/NARRATIVE: Jewell is a 40 year old female who presents to ER with complaints of crushing chest pain. Was at the clinic for her regular scheduled visit and reported chest pain at an 8/10 and new onset cough. States chest hurts worse when she cough, increased to a 9.5. Does feel somewhat nauseated today, no vomiting. No fevers. Feels short of breath and cannot inspire deeply due to the discomfort. Relates woke her up suddenly at 0430 with a tight cough and this discomfort. Has not improved throughout the course of the day. Has been able to eat and drink well. No diarrhea. Denies new exposures to Covid. Onset: Today, Sudden Duration: Hour(s):, Constant Location: Reports: Chest Quality: Reports: Pressure Severity: Moderate Improves with: Reports: None Worsens with: Reports: Other (cough) Associated Symptoms: Reports: Chest Pain, Cough, Nausea/Vomiting, Shortness of Breath. Denies: Confusion, cough w sputum, Fever/Chills, Headaches, Loss of Appetite, Malaise, Weakness Middle Chest Pain Score (Numeric/FACES): 8 - Related Data Allergies Allergy/AdvReac Type Severity Reaction Status Date / Time adhesive tape Allergy Rash Verified 03/03/21 15:20 cat dander Allergy Sneezing Verified 03/03/21 15:20 citalopram Allergy Nausea and Verified 03/03/21 15:20 Vomiting clindamycin Allergy Hives Verified 03/03/21 15:20 duloxetine [From Cymbalta] Allergy Cannot Verified 03/03/21 15:20 Remember Sulfa (Sulfonamide Allergy Hives Verified 03/03/21 15:20 Antibiotics) amoxicillin [From Augmentin] AdvReac Nausea and Verified 03/03/21 15:20 Vomiting aspirin AdvReac Bleeding Verified 03/03/21 15:20 celecoxib [From Celebrex] AdvReac Diarrhea Verified 03/03/21 15:20 cephalexin AdvReac Nausea and Verified 03/03/21 15:20 Vomiting clavulanic acid AdvReac Nausea and Verified 03/03/21 15:20 [From Augmentin] Vomiting topiramate [From Topamax] AdvReac Delusions Verified 03/03/21 15:20 dust mite extract Allergy Cannot Uncoded 03/03/21 15:20 Remember Home Meds: Home Meds Calcium Carbonate/Vitamin D2 [Oyster Shell Calcium-Vit D Tab] 1 tab PO BIDMEALS 09/28/13 [History] Cholecalciferol (Vitamin D3) [Vitamin D3] 10,000 unit PO DAILY 09/28/13 [History] Cyanocobalamin (Vitamin B-12) [Vitamin B-12] 100 mcg PO DAILY 09/28/13 [History] Ferrous Sulfate 325 mg PO BIDMEALS 09/28/13 [History] Magnesium Oxide 400 mg PO DAILY@1800 09/28/13 [History] Multivitamin [Multivitamins] 1 tab PO DAILY 09/28/13 [History] traZODone 150 mg PO BEDTIME 03/15/15 [History] Biotin 1 tab PO DAILY 01/24/16 [History] Omeprazole Magnesium [Prilosec Otc] 20 mg PO BIDAC 01/24/16 [History] Zonisamide 100 mg PO BID 08/29/17 [History] atorvaSTATin [Lipitor] 10 mg PO DAILY 12/26/19 [History] Gabapentin [Neurontin] 1,200 mg PO QID 90 Days #720 tablet 03/01/20 [Rx] Promethazine [Phenergan] 25 mg PO Q4H PRN 90 Days #90 tab 08/18/20 [Rx] Acetaminophen [Pain Relief Extra Strength] 1,000 mg PO Q6H PRN MDD 4000 mg in 24 hours 09/06/20 [History] Baclofen 20 mg PO TID 09/06/20 [History] Naphazoline/Pheniramine [Naphcon A Ophth Soln] 2 drop EYEBOTH DAILY PRN 09/06/20 [History] Naratriptan HCl 2.5 mg PO BID PRN MDD 5 mg in 24 hours 09/06/20 [History] Sennosides/Docusate Sodium [Sennosides-Docusate Sodium] 2 tab PO BID PRN 09/06/20 [History] Erenumab-Aooe [Aimovig Autoinjector] 70 mg SQ Q28D 09/07/20 [History] metFORMIN HCl [Metformin HCl ER] 750 mg PO BID 09/07/20 [History] Naratriptan HCl 2.5 mg PO BID PRN 25 Days #9 tab MDD 5 mg in 24 hours 09/15/20 [Rx] methocarbamoL [Methocarbamol] 750 mg PO QID PRN 30 Days #120 tablet 10/26/20 [ Rx] Acyclovir 400 mg PO BID 10/27/20 [History] traMADol [Ultram] 100 mg PO BID PRN 30 Days #120 tab 12/15/20 [Rx] FLUoxetine [PROzac] 10 mg PO DAILY 01/26/21 [History] HYDROmorphone HCl [Dilaudid] 8 mg PO Q4HR PRN 30 Days #120 tablet 01/26/21 [Rx] ondansetron HCL [Ondansetron HCl] 4 mg PO TID PRN 30 Days #90 tablet 02/21/21 [Rx] Past Medical History HEENT History: Reports: Allergic Rhinitis Cardiovascular History: Reports: Hypertension Respiratory History: Reports: None Gastrointestinal History: Reports: Other (See Below) Other Gastrointestinal History: abd abscess post hernia surgery Genitourinary History: Reports: UTI, Recurrent 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 left hip pain. 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 onychodystrophy. tinea pedis - Infectious Disease History Infectious Disease History: Reports: MRSA - Past Surgical History HEENT Surgical History: Reports: None Cardiovascular Surgical History: Reports: None GI Surgical History: Reports: Bariatric Procedure, Cholecystectomy, Hernia Repair/Other Female Surgical History: Reports: Hysterectomy Endocrine Surgical History: Reports: None Neurological Surgical History: Reports: Discectomy, Laminectomy, Lumbar Spine, Spinal Fusion, Thoracic Spine Musculoskeletal Surgical History: Reports: Carpal Tunnel Other Musculoskeletal Surgeries/Procedures:: spinal cord stimulater removed 11/06/17, spinal cord stimulater implant 12/18/18. back surgery 05/17/19. Spine surgery 09/01/3020. drain placed for chronic seroma 01/03/21 Social & Family History - Family History Family Medical History: No Pertinent Family History Cardiac: Reports: CAD, Hypertension Respiratory: Reports: Other (See Below) : Reports: Renal Disease/Insufficiency Neurological: Reports: CVA Endocrine/Metabolic: Reports: Diabetes, type II Oncologic: Reports: Uterine - Tobacco Use Tobacco Use Status *Q: Unknown Ever Used Tobacco - Caffeine Use Caffeine Use: Reports: Soda - Living Situation & Occupation Living situation: Reports: Single, with Family (sister) Occupation: Disabled ED ROS GENERAL - Review of Systems Review Of Systems: See Below Constitutional: Reports: Chills, Malaise, Fatigue. Denies: Fever, Weakness, Decreased Appetite HEENT: Reports: Rhinitis. Denies: Ear Pain, Sinus Problem, Throat Pain, Vertigo Respiratory: Reports: Shortness of Breath, Cough. Denies: Wheezing Cardiovascular: Reports: Chest Pain. Denies: Edema, Lightheadedness Endocrine: Denies: Fatigue GI/Abdominal: Reports: Diarrhea, Nausea. Denies: Abdominal Pain, Constipation, Vomiting : Reports: No Symptoms Musculoskeletal: Reports: No Symptoms Skin: Reports: No Symptoms Neurological: Reports: No Symptoms ED EXAM, GENERAL - Physical Exam Exam: See Below Exam Limited By: No Limitations General Appearance: Alert, No Apparent Distress Ears: Normal External Exam, Normal TMs Nose: Normal Inspection, Normal Mucosa, No Blood Throat/Mouth: Normal Inspection, Normal Oropharynx Head: Normocephalic Neck: Normal Inspection, Supple, Non-Tender Respiratory/Chest: No Respiratory Distress, Lungs Clear, Normal Breath Sounds Cardiovascular: Regular Rate, Rhythm GI/Abdominal: Normal Bowel Sounds, Soft, Non-Tender Extremities: Normal Inspection, No Pedal Edema Neurological: Alert, Oriented Skin Exam: Warm, Dry #1 Interpretation EKG Date: 03/03/21 Rhythm: NSR Maynard: Normal P-Wave: Present QRS: Normal ST-T: Normal QT: Normal Comparison: Change From Previous EKG (improved from previous EKG) Course - Vital Signs Last Recorded V/S: Last Vital Signs Temp 98.0 F 03/03/21 15:03 Pulse 81 03/03/21 19:04 Resp 16 03/03/21 19:04 BP 138/81 03/03/21 19:04 Pulse Ox 98 03/03/21 19:04 - Orders/Labs/Meds Orders: Active Orders 24 hr Category Date Time Status Vital Signs [RC] Q15M Care 03/03/21 18:48 Active Abdomen Pelvis w Cont [CT] Stat Exams 03/03/21 16:13 Stop Req EPINEPHrine [Adrenalin] Med 03/03/21 18:47 Active 0.3 mg IM ONETIME PRN Famotidine [Pepcid] Med 03/03/21 18:47 Active 20 mg IVPUSH ONETIME PRN Sodium Chloride 0.9% [Saline Flush] Med 03/03/21 19:00 Active 30 ml FLUSH ASDIRECTED diphenhydrAMINE [Benadryl] Med 03/03/21 18:47 Active 50 mg IVPUSH ONETIME PRN methylPREDNISolone Sod Succ [Solu-MEDROL] Med 03/03/21 18:47 Active 125 mg IVPUSH ONETIME PRN Medication Orders Diphenhydramine HCl (Diphenhydramine 50 Mg/Ml Sdv) 50 mg IVPUSH ONETIME PRN PRN Reason: hypersensitivity reaction Epinephrine HCl (Epinephrine 1 Mg/1 Ml Amp) 0.3 mg IM ONETIME PRN PRN Reason: Shortness of Breath Famotidine (Famotidine 20 Mg/2 Ml Sdv) 20 mg IVPUSH ONETIME PRN PRN Reason: hypersensitivity reaction Methylprednisolone Sodium Succinate (Methylprednisolone Sodium Succinate 125 Mg/2 Ml Sdv) 125 mg IVPUSH ONETIME PRN PRN Reason: hypersensitivity reaction Sodium Chloride (Sodium Chloride 0.9% 10 Ml Syringe) 30 ml FLUSH ASDIRECTED [facility] Labs: Laboratory Tests 03/03/21 03/03/21 03/03/21 Range/Units 15:26 15:26 15:26 WBC 4.9 (4.0-10.0) x10^3/uL RBC 4.96 (4.00-5.50) x10^6/uL Hgb 13.3 (12.0-16.0) g/dL Hct 42.6 (33.0-47.0) % MCV 85.9 (78.0-93.0) fL MCH 26.8 (26.0-32.0) pg MCHC 31.2 L (32.0-36.0) g/dL RDW Coeff of Juan R 17.5 H (10.0-15.0) % Plt Count 200 (130-400) x10^3/uL Immature Gran % (Auto) 0.20 (0.00-0.43) % Neut % (Auto) 68.2 (50.0-80.0) % Lymph % (Auto) 20.4 L (25.0-50.0) % [place] % (Auto) 9.2 (2.0-11.0) % Eos % (Auto) 1.6 (0.0-4.0) % Baso % (Auto) 0.4 (0.2-1.2) % Neut # (Auto) 3.3 (1.8-7.7) x10^3/uL Lymph # (Auto) 1.0 (1.0-4.8) x10^3/uL [place] # (Auto) 0.5 (0.0-0.8) x10^3/uL Eos # (Auto) 0.1 (0.0-0.5) x10^3/uL Baso # (Auto) 0.0 (0.0-0.2) x10^3/uL Immature Gran # (Auto) 0.01 (0.00-0.07) x10^3/uL D-Dimer, Quantitative 3.26 H (<=0.58) mg/LFEU Sodium 142 (136-145) mmol/L Potassium 4.0 (3.5-5.1) mmol/L Chloride 109 H (98-107) mmol/L Carbon Dioxide 24 (21-32) mmol/L Anion Gap 13.0 (5-15) mmol/L BUN 15 (7-18) mg/dL Creatinine 0.8 (0.55-1.02) mg/dL Est Cr Clr Drug Dosing TNP Estimated GFR (MDRD) > 60 Glucose 138 H (70-99) mg/dL Calcium 8.5 (8.5-10.1) mg/dL Corrected Calcium 9.1 (8.5-10.1) mg/dL Total Bilirubin 0.3 (0.2-1.0) mg/dL AST 445 H (15-37) U/L ALT 195 H (14-59) U/L Alkaline Phosphatase 232 H (46-116) U/L Lactate Dehydrogenase 405 H (81-234) U/L Creatine Kinase 30 (26-192) U/L Troponin I High Sens < 4 (<=51) ng/L C-Reactive Protein < 0.2 (<=0.9) mg/dL Total Protein 6.6 (6.4-8.2) g/dL Albumin 3.3 L (3.4-5.0) g/dL Globulin 3.3 Albumin/Globulin Ratio 1.00 Amylase (25-115) U/L Lipase (73-393) U/L SARS CoV-2 RNA Rapid YARELY (NEGATIVE) 03/03/21 03/03/21 Range/Units 15:26 16:16 WBC (4.0-10.0) x10^3/uL RBC (4.00-5.50) x10^6/uL Hgb (12.0-16.0) g/dL Hct (33.0-47.0) % MCV (78.0-93.0) fL MCH (26.0-32.0) pg MCHC (32.0-36.0) g/dL RDW Coeff of Juan R (10.0-15.0) % Plt Count (130-400) x10^3/uL Immature Gran % (Auto) (0.00-0.43) % Neut % (Auto) (50.0-80.0) % Lymph % (Auto) (25.0-50.0) % [place] % (Auto) (2.0-11.0) % Eos % (Auto) (0.0-4.0) % Baso % (Auto) (0.2-1.2) % Neut # (Auto) (1.8-7.7) x10^3/uL Lymph # (Auto) (1.0-4.8) x10^3/uL [place] # (Auto) (0.0-0.8) x10^3/uL Eos # (Auto) (0.0-0.5) x10^3/uL Baso # (Auto) (0.0-0.2) x10^3/uL Immature Gran # (Auto) (0.00-0.07) x10^3/uL D-Dimer, Quantitative (<=0.58) mg/LFEU Sodium (136-145) mmol/L Potassium (3.5-5.1) mmol/L Chloride (98-107) mmol/L Carbon Dioxide (21-32) mmol/L Anion Gap (5-15) mmol/L BUN (7-18) mg/dL Creatinine (0.55-1.02) mg/dL Est Cr Clr Drug Dosing Estimated GFR (MDRD) Glucose (70-99) mg/dL Calcium (8.5-10.1) mg/dL Corrected Calcium (8.5-10.1) mg/dL Total Bilirubin (0.2-1.0) mg/dL AST (15-37) U/L ALT (14-59) U/L Alkaline Phosphatase (46-116) U/L Lactate Dehydrogenase (81-234) U/L Creatine Kinase (26-192) U/L Troponin I High Sens (<=51) ng/L C-Reactive Protein (<=0.9) mg/dL Total Protein (6.4-8.2) g/dL Albumin (3.4-5.0) g/dL Globulin Albumin/Globulin Ratio Amylase 38 (25-115) U/L Lipase 136 (73-393) U/L SARS CoV-2 RNA Rapid YARELY Positive H (NEGATIVE) Meds: Medications Generic Name Dose Route Start Last Admin Trade Name Freq PRN Reason Stop Dose Admin Diphenhydramine HCl 50 mg 03/03/21 18:47 Diphenhydramine 50 Mg/Ml Sdv IVPUSH ONETIME PRN hypersensitivity reaction Epinephrine HCl 0.3 mg 03/03/21 18:47 Epinephrine 1 Mg/1 Ml Amp IM ONETIME PRN Shortness of Breath Famotidine 20 mg 03/03/21 18:47 Famotidine 20 Mg/2 Ml Sdv IVPUSH ONETIME PRN hypersensitivity reaction Methylprednisolone Sodium Succinate 125 mg 03/03/21 18:47 Methylprednisolone Sodium Succinate 125 Mg/2 Ml Sdv IVPUSH ONETIME PRN hypersensitivity reaction Sodium Chloride 30 ml 03/03/21 19:00 Sodium Chloride 0.9% 10 Ml Syringe FLUSH ASDIRECTED CAROLINE Discontinued Medications Generic Name Dose Route Start Last Admin Trade Name Freq PRN Reason Stop Dose Admin CASIRIVIMAB/IMDEVIMAB 10 ml/ 110 mls @ 220 mls/hr 03/03/21 18:47 03/03/21 19:03 Sodium Chloride IV 03/03/21 19:16 220 mls/hr ONETIME ONE Administration Iopamidol 100 ml 03/03/21 17:42 03/03/21 17:23 Iopamidol 755 Mg/Ml 100 Ml Bottle IVPUSH 03/03/21 17:43 100 ml ONETIME ONE Administration - Re-Assessments/Exams Free Text/Narrative Re-Assessment/Exam: 03/03/21 1545-Labs results noted. Does have elevated d-dimer and liver enzymes. History of cholecystectomy due to stones. No jaundice, does not appear toxic. EKG is normal. Chest xray is normal. Will obtain CTA of chest and CT of abdomen and pelvis. Patient aware and agrees with plan. 03/03/21 16:45 Covid is positive, likely cause of elevated liver enzymes and d-dimer. Patient informed. 03/03/21 18:52 No PE noted on scan. Infiltrate noted to left lower lobe. Discussed possibly proceeding with monoclonal antibodies. Risks and benefits discussed with patient. Does agree to proceed with treatment. 03/03/21 19:34 Tolerated ReGen well Departure - Departure Time of Disposition: 19:34 Disposition: Home, Self-Care 01 Condition: Fair Clinical Impression: COVID-19 Instructions: COVID-19 Frequently Asked Questions, Frequently Asked Questions About COVID-19 Vaccination - CDC (11/09/2020) Referrals: Faby Araya MD [Primary Care Provider] - Forms: ED Department Discharge Additional Instructions: 1. Push fluids 2. Alternate tylenol with ibuprofen for fever 3. Lie on stomach (prone) as much as able to tolerate 4. Deep breathing exercises 5. Contact DR. Araya with any persisting concerns. Sepsis Event Note (ED) - Focused Exam Vital Signs: Vital Signs Temp Pulse Resp BP Pulse Ox 03/03/21 19:04 81 16 138/81 98 03/03/21 15:03 98.0 F 91 16 122/74 99 - My Orders Last 24 Hours: My Active Orders 03/03/21 16:13 Abdomen Pelvis w Cont [CT] Stat 03/03/21 18:47 EPINEPHrine [Adrenalin] 0.3 mg IM ONETIME PRN Famotidine [Pepcid] 20 mg IVPUSH ONETIME PRN diphenhydrAMINE [Benadryl] 50 mg IVPUSH ONETIME PRN methylPREDNISolone Sod Succ [Solu-MEDROL] 125 mg IVPUSH ONETIME PRN 03/03/21 18:48 Vital Signs [RC] Q15M 03/03/21 19:00 Sodium Chloride 0.9% [Saline Flush] 30 ml FLUSH ASDIRECTED - Assessment/Plan Last 24 Hours: My Active Orders 03/03/21 16:13 Abdomen Pelvis w Cont [CT] Stat 03/03/21 18:47 EPINEPHrine [Adrenalin] 0.3 mg IM ONETIME PRN Famotidine [Pepcid] 20 mg IVPUSH ONETIME PRN diphenhydrAMINE [Benadryl] 50 mg IVPUSH ONETIME PRN methylPREDNISolone Sod Succ [Solu-MEDROL] 125 mg IVPUSH ONETIME PRN 03/03/21 18:48 Vital Signs [RC] Q15M 03/03/21 19:00 Sodium Chloride 0.9% [Saline Flush] 30 ml FLUSH ASDIRECTED
[2021-03-03 15:50] LABS: CHLORIDE,CL 109 mmol/L (98-107); SODIUM,NA 142 mmol/L (136-145)
--- NOTE | 2021-03-03 15:51 | CR ---
[id number] RAD/RAD Chest PA And Lateral EXAM: RAD Chest PA And Lateral CLINICAL DATA: CHEST PAIN COMPARISON: CORRELATION IS MADE WITH MARCH 27, 2020 FINDINGS: The lungs are clear Colon rods are seen A spinal stimulator is seen The gallbladder has been removed The cardiac silhouette is stable IMPRESSION: NO ACUTE PROCESS. Yordy Groves MD 03/03/21 [id number] Thank you for allowing us to participate in the care of your patient.
[2021-03-03] MEDS ORDERED: Iopamidol 755 Mg/ML 100 ML Bottle IVPUSH ONE (17:42)
--- NOTE | 2021-03-03 18:37 | CT ---
[id number] CT/CTA Chest CT Abd Pelvis W IV EXAM: CTA Chest CT Abd Pelvis W IV INDICATION: CHEST DISCOMFORT, ELEVATED TROPONIN. COMPARISON: November 18, 2020, April 18, 2019 The pulmonary arteries are normally opacified without evidence of pulmonary embolism. Mild focal infiltrates in the posterior basal left lower lobe (image 63 series 4). The lungs are otherwise clear. No pleural or pericardial effusion. Normal heart size. No thoracic adenopathy. Borderline spleen size. Prior cholecystectomy, gastric bypass, and hysterectomy. Complex fat-containing midline abdominal hernia at and above the level of the umbilicus. 25 mm left ovarian follicle. Punctate calculus in the proximal left ureter without current evidence of hydronephrosis. There are few 2 to 3 mm nonobstructing right intrarenal calculi. The pancreas, adrenal glands, small bowel, large bowel, and the appendix are normal in appearance. No adenopathy, free air free fluid. OSSEOUS STRUCTURES: Multiple areas of anterior posterior fusion in the thoracic and lumbar spine. A subacute superior endplate compression fracture at L2 is unchanged relative to lumbar spine examination of January 07, 2021. Stimulator leads in the thoracic canal. . IMPRESSION: 1. Mild focal infiltrates in the posterior basal left lower lobe are likely infectious. 2. Negative for pulmonary embolism. 3. Punctate calculus in the proximal left ureter with no current hydronephrosis. Ovidio Watters MD 03/03/21 [id number] Thank you for allowing us to participate in the care of your patient.
[2021-03-03] MEDS ORDERED: Famotidine 20 MG/2 ML SDV IVPUSH PRN (18:47)
[2021-03-03] MEDS ORDERED: diphenhydrAMINE 50 MG/ML SDV IVPUSH PRN (18:47)
[2021-03-03] MEDS ORDERED: methylPREDNISolone Sodium Succinate 125 MG/2 ML SDV IVPUSH PRN (18:47)
[2021-03-03] MEDS ORDERED: EPINEPHrine 1 MG/1 ML Amp IM PRN (18:47)
[2021-03-03] MEDS ORDERED: Sodium Chloride 0.9% 10 ML Syringe FLUSH SCH (19:00)
[2021-03-04 00:34] VITALS: BP 141/83; PULSE 79
== END 2021-03-03 20:35 | disposition home or self-care (01) ==
LOC: VM.ED 15:03
DX: U07.1 COVID-19 (principal); R79.1 Abnormal coagulation profile; R74.8 Abnormal levels of other serum enzymes; I10 Essential (primary) hypertension; E11.9 Type 2 diabetes mellitus without complications; D64.9 Anemia, unspecified; E66.9 Obesity, unspecified; Z90.49 Acquired absence of other specified parts of digestive tract; Z91.048 Other nonmedicinal substance allergy status; Z88.8 Allergy status to other drugs, medicaments and biological substances; Z88.1 Allergy status to other antibiotic agents; Z88.2 Allergy status to sulfonamides; Z88.0 Allergy status to penicillin; Z79.899 Other long term (current) drug therapy
CPT/HCPCS: 36415; 71046; 71275; 80053; 82150; 82550; 83615; 83690; 84484; 85025; 85379; 86140; 99285; M0243; Q0243; Q9967; U0002; 93010; 99284

== ENCOUNTER 2021-03-03 22:23 | Emergency (ER) | payer MEDICARE, MEDICAID ==
--- NOTE | 2021-03-03 22:58 | EDM.PDOC ---
ED HPI GENERAL MEDICAL PROBLEM - General Chief Complaint: General Stated Complaint: REACTION Time Seen by Provider: 03/03/21 22:40 Source of Information: Reports: Patient History Limitations: Reports: No Limitations - History of Present Illness INITIAL COMMENTS - FREE TEXT/NARRATIVE: Jewell is a 40 year old female who presents to ER with concerns of feeling shaky, cold, feverish and has a headache. Was diagnosed with covid today, given ReGen and is worried about a reaction to the infusion. Has multiple medication allergies and is worried that she is reacting to this like she has done to many others in the past. Is shaky, states cannot get warm. Cough is unchanged. No shortness of breath. Headache is worse than any other migraine she has. Feels very anxious about all of this. Questions if she is okay to take all of her other meds before bed. Onset: Sudden Duration: Hour(s):, Getting Worse Location: Reports: Generalized Quality: Reports: Ache Severity: Mild Improves with: Reports: None Associated Symptoms: Reports: Cough, Fever/Chills, Malaise, Weakness. 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 - Related Data Allergies Allergy/AdvReac Type Severity Reaction Status Date / Time adhesive tape Allergy Rash Verified 03/03/21 15:20 cat dander Allergy Sneezing Verified 03/03/21 15:20 citalopram Allergy Nausea and Verified 03/03/21 15:20 Vomiting clindamycin Allergy Hives Verified 03/03/21 15:20 duloxetine [From Cymbalta] Allergy Cannot Verified 03/03/21 15:20 Remember Sulfa (Sulfonamide Allergy Hives Verified 03/03/21 15:20 Antibiotics) amoxicillin [From Augmentin] AdvReac Nausea and Verified 03/03/21 15:20 Vomiting aspirin AdvReac Bleeding Verified 03/03/21 15:20 celecoxib [From Celebrex] AdvReac Diarrhea Verified 03/03/21 15:20 cephalexin AdvReac Nausea and Verified 03/03/21 15:20 Vomiting clavulanic acid AdvReac Nausea and Verified 03/03/21 15:20 [From Augmentin] Vomiting topiramate [From Topamax] AdvReac Delusions Verified 03/03/21 15:20 dust mite extract Allergy Cannot Uncoded 03/03/21 15:20 Remember Home Meds: Home Meds Calcium Carbonate/Vitamin D2 [Oyster Shell Calcium-Vit D Tab] 1 tab PO BIDMEALS 09/28/13 [History] Cholecalciferol (Vitamin D3) [Vitamin D3] 10,000 unit PO DAILY 09/28/13 [History] Cyanocobalamin (Vitamin B-12) [Vitamin B-12] 100 mcg PO DAILY 09/28/13 [History] Ferrous Sulfate 325 mg PO BIDMEALS 09/28/13 [History] Magnesium Oxide 400 mg PO DAILY@1800 09/28/13 [History] Multivitamin [Multivitamins] 1 tab PO DAILY 09/28/13 [History] traZODone 150 mg PO BEDTIME 03/15/15 [History] Biotin 1 tab PO DAILY 01/24/16 [History] Omeprazole Magnesium [Prilosec Otc] 20 mg PO BIDAC 01/24/16 [History] Zonisamide 100 mg PO BID 08/29/17 [History] atorvaSTATin [Lipitor] 10 mg PO DAILY 12/26/19 [History] Gabapentin [Neurontin] 1,200 mg PO QID 90 Days #720 tablet 03/01/20 [Rx] Promethazine [Phenergan] 25 mg PO Q4H PRN 90 Days #90 tab 08/18/20 [Rx] Acetaminophen [Pain Relief Extra Strength] 1,000 mg PO Q6H PRN MDD 4000 mg in 24 hours 09/06/20 [History] Baclofen 20 mg PO TID 09/06/20 [History] Naphazoline/Pheniramine [Naphcon A Ophth Soln] 2 drop EYEBOTH DAILY PRN 09/06/20 [History] Naratriptan HCl 2.5 mg PO BID PRN MDD 5 mg in 24 hours 09/06/20 [History] Sennosides/Docusate Sodium [Sennosides-Docusate Sodium] 2 tab PO BID PRN 09/06/20 [History] Erenumab-Aooe [Aimovig Autoinjector] 70 mg SQ Q28D 09/07/20 [History] metFORMIN HCl [Metformin HCl ER] 750 mg PO BID 09/07/20 [History] Naratriptan HCl 2.5 mg PO BID PRN 25 Days #9 tab MDD 5 mg in 24 hours 09/15/20 [Rx] methocarbamoL [Methocarbamol] 750 mg PO QID PRN 30 Days #120 tablet 10/26/20 [Rx] Acyclovir 400 mg PO BID 10/27/20 [History] traMADol [Ultram] 100 mg PO BID PRN 30 Days #120 tab 12/15/20 [Rx] FLUoxetine [PROzac] 10 mg PO DAILY 01/26/21 [History] HYDROmorphone HCl [Dilaudid] 8 mg PO Q4HR PRN 30 Days #120 tablet 01/26/21 [Rx] ondansetron HCL [Ondansetron HCl] 4 mg PO TID PRN 30 Days #90 tablet 02/21/21 [Rx] Past Medical History HEENT History: Reports: Allergic Rhinitis Cardiovascular History: Reports: Hypertension Respiratory History: Reports: None Gastrointestinal History: Reports: Other (See Below) Other Gastrointestinal History: abd abscess post hernia surgery Genitourinary History: Reports: UTI, Recurrent 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 left hip pain. Recent fall 10/12/19 Neurological History: Reports: Migraines Other Neuro History: sciatica Psychiatric History: Reports: Anxiety, Depression Endocrine/Metabolic History: Reports: Diabetes, Type II, Obesity/BMI 30+ Insulin Pump Model and Hose Maker: none Hematologic History: Reports: Anemia Immunologic History: Reports: None Oncologic (Cancer) History: Reports: None Dermatologic History: Reports: None Other Dermatologic History: intertrigo. onychodystrophy. tinea pedis - Infectious Disease History Infectious Disease History: Reports: MRSA - Past Surgical History HEENT Surgical History: Reports: None Cardiovascular Surgical History: Reports: None GI Surgical History: Reports: Bariatric Procedure, Cholecystectomy, Hernia Repair/Other Female Surgical History: Reports: Hysterectomy Endocrine Surgical History: Reports: None Neurological Surgical History: Reports: Discectomy, Laminectomy, Lumbar Spine, Spinal Fusion, Thoracic Spine Musculoskeletal Surgical History: Reports: Carpal Tunnel Other Musculoskeletal Surgeries/Procedures:: spinal cord stimulater removed 11/06/17, spinal cord stimulater implant 12/18/18. back surgery 05/17/19. Spine surgery 09/01/3020. drain placed for chronic seroma 01/03/21 Social & Family History - Family History Family Medical History: No Pertinent Family History Cardiac: Reports: CAD, Hypertension Respiratory: Reports: Other (See Below) : Reports: Renal Disease/Insufficiency Neurological: Reports: CVA Endocrine/Metabolic: Reports: Diabetes, type II Oncologic: Reports: Uterine - Tobacco Use Tobacco Use Status *Q: Unknown Ever Used Tobacco - Caffeine Use Caffeine Use: Reports: Soda - Living Situation & Occupation Living situation: Reports: Single, with Family (sister) Occupation: Disabled ED ROS GENERAL - Review of Systems Review Of Systems: See Below Constitutional: Reports: Fever, Chills, Malaise, Weakness, Fatigue. Denies: Decreased Appetite HEENT: Reports: Rhinitis. Denies: Ear Pain, Sinus Problem, Throat Pain Respiratory: Reports: Cough. Denies: Shortness of Breath Cardiovascular: Denies: Chest Pain, Edema, Lightheadedness Endocrine: Reports: Fatigue GI/Abdominal: Reports: Diarrhea, Nausea. Denies: Abdominal Pain, Vomiting : Reports: No Symptoms Musculoskeletal: Reports: Muscle Stiffness Skin: Reports: No Symptoms Neurological: Reports: Weakness ED EXAM, GENERAL - Physical Exam Exam: See Below Exam Limited By: No Limitations General Appearance: Alert, WD/WN, No Apparent Distress Ears: Normal External Exam, Normal TMs Nose: Normal Inspection, Normal Mucosa, No Blood Throat/Mouth: Normal Inspection, Normal Oropharynx Head: Normocephalic Neck: Normal Inspection, Supple, Non-Tender Respiratory/Chest: No Respiratory Distress, Lungs Clear, Normal Breath Sounds Cardiovascular: Regular Rate, Rhythm Extremities: Normal Inspection, No Pedal Edema Neurological: Alert, Oriented Skin Exam: Warm, Dry Course - Re-Assessments/Exams Free Text/Narrative Re-Assessment/Exam: 03/03/21 22:59 much discussion held with patient of symptoms of covid as well as with the m onoclonal antibodies. May feel worse before starting to get better but the symptoms she is experiencing could be related to either one. At present, likely related to developing fever which she did not have earlier. Reassured that vital signs are stable, oxygen level is good, temp is low grade yet at this point. Departure - Departure Time of Disposition: 23:00 Disposition: Home, Self-Care 01 Condition: Good Clinical Impression: COVID-19 - Discharge Information *PRESCRIPTION DRUG MONITORING PROGRAM REVIEWED*: No *COPY OF PRESCRIPTION DRUG MONITORING REPORT IN PATIENT ELIZA: No Instructions: Symptoms of COVID-19 - CDC (07/19/2020) Referrals: Faby Araya MD [Primary Care Provider] - Forms: ED Department Discharge Additional Instructions: 1. Push fluids 2. Change positions often/ambulate/take deep breaths 3. Alternate tylenol with ibuprofen every 3 hours 4. Make take Benadryl if needed 5. Resume usual meds 6. Call with any questions
[2021-03-03 23:30] VITALS: BP 150/71; PULSE 104
== END 2021-03-03 23:06 | disposition home or self-care (01) ==
LOC: VM.ED 22:23
DX: U07.1 COVID-19 (principal); I10 Essential (primary) hypertension; E11.9 Type 2 diabetes mellitus without complications; D64.9 Anemia, unspecified; E66.9 Obesity, unspecified; Z91.048 Other nonmedicinal substance allergy status; Z88.1 Allergy status to other antibiotic agents; Z88.8 Allergy status to other drugs, medicaments and biological substances; Z88.2 Allergy status to sulfonamides; Z88.0 Allergy status to penicillin; Z79.899 Other long term (current) drug therapy
CPT/HCPCS: 99283

== ENCOUNTER 2021-05-08 23:39 | Emergency (ER) | payer MEDICARE, MEDICAID ==
[2021-05-09 00:13] VITALS: BP 103/75; PULSE 98
--- NOTE | 2021-05-09 00:18 | EDM.PDOC ---
ED HPI GENERAL MEDICAL PROBLEM - General Chief Complaint: Back Pain or Injury Stated Complaint: increase in back pain Time Seen by Provider: 05/09/21 00:05 Source of Information: Reports: Patient History Limitations: Reports: No Limitations - History of Present Illness INITIAL COMMENTS - FREE TEXT/NARRATIVE: Patient presents the ER efrem with a 10 out of 10 sharp stabbing back pain that is going up and down her spine that started in her lower lumbar area yesterday about 3:00 after she sneezed. Patient states she tried to deal with it all day yesterday and tried to deal with the day but her chronic pain medication is not working. Patient states she has chronic back pain secondary to multiple surgeries and was due to have surgery this month but is been postponed secondary to Covid she was post to have a lumbar fusion secondary to lumbar fractures. When asked that the patient had any bowel or bladder issues such as incontinence she said yes she had 3-4 episodes yesterday of bowel incontinence and 3-4 today the same with bladder. And she also states she knows she has to go to the bathroom sometimes but has to sit 15 or 20 minutes before she can urinate. She denies any changes with numbness or tingling up or down the legs she states she has that chronically. She has no loss of feeling or sensation to the extremities. She states she has no other issues walking or weightbearing. She has no other complaints at this time Duration: Day(s): Location: Reports: Back Severity: Severe Improves with: Reports: None Worsens with: Reports: None Associated Symptoms: Reports: No Other Symptoms - Related Data Allergies Allergy/AdvReac Type Severity Reaction Status Date / Time adhesive tape Allergy Rash Verified 04/18/21 08:39 cat dander Allergy Sneezing Verified 04/18/21 08:39 citalopram Allergy Nausea and Verified 04/18/21 08:39 Vomiting clindamycin Allergy Hives Verified 04/18/21 08:39 duloxetine [From Cymbalta] Allergy Cannot Verified 04/18/21 08:39 Remember Sulfa (Sulfonamide Allergy Hives Verified 04/18/21 08:39 Antibiotics) amoxicillin [From Augmentin] AdvReac Nausea and Verified 04/18/21 08:39 Vomiting aspirin AdvReac Bleeding Verified 04/18/21 08:39 celecoxib [From Celebrex] AdvReac Diarrhea Verified 04/18/21 08:39 cephalexin AdvReac Nausea and Verified 04/18/21 08:39 Vomiting clavulanic acid AdvReac Nausea and Verified 04/18/21 08:39 [From Augmentin] Vomiting topiramate [From Topamax] AdvReac Delusions Verified 04/18/21 08:39 dust mite extract Allergy Cannot Uncoded 04/18/21 08:39 Remember Home Meds: Home Meds Calcium Carbonate/Vitamin D2 [Oyster Shell Calcium-Vit D Tab] 1 tab PO BIDMEALS 09/28/13 [History] Cholecalciferol (Vitamin D3) [Vitamin D3] 10,000 unit PO DAILY 09/28/13 [History] Cyanocobalamin (Vitamin B-12) [Vitamin B-12] 100 mcg PO DAILY 09/28/13 [History] Ferrous Sulfate 325 mg PO BIDMEALS 09/28/13 [History] Magnesium Oxide 400 mg PO DAILY@1800 09/28/13 [History] Multivitamin [Multivitamins] 1 tab PO DAILY 09/28/13 [History] traZODone 150 mg PO BEDTIME 03/15/15 [History] Biotin 1 tab PO DAILY 01/24/16 [History] Omeprazole Magnesium [Prilosec Otc] 20 mg PO BIDAC 01/24/16 [History] Zonisamide 100 mg PO BID 08/29/17 [History] atorvaSTATin [Lipitor] 10 mg PO DAILY 12/26/19 [History] Gabapentin [Neurontin] 1,200 mg PO QID 90 Days #720 tablet 03/01/20 [Rx] Promethazine [Phenergan] 25 mg PO Q4H PRN 90 Days #90 tab 08/18/20 [Rx] Acetaminophen [Pain Relief Extra Strength] 1,000 mg PO Q6H PRN MDD 4000 mg in 24 hours 09/06/20 [History] Baclofen 20 mg PO TID 09/06/20 [History] Naphazoline/Pheniramine [Naphcon A Ophth Soln] 2 drop EYEBOTH DAILY PRN 09/06/20 [History] Sennosides/Docusate Sodium [Sennosides-Docusate Sodium] 2 tab PO BID PRN 09/06/20 [History] Erenumab-Aooe [Aimovig Autoinjector] 70 mg SQ Q28D 09/07/20 [History] metFORMIN HCl [Metformin HCl ER] 750 mg PO BID 09/07/20 [History] methocarbamoL [Methocarbamol] 750 mg PO QID PRN 30 Days #120 tablet 10/26/20 [Rx] Acyclovir 400 mg PO BID 10/27/20 [History] traMADol [Ultram] 100 mg PO BID PRN 30 Days #120 tab 12/15/20 [Rx] ondansetron HCL [Ondansetron HCl] 4 mg PO TID PRN 30 Days #90 tablet 02/21/21 [Rx] Escitalopram Oxalate [Lexapro] 10 mg PO BEDTIME 03/14/21 [History] Escitalopram [Lexapro] 10 mg PO DAILY 04/04/21 [History] Meclizine [Antivert] 12.5 mg PO TID 04/04/21 [History] Naloxone HCl [Narcan] 4 mg NS ASDIRECTED PRN 1 Days #1 ml 04/18/21 [Rx] oxyCODONE 5 mg PO BID PRN 30 Days #60 tab 04/18/21 [Rx] Oxycodone Myristate [Xtampza ER] 36 mg PO Q12HR PRN 30 Days #60 cap.spr.12 05/03/21 [Rx] Rizatriptan Benzoate [Rizatriptan] 10 mg PO BID PRN 75 Days #27 tablet 05/03/21 [Rx] Past Medical History HEENT History: Reports: Allergic Rhinitis Cardiovascular History: Reports: Hypertension Respiratory History: Reports: None Gastrointestinal History: Reports: Other (See Below) Other Gastrointestinal History: abd abscess post hernia surgery Genitourinary History: Reports: UTI, Recurrent 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 left hip pain. Recent fall 10/12/19 Neurological History: Reports: Migraines Other Neuro History: sciatica Psychiatric History: Reports: Anxiety, Depression Endocrine/Metabolic History: Reports: Diabetes, Type II, Obesity/BMI 30+ Insulin Pump Model and Supervisor Tumblers: none Hematologic History: Reports: Anemia Immunologic History: Reports: None Oncologic (Cancer) History: Reports: None Dermatologic History: Reports: None Other Dermatologic History: intertrigo. onychodystrophy. tinea pedis - Infectious Disease History Infectious Disease History: Reports: MRSA - Past Surgical History HEENT Surgical History: Reports: None Cardiovascular Surgical History: Reports: None GI Surgical History: Reports: Bariatric Procedure, Cholecystectomy, Hernia Repair/Other Female Surgical History: Reports: Hysterectomy Endocrine Surgical History: Reports: None Neurological Surgical History: Reports: Discectomy, Laminectomy, Lumbar Spine, Spinal Fusion, Thoracic Spine Musculoskeletal Surgical History: Reports: Carpal Tunnel Other Musculoskeletal Surgeries/Procedures:: spinal cord stimulater removed 11/06/17, spinal cord stimulater implant 12/18/18. back surgery 05/17/19. Spine surgery 09/01/3020. drain placed for chronic seroma 01/03/21 Social & Family History - Family History Family Medical History: No Pertinent Family History Cardiac: Reports: CAD, Hypertension Respiratory: Reports: Other (See Below) : Reports: Renal Disease/Insufficiency Neurological: Reports: CVA Endocrine/Metabolic: Reports: Diabetes, type II Oncologic: Reports: Uterine - Caffeine Use Caffeine Use: Reports: Soda - Living Situation & Occupation Living situation: Reports: Single, with Family (sister) Occupation: Disabled ED ROS GENERAL - Review of Systems Review Of Systems: See Below Constitutional: Reports: No Symptoms HEENT: Reports: No Symptoms Respiratory: Reports: No Symptoms Cardiovascular: Reports: No Symptoms Endocrine: Reports: No Symptoms GI/Abdominal: Reports: No Symptoms : Reports: No Symptoms Musculoskeletal: Reports: Back Pain. Denies: Neck Pain, Leg Pain, Muscle Pain, Muscle Stiffness Skin: Reports: No Symptoms Neurological: Reports: Numbness, Paresthesia, Tingling, Other (See HPI). Denies: No Symptoms, Difficulty Walking, Weakness Psychiatric: Reports: No Symptoms Hematologic/Lymphatic: Reports: No Symptoms Immunologic: Reports: No Symptoms ED EXAM,LOWER BACK PAIN/INJURY - Physical Exam Exam: See Below General Appearance: Alert, WD/WN, No Apparent Distress, Other (All vital signs within normal limits patient noted to be up and walking around the room actively text messaging on the phone) Eye Exam: Bilateral Eye: Normal Inspection, PERRL Ears: Hearing Grossly Normal Throat/Mouth: Normal Inspection, Normal Lips, Normal Teeth, Normal Gums, Normal Voice, No Airway Compromise Head: Atraumatic, Normocephalic Neck: Normal Inspection, Supple, Non-Tender, Full Range of Motion Respiratory/Chest: No Respiratory Distress, Lungs Clear, Normal Breath Sounds, No Accessory Muscle Use, Chest Non-Tender Cardiovascular: Normal Peripheral Pulses, Regular Rate, Rhythm, No Edema, No Gallop, No JVD, No Murmur, No Rub GI/Abdominal: Normal Bowel Sounds, Soft, Non-Tender, No Distention. No: Guarding, Rigid, Rebound, Tender Back Exam: Normal Inspection, Full Range of Motion, Other (There is significant scarring down the spine secondary to prior surgeries there is no erythema or calor noted no signs or symptoms of any abscesses. Patient states she had significant pain with light palpation over bilateral buttocks and through the lumbar area there is no noted step-off ) Extremities: Normal Inspection, Non-Tender, No Pedal Edema, Normal Capillary Refill, Other (There is no noted crepitus noted down the spine with palpation) Neurological: Alert, Normal Mood/Affect, Normal Dorsiflexion, CN II-XII Intact, Normal Plantar Flexion, Normal Gait, Normal Reflexes, No Motor/Sensory Deficits, Oriented x 3, Other (Normal straight leg raises bilateral 2+ DTRs bilateral lower extremities positive sphincter tone on the rectal exam decent spinchter strenth ). No: Abnormal Light Touch Psychiatric: Normal Affect, Normal Mood Skin Exam: Warm, Dry, Intact, Normal Color, No Rash Course - Vital Signs Text/Narrative:: Secondary to the patient's history and questionable loss of bowel and bladder I will perform a lumbar CT tonight Per the radiologist at 1 AM on the stat read he states there are no acute findings noted no signs or symptoms of any cord compression or anything that would give nature to cord compression Age indeterminate fracture through L2 further tibial body anteriorly and superiorly with moderate height loss and no retropulsion No visible high-grade canal stenosis Discussed with the patient the results she is okay with that she states only thing that works for pain is Dilaudid. I told her I did give her half milligram IM and that she would need to follow-up with her primary care provider and Nilesh for ongoing chronic pain management she is okay with disposition and course of treatment Last Recorded V/S: Last Vital Signs Temp 36.4 C 05/09/21 00:00 Pulse 98 05/09/21 00:00 Resp 12 05/09/21 00:00 BP 103/75 05/09/21 00:00 Pulse Ox 97 05/09/21 00:00 - Orders/Labs/Meds Orders: Active Orders 24 hr Category Date Time Status Lumbar Spine wo Cont [CT] Stat Exams 05/09/21 00:11 Ordered Departure - Departure Time of Disposition: 01:10 Disposition: Home, Self-Care 01 Condition: Good Clinical Impression: Chronic back pain - Discharge Information Forms: ED Department Discharge Sepsis Event Note (ED) - Focused Exam Vital Signs: Vital Signs Temp Pulse Resp BP Pulse Ox 05/09/21 00:00 36.4 C 98 12 103/75 97 - Problem List & Annotations (1) Chronic back pain SNOMED Code(s): 072640498 Code(s): M54.9 - DORSALGIA, UNSPECIFIED; G89.29 - OTHER CHRONIC PAIN Status: Acute - My Orders Last 24 Hours: My Active Orders 05/09/21 00:11 Lumbar Spine wo Cont [CT] Stat - Assessment/Plan Last 24 Hours: My Active Orders 05/09/21 00:11 Lumbar Spine wo Cont [CT] Stat
[2021-05-09] MEDS ORDERED: HYDROmorphone 0.5 MG/0.5 ML Syringe IM ONE (01:13)
--- NOTE | 2021-05-09 07:47 | CT ---
[id number] CT/CT Lumbar Spine WO IV Exam: CT Lumbar Spine WO IV Clinical Data: BOWEL INCONTINENCE COMPARISON: CORRELATION IS MADE WITH JANUARY 07, 2021 FINDINGS: Surgical changes of the lumbar spine again are seen A pre-existing fracture of the anterior superior corner of the L2 vertebral body is identified Degenerative changes are seen involving the lower 3 lumbar disc spaces with encroachment upon the spinal canal There has been previous posterior decompression Consider CT myelography for further evaluation IMPRESSION: NO CHANGE SINCE LAST EXAM Yordy Groves MD 05/09/21 0746 Thank you for allowing us to participate in the care of your patient.
== END 2021-05-09 01:35 | disposition home or self-care (01) ==
LOC: VM.ED 23:39
DX: G89.29 Other chronic pain (principal); M54.50 Low back pain, unspecified; I10 Essential (primary) hypertension; E11.9 Type 2 diabetes mellitus without complications; E66.9 Obesity, unspecified; Z68.28 Body mass index [BMI] 28.0-28.9, adult; Z88.1 Allergy status to other antibiotic agents; Z88.2 Allergy status to sulfonamides; Z88.0 Allergy status to penicillin; Z91.048 Other nonmedicinal substance allergy status; Z88.8 Allergy status to other drugs, medicaments and biological substances; Z88.5 Allergy status to narcotic agent; Z79.899 Other long term (current) drug therapy; Z79.84 Long term (current) use of oral hypoglycemic drugs
CPT/HCPCS: 72131; 96372; 99283; 99283-25; J1170

== ENCOUNTER 2021-05-12 21:51 | Emergency (ER) | payer MEDICARE, MEDICAID ==
[2021-05-12 22:31] LABS: CHLORIDE,CL 103 mmol/L (98-107); SODIUM,NA 142 mmol/L (136-145)
[2021-05-12 22:33] LABS: ANION GAP 20.3 mmol/L (5-15)
--- NOTE | 2021-05-12 22:36 | EDM.PDOCBH ---
ED HPI GENERAL MEDICAL PROBLEM - General Chief Complaint: Drug or Alcohol Abuse Stated Complaint: OD Time Seen by Provider: 05/12/21 21:51 Source of Information: Reports: EMS History Limitations: Reports: Altered Mental Status - History of Present Illness INITIAL COMMENTS - FREE TEXT/NARRATIVE: Jewell is a 41 year old female who presents to ER per EMS after an apparent drug overdose. Family found patient unresponsive, having trouble breathing and called 911. Police on scene gave a narcan nasally and started CPR as unable to find pulse and had agonal breathing. EMS noted PEA, unable to palpate pulse so continued CPR. Gave a total of 1.2 mg of Narcan and patient awoke. CPR was done for approximately 5 minutes. Patient hollering, complaining of pain all over but mostly chest. Airway is patient. Heart monitor on, tachycardia. Responding to staff and redirects well. RENAE Galloway here with patient presentation. Does care for her in his pain clinic. Had recently taken her off Dilaudid and switched back to oxycontin and increased the dose from 40 mg BID yesterday to 60 mg BID. Has also immediate relief pain pills at home. Was given Ketamine injection yesterday. 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 Onset: Today, Sudden Duration: Minutes: Location: Reports: Generalized Associated Symptoms: Reports: Other (chest discomfort). Denies: Nausea/Vomiting, Shortness of Breath Treatments CORPORATE SAFETY COORDINATOR: Reports: CPR, See EMS Report, Other (see below) Other Treatments CORPORATE SAFETY COORDINATOR: narcan - Related Data Allergies Allergy/AdvReac Type Severity Reaction Status Date / Time adhesive tape Allergy Rash Verified 05/11/21 10:45 cat dander Allergy Sneezing Verified 05/11/21 10:45 citalopram Allergy Nausea and Verified 05/11/21 10:45 Vomiting clindamycin Allergy Hives Verified 05/11/21 10:45 duloxetine [From Cymbalta] Allergy Cannot Verified 05/11/21 10:45 Remember Sulfa (Sulfonamide Allergy Hives Verified 05/11/21 10:45 Antibiotics) amoxicillin [From Augmentin] AdvReac Nausea and Verified 05/11/21 10:45 Vomiting aspirin AdvReac Bleeding Verified 05/11/21 10:45 celecoxib [From Celebrex] AdvReac Diarrhea Verified 05/11/21 10:45 cephalexin AdvReac Nausea and Verified 05/11/21 10:45 Vomiting clavulanic acid AdvReac Nausea and Verified 05/11/21 10:45 [From Augmentin] Vomiting topiramate [From Topamax] AdvReac Delusions Verified 05/11/21 10:45 dust mite extract Allergy Cannot Uncoded 05/11/21 10:45 Remember Home Meds: Home Meds Calcium Carbonate/Vitamin D2 [Oyster Shell Calcium-Vit D Tab] 1 tab PO BIDMEALS 09/28/13 [History] Cholecalciferol (Vitamin D3) [Vitamin D3] 10,000 unit PO DAILY 09/28/13 [History] Cyanocobalamin (Vitamin B-12) [Vitamin B-12] 100 mcg PO DAILY 09/28/13 [History] Ferrous Sulfate 325 mg PO BIDMEALS 09/28/13 [History] Magnesium Oxide 400 mg PO DAILY@1800 09/28/13 [History] Multivitamin [Multivitamins] 1 tab PO DAILY 09/28/13 [History] traZODone 150 mg PO BEDTIME 03/15/15 [History] Biotin 1 tab PO DAILY 01/24/16 [History] Omeprazole Magnesium [Prilosec Otc] 20 mg PO BIDAC 01/24/16 [History] Zonisamide 100 mg PO BID 08/29/17 [History] atorvaSTATin [Lipitor] 10 mg PO DAILY 12/26/19 [History] Gabapentin [Neurontin] 1,200 mg PO QID 90 Days #720 tablet 03/01/20 [Rx] Acetaminophen [Pain Relief Extra Strength] 1,000 mg PO Q6H PRN MDD 4000 mg in 24 hours 09/06/20 [History] Naphazoline/Pheniramine [Naphcon A Ophth Soln] 2 drop EYEBOTH DAILY PRN 09/06/20 [History] Sennosides/Docusate Sodium [Sennosides-Docusate Sodium] 2 tab PO BID PRN 09/06/20 [History] Erenumab-Aooe [Aimovig Autoinjector] 70 mg SQ Q28D 09/07/20 [History] metFORMIN HCl [Metformin HCl ER] 750 mg PO BID 09/07/20 [History] methocarbamoL [Methocarbamol] 750 mg PO QID PRN 30 Days #120 tablet 10/26/20 [Rx] Acyclovir 400 mg PO BID 10/27/20 [History] traMADol [Ultram] 100 mg PO BID PRN 30 Days #120 tab 12/15/20 [Rx] ondansetron HCL [Ondansetron HCl] 4 mg PO TID PRN 30 Days #90 tablet 02/21/21 [Rx] Escitalopram Oxalate [Lexapro] 10 mg PO BEDTIME 03/14/21 [History] Escitalopram [Lexapro] 10 mg PO DAILY 04/04/21 [History] Meclizine [Antivert] 12.5 mg PO TID 04/04/21 [History] Naloxone HCl [Narcan] 4 mg NS ASDIRECTED PRN 1 Days #1 ml 04/18/21 [Rx] Rizatriptan Benzoate [Rizatriptan] 10 mg PO BID PRN 75 Days #27 tablet 05/03/21 [Rx] Baclofen 20 mg PO TID PRN 90 Days #270 tab 05/09/21 [Rx] Promethazine [Phenergan] 25 mg PO Q4H PRN 90 Days #90 tab 05/11/21 [Rx] oxyCODONE 5 mg PO Q6HR PRN 30 Days #120 tab 05/11/21 [Rx] oxyCODONE HCl [Oxycontin] 60 mg PO Q12HR 30 Days #60 tab.er.12h 05/11/21 [Rx] Past Medical History HEENT History: Reports: Allergic Rhinitis Cardiovascular History: Reports: Hypertension Respiratory History: Reports: None Gastrointestinal History: Reports: Other (See Below) Other Gastrointestinal History: abd abscess post hernia surgery Genitourinary History: Reports: UTI, Recurrent CONSUMER SALES REPRESENTATIVE History: Reports: Other (See Below) Other CONSUMER SALES REPRESENTATIVE History: metorrhagia Musculoskeletal History: Reports: Back Pain, Chronic Other Musculoskeletal History: tenosynovitis. left hip pain. Recent fall 10/12/19 Neurological History: Reports: Migraines Other Neuro History: sciatica Psychiatric History: Reports: Anxiety, Depression Endocrine/Metabolic History: Reports: Diabetes, Type II, Obesity/BMI 30+ Insulin Pump Model and Supervisor Tank Storage: none Hematologic History: Reports: Anemia Immunologic History: Reports: None Oncologic (Cancer) History: Reports: None Dermatologic History: Reports: None Other Dermatologic History: intertrigo. onychodystrophy. tinea pedis - Infectious Disease History Infectious Disease History: Reports: MRSA - Past Surgical History HEENT Surgical History: Reports: None Cardiovascular Surgical History: Reports: None GI Surgical History: Reports: Bariatric Procedure, Cholecystectomy, Hernia Repair/Other Female Surgical History: Reports: Hysterectomy Endocrine Surgical History: Reports: None Neurological Surgical History: Reports: Discectomy, Laminectomy, Lumbar Spine, Spinal Fusion, Thoracic Spine Musculoskeletal Surgical History: Reports: Carpal Tunnel Other Musculoskeletal Surgeries/Procedures:: spinal cord stimulater removed 11/06/17, spinal cord stimulater implant 12/18/18. back surgery 05/17/19. Spine surgery 09/01/3020. drain placed for chronic seroma 01/03/21 Social & Family History - Family History Family Medical History: No Pertinent Family History Cardiac: Reports: CAD, Hypertension Respiratory: Reports: Other (See Below) : Reports: Renal Disease/Insufficiency Neurological: Reports: CVA Endocrine/Metabolic: Reports: Diabetes, type II Oncologic: Reports: Uterine - Tobacco Use Tobacco Use Status *Q: Unknown Ever Used Tobacco - Caffeine Use Caffeine Use: Reports: None - Living Situation & Occupation Living situation: Reports: Single, with Family (sister) Occupation: Disabled ED ROS GENERAL - Review of Systems Review Of Systems: See Below Constitutional: Reports: Other (family returned home and found patient unresponsive with agonal breathing. Unsure of events of the day as were in [place]. Sister relates had only limited access to narcotics today as she had several pills with her as well as the others are locked up. ) Respiratory: Reports: Other (had agonal breathing at home, EMS performed CPR for 5 minutes) Cardiovascular: Reports: Other (was in PEA on EMS arrival) Psychiatric: Reports: Depression ED EXAM, BEHAVIORAL HEALTH - Physical Exam Exam: See Below Exam Limited By: Altered Mental Status General Appearance: Lethargic, Other (patient crying out on arrival, complaining of chest discomfort. Does redirect but unable to relate what happened today. Per sister, likely took 4 oxycontin after 1 pm today) Eye Exam: Bilateral Eye: PERRL (pupils sluggish on arrival) Ears: Normal External Exam, Normal TMs Nose: Normal Inspection, Normal Mucosa, No Blood Throat/Mouth: Other (mucous membranes very dry) Head: Normocephalic Neck: Normal Inspection, Supple, Non-Tender Respiratory/Chest: No Respiratory Distress, Lungs Clear, Normal Breath Sounds, Other (redness across chest from CPR) Cardiovascular: Tachycardia GI/Abdominal: Normal Bowel Sounds, Soft, Non-Tender Extremities: Normal Inspection, No Pedal Edema Psychiatric: Other (patient denies wanting to harm herself today.) Skin Exam: Warm, Dry, Pallor #1 Interpretation EKG Date: 05/13/21 Rhythm: NSR [place]: Normal P-Wave: Present QRS: Normal ST-T: Normal QT: Normal Comparison: No Change COURSE, BEHAVIORAL HEALTH COMP - Course Orders, Labs, Meds: Active Orders 24 hr Category Date Time Status Chest 1V Frontal [CR] Stat Exams 05/12/21 22:03 Ordered Acetylcysteine [Acetadote 20%] 10,000 mg Med 05/13/21 06:00 Active Dextrose 5% in Water 1,000 ml IV ONETIME Acetylcysteine [Acetadote 20%] 15,000 mg Med 05/13/21 01:00 Active Dextrose 5% in Water 250 ml IV ONETIME Acetylcysteine [Acetadote 20%] 5,000 mg Med 05/13/21 02:00 Active Dextrose 5% in Water 500 ml IV ONETIME Medication Orders Acetylcysteine 5,000 mg/ (Dextrose/Water) 525 mls @ 131.25 mls/hr IV ONETIME ONE Stop: 05/13/21 05:59 Acetylcysteine 10,000 mg/ (Dextrose/Water) 1,050 mls @ 65.625 mls/hr IV ONETIME ONE Stop: 05/13/21 21:59 Acetylcysteine 15,000 mg/ (Dextrose/Water) 325 mls @ 275 mls/hr IV ONETIME ONE Stop: 05/13/21 02:10 Last Admin: 05/13/21 01:08 Dose: 275 mls/hr Documented by: BRIAN Laboratory Tests 05/12/21 05/12/21 05/12/21 Range/Units 22:05 22:05 22:05 WBC 16.7 H (4.0-10.0) x10^3/uL RBC 4.88 (4.00-5.50) x10^6/uL Hgb 13.8 (12.0-16.0) g/dL Hct 43.8 (33.0-47.0) % MCV 89.8 D (78.0-93.0) fL MCH 28.3 (26.0-32.0) pg MCHC 31.5 L (32.0-36.0) g/dL RDW Coeff of Juan R 15.3 H (10.0-15.0) % Plt Count 260 (130-400) x10^3/uL Immature Gran % (Auto) 1.90 H (0.00-0.43) % Neut % (Auto) 74.7 (50.0-80.0) % Lymph % (Auto) 19.0 L (25.0-50.0) % Alpine % (Auto) 3.5 (2.0-11.0) % Eos % (Auto) 0.7 (0.0-4.0) % Baso % (Auto) 0.2 (0.2-1.2) % Neut # (Auto) 12.5 H (1.8-7.7) x10^3/uL Lymph # (Auto) 3.2 (1.0-4.8) x10^3/uL Alpine # (Auto) 0.6 (0.0-0.8) x10^3/uL Eos # (Auto) 0.1 (0.0-0.5) x10^3/uL Baso # (Auto) 0.0 (0.0-0.2) x10^3/uL Immature Gran # (Auto) 0.31 H (0.00-0.07) x10^3/uL POC ABG pH (7.35-7.45) pH POC ABG pCO2 (35-48) mmHg POC ABG pO2 (83-108) mmHg POC ABG HCO3 (21-28) mmol/L POC ABG Total CO2 (22-29) mmol/L POC ABG O2 Sat (94-98) % POC ABG Base Excess ((-2)-3) mmol/L POC FiO2 POC Blood Gas Comment Sodium 142 (136-145) mmol/L Potassium 4.3 (3.5-5.1) mmol/L Chloride 103 (98-107) mmol/L Carbon Dioxide 23 (21-32) mmol/L Anion Gap 20.3 H (5-15) mmol/L BUN 12 (7-18) mg/dL Creatinine 1.6 H (0.55-1.02) mg/dL Est Cr Clr Drug Dosing TNP Estimated GFR (MDRD) 35 Glucose 469 H* (70-99) mg/dL Calcium 8.6 (8.5-10.1) mg/dL Corrected Calcium 9.2 (8.5-10.1) mg/dL Total Bilirubin 0.2 (0.2-1.0) mg/dL AST 369 H (15-37) U/L ALT 265 H (14-59) U/L Alkaline Phosphatase 229 H (46-116) U/L Troponin I High Sens 14 (<=51) ng/L Total Protein 6.7 (6.4-8.2) g/dL Albumin 3.2 L (3.4-5.0) g/dL Globulin 3.5 Albumin/Globulin Ratio 0.91 Salicylates 1.5 L (2.8-20(Therapeutic)) mg/dL Urine Opiates Screen (NEGATIVE) Ur Buprenorphine Scrn (NEGATIVE) Ur Oxycodone Screen (NEGATIVE) Urine Methadone Screen (NEGATIVE) Acetaminophen (10-30) ug/ml Ur Barbiturates Screen (NEGATIVE) Ur Phencyclidine Scrn (NEGATIVE) Ur Amphetamine Screen (NEGATIVE) U Methamphetamines Scrn (NEGATIVE) Urine MDMA Screen (NEGATIVE) U Benzodiazepines Scrn (NEGATIVE) U Cocaine Metab Screen (NEGATIVE) U Marijuana (THC) Screen (NEGATIVE) Ethyl Alcohol (0-3) mg/dL SARS CoV-2 RNA Rapid YARELY (NEGATIVE) 05/12/21 05/12/21 05/13/21 Range/Units 22:05 23:16 00:57 WBC (4.0-10.0) x10^3/uL RBC (4.00-5.50) x10^6/uL Hgb (12.0-16.0) g/dL Hct (33.0-47.0) % MCV (78.0-93.0) fL MCH (26.0-32.0) pg MCHC (32.0-36.0) g/dL RDW Coeff of Juan R (10.0-15.0) % Plt Count (130-400) x10^3/uL Immature Gran % (Auto) (0.00-0.43) % Neut % (Auto) (50.0-80.0) % Lymph % (Auto) (25.0-50.0) % Alpine % (Auto) (2.0-11.0) % Eos % (Auto) (0.0-4.0) % Baso % (Auto) (0.2-1.2) % Neut # (Auto) (1.8-7.7) x10^3/uL Lymph # (Auto) (1.0-4.8) x10^3/uL Alpine # (Auto) (0.0-0.8) x10^3/uL Eos # (Auto) (0.0-0.5) x10^3/uL Baso # (Auto) (0.0-0.2) x10^3/uL Immature Gran # (Auto) (0.00-0.07) x10^3/uL POC ABG pH (7.35-7.45) pH POC ABG pCO2 (35-48) mmHg POC ABG pO2 (83-108) mmHg POC ABG HCO3 (21-28) mmol/L POC ABG Total CO2 (22-29) mmol/L POC ABG O2 Sat (94-98) % POC ABG Base Excess ((-2)-3) mmol/L POC FiO2 POC Blood Gas Comment Sodium (136-145) mmol/L Potassium (3.5-5.1) mmol/L Chloride (98-107) mmol/L Carbon Dioxide (21-32) mmol/L Anion Gap (5-15) mmol/L BUN (7-18) mg/dL Creatinine (0.55-1.02) mg/dL Est Cr Clr Drug Dosing Estimated GFR (MDRD) Glucose (70-99) mg/dL Calcium (8.5-10.1) mg/dL Corrected Calcium (8.5-10.1) mg/dL Total Bilirubin (0.2-1.0) mg/dL AST (15-37) U/L ALT (14-59) U/L Alkaline Phosphatase (46-116) U/L Troponin I High Sens (<=51) ng/L Total Protein (6.4-8.2) g/dL Albumin (3.4-5.0) g/dL Globulin Albumin/Globulin Ratio Salicylates (2.8-20(Therapeutic)) mg/dL Urine Opiates Screen Positive H (NEGATIVE) Ur Buprenorphine Scrn Negative (NEGATIVE) Ur Oxycodone Screen Positive H (NEGATIVE) Urine Methadone Screen Negative (NEGATIVE) Acetaminophen 0 L (10-30) ug/ml Ur Barbiturates Screen Negative (NEGATIVE) Ur Phencyclidine Scrn Negative (NEGATIVE) Ur Amphetamine Screen Negative (NEGATIVE) U Methamphetamines Scrn Negative (NEGATIVE) Urine MDMA Screen Negative (NEGATIVE) U Benzodiazepines Scrn Negative (NEGATIVE) U Cocaine Metab Screen Negative (NEGATIVE) U Marijuana (THC) Screen Negative (NEGATIVE) Ethyl Alcohol < 3 (0-3) mg/dL SARS CoV-2 RNA Rapid YARELY Negative (NEGATIVE) 05/13/21 05/13/21 Range/Units 01:02 01:18 WBC (4.0-10.0) x10^3/uL RBC (4.00-5.50) x10^6/uL Hgb (12.0-16.0) g/dL Hct (33.0-47.0) % MCV (78.0-93.0) fL MCH (26.0-32.0) pg MCHC (32.0-36.0) g/dL RDW Coeff of Juan R (10.0-15.0) % Plt Count (130-400) x10^3/uL Immature Gran % (Auto) (0.00-0.43) % Neut % (Auto) (50.0-80.0) % Lymph % (Auto) (25.0-50.0) % [place] % (Auto) (2.0-11.0) % Eos % (Auto) (0.0-4.0) % Baso % (Auto) (0.2-1.2) % Neut # (Auto) (1.8-7.7) x10^3/uL Lymph # (Auto) (1.0-4.8) x10^3/uL [place] # (Auto) (0.0-0.8) x10^3/uL Eos # (Auto) (0.0-0.5) x10^3/uL Baso # (Auto) (0.0-0.2) x10^3/uL Immature Gran # (Auto) (0.00-0.07) x10^3/uL POC ABG pH 7.26 L* (7.35-7.45) pH POC ABG pCO2 51 H (35-48) mmHg POC ABG pO2 67 L (83-108) mmHg POC ABG HCO3 22.6 (21-28) mmol/L POC ABG Total CO2 23.7 (22-29) mmol/L POC ABG O2 Sat 89.6 L (94-98) % POC ABG Base Excess -5 L ((-2)-3) mmol/L POC FiO2 21 POC Blood Gas Comment Called critical res Sodium (136-145) mmol/L Potassium (3.5-5.1) mmol/L Chloride (98-107) mmol/L Carbon Dioxide (21-32) mmol/L Anion Gap (5-15) mmol/L BUN (7-18) mg/dL Creatinine (0.55-1.02) mg/dL Est Cr Clr Drug Dosing Estimated GFR (MDRD) Glucose (70-99) mg/dL Calcium (8.5-10.1) mg/dL Corrected Calcium (8.5-10.1) mg/dL Total Bilirubin (0.2-1.0) mg/dL AST (15-37) U/L ALT (14-59) U/L Alkaline Phosphatase (46-116) U/L Troponin I High Sens (<=51) ng/L Total Protein (6.4-8.2) g/dL Albumin (3.4-5.0) g/dL Globulin Albumin/Globulin Ratio Salicylates (2.8-20(Therapeutic)) mg/dL Urine Opiates Screen (NEGATIVE) Ur Buprenorphine Scrn (NEGATIVE) Ur Oxycodone Screen (NEGATIVE) Urine Methadone Screen (NEGATIVE) Acetaminophen Cancelled (10-30) ug/ml Ur Barbiturates Screen (NEGATIVE) Ur Phencyclidine Scrn (NEGATIVE) Ur Amphetamine Screen (NEGATIVE) U Methamphetamines Scrn (NEGATIVE) Urine MDMA Screen (NEGATIVE) U Benzodiazepines Scrn (NEGATIVE) U Cocaine Metab Screen (NEGATIVE) U Marijuana (THC) Screen (NEGATIVE) Ethyl Alcohol Cancelled (0-3) mg/dL SARS CoV-2 RNA Rapid YARELY (NEGATIVE) Medications Generic Name Dose Route Start Last Admin Trade Name Freq PRN Reason Stop Dose Admin Acetylcysteine 5,000 mg/ 525 mls @ 131.25 mls/hr 05/13/21 02:00 Dextrose/Water IV 05/13/21 05:59 ONETIME ONE Acetylcysteine 10,000 mg/ 1,050 mls @ 65.625 mls/hr 05/13/21 06:00 Dextrose/Water IV 05/13/21 21:59 ONETIME ONE Acetylcysteine 15,000 mg/ 325 mls @ 275 mls/hr 05/13/21 01:00 05/13/21 01:08 Dextrose/Water IV 05/13/21 02:10 275 mls/hr ONETIME ONE Administration Discontinued Medications Generic Name Dose Route Start Last Admin Trade Name Shirley PRN Reason Stop Dose Admin Acetylcysteine / Dextrose/ 200 mls @ 200 mls/hr 05/13/21 00:08 Water IV 05/13/21 00:09 STAT STA Protocol Acetylcysteine 15,000 mg/ 275 mls @ 275 mls/hr 05/13/21 01:00 Dextrose/Water IV 05/13/21 01:59 ONETIME ONE Naloxone HCl 0 mg 05/13/21 00:13 Naloxone 2 Mg/2 Ml Syringe IV 05/13/21 00:27 NOW STA Protocol Re-Assessment/Re-Exam Time: 22:30 Discharge vs Psych Eval/Treatment:: 05/12/21 2245- Frequent reassessment. Patient sleepy at times but opens eyes easily to verbal command and answer questions. Did admit to [facility] and sister that likely took 4 oxycontin today since 1 pm. Per sister, does not have access to any other meds as are locked up in sister's bedroom. Answering questions easily, conversing with RENAE Galloway 2315-Visiting with family. Does nod off to sleep at times, vital remain stalbe 2345-Cath drug screen done after up to [facility] and unable to void. Positive for opiates and oxycodone, no other noted drugs. 2350-[place] [facility] notified. No available beds. [facility] One call contacted. 0010-Spoke with Dr. Jade in ER. Will need to be observed for 18-24 hours. Recommends giving Mucomyst. Starting Narcan drip 0025- Discussed with Dr. Cantor, traffic engineering technician, at [facility]. Recommended to hold Narcan drip and use IV push if hypercapneic or hypoxic as will be in significant pain if all reversed at this time. Advised to obtain ETOH, tylenol, Aspirin levels and ABGs. Did agree to accept patient in transfer for monitoring and treatment as needed. 05/13/21 00:51 Family notified of plan. Question now if patient may have taken 6 tablets of oxycontin since 1300, total of 360 mg. 05/13/21 02:00 Contacted [facility] and updated Dr. Casillas on labs requested and status prior to discharge. Departure - Departure Time of Disposition: 00:39 Disposition: DC/Tfer to Acute Hospital 02 Condition: Undetermined Clinical Impression: Opiate overdose - Discharge Information *PRESCRIPTION DRUG MONITORING PROGRAM REVIEWED*: No *COPY OF PRESCRIPTION DRUG MONITORING REPORT IN PATIENT ELIZA: No Referrals: Faby Araya MD [Primary Care Provider] - Forms: ED Department Discharge, Interfacility Transfer EMTALA Additional Instructions: Transfer ALS to [facility]. - My Orders Last 24 Hours: My Active Orders 05/12/21 22:03 Chest 1V Frontal [CR] Stat 05/13/21 01:00 Acetylcysteine [Acetadote 20%] 15,000 mg Dextrose 5% in Water 250 ml IV ONETIME 05/13/21 02:00 Acetylcysteine [Acetadote 20%] 5,000 mg Dextrose 5% in Water 500 ml IV ONETIME 05/13/21 06:00 Acetylcysteine [Acetadote 20%] 10,000 mg Dextrose 5% in Water 1,000 ml IV ONETIME - Assessment/Plan Last 24 Hours: My Active Orders 05/12/21 22:03 Chest 1V Frontal [CR] Stat 05/13/21 01:00 Acetylcysteine [Acetadote 20%] 15,000 mg Dextrose 5% in Water 250 ml IV ONETIME 05/13/21 02:00 Acetylcysteine [Acetadote 20%] 5,000 mg Dextrose 5% in Water 500 ml IV ONETIME 05/13/21 06:00 Acetylcysteine [Acetadote 20%] 10,000 mg Dextrose 5% in Water 1,000 ml IV ONETIME
[2021-05-12 23:43] LABS: BARBITURATE SCREEN,URINE NEGATIVE (NEGATIVE)
[2021-05-12 23:44] LABS: BENZODIAZEPINES SCREEN,URINE NEGATIVE (NEGATIVE); BUPRENORPHINE SCREEN,URINE NEGATIVE (NEGATIVE); METHAMPHETAMINE SCREEN, URINE NEGATIVE (NEGATIVE); THC SCREEN,URINE 50 NG/ML NEGATIVE (NEGATIVE)
[2021-05-13] MEDS ORDERED: WATER IV STA ×2 (00:08)
[2021-05-13] MEDS ORDERED: ACETYLCYSTEINE IV STA ×2 (00:08)
[2021-05-13] MEDS ORDERED: DEXTROSE 5% IV STA ×2 (00:08)
[2021-05-13] MEDS ORDERED: Naloxone 2 MG/2 ML Syringe IV STA (00:13)
[2021-05-13] MEDS ORDERED: ACETYLCYSTEINE IV ONE ×2 (01:00)
[2021-05-13] MEDS ORDERED: WATER IV ONE ×2 (01:00)
[2021-05-13] MEDS ORDERED: Acetylcysteine 15,000 MG in Dextrose 5% in Water 200 ML IV ONE ×2 (01:00)
[2021-05-13] MEDS ORDERED: DEXTROSE 5% IV ONE ×2 (01:00)
[2021-05-13 01:07] LABS: PCO2 ARTERIAL,POC 51 mmHg (35-48)
[2021-05-13 01:25] LABS: ACETAMINOPHEN 0 ug/ml (10-30)
[2021-05-13] MEDS ORDERED: Acetylcysteine 5,000 MG in Dextrose 5% in Water 500 ML IV ONE ×2 (02:00)
[2021-05-13] MEDS ORDERED: Acetylcysteine 10,000 MG in Dextrose 5% in Water 1,000 ML IV ONE ×2 (06:00)
--- NOTE | 2021-05-13 08:08 | CR ---
[id number] RAD/RAD Chest PA or AP 1V EXAM: FRONTAL CHEST INDICATION: chest pain after CPR COMPARISON: March 03, 2021. DISCUSSION: Hypoinflation. Mild central vascular crowding and basilar atelectasis. No definite infiltrates. Apparent cardiomegaly likely relates to low lung volumes and projection. Partially imaged thoracolumbar fusion rods. Lower thoracic spinal canal stimulator leads. IMPRESSION: 1. Low lung volumes. Ovidio Watters MD 05/13/21 0807 Thank you for allowing us to participate in the care of your patient.
== END 2021-05-13 01:36 | disposition short-term general hospital (02) ==
LOC: VM.ED 21:51
DX: T40.601A Poisoning by unspecified narcotics, accidental (unintentional), initial encounter (principal); E11.9 Type 2 diabetes mellitus without complications; I10 Essential (primary) hypertension; E66.9 Obesity, unspecified; Z68.30 Body mass index [BMI] 30.0-30.9, adult; Z91.09 Other allergy status, other than to drugs and biological substances; Z88.1 Allergy status to other antibiotic agents; Z88.2 Allergy status to sulfonamides; Z91.048 Other nonmedicinal substance allergy status; Z88.8 Allergy status to other drugs, medicaments and biological substances; Z79.899 Other long term (current) drug therapy; Z79.4 Long term (current) use of insulin; Z20.822 Contact with and (suspected) exposure to COVID-19
CPT/HCPCS: 36415; 36600; 71045; 80053; 80143; 80179; 80305-QW; 80307; 82803; 84484; 85025; 93005; 96365; 99285-25; J0132; J7060; U0002

== ENCOUNTER 2021-05-18 02:45 | Emergency (ER) | payer MEDICARE, MEDICAID ==
--- NOTE | 2021-05-18 03:27 | EDM.PDOC ---
ED HPI GENERAL MEDICAL PROBLEM - General Chief Complaint: Cardiovascular Problem Stated Complaint: chest pain Time Seen by Provider: 05/18/21 03:00 Source of Information: Reports: Patient History Limitations: Reports: No Limitations - History of Present Illness INITIAL COMMENTS - FREE TEXT/NARRATIVE: Patient presents to the ED for continued chest pain since she had cpr preformed on her on 05/12/2021 for accidental narcotic overdose. Patient was given narcan and had 5 minutes of cpr performed by PD. She was revived, admitted and transferred to [facility] for monitoring. Was released from the hospital on 05/14. She has had chest pain since the CRP. Hurts with a deep breath, has been trying to cough for deep breathing. NO fevers. Has already had covid. The pain was been the same since the incident but tonight is more intense. Was sleeping and the pain was worse so she came in. Pain has been mid chest along the sternal border and the let mid clavicular line. NO crepitus. Is taking her regular medications. Some radiation to the left shoulder but this is unchanged in days. Duration: Day(s): Location: Reports: Chest Left Chest Pain Score (Numeric/FACES): 10 - Related Data Allergies Allergy/AdvReac Type Severity Reaction Status Date / Time adhesive tape Allergy Rash Verified 05/11/21 10:45 cat dander Allergy Sneezing Verified 05/11/21 10:45 citalopram Allergy Nausea and Verified 05/11/21 10:45 Vomiting clindamycin Allergy Hives Verified 05/11/21 10:45 duloxetine [From Cymbalta] Allergy Cannot Verified 05/11/21 10:45 Remember Sulfa (Sulfonamide Allergy Hives Verified 05/11/21 10:45 Antibiotics) amoxicillin [From Augmentin] AdvReac Nausea and Verified 05/11/21 10:45 Vomiting aspirin AdvReac Bleeding Verified 05/11/21 10:45 celecoxib [From Celebrex] AdvReac Diarrhea Verified 05/11/21 10:45 cephalexin AdvReac Nausea and Verified 05/11/21 10:45 Vomiting clavulanic acid AdvReac Nausea and Verified 05/11/21 10:45 [From Augmentin] Vomiting topiramate [From Topamax] AdvReac Delusions Verified 05/11/21 10:45 dust mite extract Allergy Cannot Uncoded 05/11/21 10:45 Remember Home Meds: Home Meds Calcium Carbonate/Vitamin D2 [Oyster Shell Calcium-Vit D Tab] 1 tab PO BIDMEALS 09/28/13 [History] Cholecalciferol (Vitamin D3) [Vitamin D3] 10,000 unit PO DAILY 09/28/13 [History] Cyanocobalamin (Vitamin B-12) [Vitamin B-12] 100 mcg PO DAILY 09/28/13 [History] Ferrous Sulfate 325 mg PO BIDMEALS 09/28/13 [History] Magnesium Oxide 400 mg PO DAILY@1800 09/28/13 [History] Multivitamin [Multivitamins] 1 tab PO DAILY 09/28/13 [History] traZODone 150 mg PO BEDTIME 03/15/15 [History] Biotin 1 tab PO DAILY 01/24/16 [History] Omeprazole Magnesium [Prilosec Otc] 20 mg PO BIDAC 01/24/16 [History] Zonisamide 100 mg PO BID 08/29/17 [History] atorvaSTATin [Lipitor] 10 mg PO DAILY 12/26/19 [History] Gabapentin [Neurontin] 1,200 mg PO QID 90 Days #720 tablet 03/01/20 [Rx] Acetaminophen [Pain Relief Extra Strength] 1,000 mg PO Q6H PRN MDD 4000 mg in 24 hours 09/06/20 [History] Naphazoline/Pheniramine [Naphcon A Ophth Soln] 2 drop EYEBOTH DAILY PRN 09/06/20 [History] Sennosides/Docusate Sodium [Sennosides-Docusate Sodium] 2 tab PO BID PRN 09/06/20 [History] Erenumab-Aooe [Aimovig Autoinjector] 70 mg SQ Q28D 09/07/20 [History] metFORMIN HCl [Metformin HCl ER] 750 mg PO BID 09/07/20 [History] Acyclovir 400 mg PO BID 10/27/20 [History] traMADol [Ultram] 100 mg PO BID PRN 30 Days #120 tab 12/15/20 [Rx] ondansetron HCL [Ondansetron HCl] 4 mg PO TID PRN 30 Days #90 tablet 02/21/21 [Rx] Escitalopram Oxalate [Lexapro] 10 mg PO BEDTIME 03/14/21 [History] Escitalopram [Lexapro] 10 mg PO DAILY 04/04/21 [History] Meclizine [Antivert] 12.5 mg PO TID 04/04/21 [History] Naloxone HCl [Narcan] 4 mg NS ASDIRECTED PRN 1 Days #1 ml 04/18/21 [Rx] Rizatriptan Benzoate [Rizatriptan] 10 mg PO BID PRN 75 Days #27 tablet 05/03/21 [Rx] Baclofen 20 mg PO TID PRN 90 Days #270 tab 05/09/21 [Rx] Promethazine [Phenergan] 25 mg PO Q4H PRN 90 Days #90 tab 05/11/21 [Rx] oxyCODONE 5 mg PO Q6HR PRN 30 Days #120 tab 05/11/21 [Rx] oxyCODONE HCl [Oxycontin] 60 mg PO Q12HR 30 Days #60 tab.er.12h 05/11/21 [Rx] Past Medical History HEENT History: Reports: Allergic Rhinitis Cardiovascular History: Reports: Hypertension Respiratory History: Reports: None Gastrointestinal History: Reports: Other (See Below) Other Gastrointestinal History: abd abscess post hernia surgery Genitourinary History: Reports: UTI, Recurrent HEAD CLEANING PORTER History: Reports: Other (See Below) Other HEAD CLEANING PORTER History: metorrhagia Musculoskeletal History: Reports: Back Pain, Chronic Other Musculoskeletal History: tenosynovitis. left hip pain. Recent fall 10/12/19 Neurological History: Reports: Migraines Other Neuro History: sciatica Psychiatric History: Reports: Anxiety, Depression Endocrine/Metabolic History: Reports: Diabetes, Type II, Obesity/BMI 30+ Insulin Pump Model and Dental Ceramist Assistant: none Hematologic History: Reports: Anemia Immunologic History: Reports: None Oncologic (Cancer) History: Reports: None Dermatologic History: Reports: None Other Dermatologic History: intertrigo. onychodystrophy. tinea pedis - Infectious Disease History Infectious Disease History: Reports: MRSA - Past Surgical History HEENT Surgical History: Reports: None Cardiovascular Surgical History: Reports: None GI Surgical History: Reports: Bariatric Procedure, Cholecystectomy, Hernia Repair/Other Female Surgical History: Reports: Hysterectomy Endocrine Surgical History: Reports: None Neurological Surgical History: Reports: Discectomy, Laminectomy, Lumbar Spine, Spinal Fusion, Thoracic Spine Musculoskeletal Surgical History: Reports: Carpal Tunnel Other Musculoskeletal Surgeries/Procedures:: spinal cord stimulater removed 11/06/17, spinal cord stimulater implant 12/18/18. back surgery 05/17/19. Spine surgery 09/01/3020. drain placed for chronic seroma 01/03/21 Social & Family History - Family History Family Medical History: No Pertinent Family History Cardiac: Reports: CAD, Hypertension Respiratory: Reports: Other (See Below) : Reports: Renal Disease/Insufficiency Neurological: Reports: CVA Endocrine/Metabolic: Reports: Diabetes, type II Oncologic: Reports: Uterine - Caffeine Use Caffeine Use: Reports: None - Living Situation & Occupation Living situation: Reports: Single, with Family (sister) Occupation: Disabled ED ROS GENERAL - Review of Systems Review Of Systems: See Below Constitutional: Reports: No Symptoms. Denies: Fever, Chills, Malaise, Weakness HEENT: Reports: No Symptoms Respiratory: Reports: No Symptoms Cardiovascular: Reports: Chest Pain. Denies: Claudication, Dyspnea on Exertion, Edema, Palpitations Endocrine: Reports: No Symptoms GI/Abdominal: Reports: No Symptoms. Denies: Abdominal Pain, Flatus, Nausea, Vomiting : Reports: No Symptoms Musculoskeletal: Reports: Back Pain (chronic) Skin: Reports: No Symptoms Neurological: Reports: No Symptoms ED EXAM, GENERAL - Physical Exam Exam: See Below Exam Limited By: No Limitations General Appearance: Alert, Anxious (and tearful) Eye Exam: Bilateral Eye: EOMI, Normal Inspection, PERRL Ears: Normal External Exam, Hearing Grossly Normal Nose: Normal Inspection Throat/Mouth: Normal Inspection, Normal Lips, Normal Teeth, Normal Voice Head: Atraumatic Neck: Normal Inspection Respiratory/Chest: Lungs Clear, Other (tenderness to palpation along the sternal borders and along the mid clavicular line on the left. no subcutaneous emphysema, no crepitus). No: Decreased Breath Sounds, Crackles, Rales Cardiovascular: Regular Rate, Rhythm, No Murmur GI/Abdominal: Normal Bowel Sounds, Soft Neurological: Alert, Oriented, CN II-XII Intact Psychiatric: Anxious, Tearful #1 Interpretation EKG Date: 05/18/21 Time: 02:44 Rhythm: NSR [place]: Normal P-Wave: Present QRS: Normal ST-T: Other (t inverted in v1-3 same as previous) QT: Normal Comparison: No Change Course - Vital Signs Last Recorded V/S: Last Vital Signs Temp 36.5 C 12/22/21 03:17 Pulse 90 05/18/21 03:17 Resp 18 05/18/21 03:17 BP 150/80 H 05/18/21 03:17 Pulse Ox 94 L 05/18/21 03:17 - Orders/Labs/Meds Orders: Active Orders 24 hr Category Date Time Status Cardiac Monitoring [RC] . DIRECTED Care 05/18/21 02:55 Active Incentive Spirometry [RT Incentive Spirometry] [RC] Care 05/18/21 04:58 Active Q1HWA PE Chest [Ang Chest] [CT] Stat Exams 05/18/21 03:52 Ordered FREE T3 [REF] Stat Lab 05/18/21 03:12 Received THYROXINE (T4) [REF] Stat Lab 05/18/21 03:12 Received Sodium Chloride 0.9% [Saline Flush] Med 05/18/21 03:52 Active 10 ml FLUSH ASDIRECTED PRN Peripheral IV Insertion Adult [OM.PC] Routine Oth 05/18/21 03:52 Ordered Medication Orders Sodium Chloride (Sodium Chloride 0.9% 10 Ml Syringe) 10 ml FLUSH ASDIRECTED PRN PRN Reason: Keep Vein Open Labs: Laboratory Tests 05/18/21 05/18/21 05/18/21 Range/Units 03:12 03:12 03:12 WBC 6.1 (4.0-10.0) x10^3/uL RBC 4.56 (4.00-5.50) x10^6/uL Hgb 12.7 (12.0-16.0) g/dL Hct 39.9 (33.0-47.0) % MCV 87.5 (78.0-93.0) fL MCH 27.9 (26.0-32.0) pg MCHC 31.8 L (32.0-36.0) g/dL RDW Coeff of Juan R 15.0 (10.0-15.0) % Plt Count 204 (130-400) x10^3/uL Immature Gran % (Auto) 0.30 (0.00-0.43) % Neut % (Auto) 51.6 (50.0-80.0) % Lymph % (Auto) 32.3 (25.0-50.0) % Ralls % (Auto) 9.2 (2.0-11.0) % Eos % (Auto) 5.9 H (0.0-4.0) % Baso % (Auto) 0.7 (0.2-1.2) % Neut # (Auto) 3.2 (1.8-7.7) x10^3/uL Lymph # (Auto) 2.0 (1.0-4.8) x10^3/uL Ralls # (Auto) 0.6 (0.0-0.8) x10^3/uL Eos # (Auto) 0.4 (0.0-0.5) x10^3/uL Baso # (Auto) 0.0 (0.0-0.2) x10^3/uL Immature Gran # (Auto) 0.02 (0.00-0.07) x10^3/uL D-Dimer, Quantitative 4.48 H (<=0.58) mg/LFEU Sodium 145 (136-145) mmol/L Potassium 4.4 (3.5-5.1) mmol/L Chloride 106 (98-107) mmol/L Carbon Dioxide 29 (21-32) mmol/L Anion Gap 14.4 (5-15) mmol/L BUN 11 (7-18) mg/dL Creatinine 0.7 (0.55-1.02) mg/dL Est Cr Clr Drug Dosing 97.01 mL/min Estimated GFR (MDRD) > 60 Glucose 119 H (70-99) mg/dL Calcium 9.0 (8.5-10.1) mg/dL Corrected Calcium 9.7 (8.5-10.1) mg/dL Magnesium 1.9 (1.8-2.4) mg/dL Total Bilirubin 0.3 (0.2-1.0) mg/dL AST 19 (15-37) U/L ALT 59 (14-59) U/L Alkaline Phosphatase 108 (46-116) U/L Troponin I High Sens 5 (<=51) ng/L Total Protein 6.6 (6.4-8.2) g/dL Albumin 3.1 L (3.4-5.0) g/dL Globulin 3.5 Albumin/Globulin Ratio 0.89 TSH, Ultra Sensitive 9.225 H (0.358-3.74) uIU/mL Meds: Medications Generic Name Dose Route Start Last Admin Trade Name Freq PRN Reason Stop Dose Admin Sodium Chloride 10 ml 05/18/21 03:52 Sodium Chloride 0.9% 10 Ml Syringe FLUSH ASDIRECTED PRN Keep Vein Open Discontinued Medications Generic Name Dose Route Start Last Admin Trade Name Freq PRN Reason Stop Dose Admin Iopamidol 100 ml 05/18/21 04:06 05/18/21 04:51 Iopamidol 755 Mg/Ml 100 Ml Bottle IVPUSH 05/18/21 04:07 100 ml ONETIME ONE Administration - Radiology Interpretation Free Text/Narrative:: ct pe protocol chest interpreted by radiology at 7:12 am ( competed at 4:16 am). no pulmonary embolus, several bilateral rib fractures, atelectasis , no acute other process. - Re-Assessments/Exams Free Text/Narrative Re-Assessment/Exam: 05/18/21 03:29 will check some labs, same pain for multiple days. history of recent chest compressions. Will not give aspirin due to allergy, do not think she needs nitroglycerin due to mechanical in nature, reproducible. no conerncing ekg changes, but does have frequent pvc with bigeminy pattern at times, then normal sinus. 05/18/21 03:57 Patient not on thyroid medications. Has been fatigued lately. Will add T3 and T4 and have her follow up with PCP. ddimer is elevated. Will get CT PE protocol 05/18/21 07:01 second call placed to [facility], ct scan is still not being read. has been three hours for stat study. 05/18/21 07:21 at 7:12 [facility] still no report from [facility]. discussed multiple bilateral rib fractures, no PE. Patient will follow up with pain management, take regular medications and maximize incentive spirometry Departure - Departure Time of Disposition: 07:20 Disposition: Home, Self-Care 01 Condition: Fair Clinical Impression: Chest pain, Elevated TSH, Ribs, multiple fractures Instructions: Thyroid-Stimulating Hormone Test, Hypothyroidism, Chest Wall Pain, [id number], Rib Fracture Referrals: PCP,None [Primary Care Provider] - Forms: ED Department Discharge Additional Instructions: Testing today was negative for heart attack, pneumonia or blood clot. You will continue to have some chest wall pain with deep breathing, movement and lifting. Continue your regular medications. Follow up with PCP and pain management. They may be able to do rib blocks for the pain. You have multiple rib fractures on both sides and these will start to stabilize after 10 days, but will take 2-3 months to hela Your thyroid test is concerning for underactive thyroid. Further testing is pending. contact your doctor to help follow this up. Use the incentive spirometer every hour while awake, 10 repetitions. THis will help prevent pneumonia Sepsis Event Note (ED) - Focused Exam Vital Signs: Vital Signs Temp Pulse Resp BP Pulse Ox 05/18/21 03:17 36.5 C 90 18 150/80 H 94 L - My Orders Last 24 Hours: My Active Orders 05/18/21 02:55 Cardiac Monitoring [RC] . DIRECTED 05/18/21 03:12 FREE T3 [REF] Stat THYROXINE (T4) [REF] Stat 05/18/21 03:52 PE Chest [Ang Chest] [CT] Stat Sodium Chloride 0.9% [Saline Flush] 10 ml FLUSH ASDIRECTED PRN Peripheral IV Insertion Adult [OM.PC] Routine 05/18/21 04:58 Incentive Spirometry [RT Incentive Spirometry] [RC] Q1HWA - Assessment/Plan Last 24 Hours: My Active Orders 05/18/21 02:55 Cardiac Monitoring [RC] . DIRECTED 05/18/21 03:12 FREE T3 [REF] Stat THYROXINE (T4) [REF] Stat 05/18/21 03:52 PE Chest [Ang Chest] [CT] Stat Sodium Chloride 0.9% [Saline Flush] 10 ml FLUSH ASDIRECTED PRN Peripheral IV Insertion Adult [OM.PC] Routine 05/18/21 04:58 Incentive Spirometry [RT Incentive Spirometry] [RC] Q1HWA
[2021-05-18 03:29] VITALS: BP 150/80; PULSE 90
[2021-05-18 03:46] LABS: CHLORIDE,CL 106 mmol/L (98-107); SODIUM,NA 145 mmol/L (136-145)
[2021-05-18 03:47] LABS: ANION GAP 14.4 mmol/L (5-15)
[2021-05-18] MEDS ORDERED: Sodium Chloride 0.9% 10 ML Syringe FLUSH PRN (03:52)
[2021-05-18] MEDS ORDERED: Iopamidol 755 Mg/ML 100 ML Bottle IVPUSH ONE (04:06)
--- NOTE | 2021-05-18 07:46 | CT ---
[id number] CT/CTA Chest EXAM: CT ANGIOGRAM CHEST INDICATION: CHEST PAIN POST CPR,ELEVATED D DIMER. COMPARISON: 03/03/2021. DISCUSSION: The pulmonary arteries are normal in appearance with no emboli identified. Linear atelectasis and or scarring involving the right mid lobe. A few scattered groundglass densities most pronounced within the left upper lobe. No confluent airspace consolidation. No pneumothorax.No pleural or pericardial effusion. Normal heart size. No mediastinal, hilar or axillary lymphadenopathy. The imaged upper abdomen and osseous structures are unremarkable. Partially visualized post surgical changes of the thoracolumbar spine. IMPRESSION: 1. No evidence of acute pulmonary embolism. 2. A few scattered groundglass densities most pronounced within the left upper lobe. Brandon Briones DO 05/18/21 0744 Thank you for allowing us to participate in the care of your patient.
== END 2021-05-18 07:35 | disposition home or self-care (01) ==
LOC: VM.ED 02:45
DX: S22.41XA Multiple fractures of ribs, right side, initial encounter for closed fracture (principal); S22.42XA Multiple fractures of ribs, left side, initial encounter for closed fracture; R94.6 Abnormal results of thyroid function studies; E11.9 Type 2 diabetes mellitus without complications; I10 Essential (primary) hypertension; E66.9 Obesity, unspecified; Z88.1 Allergy status to other antibiotic agents; Z88.0 Allergy status to penicillin; Z88.2 Allergy status to sulfonamides; Z91.048 Other nonmedicinal substance allergy status; Z91.09 Other allergy status, other than to drugs and biological substances; Z79.899 Other long term (current) drug therapy; Z88.8 Allergy status to other drugs, medicaments and biological substances; Z68.41 Body mass index [BMI] 40.0-44.9, adult
CPT/HCPCS: 36415; 71275; 80053; 83735; 84436; 84443; 84481; 84484; 85025; 85379; 99285-25; Q9967

== ENCOUNTER 2021-08-26 13:39 | Emergency (ER) | payer MEDICARE, MEDICAID ==
[2021-08-26 14:01] VITALS: BP 147/84; PULSE 94
[2021-08-26] MEDS ORDERED: Ketorolac 30 MG/ML SDV IM ONE (14:02)
[2021-08-26] MEDS ORDERED: methylPREDNISolone Sodium Succinate 125 MG/2 ML SDV IM ONE (14:02)
== END 2021-08-26 15:51 | disposition home or self-care (01) ==
LOC: VM.ED 13:39
DX: N20.0 Calculus of kidney (principal); M54.50 Low back pain, unspecified; I10 Essential (primary) hypertension; E11.9 Type 2 diabetes mellitus without complications; E66.9 Obesity, unspecified; Z68.30 Body mass index [BMI] 30.0-30.9, adult; Z91.048 Other nonmedicinal substance allergy status; Z88.1 Allergy status to other antibiotic agents; Z88.2 Allergy status to sulfonamides; Z88.8 Allergy status to other drugs, medicaments and biological substances; Z91.09 Other allergy status, other than to drugs and biological substances; Z88.0 Allergy status to penicillin
CPT/HCPCS: 72125; 72128; 72131; 96372; 99283; 99283-25; J1885; J2930

== ENCOUNTER 2021-08-28 18:14 | Emergency (ER) | payer MEDICARE, MEDICAID ==
[2021-08-28 18:37] VITALS: BP 159/94; PULSE 109
[2021-08-28] MEDS: Orphenadrine 60 MG/2 ML Inj IM ONE (18:43)
== END 2021-08-28 18:57 | disposition home or self-care (01) ==
LOC: VM.ED 18:14
DX: G89.29 Other chronic pain (principal); M54.2 Cervicalgia; M54.10 Radiculopathy, site unspecified; I10 Essential (primary) hypertension; E11.9 Type 2 diabetes mellitus without complications; F41.9 Anxiety disorder, unspecified; F32.A Depression, unspecified; E66.9 Obesity, unspecified; Z68.39 Body mass index [BMI] 39.0-39.9, adult; Z91.09 Other allergy status, other than to drugs and biological substances; Z88.1 Allergy status to other antibiotic agents; Z88.8 Allergy status to other drugs, medicaments and biological substances; Z88.6 Allergy status to analgesic agent
CPT/HCPCS: 96372; 99283; 99284; J2360

== ENCOUNTER 2021-11-26 04:20 | Emergency (ER) | payer MEDICARE, MEDICAID ==
[2021-11-26] MEDS ORDERED: Take Home: Ciprofloxacin 500 MG Tab, 2 Tab Pack PO ONE (04:53)
[2021-11-26 06:26] VITALS: BP 137/72; PULSE 103
== END 2021-11-26 05:07 | disposition home or self-care (01) ==
LOC: VM.ED 04:20
DX: N39.0 Urinary tract infection, site not specified (principal); I10 Essential (primary) hypertension; E11.9 Type 2 diabetes mellitus without complications; E66.9 Obesity, unspecified; Z88.1 Allergy status to other antibiotic agents; Z88.8 Allergy status to other drugs, medicaments and biological substances; Z88.2 Allergy status to sulfonamides; Z88.6 Allergy status to analgesic agent; Z68.41 Body mass index [BMI] 40.0-44.9, adult; Z79.899 Other long term (current) drug therapy
CPT/HCPCS: 81001; 87086; 87088; 87186; 99283; A9270

== ENCOUNTER 2021-11-28 11:48 | Emergency (ER) | payer MEDICARE, MEDICAID ==
[2021-11-28 12:13] VITALS: BP 152/92; PULSE 101
== END 2021-11-28 14:59 | disposition home or self-care (01) ==
LOC: VM.ED 11:48
DX: S13.4XXA Sprain of ligaments of cervical spine, initial encounter (principal); S40.012A Contusion of left shoulder, initial encounter; S40.011A Contusion of right shoulder, initial encounter; I10 Essential (primary) hypertension; E11.9 Type 2 diabetes mellitus without complications; E66.9 Obesity, unspecified; Z68.30 Body mass index [BMI] 30.0-30.9, adult; Z91.048 Other nonmedicinal substance allergy status; Z88.1 Allergy status to other antibiotic agents; Z88.8 Allergy status to other drugs, medicaments and biological substances; Z88.2 Allergy status to sulfonamides; Z88.0 Allergy status to penicillin; Z91.09 Other allergy status, other than to drugs and biological substances; Z79.899 Other long term (current) drug therapy; W18.09XA Striking against other object with subsequent fall, initial encounter
CPT/HCPCS: 71046; 72125; 73030-LT; 73030-RT; 99284

== ENCOUNTER 2022-01-15 15:01 | Emergency (ER) | payer MEDICARE, MEDICAID, OTHER, SELFPAY ==
[2022-01-15 15:07] VITALS: BP 100/71; PULSE 86
[2022-01-15] MEDS ORDERED: Ketorolac 30 MG/ML SDV IM ONE (15:21)
[2022-01-15] MEDS ORDERED: Orphenadrine 60 MG/2 ML Inj IM ONE (15:21)
== END 2022-01-15 15:35 | disposition home or self-care (01) ==
LOC: VM.ED 15:01
DX: S43.401A Unspecified sprain of right shoulder joint, initial encounter (principal); I10 Essential (primary) hypertension; E11.9 Type 2 diabetes mellitus without complications; E66.9 Obesity, unspecified; Z68.30 Body mass index [BMI] 30.0-30.9, adult; Z91.048 Other nonmedicinal substance allergy status; Z91.09 Other allergy status, other than to drugs and biological substances; Z88.2 Allergy status to sulfonamides; Z88.0 Allergy status to penicillin; Z88.1 Allergy status to other antibiotic agents; Z88.8 Allergy status to other drugs, medicaments and biological substances; Z79.899 Other long term (current) drug therapy; W19.XXXA Unspecified fall, initial encounter; Y92.009 Unspecified place in unspecified non-institutional (private) residence as the place of occurrence of the external cause
CPT/HCPCS: 73030-RT; 96372; 99283; J1885; J2360

== ENCOUNTER 2022-01-21 13:47 | Emergency (ER) | payer MEDICARE, MEDICAID ==
[2022-01-21] MEDS ORDERED: Nirmatrelvir/Ritonavir 300 MG/100 MG Dose Pack PO SCH (14:15)
== END 2022-01-21 14:10 | disposition home or self-care (01) ==
LOC: VM.ED 13:47
DX: U07.1 COVID-19 (principal); I10 Essential (primary) hypertension; E11.9 Type 2 diabetes mellitus without complications; E66.9 Obesity, unspecified; Z91.048 Other nonmedicinal substance allergy status; Z88.8 Allergy status to other drugs, medicaments and biological substances; Z88.1 Allergy status to other antibiotic agents; Z88.2 Allergy status to sulfonamides; Z88.0 Allergy status to penicillin; Z88.6 Allergy status to analgesic agent; Z79.899 Other long term (current) drug therapy; Z90.49 Acquired absence of other specified parts of digestive tract
CPT/HCPCS: 99283; A9270-GY

== ENCOUNTER 2022-01-22 22:13 | Emergency (ER) | payer MEDICARE, MEDICAID ==
[2022-01-22 23:38] VITALS: BP 134/94
[2022-01-23 00:02] VITALS: PULSE 108
== END 2022-01-23 00:15 | disposition home or self-care (01) ==
LOC: VM.ED 22:13
DX: U07.1 COVID-19 (principal); I10 Essential (primary) hypertension; E11.9 Type 2 diabetes mellitus without complications; E66.9 Obesity, unspecified; Z91.048 Other nonmedicinal substance allergy status; Z88.8 Allergy status to other drugs, medicaments and biological substances; Z88.1 Allergy status to other antibiotic agents; Z88.2 Allergy status to sulfonamides; Z88.6 Allergy status to analgesic agent; Z79.899 Other long term (current) drug therapy; Z90.49 Acquired absence of other specified parts of digestive tract
CPT/HCPCS: 99284; U0002

== ENCOUNTER 2022-01-23 12:26 | Emergency (ER) | payer MEDICARE, MEDICAID ==
[2022-01-23] MEDS ORDERED: Sodium Chloride 0.9% 1,000 ML IV ONE (12:30)
[2022-01-23] MEDS ORDERED: Sodium Chloride 0.9% 10 ML Syringe FLUSH PRN (12:30)
[2022-01-23] MEDS ORDERED: Naloxone 2 MG/2 ML Syringe IVPUSH STA (12:35)
[2022-01-23 13:11] LABS: CHLORIDE,CL 103 mmol/L (98-107); SODIUM,NA 143 mmol/L (136-145)
[2022-01-23 13:12] LABS: ANION GAP 15.1 mmol/L (5-15); ESTIMATED GFR 64 mL/min (>=60)
[2022-01-23 14:03] LABS: BUPRENORPHINE,URINE NEGATIVE (NEGATIVE); MARIJUANA,URINE NEGATIVE (NEGATIVE); METHYLENEDIOXYMETHAMP,UR NEGATIVE (NEGATIVE); PHENCYCLIDINE,URINE NEGATIVE (NEGATIVE)
[2022-01-23 14:45] VITALS: BP 123/72; PULSE 106
== END 2022-01-23 14:54 | disposition home or self-care (01) ==
LOC: VM.ED 12:26
DX: T50.901A Poisoning by unspecified drugs, medicaments and biological substances, accidental (unintentional), initial encounter (principal); R40.4 Transient alteration of awareness; I10 Essential (primary) hypertension; E11.9 Type 2 diabetes mellitus without complications; E66.9 Obesity, unspecified; Z68.30 Body mass index [BMI] 30.0-30.9, adult; Z79.899 Other long term (current) drug therapy; Z79.84 Long term (current) use of oral hypoglycemic drugs; Z86.16 Personal history of COVID-19
CPT/HCPCS: 36415; 80053; 80305-QW; 85025; 96361; 96374; 99284; 99284-25; J2310; J7030

== ENCOUNTER 2022-10-04 19:04 | Emergency (ER) | payer MEDICARE, MEDICAID ==
[2022-10-04] MEDS ORDERED: Albuterol/Ipratropium 3.0-0.5 MG/3 ML Neb Soln NEB ONE (19:18)
[2022-10-04 19:33] LABS: BASOPHILS PERCENT AUTO 0.2 % (0.2-1.2); EOSINOPHILS ABSOLUTE AUTO 0.2 x10^3/uL (0.0-0.5); HEMATOCRIT 31.5 % (33.0-47.0); HEMOGLOBIN 9.6 g/dL (12.0-16.0); IMMATURE GRAN ABSOLUTE AUTO 0.01 x10^3/uL (0.00-0.07); LYMPHOCYTES ABSOLUTE AUTO 2.1 x10^3/uL (1.0-4.8); LYMPHOCYTES PERCENT AUTO 24.5 % (25.0-50.0); MEAN CORPUSCULAR HEMOGLOBIN 22.7 pg (26.0-32.0); MEAN CORPUSCULAR HGB CONC 30.5 g/dL (32.0-36.0); MEAN CORPUSCULAR VOLUME 74.5 fL (78.0-93.0); MONOCYTES ABSOLUTE AUTO 0.7 x10^3/uL (0.0-0.8); MONOCYTES PERCENT AUTO 8.6 % (2.0-11.0); NEUTROPHILS ABSOLUTE AUTO 5.6 x10^3/uL (1.8-7.7); NEUTROPHILS PERCENT AUTO 64.6 % (50.0-80.0); PLATELET COUNT,PLT 232 x10^3/uL (130-400); RED BLOOD CELL COUNT 4.23 x10^6/uL (4.00-5.50); WHITE BLOOD CELL COUNT,WBC 8.6 x10^3/uL (4.0-10.0)
[2022-10-04 19:54] LABS: A/G RATIO 1.03; ALANINE AMINOTRANSFERASE,ALT 17 U/L (14-59); ALBUMIN 3.2 g/dL (3.4-5.0); ALKALINE PHOSPHATASE 87 U/L (46-116); ASPARTATE AMNIOTRANSFERASE,AST 13 U/L (15-37); BLOOD UREA NITROGEN,BUN 13 mg/dL (7-18); CALCIUM 8.5 mg/dL (8.5-10.1); CARBON DIOXIDE,CO2 25 mmol/L (21-32); CHLORIDE,CL 105 mmol/L (98-107); CREATININE 0.8 mg/dL (0.55-1.02); GLUCOSE RANDOM 125 mg/dL (70-99); POTASSIUM,K 4.2 mmol/L (3.5-5.1); PROTEIN TOTAL,TP 6.3 g/dL (6.4-8.2); SODIUM,NA 142 mmol/L (136-145)
[2022-10-04 20:03] VITALS: BP 148/81; PULSE 81
[2022-10-04 20:07] LABS: ANION GAP 16.2 mmol/L (5-15); BILIRUBIN TOTAL < 0.1 mg/dL (0.2-1.0); ESTIMATED GFR 93 mL/min (>=60)
[2022-10-04] MEDS ORDERED: Take Home: predniSONE 20 MG, 2 Tab Pack PO ONE (20:21)
== END 2022-10-04 21:00 | disposition home or self-care (01) ==
LOC: VM.ED 19:04
DX: J98.01 Acute bronchospasm (principal); I10 Essential (primary) hypertension; E11.9 Type 2 diabetes mellitus without complications; E66.9 Obesity, unspecified; Z68.41 Body mass index [BMI] 40.0-44.9, adult; Z86.16 Personal history of COVID-19; Z91.048 Other nonmedicinal substance allergy status; Z88.8 Allergy status to other drugs, medicaments and biological substances; Z88.1 Allergy status to other antibiotic agents; Z88.2 Allergy status to sulfonamides; Z88.0 Allergy status to penicillin; Z79.84 Long term (current) use of oral hypoglycemic drugs; Z79.899 Other long term (current) drug therapy
CPT/HCPCS: 36415; 71045; 80053; 85025; 94640; 99285; J7620-GY

== ENCOUNTER 2023-02-07 00:43 | Emergency (ER) | payer MEDICARE, MEDICAID ==
[2023-02-07 00:54] VITALS: BP 149/70; PULSE 90
== END 2023-02-07 01:05 | disposition home or self-care (01) ==
LOC: VM.ED 00:43
DX: S46.911A Strain of unspecified muscle, fascia and tendon at shoulder and upper arm level, right arm, initial encounter (principal); I10 Essential (primary) hypertension; E11.9 Type 2 diabetes mellitus without complications; E66.9 Obesity, unspecified; Z68.30 Body mass index [BMI] 30.0-30.9, adult; Z91.09 Other allergy status, other than to drugs and biological substances; Z91.048 Other nonmedicinal substance allergy status; Z88.1 Allergy status to other antibiotic agents; Z88.8 Allergy status to other drugs, medicaments and biological substances; Z88.2 Allergy status to sulfonamides; Z79.899 Other long term (current) drug therapy; W01.0XXA Fall on same level from slipping, tripping and stumbling without subsequent striking against object, initial encounter
CPT/HCPCS: 99283

== ENCOUNTER 2023-02-26 11:46 | Emergency (ER) | payer MEDICARE, MEDICAID ==
[2023-02-26 11:59] VITALS: BP 144/75; PULSE 88
[2023-02-26 12:26] LABS: BASOPHILS PERCENT AUTO 0.4 % (0.2-1.2); EOSINOPHILS ABSOLUTE AUTO 0.2 x10^3/uL (0.0-0.5); EOSINOPHILS PERCENT AUTO 4.3 % (0.0-4.0); HEMATOCRIT 35.9 % (33.0-47.0); HEMOGLOBIN 10.5 g/dL (12.0-16.0); LYMPHOCYTES ABSOLUTE AUTO 1.2 x10^3/uL (1.0-4.8); LYMPHOCYTES PERCENT AUTO 25.3 % (25.0-50.0); MEAN CORPUSCULAR HEMOGLOBIN 21.4 pg (26.0-32.0); MEAN CORPUSCULAR HGB CONC 29.2 g/dL (32.0-36.0); MEAN CORPUSCULAR VOLUME 73.3 fL (78.0-93.0); MONOCYTES ABSOLUTE AUTO 0.4 x10^3/uL (0.0-0.8); MONOCYTES PERCENT AUTO 8.4 % (2.0-11.0); NEUTROPHILS PERCENT AUTO 61.6 % (50.0-80.0); WHITE BLOOD CELL COUNT,WBC 4.9 x10^3/uL (4.0-10.0)
[2023-02-26 12:36] LABS: PLATELET COUNT,PLT 236 x10^3/uL (130-400)
[2023-02-26 12:49] LABS: A/G RATIO 0.94; ALANINE AMINOTRANSFERASE,ALT 11 U/L (14-59); ALBUMIN 3.1 g/dL (3.4-5.0); ALKALINE PHOSPHATASE 87 U/L (46-116); ASPARTATE AMNIOTRANSFERASE,AST 16 U/L (15-37); BILIRUBIN TOTAL 0.3 mg/dL (0.2-1.0); BLOOD UREA NITROGEN,BUN 12 mg/dL (7-18); C-REACTIVE PROTEIN 0.91 mg/dL (<=0.30); CALCIUM 8.7 mg/dL (8.5-10.1); CARBON DIOXIDE,CO2 29 mmol/L (21-32); CHLORIDE,CL 106 mmol/L (98-107); CREATININE 0.9 mg/dL (0.55-1.02); GLUCOSE RANDOM 152 mg/dL (70-99); POTASSIUM,K 4.3 mmol/L (3.5-5.1); PROTEIN TOTAL,TP 6.4 g/dL (6.4-8.2); SODIUM,NA 141 mmol/L (136-145)
[2023-02-26 12:53] LABS: ANION GAP 10.3 mmol/L (5-15); ESTIMATED GFR 81 mL/min (>=60)
[2023-02-26 13:22] LABS: APPEARANCE,URINE CLOUDY (CLEAR); BILIRUBIN,URINE NEGATIVE (NEGATIVE); COLOR,URINE DARK YELLOW (YELLOW); GLUCOSE,URINE NEGATIVE (NEGATIVE); KETONES,URINE NEGATIVE (NEGATIVE); LEUKOCYTE ESTERASE,URINE SMALL (NEGATIVE); NITRITE,URINE NEGATIVE (NEGATIVE); OCCULT BLOOD,URINE TRACE-INTACT (NEGATIVE); PH,URINE 7.5 (5.0-8.0); PROTEIN,URINE 30 mg/dL (NEGATIVE)
[2023-02-26 13:31] LABS: BACTERIA,URINE MODERATE /HPF (NOT SEEN); SQUAMOUS EPITHELIAL CELLS,UR MODERATE /HPF (NOT SEEN); WBC,URINE 30-40 /HPF (NOT SEEN)
[2023-02-26 13:32] LABS: MUCUS,URINE FEW /LPF (NOT SEEN)
== END 2023-02-26 13:51 | disposition home or self-care (01) ==
LOC: VM.ED 11:46
DX: R19.7 Diarrhea, unspecified (principal); I10 Essential (primary) hypertension; E11.9 Type 2 diabetes mellitus without complications; E66.9 Obesity, unspecified; Z86.16 Personal history of COVID-19; Z88.8 Allergy status to other drugs, medicaments and biological substances; Z88.1 Allergy status to other antibiotic agents; Z91.048 Other nonmedicinal substance allergy status; Z88.2 Allergy status to sulfonamides; Z88.0 Allergy status to penicillin; Z79.899 Other long term (current) drug therapy
CPT/HCPCS: 36415; 80053; 81001; 85025; 86140; 87086; 99283; 99284

== ENCOUNTER 2024-05-03 10:34 | Emergency (ER) | payer OTHER, MEDICARE, MEDICAID ==
[2024-05-03 10:57] VITALS: BP 127/62; PULSE 59
[2024-05-03] MEDS: HYDROmorphone 1 MG/ML Syringe SUBCUT ONE (11:28)
== END 2024-05-03 12:18 | disposition home or self-care (01) ==
LOC: SUPCPDRO 10:34 → VM.ED 10:34
DX: M62.830 Muscle spasm of back (principal); G89.29 Other chronic pain; I10 Essential (primary) hypertension; E11.9 Type 2 diabetes mellitus without complications; E66.9 Obesity, unspecified; Z86.16 Personal history of COVID-19; Z90.49 Acquired absence of other specified parts of digestive tract; Z90.710 Acquired absence of both cervix and uterus; Z79.899 Other long term (current) drug therapy; Z79.84 Long term (current) use of oral hypoglycemic drugs; Z88.6 Allergy status to analgesic agent; Z88.1 Allergy status to other antibiotic agents; Z88.8 Allergy status to other drugs, medicaments and biological substances; Z88.2 Allergy status to sulfonamides; Z91.048 Other nonmedicinal substance allergy status; Z68.41 Body mass index [BMI] 40.0-44.9, adult; V49.40XA Driver injured in collision with unspecified motor vehicles in traffic accident, initial encounter
CPT/HCPCS: 72070; 72100; 96372; 99284; J1171

== ENCOUNTER 2024-07-02 13:03 | Emergency (ER) | payer MEDICARE, MEDICAID ==
[2024-07-02 16:14] VITALS: BP 128/78; PULSE 87
== END 2024-07-02 14:10 | disposition home or self-care (01) ==
LOC: VM.ED 13:03
DX: L25.9 Unspecified contact dermatitis, unspecified cause (principal); L03.90 Cellulitis, unspecified; I10 Essential (primary) hypertension; E66.9 Obesity, unspecified; E11.9 Type 2 diabetes mellitus without complications; Z88.0 Allergy status to penicillin; Z88.1 Allergy status to other antibiotic agents; Z88.2 Allergy status to sulfonamides; Z91.048 Other nonmedicinal substance allergy status; Z79.899 Other long term (current) drug therapy; Z86.16 Personal history of COVID-19; Z90.49 Acquired absence of other specified parts of digestive tract; Z90.710 Acquired absence of both cervix and uterus; Z68.41 Body mass index [BMI] 40.0-44.9, adult
CPT/HCPCS: 99283

== ENCOUNTER 2024-07-24 16:41 | Emergency (ER) | payer MEDICARE, MEDICAID ==
[2024-07-24 17:34] VITALS: BP 125/74; PULSE 102
[2024-07-24] MEDS: methylPREDNISolone Sodium Succinate 125 MG/2 ML SDV IM ONE (17:39)
[2024-07-24] MEDS: Benzonatate 100 MG Cap PO ONE (18:11)
== END 2024-07-24 18:13 | disposition home or self-care (01) ==
LOC: VM.ED 16:41
DX: J10.1 Influenza due to other identified influenza virus with other respiratory manifestations (principal); I10 Essential (primary) hypertension; E11.9 Type 2 diabetes mellitus without complications; E66.9 Obesity, unspecified; Z68.41 Body mass index [BMI] 40.0-44.9, adult; Z86.16 Personal history of COVID-19; Z90.710 Acquired absence of both cervix and uterus; Z90.49 Acquired absence of other specified parts of digestive tract; Z88.2 Allergy status to sulfonamides; Z88.1 Allergy status to other antibiotic agents; Z88.8 Allergy status to other drugs, medicaments and biological substances; Z88.6 Allergy status to analgesic agent; Z91.048 Other nonmedicinal substance allergy status; Z79.84 Long term (current) use of oral hypoglycemic drugs; Z79.899 Other long term (current) drug therapy
CPT/HCPCS: 71045; 96372; 99283; 99284; A9270-GY; J2919

== ENCOUNTER 2024-09-04 15:58 | Emergency (ER) | payer MEDICARE, MEDICAID ==
[2024-09-04] MEDS: HYDROmorphone 1 MG/ML Syringe IVPUSH ONE (16:30)
[2024-09-04] MEDS: Ondansetron 4 MG/2 ML SDV IVPUSH ONE (16:30)
[2024-09-04] MEDS ORDERED: Naloxone 0.4 MG/ML SDV IVPUSH PRN (17:15)
[2024-09-04] MEDS: Morphine 2 MG/ML SYRINGE IVPUSH ONE ×2 (17:22→18:50)
[2024-09-04 19:19] VITALS: BP 131/74; PULSE 93
== END 2024-09-04 19:05 | disposition home or self-care (01) ==
LOC: SUPCPDRO 15:58 → VM.ED 15:58
DX: M54.6 Pain in thoracic spine (principal); M54.50 Low back pain, unspecified; M54.2 Cervicalgia; I10 Essential (primary) hypertension; E11.9 Type 2 diabetes mellitus without complications; E66.9 Obesity, unspecified; Z90.710 Acquired absence of both cervix and uterus; Z79.899 Other long term (current) drug therapy; Z88.8 Allergy status to other drugs, medicaments and biological substances; Z88.1 Allergy status to other antibiotic agents; Z88.0 Allergy status to penicillin; Z88.5 Allergy status to narcotic agent; Z68.41 Body mass index [BMI] 40.0-44.9, adult; Z88.2 Allergy status to sulfonamides; Z91.048 Other nonmedicinal substance allergy status; W19.XXXA Unspecified fall, initial encounter; Y92.093 Driveway of other non-institutional residence as the place of occurrence of the external cause
CPT/HCPCS: 96374; 96375; 96376; 99284; J1171; J1642; J2270; J2405; J3360

== ENCOUNTER 2024-10-25 02:20 | Emergency (ER) | payer MEDICARE, MEDICAID ==
[2024-10-25 02:34] VITALS: BP 94/53; PULSE 78
== END 2024-10-25 02:35 | disposition left against medical advice (07) ==
LOC: VM.ED 02:20
DX: Z53.21 Procedure and treatment not carried out due to patient leaving prior to being seen by health care provider (principal)

== ENCOUNTER 2024-10-25 11:48 | Emergency (ER) | payer MEDICARE, MEDICAID ==
[2024-10-25 12:06] VITALS: BP 111/72; PULSE 87
[2024-10-25] MEDS: Tetracaine HCl/PF 0.5% 4 ML Bottle EYELF ONE (12:19)
[2024-10-25] MEDS: Fluorescein 1 MG Ophth Strip EYELF ONE (12:19)
== END 2024-10-25 12:40 | disposition home or self-care (01) ==
LOC: VM.ED 11:48
DX: S00.212A Abrasion of left eyelid and periocular area, initial encounter (principal); H10.32 Unspecified acute conjunctivitis, left eye; I10 Essential (primary) hypertension; E11.9 Type 2 diabetes mellitus without complications; E66.9 Obesity, unspecified; Z90.49 Acquired absence of other specified parts of digestive tract; Z90.710 Acquired absence of both cervix and uterus; Z79.899 Other long term (current) drug therapy; Z88.8 Allergy status to other drugs, medicaments and biological substances; Z91.048 Other nonmedicinal substance allergy status; Z88.2 Allergy status to sulfonamides; Z88.1 Allergy status to other antibiotic agents; Z88.0 Allergy status to penicillin; Z91.030 Bee allergy status; W55.03XA Scratched by cat, initial encounter
CPT/HCPCS: 99283; J3490

== ENCOUNTER 2025-01-09 19:50 | Emergency (ER) | payer MEDICARE, MEDICAID ==
[2025-01-09 20:43] VITALS: BP 136/92; PULSE 87
== END 2025-01-09 21:10 | disposition home or self-care (01) ==
LOC: VM.ED 19:50
DX: M54.41 Lumbago with sciatica, right side (principal); I10 Essential (primary) hypertension; E11.9 Type 2 diabetes mellitus without complications; Z90.49 Acquired absence of other specified parts of digestive tract; Z91.048 Other nonmedicinal substance allergy status; Z91.030 Bee allergy status; Z88.1 Allergy status to other antibiotic agents; Z88.8 Allergy status to other drugs, medicaments and biological substances; Z88.2 Allergy status to sulfonamides; Z88.6 Allergy status to analgesic agent; Z79.899 Other long term (current) drug therapy
CPT/HCPCS: 96372; 99283; 99283-25; J1171